=== PATIENT | female | born 1950 | race Caucasian/White ===

== ENCOUNTER → 2019-01-22 | Outpatient (CLI) | payer BC ==
--- NOTE | 2019-01-24 06:57 | PE ---
EXAMINATION TYPE: PET CT fusion skull to thigh DATE OF EXAM: 01/22/2019 COMPARISON: NONE HISTORY: Solitary pulmonary nodule left lung. TECHNIQUE: Following the intravenous administration of 15.613 mCi of F-18 FDG, whole body images are performed from the skull base to the midthigh. Images are reviewed on the computer in the coronal, axial, and sagittal planes. Reconstructed rotating images are created on independent workstation and reviewed on the computer. A noncontrast CT is performed in conjunction with the PET scan. SCAN: Initial Scan FINDINGS: SKULL BASE AND NECK: No suspicious hypermetabolic uptake. CHEST, MEDIASTINUM, AND HILAR REGION: Moderate to advanced emphysematous change most prominent in the upper lungs is present. There is spiculated 1.5 x 1.2 cm hypermetabolic left apical nodule, max SUV is 5.47 on axial image 34. No additional areas of suspicious hypermetabolic uptake or adenopathy are identified. ABDOMEN AND PELVIS: No suspicious hypermetabolic uptake is seen. OSSEOUS STRUCTURES: No suspicious hypermetabolic uptake. OTHER CT: Right globe prosthesis or surgery is suspected. There is moderate to severe calcified plaqu e bilateral carotid bulbs, right greater than left. There is cardiomegaly with moderate to severe biatrial dilatation. There is moderate to severe 3 vess el coronary artery calcification which is noted marked underlying coronary artery disease. Cholecystectomy clips are present. There is moderate to severe calcified plaque of the abdominal aort a extending into pelvic branch vessels. There is multilevel spurring in the thoracolumbar spine. There is exaggerated cervical kyphosis. IMPRESSION: There is suspicious hypermetabolic uptake in the 1.5 cm left apical nodule consistent wit h neoplasm. No suspicious adenopathy or metastatic disease is identified.
== END | disposition home or self-care (01) ==
LOC: RADPETMAIN 15:15
PROVIDERS: ATTEND Internal Medicine Critical Care Medicine
DX: R91.1 Solitary pulmonary nodule (principal)
CPT/HCPCS: 78815; A9552

== ENCOUNTER → 2019-05-18 | Day surgery (SDC) | payer BC ==
[2019-05-13 16:32] VITALS: BMI 23.1
[~2019-05-18] MED LIST: ALBUTEROL INHALER 60 PUFF/8 GM INHALER INHALATION SCH; ALBUTEROL NEBULIZED 2.5 MG/3 ML INHALATION STA; ALPRAZolam 0.25 MG TAB PO PRN; ASPIRIN 325 MG TAB PO ONE; ATORVASTATIN 20 MG TAB PO SCH; CITALOPRAM HYDROBROMIDE 20 MG TAB PO SCH; DIGOXIN 125 MCG TAB PO SCH; HEPARIN SODIUM 1,000 UN/ML (10ML VL) IV ONE; HEPARIN SODIUM 1,000 UN/ML (10ML VL) ONE; IOPAMIDOL-370 125ML BTL INJ ONE; ISOSORBIDE MONONITRATE ER 30 MG TAB.ER.24H PO SCH; LIDOCAINE 1% INJ 10MG/ML (20 ML MDV) ONE; LIDOCAINE 1% INJ 10MG/ML (20 ML MDV) SQ ONE; METOPROLOL SUCCINATE (ER) 100 MG TAB.ER.24H PO SCH; MIDAZOLAM (PF) 2 MG/2 ML VIAL IVP ONE; NON-FORMULARY DRUG (Ipratropium/Albuterol Sulfate [Combivent Respimat Inhaler] 1 PUFF) INHALATION SCH; RIVAROXABAN 20 MG TAB PO SCH; RX INFO: IV CONTRAST WAS GIVEN 1 EACH MISC MISCELLANE PRN; SODIUM CHLORIDE 0.9% 1,000 ML IV SCH; SODIUM CHLORIDE 0.9% 1,000 ML in EMPTY BAG 1 BAG IV ONE; SPIRONOLACTONE 25 MG TAB PO SCH; VERAPAMIL 2.5 MG/ML 2 ML AMP ONE; fentaNYL (PF) 50 MCG/ML 2 ML AMP IV ONE; fentaNYL (PF) 50 MCG/ML 2 ML AMP ONE
[2019-05-18 11:32] VITALS: TEMP 98
[2019-05-18 16:29] VITALS: RESP 22
[2019-05-18 17:10] VITALS: BP 135/60; PULSE 73
--- NOTE | 2019-05-18 20:08 | CC ---
CARDIAC CATHETERIZATION REPORT Mrs. Casey is a 68-year-old female with known history of hypertension who has been followed by Dr. Santacruz and has a history of chronic persistent atrial fibrillation as well history of COPD who has been complaining of progressive symptoms of chest discomfort and dyspnea on exertion. She was evaluated by Dr. Santacruz and recommendation was made regarding cardiac catheterization. The procedure as well as the risks and complication were discussed with the patient who is in full understanding and agreement. PROCEDURE DESCRIPTION: Patient was brought to laboratory aide in a fasting semi-sedated state after receiving fentanyl and Benadryl and achieving moderate conscious sedated state. Using Xylocaine anesthesia and Seldinger technique, a 6-[place] sheath was introduced in the right radial artery. Selective right and left coronary angiography was performed using 5- [place] 3 and half bend right and left Arnaldo catheter multiple views of the coronary artery including hemiaxial views obtained. Following that, 5-[place] tight pigtail catheter was introduced into the left ventricle and a 30 degree SU view of the left ventricle was obtained. Following that, catheter and sheath were removed. Hemostasis was obtained with deployment of a TR band. There was no immediate complication. Patient is returned to her room in stable condition. Of note, the patient received 3500 units of intravenous heparin as well as intra- arterial verapamil. FINDINGS: FLUOROSCOPY: There was calcification involving the coronary arteries. SELECTIVE CORONARY ANGIOGRAM: LEFT MAIN: This is a large-sized vessel bifurcating into left circumflex, left anterior descending artery, left main coronary artery has no evidence of high-grade stenosis. LEFT ANTERIOR DESCENDING ARTERY: This is a large-sized vessel reaching towards the apex, tapers down distal third, giving rise to a moderately sized diagonal branch in the mid segment. The left anterior descending artery in the mid segment has a 20% plaque. The rest of the vessel has no high-grade stenosis. LEFT CIRCUMFLEX: This is a nondominant vessel giving rise to a large obtuse marginal branch that has a mild plaque of about 10%. The rest of the vessel has no high-grade stenosis. RIGHT CORONARY ARTERY: This is a large dominant vessel bifurcating distally into PDA and posterolateral segment and branches, calcified. The right coronary artery in the proximal segment has a 20% to 30% plaque. The right PDA reaches toward the inferior apical wall. The rest of the vessel has no high-grade stenosis. LEFT VENTRICULOGRAM: Left ventriculogram was performed in 30 degree SU view and revealed normal left ventricular size and systolic function. Ejection fraction 60%. There was a 2+ mitral regurgitation but arrhythmia was noted. HEMODYNAMICS: There was no gradient across the aortic valve. The left ventricular end-diastolic pressure was 14-16 mmHg. CONCLUSION: 1. Calcified coronary arteries with mild triple-vessel coronary disease. 2. Normal left ventricular size and systolic function with 2+ mitral regurgitation with arrhythmia. RECOMMENDATIONS: In view of findings and anatomy, I have recommended continued medical therapy with aggressive coronary risk factor modifications that have been initiated. Those findings and recommendation were discussed with the patient and her family and they are in full understanding and agreement. Duration of procedure is 16 minutes. MMHERMINIOL / IJN: [id number] /
== END | disposition home or self-care (01) ==
LOC: CATHCVL 10:49
PROVIDERS: ATTEND Internal Medicine Interventional Cardiology
DX: I11.0 Hypertensive heart disease with heart failure (principal); I50.22 Chronic systolic (congestive) heart failure; I25.10 Atherosclerotic heart disease of native coronary artery without angina pectoris; I25.84 Coronary atherosclerosis due to calcified coronary lesion; I48.2 Chronic atrial fibrillation; I42.0 Dilated cardiomyopathy; J44.9 Chronic obstructive pulmonary disease, unspecified; I08.1 Rheumatic disorders of both mitral and tricuspid valves; I27.20 Pulmonary hypertension, unspecified; Z87.891 Personal history of nicotine dependence; Z82.49 Family history of ischemic heart disease and other diseases of the circulatory system; Z79.01 Long term (current) use of anticoagulants; Z79.82 Long term (current) use of aspirin; Z79.52 Long term (current) use of systemic steroids; Z79.899 Other long term (current) drug therapy
CPT/HCPCS: 94640; 93458; J2001; J3010; J1644; Q9967; J2250

== ENCOUNTER → 2020-12-03 | Outpatient (CLI) | payer MEDICARE ==
--- NOTE | 2020-12-03 10:29 | CT ---
EXAMINATION TYPE: CT chest wo con DATE OF EXAM: 12/03/2020 COMPARISON: Outside PET/CT 12/11/2019 HISTORY: 70-year-old female C3 4.12, lung cancer, Z92.3, Personal history of IRRAD TECHNIQUE: Contiguous axial scanning of the chest without IV contrast. Coronal and sagittal reconstru ctions performed. CT DLP: 259.70 mGycm Automated exposure control for dose reduction was used. FINDINGS: Heart normal size without pericardial effusion. LAD and RCA coronary artery calcifications are presen t. Moderate atherosclerotic arch calcifications. Variant direct takeoff of the left vertebral artery dir ectly from the aortic arch. Mildly enlarged 1.1 cm AP window lymph node remains unchanged. No thoracic lymphadenopathy by CT size criteria. 6 mm irregular nodule posterior right mid lung versus 1.2 cm on 12/11/2019. Focal irregular patchy density anterior right upper lobe extending to the subpleural region unchanged from 12/11/2019. Left greater than right biapical pleuroparenchymal scarring is unchanged. There is new patchy opacity in the posterior left lower lobe that could represent early developing pn eumonitis. No pleural effusion. COPD with moderate to advanced emphysema. Tiny hiatal hernia. Visualized upper abdomen otherwise shows cholecystectomy clips as well as a oment al fat-containing right paramedian epigastric ventral abdominal wall hernia measuring 3.4 cm wide ojse juan jonatan 2.6 cm on 12/11/2019. Moderate atherosclerotic calcifications continue into the upper abdominal aor ta. Bones: No osseous destructive process. IMPRESSION: 1. COPD WITH MODERATE TO ADVANCED EMPHYSEMA. THERE IS NEW PATCHY OPACITY IN THE POSTERIOR LEFT LOWER LOBE THAT COULD REPRESENT EARLY DEVELOPING PNEUMONIA. CORRELATE WITH PATIENT'S SYMPTOMS. 2. A 6 MM IRREGULAR NODULE POSTERIOR RIGHT MIDLUNG IS SMALLER FROM 12/11/2019 WHERE IT MEASURED 1.2 CM. 3. A PATCH OF IRREGULAR OPACITY IN THE ANTERIOR RIGHT UPPER LOBE IS UNCHANGED FROM 12/11/2019. 4. A 3.4 CM OMENTAL FAT-CONTAINING EPIGASTRIC VENTRAL ABDOMINAL WALL HERNIA SLIGHTLY LARGER FROM 2.6 CM, PREVIOUSLY.
== END | disposition home or self-care (01) ==
LOC: RADCTMAIN 08:56
PROVIDERS: ATTEND Radiology Radiation Oncology
DX: J43.9 Emphysema, unspecified (principal); R91.1 Solitary pulmonary nodule; R91.8 Other nonspecific abnormal finding of lung field; C34.12 Malignant neoplasm of upper lobe, left bronchus or lung; Z92.3 Personal history of irradiation; Z87.891 Personal history of nicotine dependence
CPT/HCPCS: 71250

== ENCOUNTER 2020-12-05 13:59 | Inpatient (IN) | payer MEDICARE ==
[2020-12-05] MEDS ORDERED: methylPREDNISolone SOD SUCCI 125 MG/2 ML VIAL IV STA (14:24)
[2020-12-05] MEDS ORDERED: IPRATROPIUM-ALBUTEROL 3 ML NEB INHALATION STA (14:24)
[2020-12-05 14:37] LABS: Basophils # (A) 0.1 k/uL (0-0.2); Basophils % (A) 0 %; Eosinophils # (A) 0.3 k/uL (0-0.7); Eosinophils % (A) 2 %; HGB 13.5 gm/dL (11.4-16.0); Lymphocytes # (A) 1.1 k/uL (1.0-4.8); Lymphocytes % (A) 8 %; MCH 33.4 pg (25.0-35.0); MCHC 33.8 g/dL (31.0-37.0); MCV 98.7 fL (80.0-100.0); Monocytes # (A) 0.7 k/uL (0-1.0); Monocytes % (A) 5 %; Neutrophils # (A) 12.3 k/uL (1.3-7.7); Neutrophils % (A) 85 %; Platelet Count 321 k/uL (150-450); RBC 4.05 m/uL (3.80-5.40); RDW 12.8 % (11.5-15.5); WBC 14.5 k/uL (3.8-10.6)
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
[2020-12-05 14:47] LABS: ALT 19 U/L (4-34); AST 29 U/L (14-36); African American GFR (CKD) >90 (>60 ml/min/1.73 sqM); Albumin 3.9 g/dL (3.5-5.0); Alkaline Phosphatase 103 U/L (38-126); Anion Gap 5 mmol/L; Blood Urea Nitrogen 15 mg/dL (7-17); Calcium 8.5 mg/dL (8.4-10.2); Carbon Dioxide 31 mmol/L (22-30); Chloride 98 mmol/L (98-107); Glucose 101 mg/dL (74-99); Magnesium 2.2 mg/dL (1.6-2.3); Non-African American GFR(CKD) >90 (>60 ml/min/1.73 sqM); Potassium 4.5 mmol/L (3.5-5.1); Sodium 134 mmol/L (137-145); Total Bilirubin 0.7 mg/dL (0.2-1.3)
[2020-12-05 14:48] LABS: INR 1.2 (<1.2); Partial Thromboplastin Time 23.2 sec (22.0-30.0); Prothrombin Time 12.4 sec (9.0-12.0)
--- NOTE | 2020-12-05 15:35 | XR ---
EXAMINATION TYPE: XR chest 2V DATE OF EXAM: 12/05/2020 COMPARISON: Chest x-ray 05/23/2020, chest CT 12/03/2020 HISTORY: Difficulty breathing TECHNIQUE: Frontal and lateral views of the chest are obtained. FINDINGS: There is no focal air space opacity, pleural effusion, or pneumothorax seen. The cardiac silhouette size is within normal limits. Interstitial changes are again noted within the lungs. The re are overlying leads. Aorta is dense. Surgical clips present in the upper abdomen. The osseous stru ctures are intact. IMPRESSION: No acute cardiopulmonary process. There is underlying emphysema, interstitial lung disea se.
[2020-12-05] MEDS ORDERED: AZITHROMYCIN 500 MG in SODIUM CHLORIDE 0.9% 250 ML IVPB STA (16:48)
[2020-12-05] MEDS ORDERED: IPRATROPIUM-ALBUTEROL 3 ML NEB INHALATION PRN ×2 (16:53→20:06)
[2020-12-05] MEDS ORDERED: IPRATROPIUM-ALBUTEROL 3 ML NEB INHALATION SCH (20:00)
[2020-12-05] MEDS ORDERED: ALBUTEROL HFA INHALER INHALATION PRN (20:06)
[2020-12-05] MEDS ORDERED: ACETAMINOPHEN TAB 325 MG TAB PO PRN (20:06)
[2020-12-05] MEDS ORDERED: ALBUTEROL NEBULIZED 2.5 MG/3 ML INHALATION PRN (20:06)
[2020-12-05] MEDS ORDERED: WARFARIN 5 MG TAB PO ONE (21:00)
[2020-12-05] MEDS: DOCUSATE 100 MG CAP PO SCH (21:30)
[2020-12-05] MEDS: METOPROLOL SUCCINATE (ER) 100 MG TAB.ER.24H PO SCH (21:30)
[2020-12-05] MEDS: PREGABALIN 50 MG CAP PO SCH (21:30)
[2020-12-05] MEDS: methylPREDNISolone SOD SUCCI 125 MG/2 ML VIAL IV SCH (21:30)
[2020-12-05] MEDS: ATORVASTATIN 40 MG TAB PO SCH (21:30)
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
[2020-12-06] MEDS: IPRATROPIUM-ALBUTEROL 3 ML NEB INHALATION SCH ×7 (00:01→20:12)
[2020-12-06] MEDS: FORMOTEROL FUMARATE 20 MCG/2 ML NEBU INHALATION SCH ×3 (00:01→20:12)
[2020-12-06] MEDS: methylPREDNISolone SOD SUCCI 125 MG/2 ML VIAL IV SCH ×4 (02:22→20:05)
[2020-12-06 07:02] LABS: Glucose,Whole Blood 153 mg/dL (75-99)
[2020-12-06] MEDS: BUDESONIDE 1 MG/2 ML NEBU INHALATION SCH ×3 (07:57→20:12)
[2020-12-06] MEDS: INSULIN ASPART (NovoLOG) 100 UNIT/ML VIAL SQ SCH ×4 (08:24→20:58)
[2020-12-06] MEDS: DOCUSATE 100 MG CAP PO SCH ×2 (08:24→20:05)
[2020-12-06] MEDS: METOPROLOL SUCCINATE (ER) 100 MG TAB.ER.24H PO SCH ×2 (08:24→20:05)
[2020-12-06] MEDS: DIGOXIN 125 MCG TAB PO SCH (08:24)
[2020-12-06] MEDS: amLODIPine 5 MG TAB PO SCH (08:24)
[2020-12-06] MEDS: CITALOPRAM HYDROBROMIDE 20 MG TAB PO SCH (08:24)
[2020-12-06] MEDS: ISOSORBIDE MONONITRATE ER 30 MG TAB.ER.24H PO SCH (08:24)
[2020-12-06] MEDS: PREGABALIN 50 MG CAP PO SCH ×3 (08:24→20:05)
[2020-12-06 09:21] LABS: INR 1.15 (0.90-1.11); Prothrombin Time 12.4 sec (9.9-11.9)
[2020-12-06 11:35] LABS: Glucose,Whole Blood 100 mg/dL (75-99)
[2020-12-06] MEDS: AMOXIC-POT CLAV 875-125MG 1 EACH TAB PO SCH ×2 (11:54→20:06)
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
[2020-12-06 16:51] LABS: Glucose,Whole Blood 102 mg/dL (75-99)
[2020-12-06] MEDS ORDERED: WARFARIN 5 MG TAB PO SCH (17:00)
[2020-12-06] MEDS ORDERED: WARFARIN 7.5 MG TAB PO ONE (18:00)
[2020-12-06] MEDS: FERROUS SULFATE 325 MG TAB PO SCH (18:26)
[2020-12-06] MEDS: ASPIRIN 81 MG PO SCH (18:26)
[2020-12-06] MEDS: MULTIVITAMINS, THERA 1 EACH TAB PO SCH (18:26)
--- NOTE | 2020-12-06 19:30 | P.PN ---
Progress Note - Text Progress Note Date: 12/06/20 Chief Complaint: Short of breath History of presenting complaint: This is a pleasant 70-year-old patient of Dr. García. Follows with sweep molder Dr. Murphy. Chronic stable medical conditions include atrial fibrillation, hyperlipidemia, hypertension, history of lung cancer treated with chemotherapy back in 2019. Patient at home is on 4 L of oxygen. Patient does get exacerbations of getting more short of breath.. Today she was visiting her border patrol agent when she became much worse short of breath. Patient's appetite has been down. Has a port accessed always. No fever no chills. No change in her bowel habits. Hospital course: Admitted with COPD exacerbation. Started on oxygen, DuoNeb, IV Solu-Medrol, inhaled steroids. Today-sitting up in bed. Tolerating a diet. Still short of breath and wheezing. Tired. On oxygen. Review of systems: Was done for constitutional, cardiovascular, GI, pulmonary. relevant finding as above Active Medications Acetaminophen (Acetaminophen Tab 325 Mg Tab) 650 mg PO Q4H PRN PRN Reason: Pain or Fever > 100.5 Last Admin: 12/06/20 12:00 Dose: 650 mg Documented by: Albuterol/Ipratropium (Ipratropium-Albuterol 3 Ml Neb) 3 ml INHALATION RT-Q2H PRN PRN Reason: Shortness Of Breath Or Wheezing Last Admin: 12/06/20 06:03 Dose: 3 ml Documented by: Albuterol/Ipratropium (Ipratropium-Albuterol 3 Ml Neb) 3 ml INHALATION RT-Q4H [facility] Last Admin: 12/06/20 16:02 Dose: 3 ml Documented by: Amlodipine Besylate (Amlodipine 5 Mg Tab) 5 mg PO DAILY [facility] Last Admin: 12/06/20 08:24 Dose: 5 mg Documented by: Amoxicillin/Clavulanate Potassium (Amoxic-Pot Clav 875-125mg 1 Each Tab) 1 each PO Q12HR [facility] Last Admin: 12/06/20 11:54 Dose: 1 each Documented by: Aspirin (Aspirin 81 Mg) 81 mg PO DAILY@1700 [facility] Last Admin: 12/06/20 18:26 Dose: 81 mg Documented by: Atorvastatin Calcium (Atorvastatin 40 Mg Tab) 40 mg PO HS [facility] Last Admin: 12/05/20 21:30 Dose: 40 mg Documented by: Budesonide (Budesonide 1 Mg/2 Ml Nebu) 1 mg INHALATION RT-BID [facility] Last Admin: 12/06/20 07:57 Dose: 1 mg Documented by: Citalopram Hydrobromide (Citalopram Hydrobromide 20 Mg Tab) 20 mg PO DAILY [facility] Last Admin: 12/06/20 08:24 Dose: 20 mg Documented by: Digoxin (Digoxin 125 Mcg Tab) 125 mcg PO DAILY [facility] Last Admin: 12/06/20 08:24 Dose: 125 mcg Documented by: Docusate Sodium (Docusate 100 Mg Cap) 100 mg PO BID [facility] Last Admin: 12/06/20 08:24 Dose: 100 mg Documented by: Ferrous Sulfate (Ferrous Sulfate 325 Mg Tab) 325 mg PO DAILY@1700 [facility] Last Admin: 12/06/20 18:26 Dose: 325 mg Documented by: Formoterol Fumarate (Formoterol Fumarate 20 Mcg/2 Ml Nebu) 20 mcg INHALATION RT-BID [facility] Last Admin: 12/06/20 07:57 Dose: 20 mcg Documented by: Guaifenesin (Guaifenesin Syrup 100mg/5ml 200 Mg/10 Ml Cup) 400 mg PO Q8H PRN PRN Reason: Congestion Insulin Aspart (Insulin Aspart (Novolog) 100 Unit/Ml Vial) 0 unit SQ [facility]; Protocol Last Admin: 12/06/20 18:26 Dose: Not Given Documented by: Isosorbide Mononitrate (Isosorbide Mononitrate Er 30 Mg Tab.Er.24h) 30 mg PO DAILY [facility] Last Admin: 12/06/20 08:24 Dose: 30 mg Documented by: Lorazepam (Lorazepam 0.5 Mg Tab) 0.5 mg PO BID PRN PRN Reason: Anxiety Methylprednisolone Sodium Succinate (Methylprednisolone Sod Succi 125 Mg/2 Ml Vial) 60 mg IV Q6H [facility] Last Admin: 12/06/20 15:16 Dose: 60 mg Documented by: Metoprolol Succinate (Metoprolol Succinate (Er) 100 Mg Tab.Er.24h) 100 mg PO BID [facility] Last Admin: 12/06/20 08:24 Dose: 100 mg Documented by: Miscellaneous Information (Warfarin Per Pharmacy) 0 each MISCELLANE DIRECTED PRN PRN Reason: ANTICOAG Multivitamins (Multivitamins, Thera 1 Each Tab) 1 each PO DAILY@1700 [facility] Last Admin: 12/06/20 18:26 Dose: 1 each Documented by: Pregabalin (Pregabalin 50 Mg Cap) 50 mg PO TID [facility] Last Admin: 12/06/20 15:17 Dose: 50 mg Documented by: Past medical history to include: Atrial fibrillation, lung cancer treated with chemotherapy 2019, COPD, hypertension, hyperlipidemia, home oxygen 4 L, anxiety depression Social history: Lives alone. Does have a walker. Smokes 2 packs a day from age of 10. In 2018. Drinks 7 beers weekly. Family history: Reviewed, noncontributory to presentation Physical examination: VITAL SIGNS: 97.9, 83, 20, 1 6581, 97% on 4 L GENERAL: Sitting up in bed, short of breath eating EYES: Pupils equal. Conjunctiva normal. HEENT: External appearance of nose and ears normal, oral cavity grossly normal. NECK: JVD not raised; masses not palpable. HEART: First and second heart sounds are normal; no edema. LUNGS: Respiratory rate increased, decreased breath sounds prolonged expiration and wheezing. ABDOMEN: Soft, nontender, liver spleen not palpable, no masses palpable. PSYCH: [Alert and oriented x3; mood and affect anxious. INVESTIGATIONS, reviewed in the clinical context: White count 14.5 hemoglobin 13.5 platelets 321 potassium 4.5 creatinine 0.61 ProBNP 1410 Coronavirus [PCR]-not detected EKG tracing personally reviewed by me-atrial fibrillation rate of 89 Chest x-ray film personally reviewed by me-hyperinflated some chronic interstitial changes Assessment and plan: -Acute severe COPD exacerbation, steroid dependent in an ex-smoker. Continue nebulized bronchodilators, IV and inhaled steroids, nebulized long-acting bronchodilator. Pulmonary on the case-slow to respond -Acute on chronic hypoxic respiratory failure from underlying COPD exacerbation, continue with oxygen supplementation-slow to respond -Persistent atrial fibrillation, continue with Coumadin, beta shai -Essential hypertension -continue with Norvasc -Hyperlipidemia continue with Lipitor -Anxiety depression not otherwise specified continue with Celexa -Chronic medical debility does use a walker -Coumadin monitoring per pharmacy Discussed with the patient. Continue current medications.
[2020-12-06 19:59] LABS: Glucose,Whole Blood 145 mg/dL (75-99)
[2020-12-06] MEDS: ATORVASTATIN 40 MG TAB PO SCH (20:05)
[2020-12-07] MEDS: IPRATROPIUM-ALBUTEROL 3 ML NEB INHALATION SCH ×6 (01:17→19:45)
[2020-12-07] MEDS: methylPREDNISolone SOD SUCCI 125 MG/2 ML VIAL IV SCH ×4 (02:58→20:25)
[2020-12-07] MEDS: FORMOTEROL FUMARATE 20 MCG/2 ML NEBU INHALATION SCH ×2 (07:33→19:45)
[2020-12-07] MEDS: BUDESONIDE 1 MG/2 ML NEBU INHALATION SCH ×2 (07:34→19:45)
[2020-12-07 07:45] LABS: Glucose,Whole Blood 134 mg/dL (75-99)
[2020-12-07] MEDS: INSULIN ASPART (NovoLOG) 100 UNIT/ML VIAL SQ SCH ×4 (07:56→21:07)
[2020-12-07] MEDS: DOCUSATE 100 MG CAP PO SCH ×2 (07:56→20:26)
[2020-12-07] MEDS: amLODIPine 5 MG TAB PO SCH (07:56)
[2020-12-07] MEDS: AMOXIC-POT CLAV 875-125MG 1 EACH TAB PO SCH ×2 (07:56→20:25)
[2020-12-07] MEDS: CITALOPRAM HYDROBROMIDE 20 MG TAB PO SCH (07:56)
[2020-12-07] MEDS: DIGOXIN 125 MCG TAB PO SCH (07:57)
[2020-12-07] MEDS: ISOSORBIDE MONONITRATE ER 30 MG TAB.ER.24H PO SCH (07:57)
[2020-12-07] MEDS: PREGABALIN 50 MG CAP PO SCH ×3 (07:57→20:25)
[2020-12-07] MEDS: METOPROLOL SUCCINATE (ER) 100 MG TAB.ER.24H PO SCH ×2 (07:57→20:25)
[2020-12-07 10:52] LABS: INR 1.53 (0.90-1.11); Prothrombin Time 16.2 sec (9.9-11.9)
[2020-12-07 11:47] LABS: Glucose,Whole Blood 107 mg/dL (75-99)
--- NOTE | 2020-12-07 11:47 | P.PN ---
Subjective This is a pleasant 70-year-old patient of Dr. García. Follows with oncologist Dr. Murphy. Chronic stable medical conditions include atrial fibrillation, hyperlipidemia, hypertension, history of lung cancer treated with chemotherapy back in 2019. Patient at home is on 4 L of oxygen. Patient does get exacerbations of getting more short of breath.. Today she was visiting her anesthesiologist assistant when she became much worse short of breath. Patient's appetite has been down. Has a port accessed always. No fever no chills. No change in her bowel habits. Hospital course: Admitted with COPD exacerbation. Started on oxygen, DuoNeb, IV Solu-Medrol, inhaled steroids. Today-sitting up in bed. Tolerating a diet. Still short of breath and whee zing. Tired. On oxygen. Subjective: 12/07/2020 This is a pleasant 70 years old female with past medical history of lung cancer status post chemotherapy, atrial fibrillation and coumadine and chronic hypoxic respiratory failure on 4 L oxygen if we are nasal cannula. Presents because of worsening dyspnea of 2 days' duration associated with cough and phlegm. This morning patient is still short of breath although she feels a little better, her dyspnea is more severe with exertion. While cough is a slightly better. She is saturation 98% on 4 L oxygen via nasal cannula. WBC count 14.5 K on admission, no repeat CBC. INR is slightly trending up at 1.5 today. And diverting exams are unremarkable on admission. At home she was on Coumadin 2.5 mg, she was adherent to therapy and compliant, recently her dose was increased by her doctor for subtherapeutic INR less than month ago. Despite her compliance , on admission is her INR is subtherapeutic at 1.2. INR today is 1.5. Blood pressure is 135/64, heart rate is 76. Patient is afebrile. She remains on Augmentin, normal saline at 75 blade per hour and salmeterol 60 mg as well as warfarin and aspirin 81 mg. Pulmonary team on the case Review of systems CONSTITUTIONAL: No fever, no malaise, no fatigue. HEENT: No recent visual problems or hearing problems. Denied any sore throat. CARDIOVASCULAR: No orthopnea, PND, no palpitations, no syncope. PULMONARY: No chest wall tenderness, no hemoptysis. GASTROINTESTINAL: No diarrhea, no nausea, no vomiting, no abdominal pain. Normoactive bowel sounds. NEUROLOGICAL: No headaches, no weakness, no numbness. HEMATOLOGICAL: Denies any bleeding or petechiae. Active Medications Generic Name Dose Route Start Last Admin Trade Name Freq PRN Reason Stop Dose Admin Acetaminophen 650 mg 12/05/20 20:06 12/06/20 12:00 Acetaminophen Tab 325 Mg Tab PO 650 mg Q4H PRN Administration Pain or Fever > 100.5 Albuterol/Ipratropium 3 ml 12/05/20 16:53 12/06/20 06:03 Ipratropium-Albuterol 3 Ml Neb INHALATION 3 ml RT-Q2H PRN Administration Shortness Of Breath Or Wheezing Albuterol/Ipratropium 3 ml 12/05/20 21:45 12/07/20 10:54 Ipratropium-Albuterol 3 Ml Neb INHALATION 3 ml RT-Q4H FLORINDA Administration Amlodipine Besylate 5 mg 12/06/20 09:00 12/07/20 07:56 Amlodipine 5 Mg Tab PO 5 mg DAILY FLORINDA Administration Amoxicillin/Clavulanate Potassium 1 each 12/06/20 11:00 12/07/20 07:56 Amoxic-Pot Clav 875-125mg 1 Each Tab PO 1 each Q12HR FLORINDA Administration Aspirin 81 mg 12/06/20 17:00 12/06/20 18:26 Aspirin 81 Mg PO 81 mg DAILY@1700 FLORINDA Administration Atorvastatin Calcium 40 mg 12/05/20 21:00 12/06/20 20:05 Atorvastatin 40 Mg Tab PO 40 mg HS FLORINDA Administration Budesonide 1 mg 12/05/20 21:44 12/07/20 07:34 Budesonide 1 Mg/2 Ml Nebu INHALATION 1 mg RT-BID FLORINDA Administration Citalopram Hydrobromide 20 mg 12/06/20 09:00 12/07/20 07:56 Citalopram Hydrobromide 20 Mg Tab PO 20 mg DAILY FLORIDNA Administration Digoxin 125 mcg 12/06/20 09:00 12/07/20 07:57 Digoxin 125 Mcg Tab PO 125 mcg DAILY FLORINDA Administration Docusate Sodium 100 mg 12/05/20 21:00 12/07/20 07:56 Docusate 100 Mg Cap PO 100 mg BID FLORINDA Administration Ferrous Sulfate 325 mg 12/06/20 17:00 12/06/20 18:26 Ferrous Sulfate 325 Mg Tab PO 325 mg DAILY@1700 FLORINDA Administration Formoterol Fumarate 20 mcg 12/05/20 21:44 12/07/20 07:33 Formoterol Fumarate 20 Mcg/2 Ml Nebu INHALATION 20 mcg RT-BID FLORINDA Administration Guaifenesin 400 mg 12/05/20 20:06 Guaifenesin Syrup 100mg/5ml 200 Mg/10 Ml Cup PO Q8H PRN Congestion Insulin Aspart 0 unit 12/06/20 07:30 12/07/20 07:56 Insulin Aspart (Novolog) 100 Unit/Ml Vial SQ 1 unit ACHS FLORINDA Administration Protocol Isosorbide Mononitrate 30 mg 12/06/20 09:00 12/07/20 07:57 Isosorbide Mononitrate Er 30 Mg Tab.Er.24h PO 30 mg DAILY FLORINDA Administration Lorazepam 0.5 mg 12/05/20 20:06 Lorazepam 0.5 Mg Tab PO BID PRN Anxiety Methylprednisolone Sodium Succinate 60 mg 12/05/20 21:00 12/07/20 07:56 Methylprednisolone Sod Succi 125 Mg/2 Ml Vial IV 60 mg Q6H FLORINDA Administration Metoprolol Succinate 100 mg 12/05/20 21:00 12/07/20 07:57 Metoprolol Succinate (Er) 100 Mg Tab.Er.24h PO 100 mg BID FLORINDA Administration Miscellaneous Information 0 each 12/05/20 20:20 Warfarin Per Pharmacy MISCELLANE DIRECTED PRN ANTICOAG Multivitamins 1 each 12/06/20 17:00 12/06/20 18:26 Multivitamins, Thera 1 Each Tab PO 1 each DAILY@1700 FLORINDA Administration Pregabalin 50 mg 12/05/20 22:00 12/07/20 07:57 Pregabalin 50 Mg Cap PO 50 mg TID FLORINDA Administration Objective - Vital Signs Vital signs: Vital Signs Temp 97.8 F 12/07/20 07:56 Pulse 82 12/07/20 11:05 Resp 21 12/07/20 07:56 BP 135/64 12/07/20 07:56 Pulse Ox 98 12/07/20 07:56 Intake & Output 12/06/20 12/07/20 12/07/20 18:59 06:59 18:59 Intake Total 200 Output Total 2400 Balance -2200 Intake: Oral 200 Output: Urine 2400 Other: Voiding Method Toilet Toilet # Voids 5 # Bowel Movements 2 1 - Exam GENERAL: The patient is alert and oriented x3, not in any acute distress. Well developed, well nourished. HEENT: Pupils are round and equally reacting to light. EOMI. No scleral icterus. No conjunctival pallor. Normocephalic, atraumatic. No pharyngeal erythema. No thyromegaly. CARDIOVASCULAR: S1 and S2 present. No murmurs, rubs, or gallops. -PULMONARY: Chest is clear to auscultation, bilateral scattered wheezing and decreased air entry in both sides ABDOMEN: Soft, nontender, nondistended, normoactive bowel sounds. No palpable organomegaly. MUSCULOSKELETAL: No joint swelling or deformity. EXTREMITIES: No cyanosis, clubbing, or pedal edema. NEUROLOGICAL: Gross neurological examination did not reveal any focal deficits. SKIN: No rashes. no petechiae. - Labs CBC & Chem 7: 12/05/20 14:11 12/05/20 14:11 Labs: Abnormal Lab Results - Last 24 Hours (Table) 12/06/20 12/06/20 12/07/20 Range/Units 16:49 19:58 05:40 PT 16.2 H (9.9-11.9) sec INR 1.53 H (0.90-1.11) POC Glucose (mg/dL) 102 H 145 H (75-99) mg/dL 12/07/20 Range/Units 07:33 PT (9.9-11.9) sec INR (0.90-1.11) POC Glucose (mg/dL) 134 H (75-99) mg/dL Microbiology - Last 24 Hours (Table) 12/05/20 17:15 Blood Culture - Preliminary Blood No Growth after 24 hours Assessment and Plan Assessment: -Acute severe COPD exacerbation, steroid dependent in an ex-smoker. Continue nebulized bronchodilators, IV and inhaled steroids, nebulized long-acting bronchodilator. Pulmonary on the case -Acute on chronic hypoxic respiratory failure from underlying COPD exacerbation, continue with oxygen supplementation -Persistent atrial fibrillation, continue with Coumadin, beta shai -Essential hypertension -continue with Norvasc -Hyperlipidemia continue with Lipitor -Anxiety depression not otherwise specified continue with Celexa, not an active issue -Chronic medical debility does use a walker -Coumadin monitoring per pharmacy
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
[2020-12-07] MEDS ORDERED: WARFARIN 5 MG TAB PO SCH (17:00)
[2020-12-07 17:05] LABS: Glucose,Whole Blood 122 mg/dL (75-99)
[2020-12-07] MEDS: ASPIRIN 81 MG PO SCH (17:26)
[2020-12-07] MEDS: MULTIVITAMINS, THERA 1 EACH TAB PO SCH (17:26)
[2020-12-07] MEDS: FERROUS SULFATE 325 MG TAB PO SCH (17:26)
[2020-12-07] MEDS ORDERED: WARFARIN 7.5 MG TAB PO ONE (18:00)
[2020-12-07] MEDS: ATORVASTATIN 40 MG TAB PO SCH (20:25)
[2020-12-07 21:07] LABS: Glucose,Whole Blood 138 mg/dL (75-99)
[2020-12-08] MEDS: IPRATROPIUM-ALBUTEROL 3 ML NEB INHALATION SCH ×6 (00:49→21:04)
[2020-12-08] MEDS: methylPREDNISolone SOD SUCCI 125 MG/2 ML VIAL IV SCH ×4 (03:15→20:43)
[2020-12-08 07:14] LABS: Glucose,Whole Blood 137 mg/dL (75-99)
[2020-12-08] MEDS: amLODIPine 5 MG TAB PO SCH (07:56)
[2020-12-08] MEDS: ISOSORBIDE MONONITRATE ER 30 MG TAB.ER.24H PO SCH (07:56)
[2020-12-08] MEDS: DOCUSATE 100 MG CAP PO SCH ×2 (07:56→20:42)
[2020-12-08] MEDS: INSULIN ASPART (NovoLOG) 100 UNIT/ML VIAL SQ SCH ×4 (07:56→20:43)
[2020-12-08] MEDS: CITALOPRAM HYDROBROMIDE 20 MG TAB PO SCH (07:57)
[2020-12-08] MEDS: PREGABALIN 50 MG CAP PO SCH ×3 (07:57→20:43)
[2020-12-08] MEDS: METOPROLOL SUCCINATE (ER) 100 MG TAB.ER.24H PO SCH ×2 (07:57→20:42)
[2020-12-08] MEDS: DIGOXIN 125 MCG TAB PO SCH (08:07)
[2020-12-08] MEDS: AMOXIC-POT CLAV 875-125MG 1 EACH TAB PO SCH ×2 (08:07→20:42)
[2020-12-08] MEDS: BUDESONIDE 1 MG/2 ML NEBU INHALATION SCH ×2 (08:18→21:04)
[2020-12-08] MEDS: FORMOTEROL FUMARATE 20 MCG/2 ML NEBU INHALATION SCH ×2 (08:18→21:04)
[2020-12-08 08:52] LABS: Basophils # (A) 0.02 X 10*3/uL (0.00-0.10); Basophils % (A) 0.1 %; Eosinophils # (A) 0 X 10*3/uL (0.04-0.35); Eosinophils % (A) 0 %; HCT 40.2 % (37.2-46.3); HGB 13.1 g/dL (12.0-15.0); Lymphocytes # (A) 0.57 X 10*3/uL (0.90-5.00); Lymphocytes % (A) 3.5 %; MCH 32.2 pg (27.0-32.0); MCHC 32.6 g/dL (32.0-37.0); MCV 98.8 fL (80.0-97.0); Mean Platelet Volume 9.8 fL (9.5-12.2); Monocytes # (A) 0.45 X 10*3/uL (0.20-1.00); Monocytes % (A) 2.8 %; Neutrophils # (A) 15.06 X 10*3/uL (1.80-7.70); Neutrophils % (A) 93.1 %; Platelet Count 336 X 10*3/uL (140-440); RBC 4.07 X 10*6/uL (4.10-5.20); RDW 12.6 % (11.5-14.5); WBC 16.18 X 10*3/uL (4.50-10.00)
[2020-12-08 09:16] LABS: African American GFR (CKD) 100.3 (60.0-200.0); Anion Gap 7.6 mmol/L (4.00-12.00); BUN/Creat Ratio 22.86 Ratio (12.00-20.00); Calcium 9.2 mg/dL (8.7-10.3); Carbon Dioxide 33.4 mmol/L (21.6-31.8); Non-African American GFR(CKD) 86.6 (60.0-200.0); Potassium 4.2 mmol/L (3.5-5.5)
[2020-12-08 10:16] LABS: INR 2.29 (0.90-1.11); Prothrombin Time 23.6 sec (9.9-11.9)
--- NOTE | 2020-12-08 11:25 | P.PN ---
Subjective This is a pleasant 70-year-old patient of Dr. García. Follows with director of supply chain Dr. Murphy. Chronic stable medical conditions include atrial fibrillation, hyperlipidemia, hypertension, history of lung cancer treated with chemotherapy back in 2019. Patient at home is on 4 L of oxygen. Patient does get exacerbations of getting more short of breath.. 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 Patient's appetite has been down. Has a port accessed always. No fever no chills. No change in her bowel habits. Hospital course: Admitted with COPD exacerbation. Started on oxygen, DuoNeb, IV Solu-Medrol, inhaled steroids. Today-sitting up in bed. Tolerating a diet. Still short of breath and whee zing. Tired. On oxygen. Subjective: 12/07/2020 This is a pleasant 70 years old female with past medical history of lung cancer status post chemotherapy, atrial fibrillation and coumadine and chronic hypoxic respiratory failure on 4 L oxygen if we are nasal cannula. Presents because of worsening dyspnea of 2 days' duration associated with cough and phlegm. This morning patient is still short of breath although she feels a little better, her dyspnea is more severe with exertion. While cough is a slightly better. She is saturation 98% on 4 L oxygen via nasal cannula. WBC count 14.5 K on admission, no repeat CBC. INR is slightly trending up at 1.5 today. And diverting exams are unremarkable on admission. At home she was on Coumadin 2.5 mg, she was adherent to therapy and compliant, recently her dose was increased by her doctor for subtherapeutic INR less than month ago. Despite her compliance , on admission is her INR is subtherapeutic at 1.2. INR today is 1.5. Blood pressure is 135/64, heart rate is 76. Patient is afebrile. She remains on Augmentin, normal saline at 75 blade per hour and salmeterol 60 mg as well as warfarin and aspirin 81 mg. Pulmonary team on the case 12/08/2020 Patient dyspnea is improved today, she feels better than yesterday, she still with exertional dyspnea, she has less coughing and phlegm. But she denies chest pain Today his oxygen saturation is 97% on 3 L oxygen via nasal cannula, she still tachycardic around 107. She has leukocytosis of 16 day. BMP is unremarkable. Cardiac index that is slightly up at 33.4. Glucose is controlled. INR today is 2.2 after she received Coumadin 7.5 mg yesterday. Dose is going to be 5 mg today. Follow up INR On exam she still has some basal crepitation and minimal leg edema but patient with no history of heart failure only history of A. fib and warfarin. No echocardiogram and system. History of lung cancer Patient still was on normal saline at 75 mL/h which is stopped. Currently she is on Augmentin and Solu-Medrol 60 mg Objective - Vital Signs Vital signs: Vital Signs Temp 98.2 F 12/08/20 07:56 Pulse 108 H 12/08/20 08:33 Resp 20 12/08/20 07:56 BP 125/86 12/08/20 07:56 Pulse Ox 97 12/08/20 07:56 Intake & Output 12/07/20 12/08/20 12/08/20 18:59 06:59 18:59 Intake Total 240 100 Balance 240 100 Intake: Oral 240 100 Other: Voiding Method Toilet Bedside Commode Bedside Commode # Voids 3 3 - Exam GENERAL: The patient is alert and oriented x3, not in any acute distress. Well developed, well nourished. HEENT: Pupils are round and equally reacting to light. EOMI. No scleral icterus. No conjunctival pallor. Normocephalic, atraumatic. No pharyngeal erythema. No thyromegaly. CARDIOVASCULAR: S1 and S2 present. No murmurs, rubs, or gallops. -PULMONARY: Chest is clear to auscultation, bilateral scattered wheezing and decreased air entry in both sides ABDOMEN: Soft, nontender, nondistended, normoactive bowel sounds. No palpable organomegaly. MUSCULOSKELETAL: No joint swelling or deformity. EXTREMITIES: No cyanosis, clubbing, or pedal edema. NEUROLOGICAL: Gross neurological examination did not reveal any focal deficits. SKIN: No rashes. no petechiae. - Labs CBC & Chem 7: 12/08/20 05:45 12/08/20 05:45 Labs: Abnormal Lab Results - Last 24 Hours (Table) 12/07/20 12/07/20 12/07/20 Range/Units 11:45 17:03 21:02 WBC (4.50-10.00) X 10*3/uL RBC (4.10-5.20) X 10*6/uL MCV (80.0-97.0) fL MCH (27.0-32.0) pg Immature Gran # (0.00-0.04) X 10*3/uL Neutrophils # (1.80-7.70) X 10*3/uL Lymphocytes # (0.90-5.00) X 10*3/uL Eosinophils # (0.04-0.35) X 10*3/uL PT (9.9-11.9) sec INR (0.90-1.11) Carbon Dioxide (21.6-31.8) mmol/L BUN/Creatinine Ratio (12.00-20.00) Ratio Glucose (70-110) mg/dL POC Glucose (mg/dL) 107 H 122 H 138 H (75-99) mg/dL 12/08/20 12/08/20 12/08/20 Range/Units 05:45 05:45 05:45 WBC 16.18 H (4.50-10.00) X 10*3/uL RBC 4.07 L (4.10-5.20) X 10*6/uL MCV 98.8 H (80.0-97.0) fL MCH 32.2 H (27.0-32.0) pg Immature Gran # 0.08 H (0.00-0.04) X 10*3/uL Neutrophils # 15.06 H (1.80-7.70) X 10*3/uL Lymphocytes # 0.57 L (0.90-5.00) X 10*3/uL Eosinophils # 0 L (0.04-0.35) X 10*3/uL PT 23.6 H (9.9-11.9) sec INR 2.29 H (0.90-1.11) Carbon Dioxide 33.4 H (21.6-31.8) mmol/L BUN/Creatinine Ratio 22.86 H (12.00-20.00) Ratio Glucose 125 H (70-110) mg/dL POC Glucose (mg/dL) (75-99) mg/dL 12/08/20 Range/Units 07:13 WBC (4.50-10.00) X 10*3/uL RBC (4.10-5.20) X 10*6/uL MCV (80.0-97.0) fL MCH (27.0-32.0) pg Immature Gran # (0.00-0.04) X 10*3/uL Neutrophils # (1.80-7.70) X 10*3/uL Lymphocytes # (0.90-5.00) X 10*3/uL Eosinophils # (0.04-0.35) X 10*3/uL PT (9.9-11.9) sec INR (0.90-1.11) Carbon Dioxide (21.6-31.8) mmol/L BUN/Creatinine Ratio (12.00-20.00) Ratio Glucose (70-110) mg/dL POC Glucose (mg/dL) 137 H (75-99) mg/dL Microbiology - Last 24 Hours (Table) 12/05/20 17:15 Blood Culture - Preliminary Blood No Growth after 48 hours Assessment and Plan Assessment: -Acute severe COPD exacerbation, steroid dependent in an ex-smoker. Continue nebulized bronchodilators, IV and inhaled steroids, nebulized long-acting bronchodilator. Pulmonary on the case -Acute on chronic hypoxic respiratory failure from underlying COPD exacerbation, continue with oxygen supplementation -Persistent atrial fibrillation, continue with Coumadin, beta shai -History of lung cancer, pulmonary recommendation regarding this. Follow-up as an outpatient -Essential hypertension -continue with Norvasc -Hyperlipidemia continue with Lipitor -Anxiety depression not otherwise specified continue with Celexa, not an active issue -Chronic medical debility does use a walker -Coumadin monitoring per pharmacy
[2020-12-08 11:37] LABS: Glucose,Whole Blood 164 mg/dL (75-99)
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
[2020-12-08 16:29] LABS: Glucose,Whole Blood 114 mg/dL (75-99)
[2020-12-08] MEDS: ASPIRIN 81 MG PO SCH (17:34)
[2020-12-08] MEDS: MULTIVITAMINS, THERA 1 EACH TAB PO SCH (17:34)
[2020-12-08] MEDS: FERROUS SULFATE 325 MG TAB PO SCH (17:35)
[2020-12-08] MEDS ORDERED: WARFARIN 5 MG TAB PO ONE (18:00)
[2020-12-08] MEDS: ATORVASTATIN 40 MG TAB PO SCH (20:42)
[2020-12-08 20:44] LABS: Glucose,Whole Blood 117 mg/dL (75-99)
[2020-12-08] MEDS: guaiFENesin SYRUP 100MG/5ML 200 MG/10 ML CUP PO PRN (20:44)
[2020-12-08] MEDS: LORazepam 0.5 MG TAB PO PRN (20:44)
[2020-12-09] MEDS: IPRATROPIUM-ALBUTEROL 3 ML NEB INHALATION SCH ×7 (00:26→23:20)
[2020-12-09] MEDS: methylPREDNISolone SOD SUCCI 125 MG/2 ML VIAL IV SCH ×4 (05:31→20:57)
[2020-12-09 07:01] LABS: Glucose,Whole Blood 125 mg/dL (75-99)
[2020-12-09] MEDS: BUDESONIDE 1 MG/2 ML NEBU INHALATION SCH ×2 (07:08→19:26)
[2020-12-09] MEDS: FORMOTEROL FUMARATE 20 MCG/2 ML NEBU INHALATION SCH ×2 (07:08→19:26)
--- NOTE | 2020-12-09 07:57 | XR ---
EXAMINATION TYPE: XR chest 2V DATE OF EXAM: 12/09/2020 COMPARISON: Chest x-ray December 05, 2020. CT chest 6 days ago. HISTORY: COPD. TECHNIQUE: Frontal and lateral views of the chest are obtained. FINDINGS: There is background chronic emphysematous and pulmonary fibrotic change without suspicious new focal air space opacity, pleural effusion, or pneumothorax seen. The cardiac silhouette size is stable and within normal limits without atherosclerotic change aortic knob. The osseous structures are demineralized. IMPRESSION: Chronic emphysematous and pulmonary fibrotic change without acute pulmonary process.
[2020-12-09] MEDS: INSULIN ASPART (NovoLOG) 100 UNIT/ML VIAL SQ SCH ×4 (08:04→20:57)
[2020-12-09] MEDS: DOCUSATE 100 MG CAP PO SCH ×2 (08:07→20:56)
[2020-12-09] MEDS: ISOSORBIDE MONONITRATE ER 30 MG TAB.ER.24H PO SCH (08:07)
[2020-12-09] MEDS: DIGOXIN 125 MCG TAB PO SCH (08:07)
[2020-12-09] MEDS: AMOXIC-POT CLAV 875-125MG 1 EACH TAB PO SCH ×2 (08:07→21:02)
[2020-12-09] MEDS: amLODIPine 5 MG TAB PO SCH (08:08)
[2020-12-09] MEDS: CITALOPRAM HYDROBROMIDE 20 MG TAB PO SCH (08:08)
[2020-12-09] MEDS: guaiFENesin SYRUP 100MG/5ML 200 MG/10 ML CUP PO PRN ×2 (08:08→20:57)
[2020-12-09] MEDS: METOPROLOL SUCCINATE (ER) 100 MG TAB.ER.24H PO SCH ×2 (08:22→20:56)
[2020-12-09] MEDS: PREGABALIN 50 MG CAP PO SCH ×3 (08:23→20:56)
--- NOTE | 2020-12-09 10:15 | P.PN ---
Subjective This is a pleasant 70-year-old patient of Dr. García. Follows with environmental field technician Dr. Murphy. Chronic stable medical conditions include atrial fibrillation, hyperlipidemia, hypertension, history of lung cancer treated with chemotherapy back in 2019. Patient at home is on 4 L of oxygen. Patient does get exacerbations of getting more short of breath.. Today she was visiting her pug machine operator when she became much worse short of breath. Patient's appetite has been down. Has a port accessed always. No fever no chills. No change in her bowel habits. Hospital course: Admitted with COPD exacerbation. Started on oxygen, DuoNeb, IV Solu-Medrol, inhaled steroids. Today-sitting up in bed. Tolerating a diet. Still short of breath and whee zing. Tired. On oxygen. Subjective: 12/07/2020 This is a pleasant 70 years old female with past medical history of lung cancer status post chemotherapy, atrial fibrillation and coumadine and chronic hypoxic respiratory failure on 4 L oxygen if we are nasal cannula. Presents because of worsening dyspnea of 2 days' duration associated with cough and phlegm. This morning patient is still short of breath although she feels a little better, her dyspnea is more severe with exertion. While cough is a slightly better. She is saturation 98% on 4 L oxygen via nasal cannula. WBC count 14.5 K on admission, no repeat CBC. INR is slightly trending up at 1.5 today. And diverting exams are unremarkable on admission. At home she was on Coumadin 2.5 mg, she was adherent to therapy and compliant, recently her dose was increased by her doctor for subtherapeutic INR less than month ago. Despite her compliance , on admission is her INR is subtherapeutic at 1.2. INR today is 1.5. Blood pressure is 135/64, heart rate is 76. Patient is afebrile. She remains on Augmentin, normal saline at 75 blade per hour and salmeterol 60 mg as well as warfarin and aspirin 81 mg. Pulmonary team on the case 12/08/2020 Patient dyspnea is improved today, she feels better than yesterday, she still with exertional dyspnea, she has less coughing and phlegm. But she denies chest pain Today his oxygen saturation is 97% on 3 L oxygen via nasal cannula, she still tachycardic around 107. She has leukocytosis of 16 day. BMP is unremarkable. Cardiac index that is slightly up at 33.4. Glucose is controlled. INR today is 2.2 after she received Coumadin 7.5 mg yesterday. Dose is going to be 5 mg today. Follow up INR On exam she still has some basal crepitation and minimal leg edema but patient with no history of heart failure only history of A. fib and warfarin. No echocardiogram and system. History of lung cancer Patient still was on normal saline at 75 mL/h which is stopped. Currently she is on Augmentin and Solu-Medrol 60 mg 12/09/2020 Patient dyspnea is improving gradually and significantly, however patient thinks she still needs one more day when I saw her this morning because she still have some dyspnea and rate and some exertional dyspnea although it looks better. Her coughing is less. She has some left lower chest pain from coughing. She still saturation 98% on 4 L oxygen via nasal cannula which is her baseline. Her INR yesterday was 2.2 therapeutic and she got 5 mg of Coumadin last night. Repeat INR today is pending Currently she is also on Medrol 60 mg and Augmentin, warfarin and aspirin. Objective - Vital Signs Vital signs: Vital Signs Temp 97.9 F 12/09/20 06:55 Pulse 104 H 12/09/20 07:32 Resp 18 12/09/20 07:32 BP 165/83 12/09/20 06:55 Pulse Ox 98 12/09/20 07:10 Intake & Output 12/08/20 12/09/20 12/09/20 18:59 06:59 18:59 Other: Voiding Method Bedside Commode Toilet Bedside Commode # Voids 3 1 - Exam GENERAL: The patient is alert and oriented x3, not in any acute distress. Well developed, well nourished. HEENT: Pupils are round and equally reacting to light. EOMI. No scleral icterus. No conjunctival pallor. Normocephalic, atraumatic. No pharyngeal erythema. No thyromegaly. CARDIOVASCULAR: S1 and S2 present. No murmurs, rubs, or gallops. -PULMONARY: Chest is clear to auscultation, bilateral scattered wheezing and decreased air entry in both sides ABDOMEN: Soft, nontender, nondistended, normoactive bowel sounds. No palpable organomegaly. MUSCULOSKELETAL: No joint swelling or deformity. EXTREMITIES: No cyanosis, clubbing, or pedal edema. NEUROLOGICAL: Gross neurological examination did not reveal any focal deficits. SKIN: No rashes. no petechiae. - Labs CBC & Chem 7: 12/08/20 05:45 12/08/20 05:45 Labs: Abnormal Lab Results - Last 24 Hours (Table) 12/08/20 12/08/20 12/08/20 Range/Units 05:45 11:35 16:28 PT 23.6 H (9.9-11.9) sec INR 2.29 H (0.90-1.11) POC Glucose (mg/dL) 164 H 114 H (75-99) mg/dL 12/08/20 12/09/20 Range/Units 20:42 06:59 PT (9.9-11.9) sec INR (0.90-1.11) POC Glucose (mg/dL) 117 H 125 H (75-99) mg/dL Microbiology - Last 24 Hours (Table) 12/05/20 17:15 Blood Culture - Preliminary Blood No Growth after 72 hours Assessment and Plan Assessment: -Acute severe COPD exacerbation, steroid dependent in an ex-smoker. Continue nebulized bronchodilators, IV and inhaled steroids, nebulized long-acting bronchodilator. Pulmonary on the case -Acute on chronic hypoxic respiratory failure from underlying COPD exacerbation, continue with oxygen supplementation -Persistent atrial fibrillation, continue with Coumadin, beta shai -History of lung cancer, pulmonary recommendation regarding this. Follow-up as an outpatient -Essential hypertension -continue with Norvasc -Hyperlipidemia continue with Lipitor -Anxiety depression not otherwise specified continue with Celexa, not an active issue -Chronic medical debility does use a walker -Coumadin monitoring per pharmacy
[2020-12-09 10:27] LABS: Basophils % (A) 0 %; Eosinophils # (A) 0.1 k/uL (0-0.7); Eosinophils % (A) 1 %; HCT 40.9 % (34.0-46.0); HGB 13.3 gm/dL (11.4-16.0); Lymphocytes # (A) 0.5 k/uL (1.0-4.8); Lymphocytes % (A) 4 %; MCH 32.1 pg (25.0-35.0); MCHC 32.5 g/dL (31.0-37.0); MCV 98.9 fL (80.0-100.0); Mean Platelet Volume 7.9; Monocytes # (A) 0.5 k/uL (0-1.0); Monocytes % (A) 3 %; Neutrophils # (A) 14.3 k/uL (1.3-7.7); Neutrophils % (A) 92 %; Platelet Count 332 k/uL (150-450); RBC 4.13 m/uL (3.80-5.40); RDW 13.1 % (11.5-15.5); WBC 15.5 k/uL (3.8-10.6)
[2020-12-09 10:37] LABS: ALT 27 U/L (4-34); AST 31 U/L (14-36); African American GFR (CKD) >90 (>60 ml/min/1.73 sqM); Albumin 3.3 g/dL (3.5-5.0); Albumin/Globulin Ratio 1.1; Alkaline Phosphatase 79 U/L (38-126); Anion Gap 4 mmol/L; Blood Urea Nitrogen 14 mg/dL (7-17); Calcium 8.7 mg/dL (8.4-10.2); Carbon Dioxide 36 mmol/L (22-30); Chloride 95 mmol/L (98-107); Globulin 2.9 g/dL; Glucose 130 mg/dL (74-99); Non-African American GFR(CKD) 90 (>60 ml/min/1.73 sqM); Potassium 4.9 mmol/L (3.5-5.1); Sodium 135 mmol/L (137-145); Total Bilirubin 0.5 mg/dL (0.2-1.3); Total Protein 6.2 g/dL (6.3-8.2)
[2020-12-09 11:17] LABS: INR 4.28 (0.90-1.11); Prothrombin Time 42.4 sec (9.9-11.9)
[2020-12-09 11:31] LABS: Glucose,Whole Blood 173 mg/dL (75-99)
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
[2020-12-09 16:31] LABS: Glucose,Whole Blood 102 mg/dL (75-99)
[2020-12-09] MEDS: ASPIRIN 81 MG PO SCH (17:26)
[2020-12-09] MEDS: FERROUS SULFATE 325 MG TAB PO SCH (17:26)
[2020-12-09] MEDS: MULTIVITAMINS, THERA 1 EACH TAB PO SCH (17:26)
[2020-12-09] MEDS ORDERED: WARFARIN 0.5 MG TAB PO ONE (18:00)
[2020-12-09 20:47] LABS: Glucose,Whole Blood 252 mg/dL (75-99)
[2020-12-09] MEDS: ATORVASTATIN 40 MG TAB PO SCH (20:56)
[2020-12-09] MEDS: LORazepam 0.5 MG TAB PO PRN (21:02)
[2020-12-10] MEDS: methylPREDNISolone SOD SUCCI 125 MG/2 ML VIAL IV SCH ×2 (03:00→08:12)
[2020-12-10] MEDS: IPRATROPIUM-ALBUTEROL 3 ML NEB INHALATION SCH ×4 (03:16→15:19)
[2020-12-10] MEDS: FORMOTEROL FUMARATE 20 MCG/2 ML NEBU INHALATION SCH (07:11)
[2020-12-10] MEDS: BUDESONIDE 1 MG/2 ML NEBU INHALATION SCH (07:11)
[2020-12-10 07:38] LABS: Glucose,Whole Blood 125 mg/dL (75-99)
[2020-12-10] MEDS: INSULIN ASPART (NovoLOG) 100 UNIT/ML VIAL SQ SCH ×2 (07:40→12:25)
[2020-12-10] MEDS: amLODIPine 5 MG TAB PO SCH (08:12)
[2020-12-10] MEDS: DOCUSATE 100 MG CAP PO SCH (08:12)
[2020-12-10] MEDS: AMOXIC-POT CLAV 875-125MG 1 EACH TAB PO SCH (08:12)
[2020-12-10] MEDS: METOPROLOL SUCCINATE (ER) 100 MG TAB.ER.24H PO SCH (08:12)
[2020-12-10] MEDS: PREGABALIN 50 MG CAP PO SCH ×2 (08:12→16:30)
[2020-12-10] MEDS: ISOSORBIDE MONONITRATE ER 30 MG TAB.ER.24H PO SCH (08:12)
[2020-12-10] MEDS: CITALOPRAM HYDROBROMIDE 20 MG TAB PO SCH (08:12)
[2020-12-10] MEDS: DIGOXIN 125 MCG TAB PO SCH (08:13)
[2020-12-10 09:12] LABS: Basophils # (A) 0.01 X 10*3/uL (0.00-0.10); Basophils % (A) 0.1 %; Eosinophils # (A) 0 X 10*3/uL (0.04-0.35); Eosinophils % (A) 0 %; Lymphocytes # (A) 0.47 X 10*3/uL (0.90-5.00); MCHC 32.5 g/dL (32.0-37.0); MCV 98.5 fL (80.0-97.0); Mean Platelet Volume 9.8 fL (9.5-12.2); Monocytes # (A) 0.38 X 10*3/uL (0.20-1.00); Monocytes % (A) 2.4 %; Neutrophils % (A) 93.7 %; Platelet Count 310 X 10*3/uL (140-440); RBC 4.06 X 10*6/uL (4.10-5.20); RDW 12.6 % (11.5-14.5); WBC 15.58 X 10*3/uL (4.50-10.00)
[2020-12-10 09:23] LABS: INR 3.84 (0.90-1.11); Prothrombin Time 38.3 sec (9.9-11.9)
[2020-12-10] MEDS ORDERED: hydrALAZINE HCL 25 MG TAB PO SCH (09:45)
[2020-12-10 11:33] LABS: Glucose,Whole Blood 163 mg/dL (75-99)
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
[2020-12-10 14:21] VITALS: BP 137/56; RESP 17; TEMP 98.6
[2020-12-10 15:23] VITALS: PULSE 92
[2020-12-10] MEDS ORDERED: WARFARIN 0.5 MG TAB PO ONE (18:00)
--- NOTE | 2020-12-11 00:38 | P.DS ---
Providers Date of admission: 12/05/20 17:52 Attending physician: Babak Rainey Consults: 12/05/20 16:53 Consult Physician Routine Consulting Provider: Lacey Murphy Consult Reason/Comments: COPD exacerbation, lung cancer, pneumonia Do you want consulting provider notified?: Yes Primary care physician: [facility] Course: Diagnoses: -Acute severe COPD exacerbation, -Acute on chronic hypoxic respiratory failure from underlying COPD exacerbation -Persistent atrial fibrillation, continue with Coumadin, beta shai -History of lung cancer, pulmonary recommendation regarding this. Follow-up as an outpatient -Essential hypertension -continue with Norvasc -Hyperlipidemia continue with Lipitor -Anxiety depression not otherwise specified continue with Celexa, not an active issue -Chronic medical debility does use a walker Hospital course: This is a pleasant 70 years old female with past medical history of lung cancer status post chemotherapy, atrial fibrillation and coumadine and chronic hypoxic respiratory failure on 4 L oxygen if we are nasal cannula.Presents because of worsening dyspnea of 2 days' duration associated with cough and phlegm. Patient was found to have acute COPD exacerbation with worsening respiratory failure. Patient has been followed by pulmonary service and she was treated with steroids Solu-Medrol 60 mg and Augmentin as well as bronchodilators and oxygen therapy. Patient showed gradual interval improvement and she is back to her baseline of breathing and baseline of oxygen requirement all 4 L/m similar to her home dose. Today patient feels her breathing is much improved and she can go home. She denies any other symptoms no chest pain or abdominal pain. No change in urine or bowel habits. No fever She had minimal left lower quadrant chest pain related to cough which is significantly improved prior to discharge and it was minimal. And is ambulating in the room with no difficulty and PT evaluation was obtained prior to discharge and she already has a walker at home On the day of discharge patient was cleared by pulmonary service to go home today. Also patient is a Coumadin for A. fib and her INR today is 3.8 which is supratherapeutic. I had an extensive discussion and explanation for the patient about the Coumadin therapy with her niece at bedside. I advised the patient holding Coumadin today and keep checking her INR starting tomorrow with her PCP office Dr. Carmona and to resume a coumadine when INR is below 3.0. Patient verbalized understanding and she said them back to me. Risk of bleeding including but not limited to the brain are explained to the patient and she agrees to continue with Coumadin for now. Patient states that he had a prescription at home and she will resume her home dose of 2.5 mg daily. Problems and management plan were discussed with the patient and her knees at bedside and they verbalized understanding and acceptance Patient was found stable and can be discharged home however he needs follow-up as an outpatient. Patient was instructed to follow up with PCP Dr. Parks within one week and patient agrees. And she was instructed to follow up with Dr. Murphy in 7-10 days and she agrees Physical exam Gen: patient is a AAOx3, no distress CVS: S1-S2, RRR, no murmur Lungs: B/L CTA, no wheezing Abdomen: soft, no distention, no tenderness, positive bowel sounds Extremity: no leg edema or induration Time spent more than 35 minutes This morning patient is still short of breath although she feels a little better, her dyspnea is more severe with exertion. While cough is a slightly better. She is saturation 98% on 4 L oxygen via nasal cannula. WBC count 14.5 K on admission, no repeat CBC. INR is slightly trending up at 1.5 today. And diverting exams are unremarkable on admission. At home she was on Coumadin 2.5 mg, she was adherent to therapy and compliant, recently her dose was increased by her doctor for subtherapeutic INR less than month ago. Despite her compliance , on admission is her INR is subtherapeutic at 1.2. INR today is 1.5. Blood pressure is 135/64, heart rate is 76. Patient is afebrile. She remains on Augmentin, normal saline at 75 blade per hour and salmeterol 60 mg as well as warfarin and aspirin 81 mg. Pulmonary team on the case 12/08/2020 Patient dyspnea is improved today, she feels better than yesterday, she still with exertional dyspnea, she has less coughing and phlegm. But she denies chest pain Today his oxygen saturation is 97% on 3 L oxygen via nasal cannula, she still tachycardic around 107. She has leukocytosis of 16 day. BMP is unremarkable. Cardiac index that is slightly up at 33.4. Glucose is controlled. INR today is 2.2 after she received Coumadin 7.5 mg yesterday. Dose is going to be 5 mg today. Follow up INR On exam she still has some basal crepitation and minimal leg edema but patient with no history of heart failure only history of A. fib and warfarin. No echocardiogram and system. History of lung cancer Patient still was on normal saline at 75 mL/h which is stopped. Currently she is on Augmentin and Solu-Medrol 60 mg 12/09/2020 Patient dyspnea is improving gradually and significantly, however patient thinks she still needs one more day when I saw her this morning because she still have some dyspnea and rate and some exertional dyspnea although it looks better. Her coughing is less. She has some left lower chest pain from coughing. She still saturation 98% on 4 L oxygen via nasal cannula which is her baseline. Her INR yesterday was 2.2 therapeutic and she got 5 mg of Coumadin last night. Repeat INR today is pending Currently she is also on Medrol 60 mg and Augmentin, warfarin and aspirin. Patient Condition at Discharge: Fair Plan - Discharge Summary Discharge Rx Participant: No New Discharge Prescriptions: New hydrALAZINE HCL [Apresoline] 25 mg PO BID 14 Days #14 tab Amoxic-Pot Clav 875-125Mg [Augmentin 875-125] 1 each PO Q12HR 7 Days #14 tab Ipratropium-Albuterol Nebulize [Duoneb 0.5 mg-3 mg/3 ml Soln] 3 ml INHALATION RT-Q2H PRN #100 ml PRN Reason: Shortness Of Breath Or Wheezing Formoterol Fumarate [Perforomist] 20 mcg INHALATION BID #1 nebu predniSONE 10 mg PO DIRECTED #40 tab Continue Digoxin [Digitek] 125 mcg PO DAILY Isosorbide Mononitrate [Isosorbide Mononitrate ER] 30 mg PO DAILY Metoprolol Succinate [Toprol Xl] 100 mg PO BID Citalopram Hydrobromide [Citalopram HBr] 20 mg PO DAILY Ipratropium-Albuterol Nebulize [Duoneb 0.5 mg-3 mg/3 ml Soln] 3 ml INHALATION RT-QID PRN PRN Reason: Shortness Of Breath Acetaminophen [Tylenol Arthritis] 650 mg PO Q4H PRN PRN Reason: Pain Or Fever > 100.5 Multivitamins, Thera [Multivitamin (formulary)] 1 tab PO DAILY@1700 Docusate [Colace] 100 mg PO BID Albuterol Inhaler [Ventolin Hfa Inhaler] 2 puff INHALATION RT-Q4H PRN PRN Reason: Shortness Of Breath Aspirin EC [Ecotrin Low Dose] 81 mg PO DAILY@1700 amLODIPine [Norvasc] 5 mg PO DAILY Atorvastatin Calcium [Lipitor] 40 mg PO HS LORazepam [Ativan] 0.5 mg PO BID PRN PRN Reason: Anxiety predniSONE 7.5 mg PO DAILY Pregabalin [Lyrica] 50 mg PO TID guaiFENesin 400 mg PO Q8H PRN PRN Reason: Congestion Albuterol Nebulized [Ventolin Nebulized] 2.5 mg INHALATION RT-QID PRN PRN Reason: Shortness Of Breath Discontinued Warfarin Sodium 2.5 mg PO WEFR@1700 Warfarin Sodium 5 mg PO SUMOTUTHSA@1700 Discharge Medication List Citalopram Hydrobromide [Citalopram HBr] 20 mg PO DAILY 05/13/19 [History] Digoxin [Digitek] 125 mcg PO DAILY 05/13/19 [History] Isosorbide Mononitrate [Isosorbide Mononitrate ER] 30 mg PO DAILY 05/13/19 [History] Metoprolol Succinate [Toprol Xl] 100 mg PO BID 05/13/19 [History] Acetaminophen [Tylenol Arthritis] 650 mg PO Q4H PRN 12/05/20 [History] Albuterol Inhaler [Ventolin Hfa Inhaler] 2 puff INHALATION RT-Q4H PRN 12/05/20 [History] Albuterol Nebulized [Ventolin Nebulized] 2.5 mg INHALATION RT-QID PRN 12/05/20 [History] Aspirin EC [Ecotrin Low Dose] 81 mg PO DAILY@1700 12/05/20 [History] Atorvastatin Calcium [Lipitor] 40 mg PO HS 12/05/20 [History] Docusate [Colace] 100 mg PO BID 12/05/20 [History] Ipratropium-Albuterol Nebulize [Duoneb 0.5 mg-3 mg/3 ml Soln] 3 ml INHALATION RT-QID PRN 12/05/20 [History] LORazepam [Ativan] 0.5 mg PO BID PRN 12/05/20 [History] Multivitamins, Thera [Multivitamin (formulary)] 1 tab PO DAILY@1700 12/05/20 [History] Pregabalin [Lyrica] 50 mg PO TID 12/05/20 [History] amLODIPine [Norvasc] 5 mg PO DAILY 12/05/20 [History] guaiFENesin 400 mg PO Q8H PRN 12/05/20 [History] predniSONE 7.5 mg PO DAILY 12/05/20 [History] Amoxic-Pot Clav 875-125Mg [Augmentin 875-125] 1 each PO Q12HR 7 Days #14 tab 12/10/20 [Rx] Formoterol Fumarate [Perforomist] 20 mcg INHALATION BID #1 nebu 12/10/20 [Rx] Ipratropium-Albuterol Nebulize [Duoneb 0.5 mg-3 mg/3 ml Soln] 3 ml INHALATION RT-Q2H PRN #100 ml 12/10/20 [Rx] hydrALAZINE HCL [Apresoline] 25 mg PO BID 14 Days #14 tab 12/10/20 [Rx] predniSONE 10 mg PO DIRECTED #40 tab 12/10/20 [Rx] Follow up Appointment(s)/Referral(s): Altaf García MD [Primary Care Provider] - 1-2 days Lacey Murphy MD [STAFF PHYSICIAN] - 10 Days Patient Instructions/Handouts: COPD (Chronic Obstructive Pulmonary Disease) (DC) Activity/Diet/Wound Care/Special Instructions: Low carbohydrate 1600 kcal per day Activity is restricted till you see your doctor Please check your INR daily starting tomorrow 12/29/[address] Fine, no goal INR is 2-3. Resume your Coumadin at home dose of 2.5 mg daily once her INR is below 3. Follow-up with your PCP Dr. Fine for continuous monitoring INR and adjust her Coumadin accordingly Discharge Disposition: HOME WITH HOME HEALTH SERVICES
[2020-12-11] MEDS ORDERED: predniSONE 20 MG TAB PO SCH (09:00)
== END 2020-12-10 16:33 | disposition home or self-care (01) | DRG 190 ==
LOC: EC 13:59 → 4SSUR 17:52
PROVIDERS: ADMIT Hospitalist; ATTEND Hospitalist
DX: J43.9 Emphysema, unspecified (principal); J96.21 Acute and chronic respiratory failure with hypoxia; I48.19 Other persistent atrial fibrillation; J84.10 Pulmonary fibrosis, unspecified; Z20.822 Contact with and (suspected) exposure to COVID-19; R91.1 Solitary pulmonary nodule; E78.5 Hyperlipidemia, unspecified; I10 Essential (primary) hypertension; I25.10 Atherosclerotic heart disease of native coronary artery without angina pectoris; F41.8 Other specified anxiety disorders; H91.90 Unspecified hearing loss, unspecified ear; Z99.81 Dependence on supplemental oxygen; Z79.82 Long term (current) use of aspirin; Z79.01 Long term (current) use of anticoagulants; Z79.52 Long term (current) use of systemic steroids; Z79.899 Other long term (current) drug therapy; Z90.49 Acquired absence of other specified parts of digestive tract; Z87.891 Personal history of nicotine dependence; Z87.19 Personal history of other diseases of the digestive system; Z85.118 Personal history of other malignant neoplasm of bronchus and lung; Z92.3 Personal history of irradiation; Z92.21 Personal history of antineoplastic chemotherapy
CPT/HCPCS: 36415; 71046; 71250; 80048; 80053; 83605; 83735; 83880; 84484; 85025; 85610; 85730; 87040; 87635; 93005; 94640; 94760; 96365; 96375; 99214; 99285

== ENCOUNTER 2021-05-23 12:23 | Inpatient (IN) | payer MEDICARE ==
[2021-05-23] MEDS ORDERED: SODIUM CHLORIDE 0.9% 1,000 ML IV STA (12:29)
[2021-05-23] MEDS ORDERED: IPRATROPIUM-ALBUTEROL 3 ML NEB INHALATION STA (12:32)
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
--- NOTE | 2021-05-23 13:04 | XR ---
EXAMINATION TYPE: XR chest 2V DATE OF EXAM: 05/23/2021 COMPARISON: 12/09/2020 TECHNIQUE: PA and lateral views submitted. HISTORY: Weakness FINDINGS: Initial changes likely on the basis of chronic pulmonary fibrosis with left basilar infiltrate. No pl eural effusion or pneumothorax. Biapical pleural thickening asymmetrically thickened on the left and somewhat nodular. Atherosclerotic change aorta. Diffuse osteopenia. Degenerative change of the spine. IMPRESSION: 1. Pulmonary fibrosis. Left lower lobe superimposed infiltrate with possible interstitial pneumonitis correlate clinically. 2. Asymmetric nodular apical thickening of the left upper lobe similar to the prior chest x-ray datin g back to 05/23/2020 and therefore likely benign.
[2021-05-23 13:16] LABS: ALT 78 U/L (4-34); African American GFR (CKD) >90 (>60 ml/min/1.73 sqM); Albumin 3.1 g/dL (3.5-5.0); Anion Gap 4 mmol/L; Blood Urea Nitrogen 23 mg/dL (7-17); Calcium 8.1 mg/dL (8.4-10.2); Carbon Dioxide 33 mmol/L (22-30); Chloride 94 mmol/L (98-107); Glucose 85 mg/dL (74-99); INR 2.5 (<1.2); Non-African American GFR(CKD) >90 (>60 ml/min/1.73 sqM); Partial Thromboplastin Time 23.1 sec (22.0-30.0); Prothrombin Time 24.1 sec (9.0-12.0); Sodium 131 mmol/L (137-145); Total Bilirubin 0.6 mg/dL (0.2-1.3); Total Protein 5.6 g/dL (6.3-8.2)
[2021-05-23 13:18] LABS: Hypochromasia Moderate; MCH 29.6 pg (25.0-35.0); MCHC 32.4 g/dL (31.0-37.0); MCV 91.6 fL (80.0-100.0); Mean Platelet Volume 7.1; Platelet Count 533 k/uL (150-450); Poikilocytosis Slight; RBC 3.39 m/uL (3.80-5.40); RDW 15.2 % (11.5-15.5); WBC 34.1 k/uL (3.8-10.6)
--- NOTE | 2021-05-23 13:28 | CT ---
EXAMINATION TYPE: CT brain wo con DATE OF EXAM: 05/23/2021 COMPARISON: None HISTORY: 70-year-old female confusion, altered mental status TECHNIQUE: Examination was done in axial plane without intravenous contrast. Coronal and sagittal r econstructions performed. CT DLP: 1099.4 mGycm Automated exposure control for dose reduction was used. FINDINGS: There is no evidence of acute intracranial hemorrhage, acute ischemic changes, mass, mass-effect, or extra-axial fluid collection. There is no effacement of cerebral sulci or basal subarachnoid cister ns. There is no hydrocephalus. There is no midline shift. Horne-white matter distinction is preserv ed. Moderate cortical atrophy along the bilateral convexities. Moderate patchy white matter hypodensities in both cerebral hemispheres. Old basal ganglionic lacunar infarct on the left. Prostatic calcificat ions in the carotid siphons. Mild mucosal thickening left ethmoid air cells. Mastoid air cells are pneumatized. Orbits and globes are intact. Right-sided scleral buckling. IMPRESSION: Moderate generalized cerebral atrophy and moderate burden of chronic small vessel ischemic disease. N o acute intracranial abnormality seen. Mild chronic ethmoid sinus disease on the left.
[2021-05-23 13:48] LABS: AST 58 U/L (14-36); Alkaline Phosphatase 74 U/L (38-126); Magnesium 2.1 mg/dL (1.6-2.3); Phosphorus 4.3 mg/dL (2.5-4.5); Potassium 4.2 mmol/L (3.5-5.1)
[2021-05-23 13:57] LABS: Band Neutrophils % 6 %; Lymphocytes # (M) 1.02 k/uL (1.0-4.8); Monocytes # (M) 1.36 k/uL (0-1.0); Neutrophils % (M) 87 %; Nucleated Red Blood Cells 0 /100 WBC (0-0); Total Cells Counted 100
[2021-05-23] MEDS ORDERED: PNEUMONIA PROTOCOL UTILIZED 1 EACH MISC PO PRN (14:17)
[2021-05-23] MEDS ORDERED: bisacodyL 10 MG SUPP RECTAL PRN (14:21)
[2021-05-23] MEDS ORDERED: MAGNESIUM HYDROXIDE 2,400 MG/10 ML CUP PO PRN (14:21)
[2021-05-23] MEDS ORDERED: NA PHOS,M-B/NA PHOS,DI-BA 133 ML ENEMA RECTAL PRN (14:21)
[2021-05-23 14:35] LABS: Appearance,Urine Clear (Clear); Bilirubin,Urine Negative (Negative); Blood,Urine Negative (Negative); Color,Urine Yellow; Glucose,Urine (UA) Negative (Negative); Ketones,Urine Negative (Negative); Leukocyte Esterase,Urine Trace (Negative); Mucus,Urine Many /hpf; Nitrite,Urine Negative (Negative); Protein,Urine Trace (Negative); RBC,Urine 1 /hpf (0-5); Specific Gravity,Urine 1.023 (1.001-1.035); WBC,Urine 2 /hpf (0-5)
[2021-05-23] MEDS: HYDROcodone/APAP 5-325MG 1 EACH TAB PO PRN (14:39)
--- NOTE | 2021-05-23 16:02 | CT ---
EXAMINATION TYPE: CT angio head neck DATE OF EXAM: 05/23/2021 COMPARISON: Correlation radiographs 05/23/2021 HISTORY: 70-year-old female, acute neurologic deficit, stroke suspected, confusion, Mental status trell nges. TECHNIQUE: Contiguous axial scanning of the head and neck performed with IV Contrast, patient injecte d with 65 mL of Isovue 370. Coronal and sagittal MIP reconstructions performed. 3-D reconstructions g enerated on a dedicated independent workstation. CT DLP: 462.5 mGycm Automated exposure control for dose reduction was used. FINDINGS: NECK: Partially visualized airspace disease posterior left midlung. Enlarged left hilar lymph node measuring 1.6 cm, probably reactive. Mildly enlarged AP window lymph node at 1.2 cm. Large caliber to the right and left main pulmonary arteries and 2.6 and 2.9 cm, respectively, suggest ing underlying pulmonary artery hypertension. Small left pleural effusion. Moderate to advanced centrilobular edema. Biapical pleural-parenchymal s carring. Mild to moderate atherosclerotic arch calcifications. Variant direct takeoff of the left vertebral artery directly from the aortic arch. Vertebral arteries are patent throughout the course. Scattered mild atherosclerotic calcifications throughout the bilateral common carotid arteries. Moderate atherosclerotic calcifications right greater than left carotid bifurcations. On the right, changes result in mild, just under 50% proximal ICA stenosis. On the left, there is occlusion at the level of the carotid bulb. HEAD: The vertebral and basilar arteries are patent. Small left-sided posterior communicating artery seen. Remainder of posterior circulation is patent. Mild atherosclerotic calcifications throughout the right carotid siphon There is reconstitution of the supraclinoid left ICA. Slightly hypoplastic A1 segment left anterior c erebral artery. Otherwise, the anterior circulation is patent. No aneurysmal change is seen. IMPRESSION: NECK: 1. COPD WITH PULMONARY ARTERIAL HYPERTENSION, SMALL LEFT PLEURAL EFFUSION, AND LEFT LOWER LOBE PNEUMO MIMI PARTIALLY VISUALIZED. 1.6 CM LEFT HILAR LYMPH NODE PROBABLY REACTIVE. THREE-MONTH FOLLOW-UP CT TO ENSURE STABILITY/RESOLUTION. THE MILDLY ENLARGED AP WINDOW LYMPH NODE IS UNCHANGED FROM 12/03/2020. 2. PROXIMAL LEFT ICA OCCLUSION. 3. MILD, JUST UNDER 50% PROXIMAL RIGHT ICA STENOSIS. 4. VARIANT DIRECT TAKEOFF OF THE LEFT VERTEBRAL ARTERY DIRECTLY FROM THE AORTIC ARCH. HEAD: 5. AGAIN, OCCLUSION OF THE LEFT ICA. THERE IS RECONSTITUTION ALONG THE SUPRACLINOID PORTION TO FEED T HE ANTERIOR CIRCULATION. 6. OTHERWISE, NO INTRACRANIAL ARTERIAL OCCLUSION, SIGNIFICANT STENOSIS, OR ANEURYSMAL CHANGE IS SEEN.
[2021-05-23] MEDS: IPRATROPIUM-ALBUTEROL 3 ML NEB INHALATION PRN ×2 (16:05→19:58)
[2021-05-23] MEDS ORDERED: ASPIRIN 81 MG PO STA (16:21)
[2021-05-23] MEDS: METOPROLOL SUCCINATE (ER) 100 MG TAB.ER.24H PO SCH (16:59)
[2021-05-23] MEDS: FUROSEMIDE 20 MG TAB PO SCH (16:59)
[2021-05-23] MEDS: PREGABALIN 50 MG CAP PO SCH (16:59)
[2021-05-23] MEDS: MULTIVITAMINS, THERA 1 EACH TAB PO SCH (16:59)
[2021-05-23] MEDS: DOCUSATE 100 MG CAP PO SCH (16:59)
[2021-05-23] MEDS: methylPREDNISolone SOD SUCCI 125 MG/2 ML VIAL IV SCH ×2 (16:59→21:20)
[2021-05-23] MEDS: PIPERACILLIN-TAZOBACTAM 3.375 GM in SODIUM CHLORIDE 0.9% 100 ML IVPB SCH ×2 (17:00→23:00)
[2021-05-23] MEDS: WARFARIN 5 MG TAB PO SCH (17:42)
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
[2021-05-23 20:24] LABS: Glucose,Whole Blood 332 mg/dL (75-99)
[2021-05-23] MEDS: ATORVASTATIN 40 MG TAB PO SCH (21:18)
[2021-05-23] MEDS: MONTELUKAST 10 MG TAB PO SCH (21:18)
[2021-05-23] MEDS: CITALOPRAM HYDROBROMIDE 20 MG TAB PO SCH (21:18)
[2021-05-23] MEDS: INSULIN ASPART (NovoLOG) 100 UNIT/ML VIAL SQ SCH (21:19)
[2021-05-23] MEDS: guaiFENesin SYRUP 100MG/5ML 200 MG/10 ML CUP PO SCH (21:19)
[2021-05-24 06:08] LABS: Glucose,Whole Blood 113 mg/dL (75-99)
[2021-05-24] MEDS: guaiFENesin SYRUP 100MG/5ML 200 MG/10 ML CUP PO SCH ×3 (06:09→20:16)
[2021-05-24] MEDS: PANTOPRAZOLE 40 MG TABLET PO SCH (06:09)
[2021-05-24] MEDS: INSULIN ASPART (NovoLOG) 100 UNIT/ML VIAL SQ SCH ×4 (06:09→20:16)
[2021-05-24] MEDS: methylPREDNISolone SOD SUCCI 125 MG/2 ML VIAL IV SCH (08:11)
[2021-05-24] MEDS: PREGABALIN 50 MG CAP PO SCH ×3 (08:12→16:13)
[2021-05-24] MEDS: DOCUSATE 100 MG CAP PO SCH ×2 (08:12→16:14)
[2021-05-24] MEDS: FUROSEMIDE 20 MG TAB PO SCH ×2 (08:12→16:13)
[2021-05-24] MEDS: PIPERACILLIN-TAZOBACTAM 3.375 GM in SODIUM CHLORIDE 0.9% 100 ML IVPB SCH ×3 (08:12→23:39)
[2021-05-24] MEDS: METOPROLOL SUCCINATE (ER) 100 MG TAB.ER.24H PO SCH ×2 (08:12→16:13)
[2021-05-24] MEDS: ASPIRIN 81 MG PO SCH (08:12)
[2021-05-24] MEDS: amLODIPine 5 MG TAB PO SCH (08:12)
[2021-05-24] MEDS: ISOSORBIDE MONONITRATE ER 30 MG TAB.ER.24H PO SCH (08:12)
[2021-05-24] MEDS: DIGOXIN 125 MCG TAB PO SCH (08:12)
[2021-05-24 08:21] LABS: INR 2.7 (<1.2); Prothrombin Time 26.2 sec (9.0-12.0)
[2021-05-24 08:51] LABS: ALT 67 U/L (4-34); AST 45 U/L (14-36); African American GFR (CKD) >90 (>60 ml/min/1.73 sqM); Albumin 3.1 g/dL (3.5-5.0); Alkaline Phosphatase 84 U/L (38-126); Anion Gap 6 mmol/L; Blood Urea Nitrogen 21 mg/dL (7-17); Calcium 8.3 mg/dL (8.4-10.2); Carbon Dioxide 32 mmol/L (22-30); Chloride 94 mmol/L (98-107); Glucose 105 mg/dL (74-99); Non-African American GFR(CKD) >90 (>60 ml/min/1.73 sqM); Potassium 3.5 mmol/L (3.5-5.1); Sodium 132 mmol/L (137-145); Total Bilirubin 0.7 mg/dL (0.2-1.3); Total Protein 5.6 g/dL (6.3-8.2)
[2021-05-24 08:56] LABS: HCT 30.2 % (34.0-46.0); HGB 9.6 gm/dL (11.4-16.0); Hypochromasia Marked; MCH 29.7 pg (25.0-35.0); MCHC 31.7 g/dL (31.0-37.0); MCV 93.6 fL (80.0-100.0); Mean Platelet Volume 7.8; Platelet Count 436 k/uL (150-450); Poikilocytosis Slight; RBC 3.23 m/uL (3.80-5.40); RDW 14.7 % (11.5-15.5); WBC 28.4 k/uL (3.8-10.6)
[2021-05-24] MEDS: BUDESONIDE 1 MG/2 ML NEBU INHALATION SCH (09:02)
[2021-05-24] MEDS: IPRATROPIUM-ALBUTEROL 3 ML NEB INHALATION PRN ×4 (09:02→19:49)
--- NOTE | 2021-05-24 09:52 | US ---
EXAMINATION TYPE: US carotid duplex BILAT DATE OF EXAM: 05/24/2021 COMPARISON: NONE CLINICAL HISTORY: unresponsive episode. stenosis f/u to CTA EXAM MEASUREMENTS: RIGHT: Peak Systolic Velocity (PSV) cm/sec ----- Right CCA: 76.9 ----- Right ICA: 111.3 ----- Right ECA: 153.0 ICA/CCA ratio: 1.4 RIGHT: End Diastole cm/sec ----- Right CCA: 17.3 ----- Right ICA: 25.7 ----- Right ECA: 0 LEFT: Peak Systolic Velocity (PSV) cm/sec ----- Left CCA: 37.0 ----- Left ICA: Occluded ----- Left ECA: 93.5 ICA/CCA ratio: n/a LEFT: End Diastole cm/sec ----- Left CCA: 11.1 ----- Left ICA: Occluded ----- Left ECA: 0 VERTEBRALS (direction of flow): Right Vertebral: Antegrade Left Vertebral: Antegrade Rhythm: Normal Left ICA Occluded. IMPRESSION: 1. Occluded left ICA. 2. No significant hemodynamic stenosis involving the right internal carotid artery. Atherosclerotic c hanges are noted. NASCET criteria was used in interpretation of this exam? Criteria for Assigning % of Stenosis / Diameter reduction (Estimation based on the indirect measurements of the internal carotid artery velocities (ICA PSV). 1. Normal (no stenosis)=ICA PSV < 125 cm/s: ratio < 2.0: ICA EDV<40 cm/s. 2. Less than 50% stenosis=ICA PSV < 125 cm/s: ratio < 2.0: ICA EDV<40 cm/s. 3. 50 to 69% stenosis=ICA PSV of 125 to 230 cm/s: ration 2.0 ? 4.0: ICA EDV 40-100 cm/s. 4. Greater than 70% stenosis to near occlusion= ICA PSV > 230 cm/s: ratio > 4.0: ICA EDV > 100 cm/s. 5. Near occlusion= ICA PSV velocities may be low or undetectable: variable ratio and ICA EDV. 6. Total occlusion=unable to detect flow.
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
[2021-05-24 11:46] LABS: Glucose,Whole Blood 136 mg/dL (75-99)
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
--- NOTE | 2021-05-24 15:35 | P.PN ---
Subjective Progress Note Date: 05/24/21 HISTORY OF PRESENT ILLNESS 70-year-old female who was transferred from [facility] to [facility] on the for debility post hospitalization for COPD exacerbation and pneumonitis with respiratory failure. Patient was seen Dr. Murphy and her primary care physician in [facility]. Patient also was treated for congestive heart failure. She is known to have history of lung cancer who had post stereotactic body radiotherapy with Dr. Alexanedr this last year successfully and has done well with it. Patient apparently was doing well in the morning her nurse found her unresponsive at the time and found to have slurred speech with altered mental status with slight weakness in the left side compared to her normal status. Patient was hypoxic was having more pulmonary congestion. Ended up coming to demurs department at [facility] where was seen and evaluated her chest x-ray showed pulmonary fibrosis with left lower lobe infiltrate also had symmetric nodular apical thickening of the left upper lobe similar to her previous one from May last year. CT of the brain showed moderate generalized cerebral atrophy with moderate burden of chronic small vessel ischemic disease with no acute intracranial abnormality was seen. CT angiography shows a proximal left internal carotid artery occlusion with mild 50 percentile occlusion of the right side, also finding with COPD with pulmonary artery hypertension small left pleural effusion and left lower lobe ammonia partially visualized with 1.6 cm left hilar lymph node probably reactive. Lab values showed white blood cell of 34,000 with hemoglobin slightly bit down to 10.0, she is on warfarin for A. fib with RVR with her INR was 2.5 for the time. Kidney function with GFR above 90 blood sugar was at 85. Mildly elevated liver function tests with ALT and AST 58 and 78, BNP was 1000 troponin was normal UA showed no major abnormality. Patient will be hospitalized for TIA/CVA, COPD exacerbation, left-sided pneumonia with failure to outpatient treatment. Still finding of lung cancer wi thout any metastasis at this point. 05/24: Patient has been seen by pulmonary medicine for COPD not in exacerbation no need for steroids the patient started on Perforomist twice daily. 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 Plan is for monitoring and follow-up with Dr. Vega. Patient has been afebrile, heart rate 86, blood pressure 143/61, pulse ox 95% on 2 L nasal cannula. WBC 28.4, hemoglobin 9.6, platelet count 436. INR 2.7. Sodium 132, potassium 3.5, chloride 94, CO2 32, BUN 21 creatinine 0.49. Blood Glucose Running Anywhere between 105 and 332. Calcium 8.3, AST 45, ALT 87, Alkaline Phosphatase 84. Consult in place for neurology as well. EEG has been done and report is pending. Patient is followed by PT and OT with discharge plan to [facility] as return. REVIEW OF SYSTEMS Constitutional: No fever, no chills, no night sweats. No weight change. No weakness, fatigue or lethargy. No daytime sleepiness. Mild overweight in mild respiratory distress. EENT: No headache. No blurred vision or double vision, no loss of vision. No loss of Hearing, no ringing in the ears, no dizziness. No nasal drainage or congestion. No epistaxis. No sore throat. Lungs: Slight shortness of breath cough wheezes with sputum production. Cardiovascular: mild dyspnea and shortness of breath no lower extremity edema positive palpitation or chest pain slight PND and orthopnea.. Abdominal: No abdominal pain. No nausea, vomiting. No diarrhea. No constipation. No bloody or tarry stools.. No loss of appetite. Genitourinary: No dysuria, increased frequency, urgency. No urinary retention. Musculoskeletal: No myalgias. No muscle weakness, no gait dysfunction, no frequent falls. No back pain. No neck pain. Generalized muscle pain. Integumentary: No wounds, no lesions. No rash or pruritus. No unusual bruising. No change in hair or nails. Neurologic: No aphasia, slight change mental status, slight weakness left side compared to the right side. Psychiatric: No depression. No anxiety. No mood swings. Endocrine: No abnormal blood sugars. No weight change. No excessive sweating or thirst. No cold intolerance. PHYSICAL EXAMINATION Gen: This is mildly overweight mild respiratory distress. HEENT: Head is atraumatic, normocephalic. Pupils equal, round. Sclerae is anicteric. NECK: Supple. No JVD. No lymphadenopathy. No thyromegaly. LUNGS: Decreased breath some bilaterally with fine rhonchi positive crackles in the left base positive mild inspiratory expiratory wheezes. HEART: Irregular rhythm and rate distress to positive S3 positive PVCs a 5 cm JVD. ABDOMEN: Soft. Bowel sounds are present. No masses. No tenderness. EXTREMITIES: Trace edema decreased pulses dorsalis pedis bilaterally with slight discoloration from the knee down. NEUROLOGICAL: Patient is awake, alert and oriented x3. Cranial nerves 2 through 12 are grossly intact. Positive slight weakness in the left side compared to the right side not been able to do gait exam. ASSESSMENT AND PLAN 1. TIA/CVA: With multiple risk factor, left-sided subtotal occlusion of the left internal carotid artery, patient will be seen neurology, continue neuro exam every 2 hours for the next 12 hours. Start PTOT continue to watch patient cardiovascular monitor she has A. fib but INR has been therapeutic. 2 acute on chronic respiratory failure: With chronic COPD with recent treatment for COPD exacerbation continue medication continue patient on albuterol/ipratropium, continue guaifenesin as I'm and Pulmicort at this point patient was recently on prednisone was started on smaller dose of Solu-Medrol. 3 left lower side pneumonitis has been ruled out by pulmonary medicine. Chronic COPD. Perforomist started. No need for steroids. Pulmonary medicine consult appreciated. 4 A. fib with RVR, chronic atrial fibrillation: Pulse rates under control currently patient has been on digoxin along with metoprolol XL 100 mg twice a day still on warfarin with INR has been therapeutic. 5 history of lung cancer: Post radiation therapy has been seen pulmonary. 6 hyperlipidemia: Continue Lipitor at 40 mg daily. 7 congestive heart failure: Mostly diastolic has been on digoxin along with fur osemide and metoprolol. 8 hyperglycemia/borderline diabetes: Continue patient on Accu-Chek with sliding scales coverage. 9 chronic pain syndrome: Continue hydrocodone along with Lyrica. 10 chronic depression: Has been on Celexa 20 mg a day. 11 debility: Worsening symptoms lately since her hospitalization will start PTOT advance patient will be going back to [facility] after clear medically. 12 GI prophylaxis: Patient will be on pantoprazole 40 mg daily. 13 DVT prophylaxis: Patient remain on warfarin. CODE STATUS: Full code. Discharge plan [facility] return Impression and plan of care have been directed as dictated by the signing physician. Jesenia Mina nurse practitioner acting as scribe for signing physician. Objective - Vital Signs Vital signs: Vital Signs Temp 98 F 05/24/21 08:00 Pulse 76 08/13/21 09:28 Resp 18 05/24/21 08:00 BP 130/66 05/24/21 08:00 Pulse Ox 96 05/24/21 08:00 Intake & Output 05/23/21 05/24/21 05/24/21 18:59 06:59 18:59 Intake Total 100 240 Output Total 1550 Balance -1450 240 Weight 77.564 kg 68.5 kg Intake: Intake, IV Titration 100 Amount Piperacillin-Tazobactam 3 100 .375 gm In Sodium Chloride 0.9% 100 ml @ 25 mls/hr IVPB Q8HR [facility] Rx# :[id number] Oral 240 Output: Urine 1550 Other: Voiding Method Bedside Commode # Voids 1 - Labs CBC & Chem 7: 05/24/21 07:40 05/24/21 07:40 Labs: Abnormal Lab Results - Last 24 Hours (Table) 05/23/21 05/23/21 05/23/21 Range/Units 12:45 12:45 12:45 WBC 34.1 H (3.8-10.6) k/uL RBC 3.39 L (3.80-5.40) m/uL Hgb 10.0 L (11.4-16.0) gm/dL Hct 31.0 L (34.0-46.0) % Plt Count 533 H (150-450) k/uL Neutrophils # (Manual) 31.70 H (1.3-7.7) k/uL Monocytes # (Manual) 1.36 H (0-1.0) k/uL PT 24.1 H (9.0-12.0) sec INR 2.5 H (<1.2) Sodium (137-145) mmol/L Chloride (98-107) mmol/L Carbon Dioxide (22-30) mmol/L BUN (7-17) mg/dL Creatinine (0.52-1.04) mg/dL Glucose (74-99) mg/dL POC Glucose (mg/dL) (75-99) mg/dL Calcium (8.4-10.2) mg/dL AST (14-36) U/L ALT (4-34) U/L Total Protein (6.3-8.2) g/dL Albumin (3.5-5.0) g/dL Urine Protein Trace H (Negative) Ur Leukocyte Esterase Trace H (Negative) Urine Mucus Many H (None) /hpf 05/23/21 05/23/21 05/24/21 Range/Units 12:45 20:23 06:07 WBC (3.8-10.6) k/uL RBC (3.80-5.40) m/uL Hgb (11.4-16.0) gm/dL Hct (34.0-46.0) % Plt Count (150-450) k/uL Neutrophils # (Manual) (1.3-7.7) k/uL Monocytes # (Manual) (0-1.0) k/uL PT (9.0-12.0) sec INR (<1.2) Sodium 131 L (137-145) mmol/L Chloride 94 L (98-107) mmol/L Carbon Dioxide 33 H (22-30) mmol/L BUN 23 H (7-17) mg/dL Creatinine (0.52-1.04) mg/dL Glucose (74-99) mg/dL POC Glucose (mg/dL) 332 H 113 H (75-99) mg/dL Calcium 8.1 L (8.4-10.2) mg/dL AST 58 H (14-36) U/L ALT 78 H (4-34) U/L Total Protein 5.6 L (6.3-8.2) g/dL Albumin 3.1 L (3.5-5.0) g/dL Urine Protein (Negative) Ur Leukocyte Esterase (Negative) Urine Mucus (None) /hpf 05/24/21 05/24/21 05/24/21 Range/Units 07:40 07:40 07:40 WBC 28.4 H (3.8-10.6) k/uL RBC 3.23 L (3.80-5.40) m/uL Hgb 9.6 L (11.4-16.0) gm/dL Hct 30.2 L (34.0-46.0) % Plt Count (150-450) k/uL Neutrophils # (Manual) (1.3-7.7) k/uL Monocytes # (Manual) (0-1.0) k/uL PT 26.2 H (9.0-12.0) sec INR 2.7 H (<1.2) Sodium 132 L (137-145) mmol/L Chloride 94 L (98-107) mmol/L Carbon Dioxide 32 H (22-30) mmol/L BUN 21 H (7-17) mg/dL Creatinine 0.49 L (0.52-1.04) mg/dL Glucose 105 H (74-99) mg/dL POC Glucose (mg/dL) (75-99) mg/dL Calcium 8.3 L (8.4-10.2) mg/dL AST 45 H (14-36) U/L ALT 67 H (4-34) U/L Total Protein 5.6 L (6.3-8.2) g/dL Albumin 3.1 L (3.5-5.0) g/dL Urine Protein (Negative) Ur Leukocyte Esterase (Negative) Urine Mucus (None) /hpf
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
[2021-05-24] MEDS: WARFARIN 5 MG TAB PO SCH (16:13)
[2021-05-24] MEDS: MULTIVITAMINS, THERA 1 EACH TAB PO SCH (16:13)
--- NOTE | 2021-05-24 16:16 | EEG ---
ELECTROENCEPHALOGRAM REPORT DATE OF SERVICE: 05/24/2021. PREAMBLE: This is a 70-year-old female with episode of unresponsiveness. This study is performed to evaluate for any epileptiform activity. EEG FINDINGS: This is a 21 channel routine EEG recording patient utilizing 10/20 international system with referential and bipolar montages. The background consists of moderately well regulated mixed frequencies of low-voltage , some alpha and beta activity, intermixed with 6 hertz moderate amplitude theta activity seen in posterior head region. Background seems to be reactive to eye opening and closing. Photic driving response was not clearly seen. Different stages of sleep were not seen. No focal or generalized epileptiform activity was seen. IMPRESSION: This is an abnormal EEG due to mild background slowing (intermittent), generalized. This is suggestive of mild generalized cerebral dysfunction as can be seen with encephalopathy of toxic, metabolic, vascular, degenerative or medication effect. No epileptiform activity was seen. MMODL / IJN: [id number] / MTDD
[2021-05-24 16:44] LABS: Glucose,Whole Blood 229 mg/dL (75-99)
[2021-05-24] MEDS: FORMOTEROL FUMARATE 20 MCG/2 ML NEBU INHALATION SCH (19:49)
[2021-05-24 20:07] LABS: Glucose,Whole Blood 212 mg/dL (75-99)
[2021-05-24] MEDS: MONTELUKAST 10 MG TAB PO SCH (20:16)
[2021-05-24] MEDS: ATORVASTATIN 40 MG TAB PO SCH (20:16)
[2021-05-24] MEDS: CITALOPRAM HYDROBROMIDE 20 MG TAB PO SCH (20:16)
[2021-05-25 05:51] LABS: Glucose,Whole Blood 135 mg/dL (75-99)
[2021-05-25] MEDS: INSULIN ASPART (NovoLOG) 100 UNIT/ML VIAL SQ SCH ×4 (06:39→20:45)
[2021-05-25] MEDS: guaiFENesin SYRUP 100MG/5ML 200 MG/10 ML CUP PO SCH ×3 (06:39→20:43)
[2021-05-25] MEDS: PANTOPRAZOLE 40 MG TABLET PO SCH (06:39)
[2021-05-25] MEDS: HYDROcodone/APAP 5-325MG 1 EACH TAB PO PRN (06:43)
[2021-05-25 07:49] LABS: HCT 30.1 % (34.0-46.0); HGB 9.5 gm/dL (11.4-16.0); Hypochromasia Marked; MCH 29.7 pg (25.0-35.0); MCHC 31.6 g/dL (31.0-37.0); MCV 94.2 fL (80.0-100.0); Mean Platelet Volume 7.5; Platelet Count 457 k/uL (150-450); Poikilocytosis Slight; RDW 14.6 % (11.5-15.5)
[2021-05-25 07:58] LABS: INR 3.7 (<1.2); Prothrombin Time 35.3 sec (9.0-12.0)
[2021-05-25] MEDS: FORMOTEROL FUMARATE 20 MCG/2 ML NEBU INHALATION SCH ×2 (08:00→20:31)
[2021-05-25] MEDS: BUDESONIDE 1 MG/2 ML NEBU INHALATION SCH (08:00)
[2021-05-25] MEDS: IPRATROPIUM-ALBUTEROL 3 ML NEB INHALATION PRN ×3 (08:00→15:14)
[2021-05-25] MEDS: ISOSORBIDE MONONITRATE ER 30 MG TAB.ER.24H PO SCH (08:18)
[2021-05-25] MEDS: predniSONE 20 MG TAB PO SCH (08:18)
[2021-05-25] MEDS: METOPROLOL SUCCINATE (ER) 100 MG TAB.ER.24H PO SCH ×2 (08:18→17:34)
[2021-05-25] MEDS: DIGOXIN 125 MCG TAB PO SCH (08:18)
[2021-05-25] MEDS: PREGABALIN 50 MG CAP PO SCH ×3 (08:18→17:34)
[2021-05-25] MEDS: ASPIRIN 81 MG PO SCH (08:18)
[2021-05-25] MEDS: amLODIPine 5 MG TAB PO SCH (08:18)
[2021-05-25] MEDS: DOCUSATE 100 MG CAP PO SCH ×2 (08:18→17:33)
[2021-05-25] MEDS: PIPERACILLIN-TAZOBACTAM 3.375 GM in SODIUM CHLORIDE 0.9% 100 ML IVPB SCH (08:19)
[2021-05-25] MEDS: FUROSEMIDE 20 MG TAB PO SCH ×2 (08:19→17:34)
[2021-05-25 08:21] LABS: ALT 58 U/L (4-34); AST 42 U/L (14-36); African American GFR (CKD) >90 (>60 ml/min/1.73 sqM); Albumin 3.2 g/dL (3.5-5.0); Alkaline Phosphatase 78 U/L (38-126); Anion Gap 7 mmol/L; Blood Urea Nitrogen 17 mg/dL (7-17); Calcium 8.1 mg/dL (8.4-10.2); Carbon Dioxide 32 mmol/L (22-30); Chloride 94 mmol/L (98-107); Glucose 81 mg/dL (74-99); Non-African American GFR(CKD) >90 (>60 ml/min/1.73 sqM); Potassium 3.3 mmol/L (3.5-5.1); Sodium 133 mmol/L (137-145); Total Bilirubin 0.8 mg/dL (0.2-1.3); Total Protein 5.7 g/dL (6.3-8.2)
[2021-05-25] MEDS ORDERED: RX INFO: IV CONTRAST WAS GIVEN 1 EACH MISC MISCELLANE PRN (09:58)
--- NOTE | 2021-05-25 11:05 | P.PN ---
Subjective Progress Note Date: 05/25/21 HISTORY OF PRESENT ILLNESS 70-year-old female who was transferred from [facility] to [facility] on the for debility post hospitalization for COPD exacerbation and pneumonitis with respiratory failure. Patient was seen Dr. Murphy and her primary care physician in [facility]. Patient also was treated for congestive heart failure. She is known to have history of lung cancer who had post stereotactic body radiotherapy with Dr. Alexander this last year successfully and has done well with it. Patient apparently was doing well in the morning her nurse found her unresponsive at the time and found to have slurred speech with altered mental status with slight weakness in the left side compared to her normal status. Patient was hypoxic was having more pulmonary congestion. Ended up coming to demurs department at [facility] where was seen and evaluated her chest x-ray showed pulmonary fibrosis with left lower lobe infiltrate also had symmetric nodular apical thickening of the left upper lobe similar to her previous one from May last year. CT of the brain showed moderate generalized cerebral atrophy with moderate burden of chronic small vessel ischemic disease with no acute intracranial abnormality was seen. CT angiography shows a proximal left internal carotid artery occlusion with mild 50 percentile occlusion of the right side, also finding with COPD with pulmonary artery hypertension small left pleural effusion and left lower lobe ammonia partially visualized with 1.6 cm left hilar lymph node probably reactive. Lab values showed white blood cell of 34,000 with hemoglobin slightly bit down to 10.0, she is on warfarin for A. fib with RVR with her INR was 2.5 for the time. Kidney function with GFR above 90 blood sugar was at 85. Mildly elevated liver function tests with ALT and AST 58 and 78, BNP was 1000 troponin was normal UA showed no major abnormality. Patient will be hospitalized for TIA/CVA, COPD exacerbation, left-sided pneumonia with failure to outpatient treatment. Still finding of lung cancer wi thout any metastasis at this point. 05/24: Patient has been seen by pulmonary medicine for COPD not in exacerbation no need for steroids the patient started on Perforomist twice daily. 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 Plan is for monitoring and follow-up with Dr. Vega. Patient has been afebrile, heart rate 86, blood pressure 143/61, pulse ox 95% on 2 L nasal cannula. WBC 28.4, hemoglobin 9.6, platelet count 436. INR 2.7. Sodium 132, potassium 3.5, chloride 94, CO2 32, BUN 21 creatinine 0.49. Blood Glucose Running Anywhere between 105 and 332. Calcium 8.3, AST 45, ALT 87, Alkaline Phosphatase 84. Consult in place for neurology as well. EEG has been done and report is pending. Patient is followed by PT and OT with discharge plan to [facility] as return. 05/25: Patient complains of feeling tired. She complains of cough and her lower ribs are hurting which she thinks is related to coughing. She states she has a continued to go in her throat but can't bring up any phlegm. She states she has spit up some blood which she did this morning. Due to her history of lung cancer, CT of the chest has been ordered. Patient's oncologist was Dr. Alexander. She states her leasing associate is Dr. Santacruz. Patient is afebrile, heart rate in the 80s, blood pressure 166/76, pulse ox 98% on 3 L nasal cannula. Patient has been seen by neurology. EEG showed mild intermittent generalized slowing, suggestive of encephalopathy. No epileptiform activity was seen. No indication for antiepileptic medication. Patient has been cleared by neurology for discharge in a signed off. REVIEW OF SYSTEMS Constitutional: No fever, no chills, no night sweats. No weight change. No weakness, fatigue or lethargy. No daytime sleepiness. Mild overweight in mild respiratory distress. EENT: No headache. No blurred vision or double vision, no loss of vision. No loss of Hearing, no ringing in the ears, no dizziness. No nasal drainage or congestion. No epistaxis. No sore throat. Lungs: Slight shortness of breath cough wheezes with sputum production. Cardiovascular: mild dyspnea and shortness of breath no lower extremity edema positive palpitation or chest pain slight PND and orthopnea.. Abdominal: No abdominal pain. No nausea, vomiting. No diarrhea. No constipation. No bloody or tarry stools.. No loss of appetite. Genitourinary: No dysuria, increased frequency, urgency. No urinary retention. Musculoskeletal: No myalgias. No muscle weakness, no gait dysfunction, no frequent falls. No back pain. No neck pain. Generalized muscle pain. Integumentary: No wounds, no lesions. No rash or pruritus. No unusual b ruising. No change in hair or nails. Neurologic: No aphasia, slight change mental status, slight weakness left side compared to the right side. Psychiatric: No depression. No anxiety. No mood swings. Endocrine: No abnormal blood sugars. No weight change. No excessive sweating or thirst. No cold intolerance. PHYSICAL EXAMINATION Gen: This is mildly overweight mild respiratory distress. HEENT: Head is atraumatic, normocephalic. Pupils equal, round. Sclerae is ani cteric. NECK: Supple. No JVD. No lymphadenopathy. No thyromegaly. LUNGS: Decreased breath some bilaterally with fine rhonchi positive crackles in the left base positive mild inspiratory expiratory wheezes. HEART: Irregular rhythm and rate distress to positive S3 positive PVCs a 5 cm JVD. ABDOMEN: Soft. Bowel sounds are present. No masses. No tenderness. EXTREMITIES: Trace edema decreased pulses dorsalis pedis bilaterally with slight discoloration from the knee down. NEUROLOGICAL: Patient is awake, alert and oriented x3. Cranial nerves 2 through 12 are grossly intact. Positive slight weakness in the left side compared to the right side not been able to do gait exam. ASSESSMENT AND PLAN 1. Difficulty waking from sleep, CVA ruled out. Patient does have a left internal carotid artery occlusion and 50% on the right internal carotid and seen by vascular surgery 2 acute on chronic hypoxic respiratory failure: With chronic COPD with recent treatment for COPD exacerbation continue medication continue patient on albuterol/ipratropium, continue guaifenesin and Pulmicort, oral prednisone 3 left lower side pneumonitis has been ruled out by pulmonary medicine. Chronic COPD. Perforomist started. No need for steroids. Pulmonary medicine consult appreciated. 4 A. fib with RVR, chronic atrial fibrillation: Pulse rates under control currently patient has been on digoxin along with metoprolol XL 100 mg twice a day still on warfarin with INR has been therapeutic. 5 history of lung cancer: Post radiation therapy has been seen pulmonary. 6 hyperlipidemia: Continue Lipitor at 40 mg daily. 7 chronic diastolic heart failure. has been on digoxin along with furosemide and metoprolol. 8 hyperglycemia/borderline diabetes: Continue patient on Accu-Chek with sliding scales coverage. 9 chronic pain syndrome: Continue hydrocodone along with Lyrica. 10 . Recurrent depression: Has been on Celexa 20 mg a day. 11 debility: Worsening symptoms lately since her hospitalization will start PTOT advance patient will be going back to [facility] after clear medically. 12 GI prophylaxis: Patient will be on pantoprazole 40 mg daily. 13 DVT prophylaxis: Patient remain on warfarin. 14. Hemoptysis. CAT scan of the chest without contrast ordered. CODE STATUS: Full code. Discharge plan [place] return on Thursday Impression and plan of care have been directed as dictated by the signing physician. Jesenia Mina nurse practitioner acting as scribe for signing physician. Objective - Vital Signs Vital signs: Vital Signs Temp 97.8 F 05/25/21 08:00 Pulse 80 05/25/21 08:24 Resp 18 05/25/21 08:00 BP 166/76 05/25/21 08:00 Pulse Ox 98 05/25/21 08:00 Intake & Output 05/24/21 05/25/21 05/25/21 18:59 06:59 18:59 Intake Total 480 118 Output Total 2350 300 Balance 480 -2350 -182 Weight 77.2 kg Intake: Oral 480 118 Output: Urine 2350 300 Other: Voiding Method Bedside Commode Bedside Commode # Voids 1 1 - Labs CBC & Chem 7: 05/25/21 07:26 05/25/21 07:26 Labs: Abnormal Lab Results - Last 24 Hours (Table) 05/24/21 05/24/21 05/24/21 Range/Units 11:44 16:42 20:05 WBC (3.8-10.6) k/uL RBC (3.80-5.40) m/uL Hgb (11.4-16.0) gm/dL Hct (34.0-46.0) % Plt Count (150-450) k/uL PT (9.0-12.0) sec INR (<1.2) Sodium (137-145) mmol/L Potassium (3.5-5.1) mmol/L Chloride (98-107) mmol/L Carbon Dioxide (22-30) mmol/L POC Glucose (mg/dL) 136 H 229 H 212 H (75-99) mg/dL Calcium (8.4-10.2) mg/dL AST (14-36) U/L ALT (4-34) U/L Total Protein (6.3-8.2) g/dL Albumin (3.5-5.0) g/dL 05/25/21 05/25/21 05/25/21 Range/Units 05:49 07:26 07:26 WBC (3.8-10.6) k/uL RBC (3.80-5.40) m/uL Hgb (11.4-16.0) gm/dL Hct (34.0-46.0) % Plt Count (150-450) k/uL PT 35.3 H (9.0-12.0) sec INR 3.7 H (<1.2) Sodium 133 L (137-145) mmol/L Potassium 3.3 L (3.5-5.1) mmol/L Chloride 94 L (98-107) mmol/L Carbon Dioxide 32 H (22-30) mmol/L POC Glucose (mg/dL) 135 H (75-99) mg/dL Calcium 8.1 L (8.4-10.2) mg/dL AST 42 H (14-36) U/L ALT 58 H (4-34) U/L Total Protein 5.7 L (6.3-8.2) g/dL Albumin 3.2 L (3.5-5.0) g/dL 05/25/21 Range/Units 07:26 WBC 28.0 H (3.8-10.6) k/uL RBC 3.20 L (3.80-5.40) m/uL Hgb 9.5 L (11.4-16.0) gm/dL Hct 30.1 L (34.0-46.0) % Plt Count 457 H (150-450) k/uL PT (9.0-12.0) sec INR (<1.2) Sodium (137-145) mmol/L Potassium (3.5-5.1) mmol/L Chloride (98-107) mmol/L Carbon Dioxide (22-30) mmol/L POC Glucose (mg/dL) (75-99) mg/dL Calcium (8.4-10.2) mg/dL AST (14-36) U/L ALT (4-34) U/L Total Protein (6.3-8.2) g/dL Albumin (3.5-5.0) g/dL Microbiology - Last 24 Hours (Table) 05/24/21 09:07 Gram Stain - Preliminary Sputum Sputum Culture - Preliminary 05/23/21 14:35 Blood Culture - Preliminary Blood No Growth after 24 hours 05/23/21 14:17 Blood Culture - Preliminary Blood No Growth after 24 hours
--- NOTE | 2021-05-25 11:42 | CT ---
EXAMINATION TYPE: CT chest w con DATE OF EXAM: 05/25/2021 COMPARISON: 12/03/2020 HISTORY: 70-year-old female Hemoptysis, follow up CT Scan TECHNIQUE: Contiguous axial scanning of the chest after the administration of 100 ml mL of Isovue 300 . Coronal/sagittal reconstructions performed. CT DLP: 350.6mGycm. Automatic exposure control utilized for a dose reduction. FINDINGS: Heart normal size without pericardial effusion. LAD and RCA coronary calcifications are present. Aorta normal caliber with mild to moderate atherosclerotic arch calcifications and variant direct dada eoff of the left vertebral artery directly from the aortic arch. Mildly enlarged caliber to the main right and left pulmonary arteries measuring up to 2.6 cm. 1.1 cm left hilar lymph node probably reactive. Otherwise, no thoracic lymphadenopathy by CT size cri teria. Moderate to advanced centrilobular emphysema. Biapical pleural parenchymal scarring. Groundglass focu s anterior right upper lobe is unchanged suggesting some scarring. 4 mm nodule periphery of the right upper lobe, axial image 22 not clearly seen previously. 4 mm posterior right lower lobe pulmonary nodule, axial image 33 not clearly seen previously. Dependent consolidation posterior left base has progressed. There is trace left pleural effusion. Mild circumferential wall thickening distal esophagus. Otherwise, visualized upper abdomen shows no g ross adenopathy. Bones: No osseous destructive process. IMPRESSION: 1. COPD with moderate to advanced emphysema and pulmonary arterial hypertension. CAD with LAD and RCA coronary artery calcifications. 2. Posterior left lower lobe consolidation with a trace effusion. Correlate for pneumonia with parapn eumonic effusion. 3. A couple 4 mm pulmonary nodules on the right not clearly seen previously. Three-month follow-up CT to reassess these findings. 4. Mild circumferential wall thickening distal esophagus may represent esophagitis. Correlate with pa beau's symptoms.
[2021-05-25 11:49] LABS: Glucose,Whole Blood 88 mg/dL (75-99)
[2021-05-25 12:19] LABS: Chol/HDL Ratio 2.31; Cholesterol 155 mg/dL (0-200)
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
[2021-05-25 15:28] LABS: Hemoglobin A1C 5.9 % (4.0-6.0)
[2021-05-25 16:37] LABS: Glucose,Whole Blood 160 mg/dL (75-99)
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
[2021-05-25] MEDS: MULTIVITAMINS, THERA 1 EACH TAB PO SCH (17:33)
[2021-05-25] MEDS ORDERED: WARFARIN 0.5 MG TAB PO ONE (18:00)
[2021-05-25 20:16] LABS: Glucose,Whole Blood 136 mg/dL (75-99)
[2021-05-25] MEDS: CITALOPRAM HYDROBROMIDE 20 MG TAB PO SCH (20:44)
[2021-05-25] MEDS: ATORVASTATIN 40 MG TAB PO SCH (20:44)
[2021-05-25] MEDS: MONTELUKAST 10 MG TAB PO SCH (20:44)
[2021-05-25] MEDS: AMOXIC-POT CLAV 875-125MG 1 EACH TAB PO SCH (20:46)
[2021-05-26] MEDS: IPRATROPIUM-ALBUTEROL 3 ML NEB INHALATION PRN ×4 (04:31→15:27)
[2021-05-26 06:06] LABS: Glucose,Whole Blood 87 mg/dL (75-99)
[2021-05-26] MEDS: INSULIN ASPART (NovoLOG) 100 UNIT/ML VIAL SQ SCH ×4 (06:08→20:43)
[2021-05-26] MEDS: guaiFENesin SYRUP 100MG/5ML 200 MG/10 ML CUP PO SCH ×3 (06:53→20:43)
[2021-05-26] MEDS: PANTOPRAZOLE 40 MG TABLET PO SCH (06:53)
[2021-05-26 07:17] LABS: HCT 29.4 % (34.0-46.0); HGB 9.2 gm/dL (11.4-16.0); Hypochromasia Marked; MCH 29.1 pg (25.0-35.0); MCHC 31.3 g/dL (31.0-37.0); MCV 92.9 fL (80.0-100.0); Mean Platelet Volume 6.7; Platelet Count 452 k/uL (150-450); Poikilocytosis Slight; RBC 3.16 m/uL (3.80-5.40); RDW 15.1 % (11.5-15.5)
[2021-05-26] MEDS: BUDESONIDE 1 MG/2 ML NEBU INHALATION SCH ×2 (07:19→21:41)
[2021-05-26] MEDS: FORMOTEROL FUMARATE 20 MCG/2 ML NEBU INHALATION SCH ×2 (07:19→21:41)
[2021-05-26 07:21] LABS: INR 3.1 (<1.2); Prothrombin Time 29.7 sec (9.0-12.0)
[2021-05-26 07:43] LABS: ALT 68 U/L (4-34); AST 45 U/L (14-36); African American GFR (CKD) >90 (>60 ml/min/1.73 sqM); Albumin 3.1 g/dL (3.5-5.0); Alkaline Phosphatase 77 U/L (38-126); Anion Gap 4 mmol/L; Blood Urea Nitrogen 22 mg/dL (7-17); Calcium 8.4 mg/dL (8.4-10.2); Carbon Dioxide 35 mmol/L (22-30); Chloride 96 mmol/L (98-107); Glucose 74 mg/dL (74-99); Non-African American GFR(CKD) >90 (>60 ml/min/1.73 sqM); Potassium 3.7 mmol/L (3.5-5.1); Sodium 135 mmol/L (137-145); Total Bilirubin 0.5 mg/dL (0.2-1.3); Total Protein 5.4 g/dL (6.3-8.2)
[2021-05-26] MEDS: PREGABALIN 50 MG CAP PO SCH ×3 (07:55→17:18)
[2021-05-26] MEDS: METOPROLOL SUCCINATE (ER) 100 MG TAB.ER.24H PO SCH ×2 (07:55→17:18)
[2021-05-26] MEDS: predniSONE 20 MG TAB PO SCH (07:55)
[2021-05-26] MEDS: amLODIPine 5 MG TAB PO SCH (07:55)
[2021-05-26] MEDS: DIGOXIN 125 MCG TAB PO SCH (07:55)
[2021-05-26] MEDS: FUROSEMIDE 20 MG TAB PO SCH ×2 (07:55→17:18)
[2021-05-26] MEDS: ASPIRIN 81 MG PO SCH (07:55)
[2021-05-26] MEDS: ISOSORBIDE MONONITRATE ER 30 MG TAB.ER.24H PO SCH (07:55)
[2021-05-26] MEDS: DOCUSATE 100 MG CAP PO SCH ×2 (07:55→17:18)
[2021-05-26] MEDS: AMOXIC-POT CLAV 875-125MG 1 EACH TAB PO SCH ×2 (07:55→20:43)
[2021-05-26] MEDS ORDERED: guaiFENesin-Coden 100-10MG/5ML 10 ML CUP PO PRN (09:46)
[2021-05-26] MEDS: OXYMETAZOLINE 0.05% NASL SPRAY 1 SPRAY BOTTLE NASAL SCH ×3 (10:51→20:44)
--- NOTE | 2021-05-26 11:37 | P.PN ---
Subjective Progress Note Date: 05/26/21 HISTORY OF PRESENT ILLNESS 70-year-old female who was transferred from [facility] to [facility] on the for debility post hospitalization for COPD exacerbation and pneumonitis with respiratory failure. Patient was seen Dr. Murphy and her primary care physician in [facility]. Patient also was treated for congestive heart failure. She is known to have history of lung cancer who had post stereotactic body radiotherapy with Dr. Alexander this last year successfully and has done well with it. Patient apparently was doing well in the morning her nurse found her unresponsive at the time and found to have slurred speech with altered mental status with slight weakness in the left side compared to her normal status. Patient was hypoxic was having more pulmonary congestion. Ended up coming to demurs department at [facility] where was seen and evaluated her chest x-ray showed pulmonary fibrosis with left lower lobe infiltrate also had symmetric nodular apical thickening of the left upper lobe similar to her previous one from May last year. CT of the brain showed moderate generalized cerebral atrophy with moderate burden of chronic small vessel ischemic disease with no acute intracranial abnormality was seen. CT angiography shows a proximal left internal carotid artery occlusion with mild 50 percentile occlusion of the right side, also finding with COPD with pulmonary artery hypertension small left pleural effusion and left lower lobe ammonia partially visualized with 1.6 cm left hilar lymph node probably reactive. Lab values showed white blood cell of 34,000 with hemoglobin slightly bit down to 10.0, she is on warfarin for A. fib with RVR with her INR was 2.5 for the time. Kidney function with GFR above 90 blood sugar was at 85. Mildly elevated liver function tests with ALT and AST 58 and 78, BNP was 1000 troponin was normal UA showed no major abnormality. Patient will be hospitalized for TIA/CVA, COPD exacerbation, left-sided pneumonia with failure to outpatient treatment. Still finding of lung cancer wi thout any metastasis at this point. 05/24: Patient has been seen by pulmonary medicine for COPD not in exacerbation no need for steroids the patient started on Perforomist twice daily. 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 Plan is for monitoring and follow-up with Dr. Vega. Patient has been afebrile, heart rate 86, blood pressure 143/61, pulse ox 95% on 2 L nasal cannula. WBC 28.4, hemoglobin 9.6, platelet count 436. INR 2.7. Sodium 132, potassium 3.5, chloride 94, CO2 32, BUN 21 creatinine 0.49. Blood Glucose Running Anywhere between 105 and 332. Calcium 8.3, AST 45, ALT 87, Alkaline Phosphatase 84. Consult in place for neurology as well. EEG has been done and report is pending. Patient is followed by PT and OT with discharge plan to [facility] as return. 05/25: Patient complains of feeling tired. She complains of cough and her lower ribs are hurting which she thinks is related to coughing. She states she has a continued to go in her throat but can't bring up any phlegm. She states she has spit up some blood which she did this morning. Due to her history of lung cancer, CT of the chest has been ordered. Patient's oncologist was Dr. Alexander. She states her mother superior is Dr. Santacruz. Patient is afebrile, heart rate in the 80s, blood pressure 166/76, pulse ox 98% on 3 L nasal cannula. Patient has been seen by neurology. EEG showed mild intermittent generalized slowing, suggestive of encephalopathy. No epileptiform activity was seen. No indication for antiepileptic medication. Patient has been cleared by neurology for discharge in a signed off. 05/26: CT of the chest revealed COPD with moderately advanced emphysema and pulmonary artery hypertension. CAD with LAD and RCA coronary artery calcifications. Posterior left lower lobe consolidation with trace effusion. Correlate for pneumonia with parapneumonic effusion. Couple 4 mm pulmonary nodules in the right, recommended follow-up in 3 months. Mild circumferential wall thickening of the distal esophagus may represent esophagitis. Patient has a right-sided nosebleed started this morning, pressure, has been placed, Afrin will be added and Coumadin placed on hold for 5 days. Patient continues to complain of cough for which Robitussin with codeine added. monitor worker is atrial fibrillation with controlled rate. Cardiology is planning for 30 day ev ent monitor. Pulmonary medicine is change Zosyn to oral Augmentin and is stable from pulmonary standpoint. Sputum cultures in progress. Blood culture no growth in 48 hours 2. Discharge plan remains [facility] on Thursday. REVIEW OF SYSTEMS Constitutional: No fever, no chills, no night sweats. No weight change. No weakness, fatigue or lethargy. No daytime sleepiness. Mild overweight in mild respiratory distress. EENT: No headache. No blurred vision or double vision, no loss of vision. No loss of Hearing, no ringing in the ears, no dizziness. No nasal drainage or congestion. Noted epistaxis. No sore throat. Lungs: Slight shortness of breath cough wheezes with sputum production. Cardiovascular: mild dyspnea and shortness of breath no lower extremity edema p ositive palpitation or chest pain slight PND and orthopnea.. Abdominal: No abdominal pain. No nausea, vomiting. No diarrhea. No constipation. No bloody or tarry stools.. No loss of appetite. Genitourinary: No dysuria, increased frequency, urgency. No urinary retention. Musculoskeletal: No myalgias. No muscle weakness, no gait dysfunction, no frequent falls. No back pain. No neck pain. Generalized muscle pain. Integumentary: No wounds, no lesions. No rash or pruritus. No unusual bruis ing. No change in hair or nails. Neurologic: No aphasia, slight change mental status, slight weakness left side compared to the right side. Psychiatric: No depression. No anxiety. No mood swings. Endocrine: No abnormal blood sugars. No weight change. No excessive sweating or thirst. No cold intolerance. PHYSICAL EXAMINATION Gen: This is mildly overweight mild respiratory distress. HEENT: Head is atraumatic, normocephalic. Pupils equal, round. Sclerae is anicteric. Epistaxis right nares. NECK: Supple. No JVD. No lymphadenopathy. No thyromegaly. LUNGS: Decreased breath some bilaterally with fine rhonchi positive crackles in the left base positive mild inspiratory expiratory wheezes. HEART: Irregular rhythm and rate distress to positive S3 positive PVCs a 5 cm JVD. ABDOMEN: Soft. Bowel sounds are present. No masses. No tenderness. EXTREMITIES: Trace edema decreased pulses dorsalis pedis bilaterally with slight discoloration from the knee down. NEUROLOGICAL: Patient is awake, alert and oriented x3. Cranial nerves 2 through 12 are grossly intact. ASSESSMENT AND PLAN 1. Difficulty waking from sleep, CVA ruled out. Patient does have a left internal carotid artery occlusion and 50% on the right internal carotid and seen by vascular surgery 2 acute on chronic hypoxic respiratory failure: With chronic COPD with recent treatment for COPD exacerbation continue medication continue patient on albuterol/ipratropium, continue guaifenesin and Pulmicort, oral prednisone 3 left lower side pneumonitis has been ruled out by pulmonary medicine. Chronic COPD. Perforomist started. No need for steroids. Pulmonary medicine consult appreciated. Zosyn transitioned to Augmentin. 4 A. fib with RVR, chronic atrial fibrillation: Pulse rates under control currently patient has been on digoxin along with metoprolol XL 100 mg twice a day still on warfarin with INR has been therapeutic. Coumadin placed on hold. 5 history of lung cancer: Post radiation therapy has been seen pulmonary. 6 hyperlipidemia: Continue Lipitor at 40 mg daily. 7 chronic diastolic heart failure. has been on digoxin along with furosemide and metoprolol. 8 hyperglycemia/borderline diabetes: Continue patient on Accu-Chek with sliding scales coverage. 9 chronic pain syndrome: Continue hydrocodone along with Lyrica. 10 . Recurrent depression: Has been on Celexa 20 mg a day. 11 debility: Worsening symptoms lately since her hospitalization will start PTOT advance patient will be going back to [facility] after clear medically. 12 GI prophylaxis: Patient will be on pantoprazole 40 mg daily. 13 DVT prophylaxis: Hold Coumadin 14. Hemoptysis. CAT scan of the chest negative for malignancy. 15. Epistaxis. Continue pressure, Afrin spray, hold Coumadin. CODE STATUS: Full code. Discharge plan [facility] return on Thursday Impression and plan of care have been directed as dictated by the signing physician. Jesenia Mina nurse practitioner acting as scribe for signing physician. Objective - Vital Signs Vital signs: Vital Signs Temp 97.6 F 05/26/21 07:50 Pulse 85 05/26/21 07:50 Resp 18 05/26/21 08:00 BP 118/76 05/26/21 07:50 Pulse Ox 95 05/26/21 07:50 Intake & Output 05/25/21 05/26/21 05/26/21 18:59 06:59 18:59 Intake Total 358 0 Output Total 1400 1000 600 Balance -1042 -1000 -600 Weight 77.1 kg Intake: Oral 358 0 Output: Urine 1400 1000 600 Other: Voiding Method Bedside Commode Bedside Commode Bedside Commode # Voids 2 # Bowel Movements 1 1 - Labs CBC & Chem 7: 05/26/21 06:46 05/26/21 06:46 Labs: Abnormal Lab Results - Last 24 Hours (Table) 05/25/21 05/25/21 05/25/21 Range/Units 07:26 16:31 20:14 WBC (3.8-10.6) k/uL RBC (3.80-5.40) m/uL Hgb (11.4-16.0) gm/dL Hct (34.0-46.0) % Plt Count (150-450) k/uL PT (9.0-12.0) sec INR (<1.2) Sodium (137-145) mmol/L Chloride (98-107) mmol/L Carbon Dioxide (22-30) mmol/L BUN (7-17) mg/dL POC Glucose (mg/dL) 160 H 136 H (75-99) mg/dL AST (14-36) U/L ALT (4-34) U/L Total Protein (6.3-8.2) g/dL Albumin (3.5-5.0) g/dL HDL Cholesterol 67.0 H (40.0-60.0) mg/dL 05/26/21 05/26/21 05/26/21 Range/Units 06:46 06:46 06:46 WBC 28.0 H (3.8-10.6) k/uL RBC 3.16 L (3.80-5.40) m/uL Hgb 9.2 L (11.4-16.0) gm/dL Hct 29.4 L (34.0-46.0) % Plt Count 452 H (150-450) k/uL PT 29.7 H (9.0-12.0) sec INR 3.1 H (<1.2) Sodium 135 L (137-145) mmol/L Chloride 96 L (98-107) mmol/L Carbon Dioxide 35 H (22-30) mmol/L BUN 22 H (7-17) mg/dL POC Glucose (mg/dL) (75-99) mg/dL AST 45 H (14-36) U/L ALT 68 H (4-34) U/L Total Protein 5.4 L (6.3-8.2) g/dL Albumin 3.1 L (3.5-5.0) g/dL HDL Cholesterol (40.0-60.0) mg/dL Microbiology - Last 24 Hours (Table) 05/23/21 14:35 Blood Culture - Preliminary Blood No Growth after 48 hours 05/23/21 14:17 Blood Culture - Preliminary Blood No Growth after 48 hours
--- NOTE | 2021-05-26 11:48 | P.DS ---
Providers Date of admission: 05/23/21 14:17 Expected date of discharge: 05/26/21 Attending physician: Isaak Zavala Consults: 05/23/21 14:17 Consult Physician Routine Consulting Provider: Riki Pena Consult Reason/Comments: unresponsive episode Do you want consulting provider notified?: Yes 05/23/21 14:19 Consult Physician Routine Consulting Provider: Lacey Murphy Consult Reason/Comments: copd, resp failure, pneumonia Do you want consulting provider notified?: Yes 05/25/21 09:53 Consult Physician Routine Consulting Provider: Charla Crane Consult Reason/Comments: syncope, afib Do you want consulting provider notified?: Yes Primary care physician: [facility] Course: HISTORY OF PRESENT ILLNESS 70-year-old female who was transferred [facility] to [facility] on the for debility post hospitalization for COPD exacerbation and pneumonitis with respiratory failure. Patient was seen Dr. Murphy and her primary care physician in [facility]. Patient also was treated for congestive heart failure. She is known to have history of lung cancer who had post stereotactic body radiotherapy with Dr. Alexander this last year successfully and has done well with it. Patient apparently was doing well in the morning her nurse found her unresponsive at the time and found to have slurred speech with altered mental status with slight weakness in the left side compared to her normal status. Patient was hypoxic was having more pulmonary congestion. Ended up coming to demurs department at [facility] where was seen and evaluated her chest x-ray showed pulmonary fibrosis with left lower lobe infiltrate also had symmetric nodular apical thickening of the left upper lobe similar to her previous one from May last year. CT of the brain showed moderate generalized cerebral atrophy with moderate burden of chronic small vessel ischemic disease with no acute intracranial abnormality was seen. CT angiography shows a proximal left internal carotid artery occlusion with mild 50 percentile occlusion of the right side, also finding with COPD with pulmonary artery hypertension small left pleural effusion and left lower lobe ammonia partially visualized with 1.6 cm left hilar lymph node probably reactive. Lab values showed white blood cell of 34,000 with hemoglobin slightly bit down t o 10.0, she is on warfarin for A. fib with RVR with her INR was 2.5 for the time. Kidney function with GFR above 90 blood sugar was at 85. Mildly elevated liver function tests with ALT and AST 58 and 78, BNP was 1000 troponin was normal UA showed no major abnormality. Patient will be hospitalized for TIA/CVA, COPD exacerbation, left-sided pneumonia with failure to outpatient treatment. Still finding of lung cancer without any metastasis at this point. 05/24: Patient has been seen by pulmonary medicine for COPD not in exacerbation no need for steroids the patient started on Perforomist twice daily. Patient has also been seen by vascular surgery for left internal carotid artery occlusion complete and less than 50% on the right internal carotid. Plan is for monitoring and follow-up with Dr. Vega. Patient has been afebrile, heart rate 86, blood pressure 143/61, pulse ox 95% on 2 L nasal cannula. WBC 28.4, hemoglobin 9.6, platelet count 436. INR 2.7. Sodium 132, potassium 3.5, chloride 94, CO2 32, BUN 21 creatinine 0.49. Blood Glucose Running Anywhere between 105 and 332. Calcium 8.3, AST 45, ALT 87, Alkaline Phosphatase 84. Consult in place for neurology as well. EEG has been done and report is pending. Patient is followed by PT and OT with discharge plan to [facility] as return. 05/25: Patient complains of feeling tired. She complains of cough and her lower ribs are hurting which she thinks is related to coughing. She states she has a continued to go in her throat but can't bring up any phlegm. She states she has spit up some blood which she did this morning. Due to her history of lung cancer, CT of the chest has been ordered. Patient's oncologist was Dr. Alexander. She states her line tester is Dr. Santacruz. Patient is afebrile, heart rate in the 80s, blood pressure 166/76, pulse ox 98% on 3 L nasal cannula. Patient has been seen by neurology. EEG showed mild intermittent generalized slowing, suggestive of encephalopathy. No epileptiform activity was seen. No indication for antiepileptic medication. Patient has been cleared by neurology for discharge in a signed off. 05/26: CT of the chest revealed COPD with moderately advanced emphysema and pulmonary artery hypertension. CAD with LAD and RCA coronary artery calcifications. Posterior left lower lobe consolidation with trace effusion. Correlate for pneumonia with parapneumonic effusion. Couple 4 mm pulmonary nodules in the right, recommended follow-up in 3 months. Mild circumferential wall thickening of the distal esophagus may represent esophagitis. Patient has a right-sided nosebleed started this morning, pressure, has been placed, Afrin will be added and Coumadin placed on hold for 5 days. Patient continues to complain of cough for which Robitussin with codeine added. leasing professional is atrial fibrillation with controlled rate. Cardiology is planning for 30 day event monitor. Pulmonary medicine is change Zosyn to oral Augmentin and is st able from pulmonary standpoint. Sputum cultures in progress. Blood culture no growth in 48 hours 2. Discharge plan remains [place] on Thursday. ASSESSMENT AND PLAN 1. Difficulty waking from sleep, CVA ruled out. 2 acute on chronic hypoxic respiratory failure With chronic COPD with recent treatment for COPD exacerbation. 3 left lower side pneumonitis has been ruled out by pulmonary medicine. Chronic COPD. 4 A. fib with RVR, chronic atrial fibrillation 5 history of lung cancer: Post radiation therapy 6 hyperlipidemia: 7 chronic diastolic heart failure 8 hyperglycemia/borderline diabetes, A1c 5.9 9 chronic pain syndrome 10 . Recurrent depression 11 debility: Worsening symptoms lately since her hospitalization 12 Hemoptysis. CAT scan of the chest negative for malignancy. 13. Epistaxis. Discharge plan [place] return on Thursday Impression and plan of care have been directed as dictated by the signing physician. Jesenia Mina nurse practitioner acting as scribe for signing physician. Patient Condition at Discharge: Fair Plan - Discharge Summary Discharge Rx Participant: No New Discharge Prescriptions: New Amoxic-Pot Clav 875-125Mg [Augmentin 875-125] 1 each PO Q12HR #6 tab Formoterol Fumarate [Perforomist] 20 mcg INHALATION RT-BID nebu Oxymetazoline 0.05% Nasl [place] [Afrin 0.05% Nasal [place]] 3 spray NASAL TID 5 Days bottle predniSONE [Deltasone] 20 mg PO DAILY #5 tab Pantoprazole [Protonix] 40 mg PO AC-BRKFST tablet. Continue Digoxin [Digitek] 125 mcg PO DAILY@0800 Isosorbide Mononitrate [Isosorbide Mononitrate ER] 30 mg PO DAILY@0800 Metoprolol Succinate [Toprol Xl] 100 mg PO BID@0800,1700 Citalopram Hydrobromide [Citalopram HBr] 20 mg PO HS Ipratropium-Albuterol Nebulize [Duoneb 0.5 mg-3 mg/3 ml Soln] 3 ml INHALATION RT-QID Multivitamins, Thera [Multivitamin (formulary)] 1 tab PO DAILY@1700 Docusate [Colace] 100 mg PO BID@0800,1700 Aspirin EC [Ecotrin Low Dose] 81 mg PO DAILY@0800 Atorvastatin Calcium [Lipitor] 40 mg PO HS guaiFENesin 400 mg PO TID@0600,1400,2200 bisacodyL [Dulcolax] 10 mg RECTAL DAILY PRN PRN Reason: Constipation Furosemide [Lasix] 20 mg PO BID@0800,1700 Magnesium Hydroxide [Milk of Magnesia Concentrate] 7,200 mg PO DAILY PRN PRN Reason: Constipation Montelukast Sodium [Singulair] 10 mg PO HS Warfarin [Coumadin] 5 mg PO DAILY@1700 Pregabalin [Lyrica] 50 mg PO TID@0800,1200,1700 #9 cap amLODIPine [Norvasc] 5 mg PO DAILY@0800 #0 Na Phos,M-B/Na Phos,Di-Ba [Fleet Adult] 133 ml RECTAL DAILY PRN PRN Reason: Constipation HYDROcodone/APAP 5-325MG [[place] 5-325] 2 tab PO Q6HR PRN #12 tab PRN Reason: Pain Changed Budesonide [Pulmicort] 1 mg INHALATION RT-BID #0 Discontinued predniSONE [Deltasone] See Taper PO DAILY Cefuroxime [Ceftin] 500 mg PO BID@0800,2100 Discharge Medication List Citalopram Hydrobromide [Citalopram HBr] 20 mg PO HS 05/13/19 [History] Digoxin [Digitek] 125 mcg PO DAILY@0800 05/13/19 [History] Isosorbide Mononitrate [Isosorbide Mononitrate ER] 30 mg PO DAILY@0800 05/13/19 [History] Metoprolol Succinate [Toprol Xl] 100 mg PO BID@0800,1700 05/13/19 [History] Aspirin EC [Ecotrin Low Dose] 81 mg PO DAILY@0800 12/05/20 [History] Atorvastatin Calcium [Lipitor] 40 mg PO HS 12/05/20 [History] Docusate [Colace] 100 mg PO BID@0800,1700 12/05/20 [History] Ipratropium-Albuterol Nebulize [Duoneb 0.5 mg-3 mg/3 ml Soln] 3 ml INHALATION RT-QID 12/05/20 [History] Multivitamins, Thera [Multivitamin (formulary)] 1 tab PO DAILY@1700 12/05/20 [History] guaiFENesin 400 mg PO TID@0600,1400,2200 12/05/20 [History] Furosemide [Lasix] 20 mg PO BID@0800,1700 05/23/21 [History] Magnesium Hydroxide [Milk of Magnesia Concentrate] 7,200 mg PO DAILY PRN 05/23/21 [History] Montelukast Sodium [Singulair] 10 mg PO HS 05/23/21 [History] Na Phos,M-B/Na Phos,Di-Ba [Fleet Adult] 133 ml RECTAL DAILY PRN 05/23/21 [History] Warfarin [Coumadin] 5 mg PO DAILY@1700 05/23/21 [History] bisacodyL [Dulcolax] 10 mg RECTAL DAILY PRN 05/23/21 [History] Amoxic-Pot Clav 875-125Mg [Augmentin 875-125] 1 each PO Q12HR #6 tab 05/26/21 [Rx] Budesonide [Pulmicort] 1 mg INHALATION RT-BID #0 05/26/21 [Rx] Formoterol Fumarate [Perforomist] 20 mcg INHALATION RT-BID nebu 05/26/21 [Rx] HYDROcodone/APAP 5-325MG [[place] 5-325] 2 tab PO Q6HR PRN #12 tab 05/26/21 [Rx] Oxymetazoline 0.05% Nasl [place] [Afrin 0.05% Nasal [place]] 3 spray NASAL TID 5 Days bottle 05/26/21 [Rx] Pantoprazole [Protonix] 40 mg PO AC-BRKFST tablet. 05/26/21 [Rx] Pregabalin [Lyrica] 50 mg PO TID@0800,1200,1700 #9 cap 05/26/21 [Rx] amLODIPine [Norvasc] 5 mg PO DAILY@0800 #0 05/26/21 [Rx] predniSONE [Deltasone] 20 mg PO DAILY #5 tab 05/26/21 [Rx] Follow up Appointment(s)/Referral(s): Solomon Vega DO [STAFF PHYSICIAN] - 6 Weeks (establish for carotid US surveillance of right ICA) Altaf García MD [Primary Care Provider] - 1 Week (after discharge from [facility]) [facility] [Provider Group] - 2 Weeks Ruddy Chandra DO [Doctor of Osteopathic Medicine] - 2 Weeks Activity/Diet/Wound Care/Special Instructions: 30-day Event Monitor per Cardiology Discharge Disposition: TRANSFER TO SNF/ECF
[2021-05-26 12:13] LABS: Glucose,Whole Blood 113 mg/dL (75-99)
--- NOTE | 2021-05-26 12:16 | P.PN ---
Subjective HISTORY OF PRESENTING ILLNESS Patient is a pleasant 70-year-old female with history of COPD, bilateral carotid artery stenosis, hypertension, hyperlipidemia, atrial fibrillation, lung cancer status post chemotherapy, calcified coronary artery disease by prior heart catheterization 2018, previous tobacco abuse. Patient had recently been at [facility] for respiratory failure and COPD exacerbation. Patient was then discharged to [facility] for subacute rehab and had been feeling okay and was getting some physical therapy performed on her neck. She apparently had been sitting in the chair and then had an episode of being unresponsive and slow to wake. This apparently lasted for a few minutes. She normally follows in the office with Dr. Santacruz although it has been approximately 6 months. Patient believes they performed an echocardiogram at [facility] however is unsure. She has been in the hospital for 2 days now and states she is feeling somewhat better, no further episodes of altered mental status or unresponsiveness. She denies any chest pain, pressure, fevers, chills. She feels her breathing is at baseline. She has had some mild epistaxis from her nares. EKG shows atrial fibrillation with controlled ventricular rates, normal axis, mild diffuse ST depressions in the inferior and lateral leads which are concave, and can be seen with digoxin. Blood work showed white blood cell count 34.1, hemoglobin 10.0, platelets 533, INR 2.5, sodium 131, BUN 23, creatinine 0.6, AST 58, ALP 78, troponin less than 0.012, proBNP 1000, albumin 3.1, cruz virus negative. CT head and neck showed COPD with pulmonary she will hypertension, proximal left internal carotid artery occlusion, less than 50% right internal carotid artery stenosis. CT chest showed COPD with emphysema and pulmonary arterial hypertension, c oronary artery calcifications, posterior left lobe consolidation correlate for pneumonia. 05/26/2021 Patient seen and examined. Patient states that she has not experienced any lightheadedness, dizziness or loss of consciousness however has been feeling somewhat weak and tired since last night. No specific chest pain or shortness breath. She is still having some epistaxis from her nasal cannula. The pressures in the 110s the 130s. White blood cell count elevated at 28, hemoglobin 9.2, AST 45, ALP 68. REVIEW OF SYSTEMS At the time of my exam: CONSTITUTIONAL: Denies fever or chills. CARDIOVASCULAR: Denies chest pain, shortness of breath, orthopnea, PND or palpitations. RESPIRATORY: Denies cough. GASTROINTESTINAL: Denies abdominal pain, diarrhea, constipation, nausea or vomiting. MUSCULOSKELETAL: Denies myalgias. NEUROLOGIC: Denies numbness, tingling or weakness. ENDOCRINE: Denies fatigue, weight change, polydipsia or polyurina. GENITOURINARY: Denies burning, hematuria or urgency with micturation. HEMATOLOGIC: Denies history of anemia or bleeding. PHYSICAL EXAMINATION Vital signs reviewed. CONSTITUTIONAL: No apparent distress. HEENT: Head is normocephalic. Pupils are equal, round. Sclerae anicteric. Mucous membranes of the mouth are moist. No JVD. No carotid bruit. CHEST EXAMINATION: Lungs are clear to auscultation. No chest wall tenderness is noted on palpation or with deep breathing. HEART EXAMINATION: Irregular rate and rhythm. S1, S2 heard. No murmurs, gallops or rub. ABDOMEN: Soft, nontender. Positive bowel sounds. EXTREMITIES: 2+ peripheral pulses, no lower extremity edema and no calf tenderness. NEUROLOGIC EXAMINATION: Patient is awake, alert and oriented x3. ASSESSMENT 1. Transient loss of consciousness. Rule out seizure versus syncope. 2. COPD with recent admission at [facility] for COPD exacerbation 3. Lung cancer status post chemo 4. Chronic atrial fibrillation, controlled ventricular rates 5. Hypertension 6. Hyperlipidemia 7. Status post pneumothorax in the past requiring chest tube placement 8. Mild calcified coronary artery disease by prior heart catheterization 2018 9. Carotid artery stenosis, 100% on the left, less than 50% on the right 10. Left consolidation correlate for pneumonia versus other 11. Leukocytosis PLAN Patient with loss of consciousness for unclear etiology. Rule out cardiogenic versus seizure versus hypoperfusional. This was while she was seated. Rule out infectious etiology causing exacerbation of her symptoms with leukocytosis. Await 2-D echo. Does not appear acute coronary syndrome as etiology and rule out arrhythmia. Recommend 30 day event monitor on discharge. Continue supportive care Objective - Vital Signs Vital signs: Vital Signs Temp 97.6 F 05/26/21 07:50 Pulse 78 05/26/21 10:53 Resp 18 05/26/21 08:00 BP 118/76 05/26/21 07:50 Pulse Ox 95 05/26/21 07:50 Intake & Output 05/25/21 05/26/21 05/26/21 18:59 06:59 18:59 Intake Total 358 0 Output Total 1400 1000 600 Balance -1042 -1000 -600 Weight 77.1 kg Intake: Oral 358 0 Output: Urine 1400 1000 600 Other: Voiding Method Bedside Commode Bedside Commode Bedside Commode # Voids 2 # Bowel Movements 1 1 - Labs CBC & Chem 7: 05/26/21 06:46 05/26/21 06:46 Labs: Abnormal Lab Results - Last 24 Hours (Table) 05/25/21 05/25/21 05/25/21 Range/Units 07:26 16:31 20:14 WBC (3.8-10.6) k/uL RBC (3.80-5.40) m/uL Hgb (11.4-16.0) gm/dL Hct (34.0-46.0) % Plt Count (150-450) k/uL PT (9.0-12.0) sec INR (<1.2) Sodium (137-145) mmol/L Chloride (98-107) mmol/L Carbon Dioxide (22-30) mmol/L BUN (7-17) mg/dL POC Glucose (mg/dL) 160 H 136 H (75-99) mg/dL AST (14-36) U/L ALT (4-34) U/L Total Protein (6.3-8.2) g/dL Albumin (3.5-5.0) g/dL HDL Cholesterol 67.0 H (40.0-60.0) mg/dL 05/26/21 05/26/21 05/26/21 Range/Units 06:46 06:46 06:46 WBC 28.0 H (3.8-10.6) k/uL RBC 3.16 L (3.80-5.40) m/uL Hgb 9.2 L (11.4-16.0) gm/dL Hct 29.4 L (34.0-46.0) % Plt Count 452 H (150-450) k/uL PT 29.7 H (9.0-12.0) sec INR 3.1 H (<1.2) Sodium 135 L (137-145) mmol/L Chloride 96 L (98-107) mmol/L Carbon Dioxide 35 H (22-30) mmol/L BUN 22 H (7-17) mg/dL POC Glucose (mg/dL) (75-99) mg/dL AST 45 H (14-36) U/L ALT 68 H (4-34) U/L Total Protein 5.4 L (6.3-8.2) g/dL Albumin 3.1 L (3.5-5.0) g/dL HDL Cholesterol (40.0-60.0) mg/dL Microbiology - Last 24 Hours (Table) 05/23/21 14:35 Blood Culture - Preliminary Blood No Growth after 48 hours 05/23/21 14:17 Blood Culture - Preliminary Blood No Growth after 48 hours
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
[2021-05-26 17:05] LABS: Glucose,Whole Blood 144 mg/dL (75-99)
[2021-05-26] MEDS: MULTIVITAMINS, THERA 1 EACH TAB PO SCH (17:18)
[2021-05-26] MEDS ORDERED: WARFARIN 2.5 MG TAB PO ONE (18:00)
[2021-05-26 20:31] LABS: Glucose,Whole Blood 208 mg/dL (75-99)
[2021-05-26] MEDS: MONTELUKAST 10 MG TAB PO SCH (20:42)
[2021-05-26] MEDS: ATORVASTATIN 40 MG TAB PO SCH (20:43)
[2021-05-26] MEDS: CITALOPRAM HYDROBROMIDE 20 MG TAB PO SCH (20:43)
[2021-05-27 06:27] LABS: Glucose,Whole Blood 79 mg/dL (75-99)
[2021-05-27] MEDS: INSULIN ASPART (NovoLOG) 100 UNIT/ML VIAL SQ SCH ×4 (06:56→22:37)
[2021-05-27] MEDS: PANTOPRAZOLE 40 MG TABLET PO SCH (06:57)
[2021-05-27] MEDS: guaiFENesin SYRUP 100MG/5ML 200 MG/10 ML CUP PO SCH ×3 (06:57→20:53)
[2021-05-27 07:19] LABS: Basophils % (A) 0 %; Eosinophils # (A) 0.1 k/uL (0-0.7); Eosinophils % (A) 0 %; HCT 29.4 % (34.0-46.0); HGB 9.1 gm/dL (11.4-16.0); Hypochromasia Marked; Lymphocytes # (A) 1.3 k/uL (1.0-4.8); Lymphocytes % (A) 6 %; MCH 29.3 pg (25.0-35.0); MCV 94.3 fL (80.0-100.0); Mean Platelet Volume 7.2; Monocytes % (A) 4 %; Neutrophils # (A) 19.9 k/uL (1.3-7.7); Neutrophils % (A) 88 %; Platelet Count 423 k/uL (150-450); Poikilocytosis Slight; RBC 3.12 m/uL (3.80-5.40); RDW 15.1 % (11.5-15.5); WBC 22.5 k/uL (3.8-10.6)
--- NOTE | 2021-05-27 07:21 | XR ---
EXAMINATION TYPE: XR chest 2V DATE OF EXAM: 05/27/2021 COMPARISON: 05/23/2021 HISTORY: 70-year-old female for left lower lobe pneumonia TECHNIQUE: AP and lateral views FINDINGS: Heart normal size. Atherosclerotic arch calcifications. Hyperinflation with interstitial prominence. Slight increasing posterior left lower lobe consolidation. No significant pleural effusion. IMPRESSION: COPD with slight interval worsening in posterior left lower lobe pneumonia as compared to 05/23/2021.
[2021-05-27 07:25] LABS: INR 1.5 (<1.2)
[2021-05-27 07:31] LABS: African American GFR (CKD) >90 (>60 ml/min/1.73 sqM); Anion Gap 2 mmol/L; Blood Urea Nitrogen 18 mg/dL (7-17); Calcium 8.3 mg/dL (8.4-10.2); Carbon Dioxide 37 mmol/L (22-30); Chloride 94 mmol/L (98-107); Glucose 82 mg/dL (74-99); Non-African American GFR(CKD) >90 (>60 ml/min/1.73 sqM); Potassium 3.7 mmol/L (3.5-5.1); Sodium 133 mmol/L (137-145)
[2021-05-27] MEDS: DOCUSATE 100 MG CAP PO SCH ×2 (08:00→17:00)
[2021-05-27] MEDS: amLODIPine 5 MG TAB PO SCH (08:00)
[2021-05-27] MEDS: METOPROLOL SUCCINATE (ER) 100 MG TAB.ER.24H PO SCH ×2 (08:00→17:00)
[2021-05-27] MEDS: FUROSEMIDE 20 MG TAB PO SCH ×2 (08:00→17:00)
[2021-05-27] MEDS: PREGABALIN 50 MG CAP PO SCH ×3 (08:00→18:58)
[2021-05-27] MEDS: ISOSORBIDE MONONITRATE ER 30 MG TAB.ER.24H PO SCH (08:00)
[2021-05-27] MEDS: DIGOXIN 125 MCG TAB PO SCH (08:00)
[2021-05-27] MEDS: ASPIRIN 81 MG PO SCH (08:00)
[2021-05-27] MEDS: IPRATROPIUM-ALBUTEROL 3 ML NEB INHALATION PRN (08:42)
[2021-05-27] MEDS: BUDESONIDE 1 MG/2 ML NEBU INHALATION SCH ×2 (08:42→19:45)
[2021-05-27] MEDS: FORMOTEROL FUMARATE 20 MCG/2 ML NEBU INHALATION SCH ×2 (08:42→19:46)
[2021-05-27] MEDS: predniSONE 20 MG TAB PO SCH (09:00)
[2021-05-27] MEDS: OXYMETAZOLINE 0.05% NASL SPRAY 1 SPRAY BOTTLE NASAL SCH ×3 (09:00→20:53)
[2021-05-27] MEDS ORDERED: VANCOMYCIN IV PER PHARMACY 1 EACH MISC MISCELLANE PRN (09:16)
[2021-05-27] MEDS: VANCOMYCIN 1,500 MG in SODIUM CHLORIDE 0.9% 250 ML IVPB SCH ×2 (09:30→20:53)
[2021-05-27] MEDS ORDERED: CEFEPIME 2 GM in SODIUM CHLORIDE 0.9% 100 ML IVPB ONE (09:30)
[2021-05-27] MEDS ORDERED: CEFEPIME 1 GM in SODIUM CHLORIDE 0.9% 50 ML IVPB SCH (09:30)
--- NOTE | 2021-05-27 11:19 | ECHOF ---
Referral Reason:re: LV function MEASUREMENTS -------- HEIGHT: 167.6 cm WEIGHT: 76.7 kg BP: 110/64 RVIDd: 3.3 cm (< 3.3) IVSd: 1.3 cm (0.6 - 1.1) LVIDd: 3.9 cm (3.9 - 5.3) LVPWd: 1.4 cm (0.6 - 1.1) IVSs: 1.6 cm LVIDs: 2.7 cm LVPWs: 1.7 cm LA Diam: 3.6 cm (2.7 - 3.8) LAESV Index (A-L): 27.19 ml/m Ao Diam: 3.3 cm (2.0 - 3.7) AV Cusp: 2.0 cm (1.5 - 2.6) MV EXCURSION: 14.317 mm (> 18.000) MV EF SLOPE: 88 mm/s (70 - 150) EPSS: 0.8 cm AR PHT: 727 ms RAP: 5.00 mmHg RVSP: 35.15 mmHg FINDINGS -------- Atrial fibrillation. This was a technically adequate study. The left ventricular size is normal. There is moderate concentric left ventricular hypertrophy. O verall left ventricular systolic function is normal with, an EF between 60 - 65 %. The right ventricle is mildly enlarged. Normal LA size by volume 22+/-6 ml/m2. The right atrium is normal in size. Interatrial and interventricular septum intact. There is mild aortic valve sclerosis. Trace to mild aortic regurgitation. The mitral valve leaflets are mildly thickened. Mild mitral annular calcification present. There is trace to mild mitral regurgitation. Mild tricuspid regurgitation present. There is mild pulmonary hypertension. The right ventricular systolic pressure, as measured by Doppler, is 35.15mmHg. The pulmonic valve was not well visualized. The aortic root size is normal. Normal inferior vena cava with normal inspiratory collapse consistent with estimated right atrial pre ssure of 5 mmHg. There is no pericardial effusion. CONCLUSIONS -------- 1. The left ventricular size is normal. 2. There is moderate concentric left ventricular hypertrophy. 3. Overall left ventricular systolic function is normal with, an EF between 60 - 65 %. 4. The right ventricle is mildly enlarged. 5. Normal LA size by volume 22+/-6 ml/m2. 6. There is mild aortic valve sclerosis. 7. Trace to mild aortic regurgitation. 8. The mitral valve leaflets are mildly thickened. 9. Mild mitral annular calcification present. 10. There is trace to mild mitral regurgitation. 11. Mild tricuspid regurgitation present. 12. There is mild pulmonary hypertension. 13. The right ventricular systolic pressure, as measured by Doppler, is 35.15mmHg. 14. There is no pericardial effusion. MASH TUB COOKER: Lynne Angulo RDCS
[2021-05-27] MEDS: ACETAMINOPHEN TAB 325 MG TAB PO PRN (11:21)
--- NOTE | 2021-05-27 11:32 | P.PN ---
Subjective HISTORY OF PRESENTING ILLNESS Patient is a pleasant 70-year-old female with history of COPD, bilateral carotid artery stenosis, hypertension, hyperlipidemia, atrial fibrillation, lung cancer status post chemotherapy, calcified coronary artery disease by prior heart catheterization 2018, previous tobacco abuse. Patient had recently been at [facility] for respiratory failure and COPD exacerbation. Patient was then discharged to [facility] for subacute rehab and had been feeling okay and was getting some physical therapy performed on her neck. She apparently had been sitting in the chair and then had an episode of being unresponsive and slow to wake. This apparently lasted for a few minutes. She normally follows in the office with Dr. Santacruz although it has been approximately 6 months. Patient believes they performed an echocardiogram at [facility] however is unsure. She has been in the hospital for 2 days now and states she is feeling somewhat better, no further episodes of altered mental status or unresponsiveness. She denies any chest pain, pressure, fevers, chills. She feels her breathing is at baseline. She has had some mild epistaxis from her nares. EKG shows atrial fibrillation with controlled ventricular rates, normal axis, mild diffuse ST depressions in the inferior and lateral leads which are concave, and can be seen with digoxin. Blood work showed white blood cell count 34.1, hemoglobin 10.0, platelets 533, INR 2.5, sodium 131, BUN 23, creatinine 0.6, AST 58, ALP 78, troponin less than 0.012, proBNP 1000, albumin 3.1, cruz virus negative. CT head and neck showed COPD with pulmonary she will hypertension, proximal left internal carotid artery occlusion, less than 50% right internal carotid artery stenosis. CT chest showed COPD with emphysema and pulmonary arterial hypertension, coronary artery calcifications, posterior left lobe consolidation correlate for pneumonia. 05/27/2021 Pt seen and examined resting comfortably in bed in no acute distress. She denies worsening shortness of breath. She has had no further episodes of near syncope. She denies chest pain, dizziness or palpitations. Blood pressure 115/57 heart rate 88 afebrile maintaining oxygen saturation on nasal cannula. Laboratory data reviewed, WBC 22, hemoglobin 9.1, platelets 423, INR 1.5, sodium 133, potassium 3.7 and creatinine 0.61. Echocardiogram obtained reveals preserved LV systolic function with ejection fraction 60-65%. Repeat chest x- ray this morning reveals COPD with slight worsening in the posterior left lower lobe pneumonia compared to previous study. PHYSICAL EXAMINATION CONSTITUTIONAL: No apparent distress. HEENT: Head is normocephalic. Pupils are equal, round. Sclerae anicteric. Mucous membranes of the mouth are moist. No JVD. No carotid bruit. CHEST EXAMINATION: Lungs are clear to auscultation. No chest wall tenderness is noted on palpation or with deep breathing. HEART EXAMINATION: Irregular rate and rhythm. S1, S2 heard. No murmurs, gallops or rub. EXTREMITIES: 2+ peripheral pulses, no lower extremity edema and no calf tenderness. ASSESSMENT Transient loss of consciousness. Rule out seizure versus syncope. Pneumonia COPD with recent admission at [facility] for COPD exacerbation Lung cancer status post chemo Chronic atrial fibrillation, controlled ventricular rates Hypertension Hyperlipidemia Status post pneumothorax in the past requiring chest tube placement Mild calcified coronary artery disease by prior heart catheterization 2019 Carotid artery stenosis, 100% on the left, less than 50% on the right Leukocytosis Subtherapeutic INR PLAN Pulmonary care team is adjusting her antibiotics for pneumonia. Does not appear acute coronary syndrome as etiology. There is no significant pauses or bradycardia noted on telemetry tracings. Ongoing medical management per primary care team. We will follow along as needed, please call with further questions or concerns. Follow up with Dr. Santacruz upon discharge. Nurse Practitioner note has been reviewed, I agree with a documented findings and plan of care. Patient was seen and examined. Objective - Vital Signs Vital signs: Vital Signs Temp 97.5 F L 05/27/21 08:00 Pulse 85 05/27/21 09:04 Resp 18 05/27/21 08:00 BP 109/55 05/27/21 08:00 Pulse Ox 93 L 05/27/21 08:00 Intake & Output 05/26/21 05/27/21 05/27/21 18:59 06:59 18:59 Intake Total 360 Output Total 1800 600 Balance -1440 -600 Intake: Oral 360 Output: Urine 1800 600 Other: Voiding Method Bedside Commode Bedside Commode Bedside Commode # Voids 1 # Bowel Movements 1 1 - Labs CBC & Chem 7: 05/27/21 06:52 05/27/21 06:52 Labs: Abnormal Lab Results - Last 24 Hours (Table) 05/26/21 05/26/21 05/26/21 Range/Units 12:05 16:53 20:29 WBC (3.8-10.6) k/uL RBC (3.80-5.40) m/uL Hgb (11.4-16.0) gm/dL Hct (34.0-46.0) % Neutrophils # (1.3-7.7) k/uL PT (9.0-12.0) sec INR (<1.2) Sodium (137-145) mmol/L Chloride (98-107) mmol/L Carbon Dioxide (22-30) mmol/L BUN (7-17) mg/dL POC Glucose (mg/dL) 113 H 144 H 208 H (75-99) mg/dL Calcium (8.4-10.2) mg/dL 05/27/21 05/27/21 05/27/21 Range/Units 06:52 06:52 06:52 WBC 22.5 H (3.8-10.6) k/uL RBC 3.12 L (3.80-5.40) m/uL Hgb 9.1 L (11.4-16.0) gm/dL Hct 29.4 L (34.0-46.0) % Neutrophils # 19.9 H (1.3-7.7) k/uL PT 15.0 H (9.0-12.0) sec INR 1.5 H (<1.2) Sodium 133 L (137-145) mmol/L Chloride 94 L (98-107) mmol/L Carbon Dioxide 37 H (22-30) mmol/L BUN 18 H (7-17) mg/dL POC Glucose (mg/dL) (75-99) mg/dL Calcium 8.3 L (8.4-10.2) mg/dL Microbiology - Last 24 Hours (Table) 05/23/21 14:35 Blood Culture - Preliminary Blood No Growth after 72 hours 05/23/21 14:17 Blood Culture - Preliminary Blood No Growth after 72 hours 05/24/21 09:07 Gram Stain - Final Sputum Sputum Culture - Final
[2021-05-27 11:52] LABS: Glucose,Whole Blood 113 mg/dL (75-99)
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
--- NOTE | 2021-05-27 13:27 | P.PN ---
Subjective Progress Note Date: 05/27/21 Patient was seen for a follow-up. Patient states that she is having difficulty with breathing, feels exhausted. It's hard to breathe. Patient denies any confusion, or any stroke symptoms. States her ribs hurt. Objective - Vital Signs Vital signs: Vital Signs Temp 98 F 05/27/21 12:00 Pulse 81 05/27/21 12:00 Resp 18 05/27/21 12:00 BP 104/64 05/27/21 12:00 Pulse Ox 93 L 05/27/21 12:00 Intake & Output 05/26/21 05/27/21 05/27/21 18:59 06:59 18:59 Intake Total 360 760 Output Total 1800 600 Balance -1440 -600 760 Intake: Oral 360 760 Output: Urine 1800 600 Other: Voiding Method Bedside Commode Bedside Commode Bedside Commode # Voids 1 1 # Bowel Movements 1 1 - Exam Patient's mental status, speech and leg which functions are normal. Pupils are round and reacting, visual soria are full, extraocular muscles are intact, face is symmetric and tongue protrudes to the midline. Muscle strength is no drift and the strength is normal in arms and legs reflexes are symmetric and plantars downgoing. No ataxia. Sensations are equal. - Labs CBC & Chem 7: 05/27/21 06:52 05/27/21 06:52 Labs: Abnormal Lab Results - Last 24 Hours (Table) 05/26/21 05/26/21 05/27/21 Range/Units 16:53 20:29 06:52 WBC (3.8-10.6) k/uL RBC (3.80-5.40) m/uL Hgb (11.4-16.0) gm/dL Hct (34.0-46.0) % Neutrophils # (1.3-7.7) k/uL PT 15.0 H (9.0-12.0) sec INR 1.5 H (<1.2) Sodium (137-145) mmol/L Chloride (98-107) mmol/L Carbon Dioxide (22-30) mmol/L BUN (7-17) mg/dL POC Glucose (mg/dL) 144 H 208 H (75-99) mg/dL Calcium (8.4-10.2) mg/dL 05/27/21 05/27/2121 Range/Units 06:52 06:52 11:50 WBC 22.5 H (3.8-10.6) k/uL RBC 3.12 L (3.80-5.40) m/uL Hgb 9.1 L (11.4-16.0) gm/dL Hct 29.4 L (34.0-46.0) % Neutrophils # 19.9 H (1.3-7.7) k/uL PT (9.0-12.0) sec INR (<1.2) Sodium 133 L (137-145) mmol/L Chloride 94 L (98-107) mmol/L Carbon Dioxide 37 H (22-30) mmol/L BUN 18 H (7-17) mg/dL POC Glucose (mg/dL) 113 H (75-99) mg/dL Calcium 8.3 L (8.4-10.2) mg/dL Microbiology - Last 24 Hours (Table) 05/23/21 14:35 Blood Culture - Preliminary Blood No Growth after 72 hours 05/23/21 14:17 Blood Culture - Preliminary Blood No Growth after 72 hours 05/24/21 09:07 Gram Stain - Final Sputum Sputum Culture - Final Assessment and Plan Assessment: * Difficulty waking up from sleep, unclear etiology. Patient's examination is nonfocal. Seizure in the differential, but EEG showed no epileptiform activity. Arrhythmia also in differential. * Chronic left ICA occlusion. * Chronic atrial fibrillation, on anticoagulation with warfarin. * Hypertension * X tobacco use * History of lung cancer. * COPD * Leukocytosis, possible from infection versus steroid use. Pulmonary on board. Plan: * CTA of head showed occlusion of the left ICA. There is reconstitution along the supraclinoid portion to feed the anterior circulation. Otherwise no intracranial arterial occlusion, significant stenosis or aneurysm. * CTA of the neck showed pulmonary arterial hypertension, small left pleural effusion, left lower lobe pneumonia partially visualized. 1.6 cm left hilar lymph node, which I would defer to IM. Proximal left ICA occlusion. Mild, just under 50% proximal right ICA stenosis. * Patient states that she is aware of left ICA occlusion for a long time, not a new finding. * EEG was performed, which showed mild intermittent generalized slowing, suggestive of encephalopathy. No epileptiform activity was seen. No indication for antiepileptic medication. * Continue warfarin, INR is 1.7. Target INR 2-3. May consider bridging with Lovenox. * Continue aspirin 81 mg daily. * Hmoglobin A1c 5.9 and lipid panel with cholesterol 155, LDL 74, HDL 67 and triglycerides 70. Continue Lipitor 40 mg. * Patient has been stable neurologically. Patient has only respiratory issues. * Neurologically clear. We will sign off. Please reconsult if any questions.
[2021-05-27] MEDS: CEFEPIME 2 GM in SODIUM CHLORIDE 0.9% 100 ML IVPB SCH ×2 (15:41→23:57)
[2021-05-27] MEDS: MULTIVITAMINS, THERA 1 EACH TAB PO SCH (17:00)
--- NOTE | 2021-05-27 17:05 | P.PN ---
Subjective Progress Note Date: 05/27/21 HISTORY OF PRESENT ILLNESS 70-year-old female who was transferred from [facility] to [facility] on the for debility post hospitalization for COPD exacerbation and pneumonitis with respiratory failure. Patient was seen Dr. Murphy and her primary care physician in [facility]. Patient also was treated for congestive heart failure. She is known to have history of lung cancer who had post stereotactic body radiotherapy with Dr. Alexander this last year successfully and has done well with it. Patient apparently was doing well in the morning her nurse found her unresponsive at the time and found to have slurred speech with altered mental status with slight weakness in the left side compared to her normal status. Patient was hypoxic was having more pulmonary congestion. Ended up coming to demurs department at [facility] where was seen and evaluated her chest x-ray showed pulmonary fibrosis with left lower lobe infiltrate also had symmetric nodular apical thickening of the left upper lobe similar to her previous one from May last year. CT of the brain showed moderate generalized cerebral atrophy with moderate burden of chronic small vessel ischemic disease with no acute intracranial abnormality was seen. CT angiography shows a proximal left internal carotid artery occlusion with mild 50 percentile occlusion of the right side, also finding with COPD with pulmonary artery hypertension small left pleural effusion and left lower lobe ammonia partially visualized with 1.6 cm left hilar lymph node probably reactive. Lab values showed white blood cell of 34,000 with hemoglobin slightly bit down to 10.0, she is on warfarin for A. fib with RVR with her INR was 2.5 for the time. Kidney function with GFR above 90 blood sugar was at 85. Mildly elevated liver function tests with ALT and AST 58 and 78, BNP was 1000 troponin was normal UA showed no major abnormality. Patient will be hospitalized for TIA/CVA, COPD exacerbation, left-sided pneumonia with failure to outpatient treatment. Still finding of lung cancer wi thout any metastasis at this point. 05/24: Patient has been seen by pulmonary medicine for COPD not in exacerbation no need for steroids the patient started on Perforomist twice daily. 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 Plan is for monitoring and follow-up with Dr. Vega. Patient has been afebrile, heart rate 86, blood pressure 143/61, pulse ox 95% on 2 L nasal cannula. WBC 28.4, hemoglobin 9.6, platelet count 436. INR 2.7. Sodium 132, potassium 3.5, chloride 94, CO2 32, BUN 21 creatinine 0.49. Blood Glucose Running Anywhere between 105 and 332. Calcium 8.3, AST 45, ALT 87, Alkaline Phosphatase 84. Consult in place for neurology as well. EEG has been done and report is pending. Patient is followed by PT and OT with discharge plan to [facility] as return. 05/25: Patient complains of feeling tired. She complains of cough and her lower ribs are hurting which she thinks is related to coughing. She states she has a continued to go in her throat but can't bring up any phlegm. She states she has spit up some blood which she did this morning. Due to her history of lung cancer, CT of the chest has been ordered. Patient's oncologist was Dr. Alexander. She states her human resources generalist is Dr. Santacruz. Patient is afebrile, heart rate in the 80s, blood pressure 166/76, pulse ox 98% on 3 L nasal cannula. Patient has been seen by neurology. EEG showed mild intermittent generalized slowing, suggestive of encephalopathy. No epileptiform activity was seen. No indication for antiepileptic medication. Patient has been cleared by neurology for discharge in a signed off. 05/26: CT of the chest revealed COPD with moderately advanced emphysema and pulmonary artery hypertension. CAD with LAD and RCA coronary artery calcifications. Posterior left lower lobe consolidation with trace effusion. Correlate for pneumonia with parapneumonic effusion. Couple 4 mm pulmonary nodules in the right, recommended follow-up in 3 months. Mild circumferential wall thickening of the distal esophagus may represent esophagitis. Patient has a right-sided nosebleed started this morning, pressure, has been placed, Afrin will be added and Coumadin placed on hold for 5 days. Patient continues to complain of cough for which Robitussin with codeine added. business services officer is atrial fibrillation with controlled rate. Cardiology is planning for 30 day ev ent monitor. Pulmonary medicine is change Zosyn to oral Augmentin and is stable from pulmonary standpoint. Sputum cultures in progress. Blood culture no growth in 48 hours 2. Discharge plan remains [facility] on Thursday. 05/27, patient is in for follow-up today, and epistaxis has improved, shortness of breath has improved, still with cough, not worse, however chest x-ray shows slight interval worsening of posterior left lower lobe pneumonia, as compared to a 12, and no significant effusion, patient doesn't have any fever no chills, pulmonary is following with going to keep her one more day, to maximize her current regimen, echocardiogram is also reviewed EF 60-65%, with moderate concentric LVH, RVSP of 35, mild AR, mild MR, mild TR, mild pulmonary hypertension no pericardial effusion Coumadin is on hold secondary to epistaxis, we will start bridging with Lovenox at this time, secondary to grade chronic anticoagulation for atrial fibrillation, not this is his currently resolved.. Anti-back switched to cefepime Vanco, sputum cultures final on 81, negative for pathogens we'll request another sputum and culture sensitivity hold discharge at this time to [facility] REVIEW OF SYSTEMS Constitutional: No fever, no chills, no night sweats. No weight change. No weakness, fatigue or lethargy. No daytime sleepiness. Mild overweight in mild respiratory distress. EENT: No headache. No blurred vision or double vision, no loss of vision. No loss of Hearing, no ringing in the ears, no dizziness. No nasal drainage or congestion. Noted epistaxis. No sore throat. Lungs: Slight shortness of breath cough wheezes with sputum production. Cardiovascular: mild dyspnea and shortness of breath no lower extremity edema positive palpitation or chest pain slight PND and orthopnea.. Abdominal: No abdominal pain. No nausea, vomiting. No diarrhea. No constipation. No bloody or tarry stools.. No loss of appetite. Genitourinary: No dysuria, increased frequency, urgency. No urinary retention. Musculoskeletal: No myalgias. No muscle weakness, no gait dysfunction, no frequent falls. No back pain. No neck pain. Generalized muscle pain. Integumentary: No wounds, no lesions. No rash or pruritus. No unusual bruising. No change in hair or nails. Neurologic: No aphasia, slight change mental status, slight weakness left side compared to the right side. Psychiatric: No depression. No anxiety. No mood swings. Endocrine: No abnormal blood sugars. No weight change. No excessive sweating or thirst. No cold intolerance. Objective - Vital Signs Vital signs: Vital Signs Temp 98 F 05/27/21 12:00 Pulse 81 05/27/21 14:00 Resp 18 05/27/21 14:00 BP 104/64 05/27/21 12:00 Pulse Ox 93 L 05/27/21 12:00 Intake & Output 05/26/21 05/27/21 05/27/21 18:59 06:59 18:59 Intake Total 360 997 Output Total 1800 600 Balance -1440 -600 997 Intake: Oral 360 997 Output: Urine 1800 600 Other: Voiding Method Bedside Commode Bedside Commode Bedside Commode # Voids 1 1 # Bowel Movements 1 1 - Constitutional General appearance: Present: cooperative, no acute distress - EENT Eyes: Present: anicteric sclerae, EOMI, PERRLA, dentition normal, normal appearance ENT: Present: NA/AT, normal oropharynx - Neck Neck: Present: normal ROM - Respiratory Respiratory: bilateral: CTA, negative: diminished, dullness, rales, rhonchi - Cardiovascular Rhythm: regular Heart sounds: normal: S1, S2 Abnormal Heart Sounds: Absent: systolic murmur, diastolic murmur, rub, S3 Gallop, S4 Gallop, click, other - Integumentary Integumentary: Present: decreased turgor, normal - Neurologic Neurologic: Present: CNII-XII intact - Musculoskeletal Musculoskeletal: Present: generalized weakness, strength equal bilaterally - Psychiatric Psychiatric: Present: A&O x's 3, appropriate affect - Labs CBC & Chem 7: 05/27/21 06:52 05/27/21 06:52 Labs: Abnormal Lab Results - Last 24 Hours (Table) 05/26/21 05/26/21 05/27/21 Range/Units 16:53 20:29 06:52 WBC (3.8-10.6) k/uL RBC (3.80-5.40) m/uL Hgb (11.4-16.0) gm/dL Hct (34.0-46.0) % Neutrophils # (1.3-7.7) k/uL PT 15.0 H (9.0-12.0) sec INR 1.5 H (<1.2) Sodium (137-145) mmol/L Chloride (98-107) mmol/L Carbon Dioxide (22-30) mmol/L BUN (7-17) mg/dL POC Glucose (mg/dL) 144 H 208 H (75-99) mg/dL Calcium (8.4-10.2) mg/dL 05/27/21 05/27/21 05/27/21 Range/Units 06:52 06:52 11:50 WBC 22.5 H (3.8-10.6) k/uL RBC 3.12 L (3.80-5.40) m/uL Hgb 9.1 L (11.4-16.0) gm/dL Hct 29.4 L (34.0-46.0) % Neutrophils # 19.9 H (1.3-7.7) k/uL PT (9.0-12.0) sec INR (<1.2) Sodium 133 L (137-145) mmol/L Chloride 94 L (98-107) mmol/L Carbon Dioxide 37 H (22-30) mmol/L BUN 18 H (7-17) mg/dL POC Glucose (mg/dL) 113 H (75-99) mg/dL Calcium 8.3 L (8.4-10.2) mg/dL Microbiology - Last 24 Hours (Table) 05/23/21 14:35 Blood Culture - Preliminary Blood No Growth after 96 hours 05/23/21 14:17 Blood Culture - Preliminary Blood No Growth after 96 hours Assessment and Plan Plan: ASSESSMENT AND PLAN 1. Difficulty waking from sleep, CVA ruled out. Patient does have a left internal carotid artery occlusion and 50% on the right internal carotid and seen by vascular surgery 2 acute on chronic hypoxic respiratory failure: With chronic COPD with recent treatment for COPD exacerbation continue medication continue patient on albuterol/ipratropium, continue guaifenesin and Pulmicort, oral prednisone 3 left lower side pneumonitis has been ruled out by pulmonary medicine. Chronic COPD. Perforomist started. No need for steroids. Pulmonary medicine consult appreciated. Zosyn transitioned to Augmentin, discontinued secondary to worsening x-rays, cefepime, and Vanco, repeat cultures pulmonary following. 4 A. fib with RVR, chronic atrial fibrillation: Pulse rates under control currently patient has been on digoxin along with metoprolol XL 100 mg twice a day still on warfarin with INR has been therapeutic. Coumadin placed on hold. 5 history of lung cancer: Post radiation therapy has been seen pulmonary. 6 hyperlipidemia: Continue Lipitor at 40 mg daily. 7 chronic diastolic heart failure. has been on digoxin along with furosemide and metoprolol. 8 hyperglycemia/borderline diabetes: Continue patient on Accu-Chek with sliding scales coverage. 9 chronic pain syndrome: Continue hydrocodone along with Lyrica. 10 . Recurrent depression: Has been on Celexa 20 mg a day. 11 debility: Worsening symptoms lately since her hospitalization will start PTOT advance patient will be going back to [facility] after clear medically. 12 GI prophylaxis: Patient will be on pantoprazole 40 mg daily. 13 DVT prophylaxis: Hold Coumadin 14. Hemoptysis. CAT scan of the chest negative for malignancy. 15. Epistaxis. Continue pressure, Afrin spray, hold Coumadin. Bridged with Lovenox 40 twice a day subcu CODE STATUS: Full code. Discharge plan [facility] return on Thursday
[2021-05-27 17:22] LABS: Glucose,Whole Blood 232 mg/dL (75-99)
[2021-05-27 20:11] LABS: Glucose,Whole Blood 203 mg/dL (75-99)
[2021-05-27] MEDS: AMOXIC-POT CLAV 875-125MG 1 EACH TAB PO SCH (20:26)
[2021-05-27] MEDS: MONTELUKAST 10 MG TAB PO SCH (20:52)
[2021-05-27] MEDS: ATORVASTATIN 40 MG TAB PO SCH (20:53)
[2021-05-27] MEDS: CITALOPRAM HYDROBROMIDE 20 MG TAB PO SCH (20:53)
[2021-05-27] MEDS: ENOXAPARIN 60 MG/0.6 ML SYRINGE SQ SCH (20:55)
[2021-05-27 22:04] LABS: Glucose,Whole Blood 125 mg/dL (75-99)
[2021-05-28] MEDS: IPRATROPIUM-ALBUTEROL 3 ML NEB INHALATION PRN ×4 (05:41→23:16)
[2021-05-28 06:11] LABS: Glucose,Whole Blood 89 mg/dL (75-99)
[2021-05-28] MEDS: guaiFENesin SYRUP 100MG/5ML 200 MG/10 ML CUP PO SCH ×3 (06:22→20:12)
[2021-05-28] MEDS: INSULIN ASPART (NovoLOG) 100 UNIT/ML VIAL SQ SCH ×4 (06:23→21:50)
[2021-05-28] MEDS: PANTOPRAZOLE 40 MG TABLET PO SCH (06:23)
[2021-05-28] MEDS: ENOXAPARIN 60 MG/0.6 ML SYRINGE SQ SCH (08:33)
[2021-05-28] MEDS: DOCUSATE 100 MG CAP PO SCH ×2 (08:34→16:09)
[2021-05-28] MEDS: predniSONE 20 MG TAB PO SCH (08:34)
[2021-05-28] MEDS: FUROSEMIDE 20 MG TAB PO SCH ×2 (08:34→16:09)
[2021-05-28] MEDS: ASPIRIN 81 MG PO SCH (08:34)
[2021-05-28] MEDS: CEFEPIME 2 GM in SODIUM CHLORIDE 0.9% 100 ML IVPB SCH ×3 (08:34→23:16)
[2021-05-28] MEDS: amLODIPine 5 MG TAB PO SCH (08:34)
[2021-05-28] MEDS: ISOSORBIDE MONONITRATE ER 30 MG TAB.ER.24H PO SCH (08:34)
[2021-05-28] MEDS: METOPROLOL SUCCINATE (ER) 100 MG TAB.ER.24H PO SCH ×2 (08:34→16:09)
[2021-05-28] MEDS: DIGOXIN 125 MCG TAB PO SCH (08:34)
[2021-05-28] MEDS: PREGABALIN 50 MG CAP PO SCH ×3 (08:34→16:09)
[2021-05-28] MEDS: OXYMETAZOLINE 0.05% NASL SPRAY 1 SPRAY BOTTLE NASAL SCH ×3 (08:35→20:20)
[2021-05-28] MEDS: FORMOTEROL FUMARATE 20 MCG/2 ML NEBU INHALATION SCH ×2 (08:51→19:26)
[2021-05-28] MEDS: BUDESONIDE 1 MG/2 ML NEBU INHALATION SCH ×2 (08:51→19:26)
[2021-05-28] MEDS: VANCOMYCIN 1,500 MG in SODIUM CHLORIDE 0.9% 250 ML IVPB SCH ×2 (09:27→20:11)
[2021-05-28 09:29] LABS: African American GFR (CKD) >90 (>60 ml/min/1.73 sqM); Non-African American GFR(CKD) >90 (>60 ml/min/1.73 sqM)
[2021-05-28 11:47] LABS: Glucose,Whole Blood 178 mg/dL (75-99)
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
--- NOTE | 2021-05-28 14:51 | P.PN ---
Subjective Progress Note Date: 05/28/21 HISTORY OF PRESENT ILLNESS 70-year-old female who was transferred from [facility] to [facility] on the for debility post hospitalization for COPD exacerbation and pneumonitis with respiratory failure. Patient was seen Dr. Murphy and her primary care physician in [facility]. Patient also was treated for congestive heart failure. She is known to have history of lung cancer who had post stereotactic body radiotherapy with Dr. Alexander this last year successfully and has done well with it. Patient apparently was doing well in the morning her nurse found her unresponsive at the time and found to have slurred speech with altered mental status with slight weakness in the left side compared to her normal status. Patient was hypoxic was having more pulmonary congestion. Ended up coming to demurs department at [facility] where was seen and evaluated her chest x-ray showed pulmonary fibrosis with left lower lobe infiltrate also had symmetric nodular apical thickening of the left upper lobe similar to her previous one from May last year. CT of the brain showed moderate generalized cerebral atrophy with moderate burden of chronic small vessel ischemic disease with no acute intracranial abnormality was seen. CT angiography shows a proximal left internal carotid artery occlusion with mild 50 percentile occlusion of the right side, also finding with COPD with pulmonary artery hypertension small left pleural effusion and left lower lobe ammonia partially visualized with 1.6 cm left hilar lymph node probably reactive. Lab values showed white blood cell of 34,000 with hemoglobin slightly bit down to 10.0, she is on warfarin for A. fib with RVR with her INR was 2.5 for the time. Kidney function with GFR above 90 blood sugar was at 85. Mildly elevated liver function tests with ALT and AST 58 and 78, BNP was 1000 troponin was normal UA showed no major abnormality. Patient will be hospitalized for TIA/CVA, COPD exacerbation, left-sided pneumonia with failure to outpatient treatment. Still finding of lung cancer wi thout any metastasis at this point. 05/24: Patient has been seen by pulmonary medicine for COPD not in exacerbation no need for steroids the patient started on Perforomist twice daily. 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 Plan is for monitoring and follow-up with Dr. Vega. Patient has been afebrile, heart rate 86, blood pressure 143/61, pulse ox 95% on 2 L nasal cannula. WBC 28.4, hemoglobin 9.6, platelet count 436. INR 2.7. Sodium 132, potassium 3.5, chloride 94, CO2 32, BUN 21 creatinine 0.49. Blood Glucose Running Anywhere between 105 and 332. Calcium 8.3, AST 45, ALT 87, Alkaline Phosphatase 84. Consult in place for neurology as well. EEG has been done and report is pending. Patient is followed by PT and OT with discharge plan to [facility] as return. 05/25: Patient complains of feeling tired. She complains of cough and her lower ribs are hurting which she thinks is related to coughing. She states she has a continued to go in her throat but can't bring up any phlegm. She states she has spit up some blood which she did this morning. Due to her history of lung cancer, CT of the chest has been ordered. Patient's oncologist was Dr. Alexander. She states her traffic control technician is Dr. Santacruz. Patient is afebrile, heart rate in the 80s, blood pressure 166/76, pulse ox 98% on 3 L nasal cannula. Patient has been seen by neurology. EEG showed mild intermittent generalized slowing, suggestive of encephalopathy. No epileptiform activity was seen. No indication for antiepileptic medication. Patient has been cleared by neurology for discharge in a signed off. 05/26: CT of the chest revealed COPD with moderately advanced emphysema and pulmonary artery hypertension. CAD with LAD and RCA coronary artery calcifications. Posterior left lower lobe consolidation with trace effusion. Correlate for pneumonia with parapneumonic effusion. Couple 4 mm pulmonary nodules in the right, recommended follow-up in 3 months. Mild circumferential wall thickening of the distal esophagus may represent esophagitis. Patient has a right-sided nosebleed started this morning, pressure, has been placed, Afrin will be added and Coumadin placed on hold for 5 days. Patient continues to complain of cough for which Robitussin with codeine added. driller portable is atrial fibrillation with controlled rate. Cardiology is planning for 30 day ev ent monitor. Pulmonary medicine is change Zosyn to oral Augmentin and is stable from pulmonary standpoint. Sputum cultures in progress. Blood culture no growth in 48 hours 2. Discharge plan remains [facility] on Thursday. 05/27, patient is in for follow-up today, and epistaxis has improved, shortness of breath has improved, still with cough, not worse, however chest x-ray shows slight interval worsening of posterior left lower lobe pneumonia, as compared to a 12, and no significant effusion, patient doesn't have any fever no chills, pulmonary is following with going to keep her one more day, to maximize her current regimen, echocardiogram is also reviewed EF 60-65%, with moderate concentric LVH, RVSP of 35, mild AR, mild MR, mild TR, mild pulmonary hypertension no pericardial effusion Coumadin is on hold secondary to epistaxis, we will start bridging with Lovenox at this time, secondary to grade chronic anticoagulation for atrial fibrillation, not this is his currently resolved.. Anti-back switched to cefepime Vanco, sputum cultures final on 813, negative for pathogens we'll request another sputum and culture sensitivity hold discharge at this time to [facility] 05/28, the patient's feeling much better, less shortness of breath less cough, breathing better, she is on IV cefepime and vancomycin, sputum cultures were sent today, as the hemoptysis and epistaxis has stopped, we are going to continue on Lovenox to bridge with Coumadin, he would restart Coumadin today. Discontinue Lovenox once INR is at 2.0, for atrial fibrillation. Suspect gram- negative pneumonia, however drug resistance including MRSA cannot be eliminated. As she did not get better with Augmentin, pro-calcitonin was okay at 0.06, was at 5 mg warfarin prior to admission. 5 mg Coumadin tonight and decreased Lovenox at 30 mg daily REVIEW OF SYSTEMS Constitutional: No fever, no chills, no night sweats. No weight change. No weakness, fatigue or lethargy. No daytime sleepiness. Mild overweight in mild respiratory distress. EENT: No headache. No blurred vision or double vision, no loss of vision. No loss of Hearing, no ringing in the ears, no dizziness. No nasal drainage or congestion. Noted epistaxis. No sore throat. Lungs: Slight shortness of breath cough wheezes with sputum production. Cardiovascular: mild dyspnea and shortness of breath no lower extremity edema positive palpitation or chest pain slight PND and orthopnea.. Abdominal: No abdominal pain. No nausea, vomiting. No diarrhea. No constipation. No bloody or tarry stools.. No loss of appetite. Genitourinary: No dysuria, increased frequency, urgency. No urinary retention. Musculoskeletal: No myalgias. No muscle weakness, no gait dysfunction, no frequent falls. No back pain. No neck pain. Generalized muscle pain. Integumentary: No wounds, no lesions. No rash or pruritus. No unusual bru ising. No change in hair or nails. Neurologic: No aphasia, slight change mental status, slight weakness left side compared to the right side. Psychiatric: No depression. No anxiety. No mood swings. Endocrine: No abnormal blood sugars. No weight change. No excessive sweating or thirst. No cold intolerance. Objective - Vital Signs Vital signs: Vital Signs Temp 97.8 F 05/28/21 11:04 Pulse 87 05/28/21 11:04 Resp 16 05/28/21 12:09 BP 119/77 05/28/21 11:04 Pulse Ox 98 05/28/21 11:04 Intake & Output 05/27/21 05/28/21 05/28/21 18:59 06:59 18:59 Intake Total 1237 Output Total 450 2875 Balance 787 -2875 Weight 72 kg Intake: Oral 1237 Output: Urine 450 2875 Other: Voiding Method Bedside Commode Bedside Commode Bedside Commode # Voids 1 1 # Bowel Movements 1 - Constitutional General appearance: Present: cooperative, no acute distress - EENT Eyes: Present: PERRLA, dentition normal ENT: Present: NA/AT, normal oropharynx - Neck Neck: Present: normal ROM - Respiratory Respiratory: bilateral: CTA, negative: diminished, dullness - Cardiovascular Rhythm: regular Heart sounds: normal: S1, S2 Abnormal Heart Sounds: Absent: systolic murmur, diastolic murmur, rub, S3 Gallop, S4 Gallop, click, other - Gastrointestinal General gastrointestinal: Present: normal bowel sounds, soft - Integumentary Integumentary: Present: decreased turgor, normal - Neurologic Neurologic: Present: CNII-XII intact - Musculoskeletal Musculoskeletal: Present: generalized weakness, strength equal bilaterally - Psychiatric Psychiatric: Present: A&O x's 3 - Labs CBC & Chem 7: 05/27/21 06:52 05/28/21 08:30 Labs: Abnormal Lab Results - Last 24 Hours (Table) 05/27/21 05/27/21 05/27/21 Range/Units 17:21 20:09 22:01 POC Glucose (mg/dL) 232 H 203 H 125 H (75-99) mg/dL 05/28/21 Range/Units 11:45 POC Glucose (mg/dL) 178 H (75-99) mg/dL Microbiology - Last 24 Hours (Table) 05/23/21 14:35 Blood Culture - Preliminary Blood No Growth after 96 hours 05/23/21 14:17 Blood Culture - Preliminary Blood No Growth after 96 hours Assessment and Plan Plan: ASSESSMENT AND PLAN 1. Difficulty waking from sleep, CVA ruled out. Patient does have a left internal carotid artery occlusion and 50% on the right internal carotid and seen by vascular surgery 2 acute on chronic hypoxic respiratory failure: With chronic COPD with recent treatment for COPD exacerbation continue medication continue patient on albuterol/ipratropium, continue guaifenesin and Pulmicort, oral prednisone 3 left lower side pneumonitis gram-negative suspected has been ruled out by pulmonary medicine. Chronic COPD. Perforomist started. No need for steroids. Pulmonary medicine consult appreciated. Zosyn transitioned to Augmentin but discontinued secondary to worsening x-rays, cefepime, and Vanco, repeat cultures pulmonary following for abx. 4 A. fib with RVR, chronic atrial fibrillation: Pulse rates under control currently patient has been on digoxin along with metoprolol XL 100 mg twice a day still on warfarin with INR has been therapeutic. Coumadin placed on hold secondary to epistaxis and hemoptysis restart 05/28, 5 mg daily, Lovenox to bridge, the INR is at 2, patient preferred to select secondary to expense compared to factor X a inhibition 5 history of lung cancer: Post radiation therapy has been seen pulmonary. 6 hyperlipidemia: Continue Lipitor at 40 mg daily. 7 chronic diastolic heart failure. has been on digoxin along with furosemide and metoprolol. 8 hyperglycemia/borderline diabetes: Continue patient on Accu-Chek with sliding scales coverage. 9 chronic pain syndrome: Continue hydrocodone along with Lyrica. 10 . Recurrent depression: Has been on Celexa 20 mg a day. 11 debility: Worsening symptoms lately since her hospitalization will start PTOT advance patient will be going back to [facility] after clear medically. 12 GI prophylaxis: Patient will be on pantoprazole 40 mg daily. 13 DVT prophylaxis: Hold Coumadin 14. Hemoptysis. CAT scan of the chest negative for malignancy. 15. Epistaxis. Continue pressure, Afrin spray, hold Coumadin. Bridged with Lovenox 40 twice a day subcu CODE STATUS: Full code. Discharge plan [facility] return on Thursday
[2021-05-28] MEDS: MULTIVITAMINS, THERA 1 EACH TAB PO SCH (16:09)
[2021-05-28 16:48] LABS: Glucose,Whole Blood 142 mg/dL (75-99)
[2021-05-28 17:10] LABS: INR 1.1 (<1.2); Prothrombin Time 11.8 sec (9.0-12.0)
[2021-05-28] MEDS ORDERED: WARFARIN 5 MG TAB PO ONE (18:00)
[2021-05-28 20:10] LABS: Glucose,Whole Blood 153 mg/dL (75-99)
[2021-05-28] MEDS: CITALOPRAM HYDROBROMIDE 20 MG TAB PO SCH (20:12)
[2021-05-28] MEDS: ATORVASTATIN 40 MG TAB PO SCH (20:12)
[2021-05-28] MEDS: MONTELUKAST 10 MG TAB PO SCH (20:12)
[2021-05-29] MEDS: IPRATROPIUM-ALBUTEROL 3 ML NEB INHALATION PRN ×3 (03:06→19:28)
[2021-05-29] MEDS: guaiFENesin SYRUP 100MG/5ML 200 MG/10 ML CUP PO SCH ×4 (04:43→20:17)
[2021-05-29] MEDS: PANTOPRAZOLE 40 MG TABLET PO SCH (05:23)
[2021-05-29 06:02] LABS: Glucose,Whole Blood 132 mg/dL (75-99)
[2021-05-29] MEDS: INSULIN ASPART (NovoLOG) 100 UNIT/ML VIAL SQ SCH ×4 (06:21→20:24)
[2021-05-29] MEDS: FORMOTEROL FUMARATE 20 MCG/2 ML NEBU INHALATION SCH ×2 (07:32→19:28)
[2021-05-29] MEDS: BUDESONIDE 1 MG/2 ML NEBU INHALATION SCH ×2 (07:32→19:28)
--- NOTE | 2021-05-29 08:26 | XR ---
EXAMINATION TYPE: XR chest 1V portable DATE OF EXAM: 05/29/2021 COMPARISON: 05/27/2021 HISTORY: Shortness of breath TECHNIQUE: Single frontal view of the chest is obtained. FINDINGS: Persistent interstitial prominence involving the lung suggestive of chronic interstitial l isaac disease with left lower lobe infiltrate and tiny effusion. Linear density in the right lung apex is stable suggestive scarring with biapical pleural thickening which is somewhat nodular on the left but stable. Heart size stable. Atherosclerotic change aorta. IMPRESSION: 1. COPD with findings suggestive of pulmonary fibrosis. Left lower lobe infiltrate stable.
[2021-05-29] MEDS ORDERED: ENOXAPARIN 30 MG/0.3 ML SYRINGE SQ SCH (09:00)
[2021-05-29 09:12] LABS: Anisocytosis Slight; Basophils # (A) 0.1 k/uL (0-0.2); Basophils % (A) 1 %; Eosinophils # (A) 0.2 k/uL (0-0.7); Eosinophils % (A) 1 %; HCT 26.9 % (34.0-46.0); HGB 8.7 gm/dL (11.4-16.0); Hypochromasia Marked; Lymphocytes # (A) 1.2 k/uL (1.0-4.8); Lymphocytes % (A) 7 %; MCH 30.4 pg (25.0-35.0); MCHC 32.2 g/dL (31.0-37.0); MCV 94.3 fL (80.0-100.0); Mean Platelet Volume 7.6; Monocytes # (A) 0.6 k/uL (0-1.0); Monocytes % (A) 3 %; Neutrophils # (A) 15.2 k/uL (1.3-7.7); Neutrophils % (A) 87 %; Platelet Count 340 k/uL (150-450); RBC 2.85 m/uL (3.80-5.40); RDW 16.1 % (11.5-15.5); WBC 17.4 k/uL (3.8-10.6)
[2021-05-29 09:34] LABS: Prothrombin Time 10.7 sec (9.0-12.0)
[2021-05-29 09:43] LABS: ALT 43 U/L (4-34); AST 30 U/L (14-36); African American GFR (CKD) >90 (>60 ml/min/1.73 sqM); Alkaline Phosphatase 75 U/L (38-126); Anion Gap 6 mmol/L; Blood Urea Nitrogen 18 mg/dL (7-17); Calcium 8.5 mg/dL (8.4-10.2); Carbon Dioxide 29 mmol/L (22-30); Chloride 96 mmol/L (98-107); Glucose 150 mg/dL (74-99); Non-African American GFR(CKD) >90 (>60 ml/min/1.73 sqM); Potassium 3.3 mmol/L (3.5-5.1); Sodium 131 mmol/L (137-145); Total Bilirubin 0.5 mg/dL (0.2-1.3); Total Protein 5.5 g/dL (6.3-8.2)
[2021-05-29] MEDS: DIGOXIN 125 MCG TAB PO SCH (09:44)
[2021-05-29] MEDS: MULTIVITAMINS, THERA 1 EACH TAB PO SCH (09:44)
[2021-05-29] MEDS: CEFEPIME 2 GM in SODIUM CHLORIDE 0.9% 100 ML IVPB SCH ×2 (09:44→16:55)
[2021-05-29] MEDS: predniSONE 20 MG TAB PO SCH (09:44)
[2021-05-29] MEDS: FUROSEMIDE 20 MG TAB PO SCH ×2 (09:44→16:53)
[2021-05-29] MEDS: METOPROLOL SUCCINATE (ER) 100 MG TAB.ER.24H PO SCH ×2 (09:45→16:53)
[2021-05-29] MEDS: PREGABALIN 50 MG CAP PO SCH ×3 (09:45→16:53)
[2021-05-29] MEDS: ASPIRIN 81 MG PO SCH (09:45)
[2021-05-29] MEDS: OXYMETAZOLINE 0.05% NASL SPRAY 1 SPRAY BOTTLE NASAL SCH ×3 (09:45→20:27)
[2021-05-29] MEDS: DOCUSATE 100 MG CAP PO SCH ×2 (09:45→16:50)
[2021-05-29] MEDS: ISOSORBIDE MONONITRATE ER 30 MG TAB.ER.24H PO SCH (09:45)
[2021-05-29] MEDS: VANCOMYCIN 1,500 MG in SODIUM CHLORIDE 0.9% 250 ML IVPB SCH (09:51)
[2021-05-29 11:52] LABS: Glucose,Whole Blood 104 mg/dL (75-99)
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
--- NOTE | 2021-05-29 14:18 | P.PN ---
Subjective Progress Note Date: 05/29/21 HISTORY OF PRESENT ILLNESS 70-year-old female who was transferred from [facility] to [facility] on the for debility post hospitalization for COPD exacerbation and pneumonitis with respiratory failure. Patient was seen Dr. Murphy and her primary care physician in [facility]. Patient also was treated for congestive heart failure. She is known to have history of lung cancer who had post stereotactic body radiotherapy with Dr. Alexander this last year successfully and has done well with it. Patient apparently was doing well in the morning her nurse found her unresponsive at the time and found to have slurred speech with altered mental status with slight weakness in the left side compared to her normal status. Patient was hypoxic was having more pulmonary congestion. Ended up coming to demurs department at [facility] where was seen and evaluated her chest x-ray showed pulmonary fibrosis with left lower lobe infiltrate also had symmetric nodular apical thickening of the left upper lobe similar to her previous one from May last year. CT of the brain showed moderate generalized cerebral atrophy with moderate burden of chronic small vessel ischemic disease with no acute intracranial abnormality was seen. CT angiography shows a proximal left internal carotid artery occlusion with mild 50 percentile occlusion of the right side, also finding with COPD with pulmonary artery hypertension small left pleural effusion and left lower lobe ammonia partially visualized with 1.6 cm left hilar lymph node probably reactive. Lab values showed white blood cell of 34,000 with hemoglobin slightly bit down to 10.0, she is on warfarin for A. fib with RVR with her INR was 2.5 for the time. Kidney function with GFR above 90 blood sugar was at 85. Mildly elevated liver function tests with ALT and AST 58 and 78, BNP was 1000 troponin was normal UA showed no major abnormality. Patient will be hospitalized for TIA/CVA, COPD exacerbation, left-sided pneumonia with failure to outpatient treatment. Still finding of lung cancer wi thout any metastasis at this point. 05/24: Patient has been seen by pulmonary medicine for COPD not in exacerbation no need for steroids the patient started on Perforomist twice daily. 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 Plan is for monitoring and follow-up with Dr. Vega. Patient has been afebrile, heart rate 86, blood pressure 143/61, pulse ox 95% on 2 L nasal cannula. WBC 28.4, hemoglobin 9.6, platelet count 436. INR 2.7. Sodium 132, potassium 3.5, chloride 94, CO2 32, BUN 21 creatinine 0.49. Blood Glucose Running Anywhere between 105 and 332. Calcium 8.3, AST 45, ALT 87, Alkaline Phosphatase 84. Consult in place for neurology as well. EEG has been done and report is pending. Patient is followed by PT and OT with discharge plan to [facility] as return. 05/25: Patient complains of feeling tired. She complains of cough and her lower ribs are hurting which she thinks is related to coughing. She states she has a continued to go in her throat but can't bring up any phlegm. She states she has spit up some blood which she did this morning. Due to her history of lung cancer, CT of the chest has been ordered. Patient's oncologist was Dr. Alexander. She states her shower room attendant is Dr. Santacruz. Patient is afebrile, heart rate in the 80s, blood pressure 166/76, pulse ox 98% on 3 L nasal cannula. Patient has been seen by neurology. EEG showed mild intermittent generalized slowing, suggestive of encephalopathy. No epileptiform activity was seen. No indication for antiepileptic medication. Patient has been cleared by neurology for discharge in a signed off. 05/26: CT of the chest revealed COPD with moderately advanced emphysema and pulmonary artery hypertension. CAD with LAD and RCA coronary artery calcifications. Posterior left lower lobe consolidation with trace effusion. Correlate for pneumonia with parapneumonic effusion. Couple 4 mm pulmonary nodules in the right, recommended follow-up in 3 months. Mild circumferential wall thickening of the distal esophagus may represent esophagitis. Patient has a right-sided nosebleed started this morning, pressure, has been placed, Afrin will be added and Coumadin placed on hold for 5 days. Patient continues to complain of cough for which Robitussin with codeine added. hall monitor is atrial fibrillation with controlled rate. Cardiology is planning for 30 day ev ent monitor. Pulmonary medicine is change Zosyn to oral Augmentin and is stable from pulmonary standpoint. Sputum cultures in progress. Blood culture no growth in 48 hours 2. Discharge plan remains [facility] on Thursday. 05/27, patient is in for follow-up today, and epistaxis has improved, shortness of breath has improved, still with cough, not worse, however chest x-ray shows slight interval worsening of posterior left lower lobe pneumonia, as compared to a 12, and no significant effusion, patient doesn't have any fever no chills, pulmonary is following with going to keep her one more day, to maximize her current regimen, echocardiogram is also reviewed EF 60-65%, with moderate concentric LVH, RVSP of 35, mild AR, mild MR, mild TR, mild pulmonary hypertension no pericardial effusion Coumadin is on hold secondary to epistaxis, we will start bridging with Lovenox at this time, secondary to grade chronic anticoagulation for atrial fibrillation, not this is his currently resolved.. Anti-back switched to cefepime Vanco, sputum cultures final on 81, negative for pathogens we'll request another sputum and culture sensitivity hold discharge at this time to [facility] 05/28, the patient's feeling much better, less shortness of breath less cough, breathing better, she is on IV cefepime and vancomycin, sputum cultures were sent today, as the hemoptysis and epistaxis has stopped, we are going to continue on Lovenox to bridge with Coumadin, he would restart Coumadin today. Discontinue Lovenox once INR is at 2.0, for atrial fibrillation. Suspect gram- negative pneumonia, however drug resistance including MRSA cannot be eliminated. As she did not get better with Augmentin, pro-calcitonin was okay at 0.06, was at 5 mg warfarin prior to admission. 5 mg Coumadin tonight and decreased Lovenox at 30 mg daily 05/29: Patient's doing much better, still with cough, no hemoptysis, pulmonary seen her, recommended 1 more day of IV antibiotics, Coumadin 5 mg tonight, INR 1.0, sputum culture is currently pending, no fever no chills no diarrhea. Labs reviewed, leukocytosis improving, wbc count 17,000 abating [facility] REVIEW OF SYSTEMS Constitutional: No fever, no chills, no night sweats. No weight change. No weakness, fatigue or lethargy. No daytime sleepiness. Mild overweight in mild respiratory distress. EENT: No headache. No blurred vision or double vision, no loss of vision. No loss of Hearing, no ringing in the ears, no dizziness. No nasal drainage or congestion. Noted epistaxis. No sore throat. Lungs: Slight shortness of breath cough wheezes with sputum production. Cardiovascular: mild dyspnea and shortness of breath no lower extremity edema positive palpitation or chest pain slight PND and orthopnea.. Abdominal: No abdominal pain. No nausea, vomiting. No diarrhea. No constipation. No bloody or tarry stools.. No loss of appetite. Genitourinary: No dysuria, increased frequency, urgency. No urinary retention. Musculoskeletal: No myalgias. No muscle weakness, no gait dysfunction, no frequent falls. No back pain. No neck pain. Generalized muscle pain. Integumentary: No wounds, no lesions. No rash or pruritus. No unusual bruising. No change in hair or nails. Neurologic: No aphasia, slight change mental status, slight weakness left side compared to the right side. Psychiatric: No depression. No anxiety. No mood swings. Endocrine: No abnormal blood sugars. No weight change. No excessive sweating or thirst. No cold intolerance. Objective - Vital Signs Vital signs: Vital Signs Temp 97.9 F 05/29/21 03:44 Pulse 80 05/29/21 11:02 Resp 18 05/29/21 03:44 BP 110/58 05/29/21 03:44 Pulse Ox 94 L 05/29/21 03:44 Intake & Output 05/28/21 05/29/21 05/29/21 18:59 06:59 18:59 Intake Total 120 480 Output Total 450 Balance 120 -450 480 Weight 75.2 kg Intake: Oral 120 480 Output: Urine 450 Other: Voiding Method Bedside Commode Toilet Bedside Commode # Voids 1 1 # Bowel Movements 1 1 - Constitutional General appearance: Present: cooperative - EENT Eyes: Present: EOMI, PERRLA, dentition normal - Neck Neck: Present: normal ROM - Respiratory Respiratory: bilateral: CTA, negative: diminished, dullness, rales, rhonchi - Cardiovascular Rhythm: regular Heart sounds: normal: S1, S2 - Gastrointestinal General gastrointestinal: Present: normal bowel sounds - Integumentary Integumentary: Present: decreased turgor, normal - Neurologic Neurologic: Present: CNII-XII intact - Musculoskeletal Musculoskeletal: Present: generalized weakness, strength equal bilaterally - Psychiatric Psychiatric: Present: A&O x's 3, appropriate affect - Labs CBC & Chem 7: 05/29/21 08:47 05/29/21 08:47 Labs: Abnormal Lab Results - Last 24 Hours (Table) 05/28/21 05/28/21 05/29/21 Range/Units 16:47 20:08 06:00 WBC (3.8-10.6) k/uL RBC (3.80-5.40) m/uL Hgb (11.4-16.0) gm/dL Hct (34.0-46.0) % RDW (11.5-15.5) % Neutrophils # (1.3-7.7) k/uL Sodium (137-145) mmol/L Potassium (3.5-5.1) mmol/L Chloride (98-107) mmol/L BUN (7-17) mg/dL Glucose (74-99) mg/dL POC Glucose (mg/dL) 142 H 153 H 132 H (75-99) mg/dL ALT (4-34) U/L Total Protein (6.3-8.2) g/dL Albumin (3.5-5.0) g/dL 05/29/21 05/29/21 05/29/21 Range/Units 08:47 08:47 11:50 WBC 17.4 H (3.8-10.6) k/uL RBC 2.85 L (3.80-5.40) m/uL Hgb 8.7 L (11.4-16.0) gm/dL Hct 26.9 L (34.0-46.0) % RDW 16.1 H (11.5-15.5) % Neutrophils # 15.2 H (1.3-7.7) k/uL Sodium 131 L (137-145) mmol/L Potassium 3.3 L (3.5-5.1) mmol/L Chloride 96 L (98-107) mmol/L BUN 18 H (7-17) mg/dL Glucose 150 H (74-99) mg/dL POC Glucose (mg/dL) 104 H (75-99) mg/dL ALT 43 H (4-34) U/L Total Protein 5.5 L (6.3-8.2) g/dL Albumin 3.0 L (3.5-5.0) g/dL Microbiology - Last 24 Hours (Table) 05/28/21 09:10 Gram Stain - Preliminary Sputum Sputum Culture - Preliminary 05/23/21 14:17 Blood Culture - Preliminary Blood No Growth after 120 hours 05/23/21 14:35 Blood Culture - Preliminary Blood No Growth after 120 hours Assessment and Plan Plan: ASSESSMENT AND PLAN 1. Difficulty waking from sleep, CVA ruled out. Patient does have a left internal carotid artery occlusion and 50% on the right internal carotid and seen by vascular surgery 2 acute on chronic hypoxic respiratory failure: With chronic COPD with recent treatment for COPD exacerbation continue medication continue patient on albuterol/ipratropium, continue guaifenesin and Pulmicort, oral prednisone 3 left lower side pneumonitis gram-negative suspected has been ruled out by pulmonary medicine. Chronic COPD. Perforomist started. No need for steroids. Pulmonary medicine consult appreciated. Zosyn transitioned to Augmentin but discontinued secondary to worsening x-rays, cefepime, and Vanco, repeat cultures pulmonary following for abx. 4 A. fib with RVR, chronic atrial fibrillation: Pulse rates under control currently patient has been on digoxin along with metoprolol XL 100 mg twice a day still on warfarin with INR has been therapeutic. Coumadin placed on hold secondary to epistaxis and hemoptysis restart 05/28, 5 mg daily, Lovenox to bridge, the INR is at 2, patient preferred to select secondary to expense compared to factor X a inhibition 5 history of lung cancer: Post radiation therapy has been seen pulmonary. 6 hyperlipidemia: Continue Lipitor at 40 mg daily. 7 chronic diastolic heart failure. has been on digoxin along with furosemide a nd metoprolol. 8 hyperglycemia/borderline diabetes: Continue patient on Accu-Chek with sliding scales coverage. 9 chronic pain syndrome: Continue hydrocodone along with Lyrica. 10 . Recurrent depression: Has been on Celexa 20 mg a day. 11 debility: Worsening symptoms lately since her hospitalization will start PTOT advance patient will be going back to [facility] after clear medically. 12 GI prophylaxis: Patient will be on pantoprazole 40 mg daily. 13 DVT prophylaxis: Hold Coumadin 14. Hemoptysis. CAT scan of the chest negative for malignancy. 15. Epistaxis. Continue pressure, Afrin spray, hold Coumadin. Bridged with Lovenox 40 twice a day subcu CODE STATUS: Full code. Discharge plan [facility] return on Thursday
[2021-05-29 16:46] LABS: Glucose,Whole Blood 154 mg/dL (75-99)
[2021-05-29] MEDS ORDERED: WARFARIN 7.5 MG TAB PO ONE (18:00)
[2021-05-29] MEDS ORDERED: WARFARIN 5 MG TAB PO SCH (18:00)
[2021-05-29 20:02] LABS: Glucose,Whole Blood 169 mg/dL (75-99)
[2021-05-29] MEDS: VANCOMYCIN 1,750 MG in SODIUM CHLORIDE 0.9% 500 ML 500 ML IVPB SCH (20:16)
[2021-05-29] MEDS: CITALOPRAM HYDROBROMIDE 20 MG TAB PO SCH (20:17)
[2021-05-29] MEDS: MONTELUKAST 10 MG TAB PO SCH (20:17)
[2021-05-29] MEDS: ATORVASTATIN 40 MG TAB PO SCH (20:17)
[2021-05-30] MEDS: CEFEPIME 2 GM in SODIUM CHLORIDE 0.9% 100 ML IVPB SCH ×3 (00:58→16:13)
[2021-05-30] MEDS: PANTOPRAZOLE 40 MG TABLET PO SCH (05:49)
[2021-05-30 06:16] LABS: Glucose,Whole Blood 79 mg/dL (75-99)
[2021-05-30] MEDS: INSULIN ASPART (NovoLOG) 100 UNIT/ML VIAL SQ SCH ×4 (06:25→20:22)
[2021-05-30] MEDS: FORMOTEROL FUMARATE 20 MCG/2 ML NEBU INHALATION SCH ×2 (07:17→20:05)
[2021-05-30] MEDS: BUDESONIDE 1 MG/2 ML NEBU INHALATION SCH ×2 (07:17→20:05)
[2021-05-30] MEDS: IPRATROPIUM-ALBUTEROL 3 ML NEB INHALATION PRN ×4 (07:17→20:04)
[2021-05-30] MEDS: DIGOXIN 125 MCG TAB PO SCH (08:06)
[2021-05-30] MEDS: predniSONE 20 MG TAB PO SCH (08:06)
[2021-05-30] MEDS: ISOSORBIDE MONONITRATE ER 30 MG TAB.ER.24H PO SCH (08:06)
[2021-05-30] MEDS: ASPIRIN 81 MG PO SCH (08:06)
[2021-05-30] MEDS: METOPROLOL SUCCINATE (ER) 100 MG TAB.ER.24H PO SCH ×2 (08:06→16:13)
[2021-05-30] MEDS: FUROSEMIDE 20 MG TAB PO SCH ×2 (08:06→16:13)
[2021-05-30] MEDS: VANCOMYCIN 1,750 MG in SODIUM CHLORIDE 0.9% 500 ML 500 ML IVPB SCH ×2 (08:07→20:03)
[2021-05-30] MEDS: DOCUSATE 100 MG CAP PO SCH ×2 (08:07→16:13)
[2021-05-30] MEDS: PREGABALIN 50 MG CAP PO SCH ×3 (08:07→16:13)
[2021-05-30] MEDS: ENOXAPARIN 40 MG/0.4 ML SYRINGE SQ SCH ×2 (08:10→08:17)
[2021-05-30] MEDS: OXYMETAZOLINE 0.05% NASL SPRAY 1 SPRAY BOTTLE NASAL SCH ×3 (08:17→20:04)
[2021-05-30 09:39] LABS: Anisocytosis Slight; Basophils % (A) 0 %; Eosinophils # (A) 0.1 k/uL (0-0.7); Eosinophils % (A) 1 %; HCT 27.6 % (34.0-46.0); HGB 8.5 gm/dL (11.4-16.0); Hypochromasia Marked; Lymphocytes # (A) 1.3 k/uL (1.0-4.8); Lymphocytes % (A) 8 %; MCH 29.3 pg (25.0-35.0); MCHC 30.8 g/dL (31.0-37.0); Monocytes # (A) 0.8 k/uL (0-1.0); Monocytes % (A) 5 %; Neutrophils # (A) 15.1 k/uL (1.3-7.7); Neutrophils % (A) 86 %; Platelet Count 339 k/uL (150-450); Poikilocytosis Slight; RBC 2.91 m/uL (3.80-5.40); RDW 16.8 % (11.5-15.5); WBC 17.6 k/uL (3.8-10.6)
[2021-05-30 09:51] LABS: INR 1.3 (<1.2); Prothrombin Time 13.1 sec (9.0-12.0)
[2021-05-30 09:58] LABS: ALT 44 U/L (4-34); AST 30 U/L (14-36); African American GFR (CKD) >90 (>60 ml/min/1.73 sqM); Albumin 3.3 g/dL (3.5-5.0); Alkaline Phosphatase 88 U/L (38-126); Anion Gap 3 mmol/L; Blood Urea Nitrogen 15 mg/dL (7-17); Carbon Dioxide 34 mmol/L (22-30); Chloride 95 mmol/L (98-107); Glucose 85 mg/dL (74-99); Non-African American GFR(CKD) >90 (>60 ml/min/1.73 sqM); Potassium 3.5 mmol/L (3.5-5.1); Sodium 132 mmol/L (137-145); Total Bilirubin 0.5 mg/dL (0.2-1.3); Total Protein 5.7 g/dL (6.3-8.2)
[2021-05-30 11:32] LABS: Glucose,Whole Blood 172 mg/dL (75-99)
[2021-05-30 14:06] VITALS: BMI 26.7
--- NOTE | 2021-05-30 14:07 | P.PN ---
Subjective Progress Note Date: 05/30/21 HISTORY OF PRESENT ILLNESS 70-year-old female who was transferred from [facility] to [facility] on the for debility post hospitalization for COPD exacerbation and pneumonitis with respiratory failure. Patient was seen Dr. Murphy and her primary care physician in [facility]. Patient also was treated for congestive heart failure. She is known to have history of lung cancer who had post stereotactic body radiotherapy with Dr. Alexander this last year successfully and has done well with it. Patient apparently was doing well in the morning her nurse found her unresponsive at the time and found to have slurred speech with altered mental status with slight weakness in the left side compared to her normal status. Patient was hypoxic was having more pulmonary congestion. Ended up coming to demurs department at [facility] where was seen and evaluated her chest x-ray showed pulmonary fibrosis with left lower lobe infiltrate also had symmetric nodular apical thickening of the left upper lobe similar to her previous one from May last year. CT of the brain showed moderate generalized cerebral atrophy with moderate burden of chronic small vessel ischemic disease with no acute intracranial abnormality was seen. CT angiography shows a proximal left internal carotid artery occlusion with mild 50 percentile occlusion of the right side, also finding with COPD with pulmonary artery hypertension small left pleural effusion and left lower lobe ammonia partially visualized with 1.6 cm left hilar lymph node probably reactive. Lab values showed white blood cell of 34,000 with hemoglobin slightly bit down to 10.0, she is on warfarin for A. fib with RVR with her INR was 2.5 for the time. Kidney function with GFR above 90 blood sugar was at 85. Mildly elevated liver function tests with ALT and AST 58 and 78, BNP was 1000 troponin was normal UA showed no major abnormality. Patient will be hospitalized for TIA/CVA, COPD exacerbation, left-sided pneumonia with failure to outpatient treatment. Still finding of lung cancer wi thout any metastasis at this point. 05/24: Patient has been seen by pulmonary medicine for COPD not in exacerbation no need for steroids the patient started on Perforomist twice daily. 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 Plan is for monitoring and follow-up with Dr. Vega. Patient has been afebrile, heart rate 86, blood pressure 143/61, pulse ox 95% on 2 L nasal cannula. WBC 28.4, hemoglobin 9.6, platelet count 436. INR 2.7. Sodium 132, potassium 3.5, chloride 94, CO2 32, BUN 21 creatinine 0.49. Blood Glucose Running Anywhere between 105 and 332. Calcium 8.3, AST 45, ALT 87, Alkaline Phosphatase 84. Consult in place for neurology as well. EEG has been done and report is pending. Patient is followed by PT and OT with discharge plan to [facility] as return. 05/25: Patient complains of feeling tired. She complains of cough and her lower ribs are hurting which she thinks is related to coughing. She states she has a continued to go in her throat but can't bring up any phlegm. She states she has spit up some blood which she did this morning. Due to her history of lung cancer, CT of the chest has been ordered. Patient's oncologist was Dr. Alexander. She states her overnight caregiver is Dr. Santacruz. Patient is afebrile, heart rate in the 80s, blood pressure 166/76, pulse ox 98% on 3 L nasal cannula. Patient has been seen by neurology. EEG showed mild intermittent generalized slowing, suggestive of encephalopathy. No epileptiform activity was seen. No indication for antiepileptic medication. Patient has been cleared by neurology for discharge in a signed off. 05/26: CT of the chest revealed COPD with moderately advanced emphysema and pulmonary artery hypertension. CAD with LAD and RCA coronary artery calcifications. Posterior left lower lobe consolidation with trace effusion. Correlate for pneumonia with parapneumonic effusion. Couple 4 mm pulmonary nodules in the right, recommended follow-up in 3 months. Mild circumferential wall thickening of the distal esophagus may represent esophagitis. Patient has a right-sided nosebleed started this morning, pressure, has been placed, Afrin will be added and Coumadin placed on hold for 5 days. Patient continues to complain of cough for which Robitussin with codeine added. associate medical director is atrial fibrillation with controlled rate. Cardiology is planning for 30 day ev ent monitor. Pulmonary medicine is change Zosyn to oral Augmentin and is stable from pulmonary standpoint. Sputum cultures in progress. Blood culture no growth in 48 hours 2. Discharge plan remains [facility] on Thursday. 05/27, patient is in for follow-up today, and epistaxis has improved, shortness of breath has improved, still with cough, not worse, however chest x-ray shows slight interval worsening of posterior left lower lobe pneumonia, as compared to a 12, and no significant effusion, patient doesn't have any fever no chills, pulmonary is following with going to keep her one more day, to maximize her current regimen, echocardiogram is also reviewed EF 60-65%, with moderate concentric LVH, RVSP of 35, mild AR, mild MR, mild TR, mild pulmonary hypertension no pericardial effusion Coumadin is on hold secondary to epistaxis, we will start bridging with Lovenox at this time, secondary to grade chronic anticoagulation for atrial fibrillation, not this is his currently resolved.. Anti-back switched to cefepime Vanco, sputum cultures final on , negative for pathogens we'll request another sputum and culture sensitivity hold discharge at this time to [facility] 05/28, the patient's feeling much better, less shortness of breath less cough, breathing better, she is on IV cefepime and vancomycin, sputum cultures were sent today, as the hemoptysis and epistaxis has stopped, we are going to continue on Lovenox to bridge with Coumadin, he would restart Coumadin today. Discontinue Lovenox once INR is at 2.0, for atrial fibrillation. Suspect gram- negative pneumonia, however drug resistance including MRSA cannot be eliminated. As she did not get better with Augmentin, pro-calcitonin was okay at 0.06, was at 5 mg warfarin prior to admission. 5 mg Coumadin tonight and decreased Lovenox at 30 mg daily 05/29: Patient's doing much better, still with cough, no hemoptysis, pulmonary seen her, recommended 1 more day of IV antibiotics, Coumadin 5 mg tonight, INR 1.0, sputum culture is currently pending, no fever no chills no diarrhea. Labs reviewed, leukocytosis improving, wbc count 17,000 awaiting [facility] 05/30: Patient is coughing, no hemoptysis, states that she is better. INR 1.3 Coumadin 5 mg tonight No lightheadedness no chest pain, tolerating PT OT, has no syncope no aspiration, patient has no fever no chills, sputum cultures growing Bhavana species, oral fluconazole 100 mg started, followed by pulmonary, still on IV cefepime, and back Comycin, awaiting final antibiotic choice from a medicine anticipate transfer to [facility] in the morning REVIEW OF SYSTEMS Constitutional: No fever, no chills, no night sweats. No weight change. No w eakness, fatigue or lethargy. No daytime sleepiness. Mild overweight in mild respiratory distress. EENT: No headache. No blurred vision or double vision, no loss of vision. No loss of Hearing, no ringing in the ears, no dizziness. No nasal drainage or congestion. Noted epistaxis. No sore throat. Lungs: Slight shortness of breath cough wheezes with sputum production. Cardiovascular: mild dyspnea and shortness of breath no lower extremity edema positive palpitation or chest pain slight PND and orthopnea.. Abdominal: No abdominal pain. No nausea, vomiting. No diarrhea. No constipation. No bloody or tarry stools.. No loss of appetite. Genitourinary: No dysuria, increased frequency, urgency. No urinary retention. Musculoskeletal: No myalgias. No muscle weakness, no gait dysfunction, no frequent falls. No back pain. No neck pain. Generalized muscle pain. Integumentary: No wounds, no lesions. No rash or pruritus. No unusual bruising. No change in hair or nails. Neurologic: No aphasia, slight change mental status, slight weakness left side compared to the right side. Psychiatric: No depression. No anxiety. No mood swings. Endocrine: No abnormal blood sugars. No weight change. No excessive sweating or thirst. No cold intolerance. Objective - Vital Signs Vital signs: Vital Signs Temp 97.8 F 05/30/21 11:46 Pulse 82 05/30/21 13:49 Resp 16 05/30/21 13:49 BP 99/55 05/30/21 11:46 Pulse Ox 97 05/30/21 11:46 Intake & Output 05/29/21 05/30/21 05/30/21 18:59 06:59 18:59 Intake Total 720 233 240 Balance 720 233 240 Intake: Oral 720 233 240 Other: Voiding Method Toilet Toilet Diaper Diaper # Voids 1 1 2 # Bowel Movements 1 - Constitutional General appearance: Present: cooperative, no acute distress - EENT Eyes: Present: EOMI, PERRLA, dentition normal, normal appearance ENT: Present: NA/AT, normal oropharynx - Neck Neck: Present: normal ROM - Respiratory Respiratory: bilateral: CTA, negative: diminished - Cardiovascular Rhythm: regular Heart sounds: normal: S1, S2 - Gastrointestinal General gastrointestinal: Present: normal bowel sounds - Integumentary Integumentary: Present: decreased turgor, normal - Neurologic Neurologic: Present: CNII-XII intact - Musculoskeletal Musculoskeletal: Present: strength equal bilaterally - Labs CBC & Chem 7: 05/31/21 08:13 05/31/21 08:13 Labs: Abnormal Lab Results - Last 24 Hours (Table) 05/29/21 05/29/21 05/30/21 Range/Units 16:44 20:01 09:18 WBC (3.8-10.6) k/uL RBC (3.80-5.40) m/uL Hgb (11.4-16.0) gm/dL Hct (34.0-46.0) % MCHC (31.0-37.0) g/dL RDW (11.5-15.5) % Neutrophils # (1.3-7.7) k/uL PT 13.1 H (9.0-12.0) sec INR 1.3 H (<1.2) Sodium (137-145) mmol/L Chloride (98-107) mmol/L Carbon Dioxide (22-30) mmol/L POC Glucose (mg/dL) 154 H 169 H (75-99) mg/dL Calcium (8.4-10.2) mg/dL ALT (4-34) U/L Total Protein (6.3-8.2) g/dL Albumin (3.5-5.0) g/dL 05/30/21 05/30/21 05/30/21 Range/Units 09:18 09:18 11:31 WBC 17.6 H (3.8-10.6) k/uL RBC 2.91 L (3.80-5.40) m/uL Hgb 8.5 L (11.4-16.0) gm/dL Hct 27.6 L (34.0-46.0) % MCHC 30.8 L (31.0-37.0) g/dL RDW 16.8 H (11.5-15.5) % Neutrophils # 15.1 H (1.3-7.7) k/uL PT (9.0-12.0) sec INR (<1.2) Sodium 132 L (137-145) mmol/L Chloride 95 L (98-107) mmol/L Carbon Dioxide 34 H (22-30) mmol/L POC Glucose (mg/dL) 172 H (75-99) mg/dL Calcium 8.0 L (8.4-10.2) mg/dL ALT 44 H (4-34) U/L Total Protein 5.7 L (6.3-8.2) g/dL Albumin 3.3 L (3.5-5.0) g/dL Microbiology - Last 24 Hours (Table) 05/28/21 09:10 Gram Stain - Final Sputum Sputum Culture - Final Bhavana albicans 05/23/21 14:17 Blood Culture - Final Blood No Growth after 144 hours 05/23/21 14:35 Blood Culture - Final Blood No Growth after 144 hours Assessment and Plan Plan: ASSESSMENT AND PLAN 1. Difficulty waking from sleep, CVA ruled out. Patient does have a left internal carotid artery occlusion and 50% on the right internal carotid and seen by vascular surgery 2 acute on chronic hypoxic respiratory failure: With chronic COPD with recent treatment for COPD exacerbation continue medication continue patient on albut rosibel/ipratropium, continue guaifenesin and Pulmicort, oral prednisone 3 left lower side pneumonitis gram-negative suspected has been ruled out by pulmonary medicine. Chronic COPD. Perforomist started. No need for steroids. Pulmonary medicine consult appreciated. Zosyn transitioned to Augmentin but discontinued secondary to worsening x-rays, cefepime, and Vanco, repeat cultures pulmonary following for abx. 4 A. fib with RVR, chronic atrial fibrillation: Pulse rates under control currently patient has been on digoxin along with metoprolol XL 100 mg twice a day still on warfarin with INR has been therapeutic. Coumadin placed on hold secondary to epistaxis and hemoptysis restart 05/28, 5 mg daily, Lovenox to bridge, the INR is at 2, patient preferred to select secondary to expense adriana red to factor X a inhibition 5 history of lung cancer: Post radiation therapy has been seen pulmonary. 6 hyperlipidemia: Continue Lipitor at 40 mg daily. 7 chronic diastolic heart failure. has been on digoxin along with furosemide and metoprolol. 8 hyperglycemia/borderline diabetes: Continue patient on Accu-Chek with sliding scales coverage. 9 chronic pain syndrome: Continue hydrocodone along with Lyrica. 10 . Recurrent depression: Has been on Celexa 20 mg a day. 11 debility: Worsening symptoms lately since her hospitalization will start PTOT advance patient will be going back to [facility] after clear medically. 12 GI prophylaxis: Patient will be on pantoprazole 40 mg daily. 13 DVT prophylaxis: Hold Coumadin 14. Hemoptysis. CAT scan of the chest negative for malignancy. 15. Epistaxis. Continue pressure, Afrin spray, hold Coumadin. Bridged with Lovenox 40 twice a day subcu CODE STATUS: Full code. Discharge plan [facility] return on Thursday
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
[2021-05-30] MEDS: guaiFENesin SYRUP 100MG/5ML 200 MG/10 ML CUP PO SCH ×2 (16:13→20:04)
[2021-05-30] MEDS: MULTIVITAMINS, THERA 1 EACH TAB PO SCH (16:13)
[2021-05-30 17:01] LABS: Glucose,Whole Blood 153 mg/dL (75-99)
[2021-05-30] MEDS ORDERED: WARFARIN 3 MG TAB PO ONE (18:00)
[2021-05-30 20:02] LABS: Glucose,Whole Blood 123 mg/dL (75-99)
[2021-05-30] MEDS: CITALOPRAM HYDROBROMIDE 20 MG TAB PO SCH (20:04)
[2021-05-30] MEDS: MONTELUKAST 10 MG TAB PO SCH (20:04)
[2021-05-30] MEDS: ATORVASTATIN 40 MG TAB PO SCH (20:04)
[2021-05-31] MEDS: CEFEPIME 2 GM in SODIUM CHLORIDE 0.9% 100 ML IVPB SCH ×3 (00:05→17:15)
[2021-05-31] MEDS: guaiFENesin SYRUP 100MG/5ML 200 MG/10 ML CUP PO SCH ×3 (05:34→20:51)
[2021-05-31] MEDS: PANTOPRAZOLE 40 MG TABLET PO SCH (05:34)
[2021-05-31 06:19] LABS: Glucose,Whole Blood 85 mg/dL (75-99)
[2021-05-31] MEDS: INSULIN ASPART (NovoLOG) 100 UNIT/ML VIAL SQ SCH ×4 (07:51→20:51)
[2021-05-31] MEDS ORDERED: VANCOMYCIN TROUGH DUE 1 EACH MISC MISCELLANE ONE (08:00)
[2021-05-31] MEDS: IPRATROPIUM-ALBUTEROL 3 ML NEB INHALATION PRN ×4 (08:14→19:26)
[2021-05-31] MEDS: BUDESONIDE 1 MG/2 ML NEBU INHALATION SCH ×2 (08:14→19:26)
[2021-05-31] MEDS: FORMOTEROL FUMARATE 20 MCG/2 ML NEBU INHALATION SCH ×2 (08:14→19:26)
[2021-05-31 08:33] LABS: Anisocytosis Slight; Basophils % (A) 0 %; Eosinophils # (A) 0.1 k/uL (0-0.7); Eosinophils % (A) 1 %; HCT 30.1 % (34.0-46.0); HGB 9.3 gm/dL (11.4-16.0); Hypochromasia Marked; Lymphocytes # (A) 1.6 k/uL (1.0-4.8); Lymphocytes % (A) 8 %; MCH 29.4 pg (25.0-35.0); MCV 95.1 fL (80.0-100.0); Mean Platelet Volume 7.1; Monocytes # (A) 0.8 k/uL (0-1.0); Monocytes % (A) 4 %; Neutrophils # (A) 16.8 k/uL (1.3-7.7); Neutrophils % (A) 86 %; Platelet Count 343 k/uL (150-450); Poikilocytosis Slight; RBC 3.17 m/uL (3.80-5.40); RDW 16.3 % (11.5-15.5); WBC 19.7 k/uL (3.8-10.6)
[2021-05-31] MEDS: ISOSORBIDE MONONITRATE ER 30 MG TAB.ER.24H PO SCH (08:48)
[2021-05-31] MEDS: predniSONE 20 MG TAB PO SCH (08:48)
[2021-05-31] MEDS: METOPROLOL SUCCINATE (ER) 100 MG TAB.ER.24H PO SCH ×2 (08:48→17:15)
[2021-05-31] MEDS: FUROSEMIDE 20 MG TAB PO SCH ×2 (08:48→17:15)
[2021-05-31] MEDS: ASPIRIN 81 MG PO SCH (08:48)
[2021-05-31] MEDS: PREGABALIN 50 MG CAP PO SCH ×3 (08:48→17:15)
[2021-05-31] MEDS: DIGOXIN 125 MCG TAB PO SCH (08:48)
[2021-05-31] MEDS: DOCUSATE 100 MG CAP PO SCH ×2 (08:48→16:14)
[2021-05-31] MEDS: VANCOMYCIN 1,750 MG in SODIUM CHLORIDE 0.9% 500 ML 500 ML IVPB SCH (08:49)
[2021-05-31] MEDS: OXYMETAZOLINE 0.05% NASL SPRAY 1 SPRAY BOTTLE NASAL SCH ×2 (08:49→17:15)
[2021-05-31] MEDS: ENOXAPARIN 40 MG/0.4 ML SYRINGE SQ SCH (08:49)
--- NOTE | 2021-05-31 08:53 | XR ---
EXAMINATION TYPE: XR chest 1V portable DATE OF EXAM: 05/31/2021 COMPARISON: 05/29/2021 HISTORY: Cough TECHNIQUE: Single frontal view of the chest is obtained. FINDINGS: Hyperinflation suggests COPD. Diffuse osteopenia and arthropathy of the shoulders. Atheros clerotic change aorta. Biapical pleural thickening with nodular change involving the left lung. Coars ened interstitium seen correlate for pulmonary fibrosis. Left lower lobe atelectasis versus infiltrat e stable IMPRESSION: 1. COPD with suspected basilar pulmonary fibrosis and left lower lobe atelectasis or infiltrate sligh tly improved from prior exam.
[2021-05-31 08:54] LABS: African American GFR (CKD) >90 (>60 ml/min/1.73 sqM); Anion Gap 7 mmol/L; Blood Urea Nitrogen 21 mg/dL (7-17); Calcium 8.7 mg/dL (8.4-10.2); Carbon Dioxide 31 mmol/L (22-30); Chloride 96 mmol/L (98-107); Glucose 71 mg/dL (74-99); Non-African American GFR(CKD) 85 (>60 ml/min/1.73 sqM); Potassium 3.8 mmol/L (3.5-5.1); Sodium 134 mmol/L (137-145)
[2021-05-31 09:00] LABS: INR 1.6 (<1.2); Prothrombin Time 15.9 sec (9.0-12.0)
[2021-05-31 12:16] LABS: Glucose,Whole Blood 180 mg/dL (75-99)
--- NOTE | 2021-05-31 14:31 | P.PN ---
Subjective Progress Note Date: 05/31/21 HISTORY OF PRESENT ILLNESS 70-year-old female who was transferred from [facility] to [facility] on the for debility post hospitalization for COPD exacerbation and pneumonitis with respiratory failure. Patient was seen Dr. Murphy and her primary care physician in [facility]. Patient also was treated for congestive heart failure. She is known to have history of lung cancer who had post stereotactic body radiotherapy with Dr. Alexander this last year successfully and has done well with it. Patient apparently was doing well in the morning her nurse found her unresponsive at the time and found to have slurred speech with altered mental status with slight weakness in the left side compared to her normal status. Patient was hypoxic was having more pulmonary congestion. Ended up coming to demurs department at [facility] where was seen and evaluated her chest x-ray showed pulmonary fibrosis with left lower lobe infiltrate also had symmetric nodular apical thickening of the left upper lobe similar to her previous one from May last year. CT of the brain showed moderate generalized cerebral atrophy with moderate burden of chronic small vessel ischemic disease with no acute intracranial abnormality was seen. CT angiography shows a proximal left internal carotid artery occlusion with mild 50 percentile occlusion of the right side, also finding with COPD with pulmonary artery hypertension small left pleural effusion and left lower lobe ammonia partially visualized with 1.6 cm left hilar lymph node probably reactive. Lab values showed white blood cell of 34,000 with hemoglobin slightly bit down to 10.0, she is on warfarin for A. fib with RVR with her INR was 2.5 for the time. Kidney function with GFR above 90 blood sugar was at 85. Mildly elevated liver function tests with ALT and AST 58 and 78, BNP was 1000 troponin was normal UA showed no major abnormality. Patient will be hospitalized for TIA/CVA, COPD exacerbation, left-sided pneumonia with failure to outpatient treatment. Still finding of lung cancer wi thout any metastasis at this point. 05/24: Patient has been seen by pulmonary medicine for COPD not in exacerbation no need for steroids the patient started on Perforomist twice daily. 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 Plan is for monitoring and follow-up with Dr. Vega. Patient has been afebrile, heart rate 86, blood pressure 143/61, pulse ox 95% on 2 L nasal cannula. WBC 28.4, hemoglobin 9.6, platelet count 436. INR 2.7. Sodium 132, potassium 3.5, chloride 94, CO2 32, BUN 21 creatinine 0.49. Blood Glucose Running Anywhere between 105 and 332. Calcium 8.3, AST 45, ALT 87, Alkaline Phosphatase 84. Consult in place for neurology as well. EEG has been done and report is pending. Patient is followed by PT and OT with discharge plan to [facility] as return. 05/25: Patient complains of feeling tired. She complains of cough and her lower ribs are hurting which she thinks is related to coughing. She states she has a continued to go in her throat but can't bring up any phlegm. She states she has spit up some blood which she did this morning. Due to her history of lung cancer, CT of the chest has been ordered. Patient's oncologist was Dr. Alexander. She states her residential specialist is Dr. Santacruz. Patient is afebrile, heart rate in the 80s, blood pressure 166/76, pulse ox 98% on 3 L nasal cannula. Patient has been seen by neurology. EEG showed mild intermittent generalized slowing, suggestive of encephalopathy. No epileptiform activity was seen. No indication for antiepileptic medication. Patient has been cleared by neurology for discharge in a signed off. 05/26: CT of the chest revealed COPD with moderately advanced emphysema and pulmonary artery hypertension. CAD with LAD and RCA coronary artery calcifications. Posterior left lower lobe consolidation with trace effusion. Correlate for pneumonia with parapneumonic effusion. Couple 4 mm pulmonary nodules in the right, recommended follow-up in 3 months. Mild circumferential wall thickening of the distal esophagus may represent esophagitis. Patient has a right-sided nosebleed started this morning, pressure, has been placed, Afrin will be added and Coumadin placed on hold for 5 days. Patient continues to complain of cough for which Robitussin with codeine added. library monitor is atrial fibrillation with controlled rate. Cardiology is planning for 30 day ev ent monitor. Pulmonary medicine is change Zosyn to oral Augmentin and is stable from pulmonary standpoint. Sputum cultures in progress. Blood culture no growth in 48 hours 2. Discharge plan remains [facility] on Thursday. 05/27, patient is in for follow-up today, and epistaxis has improved, shortness of breath has improved, still with cough, not worse, however chest x-ray shows slight interval worsening of posterior left lower lobe pneumonia, as compared to a 12, and no significant effusion, patient doesn't have any fever no chills, pulmonary is following with going to keep her one more day, to maximize her current regimen, echocardiogram is also reviewed EF 60-65%, with moderate concentric LVH, RVSP of 35, mild AR, mild MR, mild TR, mild pulmonary hypertension no pericardial effusion Coumadin is on hold secondary to epistaxis, we will start bridging with Lovenox at this time, secondary to grade chronic anticoagulation for atrial fibrillation, not this is his currently resolved.. Anti-back switched to cefepime Vanco, sputum cultures final on , negative for pathogens we'll request another sputum and culture sensitivity hold discharge at this time to [facility] 05/28, the patient's feeling much better, less shortness of breath less cough, breathing better, she is on IV cefepime and vancomycin, sputum cultures were sent today, as the hemoptysis and epistaxis has stopped, we are going to continue on Lovenox to bridge with Coumadin, he would restart Coumadin today. Discontinue Lovenox once INR is at 2.0, for atrial fibrillation. Suspect gram- negative pneumonia, however drug resistance including MRSA cannot be eliminated. As she did not get better with Augmentin, pro-calcitonin was okay at 0.06, was at 5 mg warfarin prior to admission. 5 mg Coumadin tonight and decreased Lovenox at 30 mg daily 05/29: Patient's doing much better, still with cough, no hemoptysis, pulmonary seen her, recommended 1 more day of IV antibiotics, Coumadin 5 mg tonight, INR 1.0, sputum culture is currently pending, no fever no chills no diarrhea. Labs reviewed, leukocytosis improving, wbc count 17,000 awaiting [facility] 05/30: Patient is coughing, no hemoptysis, states that she is better. INR 1.3 Coumadin 5 mg tonight No lightheadedness no chest pain, tolerating PT OT, has no syncope no aspiration, patient has no fever no chills, sputum cultures growing Bhavana species, oral fluconazole 100 mg started, followed by pulmonary, still on IV cefepime, and back Comycin, awaiting final antibiotic choice from a medicine anticipate transfer to [facility] in the morning 05/31, patient's better, however get couldn't hours in bed hours, not sleeping well at night. We have looked into the antibiotic for discharge, however with lack of sensitivities and isolated bacteria related to the sputum culture, we have decided to keep her on IV Vanco and IV cefemime doubles it count is 19,000 today, patient does state this weekend, and expect [facility] on Thursday, she would have completed the empiric antibiotic for at least 8 days by then. Start melatonin, 6 mg at bedtime continue PT OT while here REVIEW OF SYSTEMS Constitutional: No fever, no chills, no night sweats. No weight change. No weakness, fatigue or lethargy. No daytime sleepiness. Mild overweight in mild respiratory distress. EENT: No headache. No blurred vision or double vision, no loss of vision. No loss of Hearing, no ringing in the ears, no dizziness. No nasal drainage or congestion. Noted epistaxis. No sore throat. Lungs: Slight shortness of breath cough wheezes with sputum production. Cardiovascular: mild dyspnea and shortness of breath no lower extremity edema positive palpitation or chest pain slight PND and orthopnea.. Abdominal: No abdominal pain. No nausea, vomiting. No diarrhea. No constipation. No bloody or tarry stools.. No loss of appetite. Genitourinary: No dysuria, increased frequency, urgency. No urinary retention. Musculoskeletal: No myalgias. No muscle weakness, no gait dysfunction, no frequent falls. No back pain. No neck pain. Generalized muscle pain. Integumentary: No wounds, no lesions. No rash or pruritus. No unusual bruising. No change in hair or nails. Neurologic: No aphasia, slight change mental status, slight weakness left side compared to the right side. Psychiatric: No depression. No anxiety. No mood swings. Endocrine: No abnormal blood sugars. No weight change. No excessive sweating or thirst. No cold intolerance. Objective - Vital Signs Vital signs: Vital Signs Temp 98.0 F 05/31/21 12:02 Pulse 66 05/31/21 14:00 Resp 18 05/31/21 14:00 BP 107/61 05/31/21 12:02 Pulse Ox 98 05/31/21 12:02 Intake & Output 05/30/21 05/31/21 05/31/21 18:59 06:59 18:59 Intake Total 1280 240 Balance 1280 240 Weight 75.2 kg 48.5 kg Intake: Oral 1280 240 Other: Voiding Method Toilet Toilet Toilet Diaper Diaper Diaper # Voids 3 1 1 # Bowel Movements 1 - Constitutional General appearance: Present: cooperative, no acute distress - EENT Eyes: Present: EOMI, PERRLA, normal appearance - Neck Neck: Present: normal ROM - Respiratory Respiratory: bilateral: CTA, negative: diminished, dullness, rales, wheezing - Cardiovascular Rhythm: regular Heart sounds: normal: S1, S2 Abnormal Heart Sounds: Absent: systolic murmur, diastolic murmur, rub, S3 Gallop , S4 Gallop, click, other - Gastrointestinal General gastrointestinal: Present: normal bowel sounds, soft - Integumentary Integumentary: Present: decreased turgor, normal - Neurologic Neurologic: Present: CNII-XII intact - Musculoskeletal Musculoskeletal: Present: generalized weakness, strength equal bilaterally - Psychiatric Psychiatric: Present: A&O x's 3, appropriate affect, intact judgment & insight - Labs CBC & Chem 7: 05/31/21 08:13 05/31/21 08:13 Labs: Abnormal Lab Results - Last 24 Hours (Table) 05/30/21 05/30/21 05/31/21 Range/Units 17:00 20:01 08:13 WBC (3.8-10.6) k/uL RBC (3.80-5.40) m/uL Hgb (11.4-16.0) gm/dL Hct (34.0-46.0) % RDW (11.5-15.5) % Neutrophils # (1.3-7.7) k/uL PT 15.9 H (9.0-12.0) sec INR 1.6 H (<1.2) Sodium (137-145) mmol/L Chloride (98-107) mmol/L Carbon Dioxide (22-30) mmol/L BUN (7-17) mg/dL Glucose (74-99) mg/dL POC Glucose (mg/dL) 153 H 123 H (75-99) mg/dL 05/31/21 05/31/21 05/31/21 Range/Units 08:13 08:13 12:15 WBC 19.7 H (3.8-10.6) k/uL RBC 3.17 L (3.80-5.40) m/uL Hgb 9.3 L (11.4-16.0) gm/dL Hct 30.1 L (34.0-46.0) % RDW 16.3 H (11.5-15.5) % Neutrophils # 16.8 H (1.3-7.7) k/uL PT (9.0-12.0) sec INR (<1.2) Sodium 134 L (137-145) mmol/L Chloride 96 L (98-107) mmol/L Carbon Dioxide 31 H (22-30) mmol/L BUN 21 H (7-17) mg/dL Glucose 71 L (74-99) mg/dL POC Glucose (mg/dL) 180 H (75-99) mg/dL Assessment and Plan Plan: ASSESSMENT AND PLAN 1. Difficulty waking from sleep, CVA ruled out. Patient does have a left internal carotid artery occlusion and 50% on the right internal carotid and seen by vascular surgery 2 acute on chronic hypoxic respiratory failure: With chronic COPD with recent treatment for COPD exacerbation continue medication continue patient on albuterol/ipratropium, continue guaifenesin and Pulmicort, oral prednisone 3 left lower side pneumonitis gram-negative suspected has been ruled out by pulmonary medicine. Chronic COPD. Perforomist started. No need for steroids. Pulmonary medicine consult appreciated. Zosyn transitioned to Augmentin but discontinued secondary to worsening x-rays, cefepime, and Vanco, repeat cultures pulmonary following for abx. 4 A. fib with RVR, chronic atrial fibrillation: Pulse rates under control currently patient has been on digoxin along with metoprolol XL 100 mg twice a day still on warfarin with INR has been therapeutic. Coumadin placed on hold secondary to epistaxis and hemoptysis restart 05/28, 5 mg daily, Lovenox to bridge, the INR is at 2, patient preferred to select secondary to expense compared to factor X a inhibition 5 history of lung cancer: Post radiation therapy has been seen pulmonary. 6 hyperlipidemia: Continue Lipitor at 40 mg daily. 7 chronic diastolic heart failure. has been on digoxin along with furosemide and metoprolol. 8 hyperglycemia/borderline diabetes: Continue patient on Accu-Chek with sliding scales coverage. 9 chronic pain syndrome: Continue hydrocodone along with Lyrica. 10 . Recurrent depression: Has been on Celexa 20 mg a day. 11 debility: Worsening symptoms lately since her hospitalization will start PTOT advance patient will be going back to [facility] after clear medically. 12 GI prophylaxis: Patient will be on pantoprazole 40 mg daily. 13 DVT prophylaxis: Hold Coumadin 14. Hemoptysis. CAT scan of the chest negative for malignancy. 15. Epistaxis. Continue pressure, Afrin spray, hold Coumadin. Bridged with Lovenox 40 twice a day subcu CODE STATUS: Full code. Discharge plan [facility] return on Thursday
[2021-05-31] MEDS: MULTIVITAMINS, THERA 1 EACH TAB PO SCH (17:15)
[2021-05-31 17:17] LABS: Glucose,Whole Blood 143 mg/dL (75-99)
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
[2021-05-31] MEDS ORDERED: WARFARIN 3 MG TAB PO ONE (18:00)
[2021-05-31 20:02] LABS: Glucose,Whole Blood 145 mg/dL (75-99)
[2021-05-31] MEDS: CITALOPRAM HYDROBROMIDE 20 MG TAB PO SCH (20:51)
[2021-05-31] MEDS: MONTELUKAST 10 MG TAB PO SCH (20:51)
[2021-05-31] MEDS: ATORVASTATIN 40 MG TAB PO SCH (20:51)
[2021-05-31] MEDS: MELATONIN 3 MG TABLET PO SCH (20:51)
[2021-06-01] MEDS: VANCOMYCIN 1,500 MG in SODIUM CHLORIDE 0.9% 250 ML IVPB SCH ×3 (00:10→22:20)
[2021-06-01] MEDS: CEFEPIME 2 GM in SODIUM CHLORIDE 0.9% 100 ML IVPB SCH ×3 (03:14→16:10)
[2021-06-01] MEDS: OXYMETAZOLINE 0.05% NASL SPRAY 1 SPRAY BOTTLE NASAL SCH ×4 (03:14→21:25)
[2021-06-01 06:11] LABS: Glucose,Whole Blood 87 mg/dL (75-99)
[2021-06-01] MEDS: guaiFENesin SYRUP 100MG/5ML 200 MG/10 ML CUP PO SCH ×3 (06:55→21:01)
[2021-06-01] MEDS: PANTOPRAZOLE 40 MG TABLET PO SCH (06:55)
[2021-06-01] MEDS: INSULIN ASPART (NovoLOG) 100 UNIT/ML VIAL SQ SCH ×4 (07:08→21:16)
[2021-06-01] MEDS: BUDESONIDE 1 MG/2 ML NEBU INHALATION SCH ×2 (07:34→18:53)
[2021-06-01] MEDS: FORMOTEROL FUMARATE 20 MCG/2 ML NEBU INHALATION SCH ×2 (07:34→18:53)
[2021-06-01] MEDS: ENOXAPARIN 40 MG/0.4 ML SYRINGE SQ SCH (08:34)
[2021-06-01] MEDS: DIGOXIN 125 MCG TAB PO SCH (08:34)
[2021-06-01] MEDS: ASPIRIN 81 MG PO SCH (08:35)
[2021-06-01] MEDS: METOPROLOL SUCCINATE (ER) 100 MG TAB.ER.24H PO SCH ×2 (08:35→16:11)
[2021-06-01] MEDS: ISOSORBIDE MONONITRATE ER 30 MG TAB.ER.24H PO SCH (08:35)
[2021-06-01] MEDS: predniSONE 20 MG TAB PO SCH (08:35)
[2021-06-01] MEDS: DOCUSATE 100 MG CAP PO SCH ×2 (08:35→16:11)
[2021-06-01] MEDS: FUROSEMIDE 20 MG TAB PO SCH ×2 (08:35→16:11)
[2021-06-01] MEDS: PREGABALIN 50 MG CAP PO SCH ×3 (08:35→16:10)
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
[2021-06-01 10:52] LABS: Anisocytosis Slight; Basophils % (A) 0 %; Eosinophils # (A) 0.1 k/uL (0-0.7); Eosinophils % (A) 0 %; HCT 26.1 % (34.0-46.0); HGB 8.2 gm/dL (11.4-16.0); Hypochromasia Marked; Lymphocytes # (A) 1.1 k/uL (1.0-4.8); Lymphocytes % (A) 8 %; MCH 29.6 pg (25.0-35.0); MCHC 31.3 g/dL (31.0-37.0); MCV 94.4 fL (80.0-100.0); Mean Platelet Volume 7.8; Monocytes # (A) 0.6 k/uL (0-1.0); Monocytes % (A) 4 %; Neutrophils # (A) 12.8 k/uL (1.3-7.7); Neutrophils % (A) 86 %; Platelet Count 263 k/uL (150-450); Poikilocytosis Slight; RBC 2.76 m/uL (3.80-5.40); RDW 16.2 % (11.5-15.5); WBC 14.9 k/uL (3.8-10.6)
[2021-06-01 11:14] LABS: African American GFR (CKD) >90 (>60 ml/min/1.73 sqM); Anion Gap 5 mmol/L; Blood Urea Nitrogen 14 mg/dL (7-17); Calcium 8.2 mg/dL (8.4-10.2); Carbon Dioxide 32 mmol/L (22-30); Chloride 96 mmol/L (98-107); Glucose 86 mg/dL (74-99); INR 2.1 (<1.2); Non-African American GFR(CKD) >90 (>60 ml/min/1.73 sqM); Potassium 3.8 mmol/L (3.5-5.1); Prothrombin Time 20.7 sec (9.0-12.0); Sodium 133 mmol/L (137-145)
[2021-06-01 11:56] LABS: Glucose,Whole Blood 131 mg/dL (75-99)
[2021-06-01] MEDS: MULTIVITAMINS, THERA 1 EACH TAB PO SCH (16:11)
[2021-06-01 16:15] LABS: Glucose,Whole Blood 152 mg/dL (75-99)
--- NOTE | 2021-06-01 16:43 | P.PN ---
Subjective Progress Note Date: 06/01/21 70-year-old female who was transferred from [facility] to [facility] on the for debility post hospitalization for COPD exacerbation and pneumonitis with respiratory failure. Patient was seen Dr. Murphy and her primary care physician in [facility]. Patient also was treated for congestive heart failure. She is known to have history of lung cancer who had post stereotactic body radiotherapy with Dr. Alexander this last year successfully and has done well with it. Patient apparently was doing well in the morning her nurse found her unresponsive at the time and found to have slurred speech with altered mental status with slight weakness in the left side compared to her normal status. Patient was hypoxic was having more pulmonary congestion. Ended up coming to demurs department at [facility] where was seen and evaluated her chest x-ray showed pulmonary fibrosis with left lower lobe infiltrate also had symmetric nodular apical thickening of the left upper lobe similar to her previous one from May last year. CT of the brain showed moderate generalized cerebral atrophy with moderate burden of chronic small vessel ischemic disease with no acute intracranial abnormality was seen. CT angiography shows a proximal left internal carotid artery occlusion with mild 50 percentile occlusion of the right side, also finding with COPD with pulmonary artery hypertension small left pleural effusion and left lower lobe ammonia partially visualized with 1.6 cm left hilar lymph node probably reactive. Lab values showed white blood cell of 34,000 with hemoglobin slightly bit down to 10.0, she is on warfarin for A. fib with RVR with her INR was 2.5 for the t eitan. Kidney function with GFR above 90 blood sugar was at 85. Mildly elevated liver function tests with ALT and AST 58 and 78, BNP was 1000 troponin was normal UA showed no major abnormality. Patient will be hospitalized for TIA/CVA, COPD exacerbation, left-sided pneumonia with failure to outpatient treatment. Still finding of lung cancer without any metastasis at this point. 05/24: Patient has been seen by pulmonary medicine for COPD not in exacerbation no need for steroids the patient started on Perforomist twice daily. Patient has also been seen by vascular surgery for left internal carotid artery occlusion complete and less than 50% on the right internal carotid. Plan is for monitoring and follow-up with Dr. Vega. Patient has been afebrile, heart rat e 86, blood pressure 143/61, pulse ox 95% on 2 L nasal cannula. WBC 28.4, hemoglobin 9.6, platelet count 436. INR 2.7. Sodium 132, potassium 3.5, chloride 94, CO2 32, BUN 21 creatinine 0.49. Blood Glucose Running Anywhere between 105 and 332. Calcium 8.3, AST 45, ALT 87, Alkaline Phosphatase 84. Consult in place for neurology as well. EEG has been done and report is pending. Patient is followed by PT and OT with discharge plan to [facility] as return. 05/25: Patient complains of feeling tired. She complains of cough and her lower ribs are hurting which she thinks is related to coughing. She states she has a continued to go in her throat but can't bring up any phlegm. She states she has spit up some blood which she did this morning. Due to her history of lung cancer, CT of the chest has been ordered. Patient's oncologist was Dr. Alexander. 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 Santacruz. Patient is afebrile, heart rate in the 80s, blood pressure 166/76, pulse ox 98% on 3 L nasal cannula. Patient has been seen by neurology. EEG showed mild intermittent generalized slowing, suggestive of encephalopathy. No epileptiform activity was seen. No indication for antiepileptic medication. Patient has been cleared by neurology for discharge in a signed off. 05/26: CT of the chest revealed COPD with moderately advanced emphysema and pulmonary artery hypertension. CAD with LAD and RCA coronary artery calcifications. Posterior left lower lobe consolidation with trace effusion. C orrelate for pneumonia with parapneumonic effusion. Couple 4 mm pulmonary nodules in the right, recommended follow-up in 3 months. Mild circumferential wall thickening of the distal esophagus may represent esophagitis. Patient has a right-sided nosebleed started this morning, pressure, has been placed, Afrin will be added and Coumadin placed on hold for 5 days. Patient continues to complain of cough for which Robitussin with codeine added. 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 Cardiology is planning for 30 day event monitor. Pulmonary medicine is change Zosyn to oral Augmentin and is stable from pulmonary standpoint. Sputum cultures in progress. Blood culture no growth in 48 hours 2. Discharge plan remains [facility] on Thursday. 05/27, patient is in for follow-up today, and epistaxis has improved, shortness of breath has improved, still with cough, not worse, however chest x-ray shows slight interval worsening of posterior left lower lobe pneumonia, as compared to a 12, and no significant effusion, patient doesn't have any fever no chills, pulmonary is following with going to keep her one more day, to maximize her current regimen, echocardiogram is also reviewed EF 60-65%, with moderate concentric LVH, RVSP of 35, mild AR, mild MR, mild TR, mild pulmonary hypertension no pericardial effusion Coumadin is on hold secondary to epistaxis, we will start bridging with Lovenox at this time, secondary to grade chronic anticoagulation for atrial fibrillation, not this is his currently resolved.. Anti-back switched to cefepime Vanco, sputum cultures final on , negative for pathogens we'll request another sputum and culture sensitivity hold discharge at this time to [facility] 05/28, the patient's feeling much better, less shortness of breath less cough, breathing better, she is on IV cefepime and vancomycin, sputum cultures were sent today, as the hemoptysis and epistaxis has stopped, we are going to continue on Lovenox to bridge with Coumadin, he would restart Coumadin today. Discontinue Lovenox once INR is at 2.0, for atrial fibrillation. Suspect gram- negative pneumonia, however drug resistance including MRSA cannot be eliminated. As she did not get better with Augmentin, pro-calcitonin was okay at 0.06, was at 5 mg warfarin prior to admission. 5 mg Coumadin tonight and decreased Lovenox at 30 mg daily 05/29: Patient's doing much better, still with cough, no hemoptysis, pulmonary seen her, recommended 1 more day of IV antibiotics, Coumadin 5 mg tonight, INR 1.0, sputum culture is currently pending, no fever no chills no diarrhea. Labs reviewed, leukocytosis improving, wbc count 17,000 awaiting [facility] 05/30: Patient is coughing, no hemoptysis, states that she is better. INR 1.3 Coumadin 5 mg tonight No lightheadedness no chest pain, tolerating PT OT, has no syncope no aspiration, patient has no fever no chills, sputum cultures growing Bhavana species, oral fluconazole 100 mg started, followed by pulmonary, still on IV cefepime, and back Comycin, awaiting final antibiotic choice from a medicine anticipate transfer to [facility] in the morning 05/31, patient's better, however get couldn't hours in bed hours, not sleeping well at night. We have looked into the antibiotic for discharge, however with lack of sensitivities and isolated bacteria related to the sputum culture, we have decided to keep her on IV Vanco and IV cefemime doubles it count is 19,000 today, patient does state this weekend, and expect [facility] on Thursday, she would have completed the empiric antibiotic for at least 8 days by then. Start kobi onin, 6 mg at bedtime continue PT OT while here 06/01 patient examined bedside. She denies any shortness of breath or chest pain or insomnia. Patient slept well after initiation of melatonin. Vitals are reviewed patient is afebrile pulse 78 and respiratory rate 22 blood pressure 107/51 oxygen saturation 92% on 4 L of oxygen. Labs suggestive of improvement in leukocytosis of 14.9 hemoglobin 8.2 INR 2.1 sodium 133 chloride 96 bicarb 32 BUN and 14 creatinine 0.57 glucose ranging from 87-150. Blood blood culture negative for any gross sputum culture shows Bhavana. Patient to continue antib iotics Vanco and cefepime until Thursday. REVIEW OF SYSTEMS Constitutional: No fever, no chills, no night sweats. No weight change. No weakness, fatigue or lethargy. No daytime sleepiness. Mild overweight in mild respiratory distress. EENT: No headache. No blurred vision or double vision, no loss of vision. No loss of Hearing, no ringing in the ears, no dizziness. No nasal drainage or congestion. Noted epistaxis. No sore throat. Lungs: Slight shortness of breath cough wheezes with sputum production. Cardiovascular: mild dyspnea and shortness of breath no lower extremity edema positive palpitation or chest pain slight PND and orthopnea.. Abdominal: No abdominal pain. No nausea, vomiting. No diarrhea. No constipation. No bloody or tarry stools.. No loss of appetite. Genitourinary: No dysuria, increased frequency, urgency. No urinary retention. Musculoskeletal: No myalgias. No muscle weakness, no gait dysfunction, no frequent falls. No back pain. No neck pain. Generalized muscle pain. Integumentary: No wounds, no lesions. No rash or pruritus. No unusual bruising. No change in hair or nails. Neurologic: No aphasia, slight change mental status, slight weakness left side compared to the right side. Psychiatric: No depression. No anxiety. No mood swings. Endocrine: No abnormal blood sugars. No weight change. No excessive sweating or thirst. No cold intolerance. Physical exam - Constitutional General appearance: cooperative, no acute distress, obese - EENT Eyes: anicteric sclerae, PERRLA, normal appearance ENT: hearing grossly normal - Neck Neck: no lymphadenopathy, normal ROM, no other, no rigidity, no stridor, no thyromegaly - Respiratory Respiratory: bilateral: CTA, mild wheezing posterior lung no rhonchi or rales - Cardiovascular Rhythm: regular Heart sounds: normal: S1, S2 Abnormal Heart Sounds: no systolic murmur, no diastolic murmur, no rub, no S3 Gallop, no S4 Gallop, no click, no other - Gastrointestinal General gastrointestinal: normal bowel sounds, soft nontender - Integumentary Integumentary: no rash - Neurologic Neurologic: No motor or sensory deficit - Musculoskeletal Musculoskeletal: gait normal, strength equal bilaterally - Psychiatric Psychiatric: A&O x's 3, appropriate affect Assessment and plan 1. Metabolic encephalopathy with Difficulty waking from sleep, CVA ruled out. Patient does have a left internal carotid artery occlusion and 50% on the right internal carotid and seen by vascular surgery 2 acute on chronic hypoxic respiratory failure: With chronic COPD with recent treatment for COPD exacerbation continue medication continue patient on albuterol/ipratropium, continue guaifenesin and Pulmicort, oral prednisone 3 left lower side pneumonitis gram-negative suspected has been ruled out by pulmonary medicine. Chronic COPD. Perforomist on 20 mg of prednisone Pulmonary medicine consult appreciated. Zosyn transitioned to Augmentin but discontinued secondary to worsening x-rays, cefepime, and Vanco until Thursday, repeat cultures pulmonary following for abx. 4 A. fib with RVR, chronic atrial fibrillation: Pulse rates under control currently patient has been on digoxin along with metoprolol XL 100 mg twice a day still on warfarin with INR has been therapeutic. Coumadin placed on hold secondary to epistaxis and hemoptysis restart 05/28, 5 mg daily, Lovenox to bridge, the INR is at 2, patient preferred to select secondary to expense compared to factor X a inhibition 5 history of lung cancer: Post radiation therapy has been seen pulmonary. 6 hyperlipidemia: Continue Lipitor at 40 mg daily. 7 chronic diastolic heart failure. has been on digoxin along with furosemide and metoprolol. 8 hyperglycemia/borderline diabetes: Continue patient on Accu-Chek with sliding scales coverage. 9 chronic pain syndrome: Continue hydrocodone along with Lyrica. 10 . Recurrent depression: Has been on Celexa 20 mg a day. 11 debility: Worsening symptoms lately since her hospitalization will start PTOT advance patient will be going back to [facility] after clear medically. 12 GI prophylaxis: Patient will be on pantoprazole 40 mg daily. 13 DVT prophylaxis: On Coumadin 14. Hemoptysis. CAT scan of the chest negative for malignancy. 15. Epistaxis. Continue pressure, Afrin spray, hold Coumadin. Bridged with Lovenox 40 twice a day subcu CODE STATUS: Full code. Discharge plan [facility] return on Thursday Objective - Vital Signs Vital signs: Vital Signs Temp 97.8 F 06/01/21 16:00 Pulse 79 06/01/21 16:00 Resp 22 06/01/21 16:00 BP 107/51 06/01/21 16:00 Pulse Ox 92 L 06/01/21 16:00 Intake & Output 05/31/21 06/01/21 06/01/21 18:59 06:59 18:59 Intake Total 480 480 Output Total 550 Balance 480 -550 480 Weight 76.9 kg Intake: Oral 480 480 Output: Urine 550 Other: Voiding Method Toilet Toilet Diaper Diaper # Voids 2 2 # Bowel Movements 1 - Labs CBC & Chem 7: 06/01/21 10:29 06/01/21 10:29 Labs: Abnormal Lab Results - Last 24 Hours (Table) 05/31/21 05/31/21 06/01/21 Range/Units 17:16 20:01 10:29 WBC (3.8-10.6) k/uL RBC (3.80-5.40) m/uL Hgb (11.4-16.0) gm/dL Hct (34.0-46.0) % RDW (11.5-15.5) % Neutrophils # (1.3-7.7) k/uL PT 20.7 H (9.0-12.0) sec INR 2.1 H (<1.2) Sodium (137-145) mmol/L Chloride (98-107) mmol/L Carbon Dioxide (22-30) mmol/L POC Glucose (mg/dL) 143 H 145 H (75-99) mg/dL Calcium (8.4-10.2) mg/dL 06/01/21 06/01/21 06/01/21 Range/Units 10:29 10:29 11:54 WBC 14.9 H (3.8-10.6) k/uL RBC 2.76 L (3.80-5.40) m/uL Hgb 8.2 L (11.4-16.0) gm/dL Hct 26.1 L (34.0-46.0) % RDW 16.2 H (11.5-15.5) % Neutrophils # 12.8 H (1.3-7.7) k/uL PT (9.0-12.0) sec INR (<1.2) Sodium 133 L (137-145) mmol/L Chloride 96 L (98-107) mmol/L Carbon Dioxide 32 H (22-30) mmol/L POC Glucose (mg/dL) 131 H (75-99) mg/dL Calcium 8.2 L (8.4-10.2) mg/dL 06/01/21 Range/Units 16:14 WBC (3.8-10.6) k/uL RBC (3.80-5.40) m/uL Hgb (11.4-16.0) gm/dL Hct (34.0-46.0) % RDW (11.5-15.5) % Neutrophils # (1.3-7.7) k/uL PT (9.0-12.0) sec INR (<1.2) Sodium (137-145) mmol/L Chloride (98-107) mmol/L Carbon Dioxide (22-30) mmol/L POC Glucose (mg/dL) 152 H (75-99) mg/dL Calcium (8.4-10.2) mg/dL
[2021-06-01] MEDS ORDERED: WARFARIN 5 MG TAB PO ONE (18:00)
[2021-06-01 20:15] LABS: Glucose,Whole Blood 138 mg/dL (75-99)
[2021-06-01] MEDS: ATORVASTATIN 40 MG TAB PO SCH (21:01)
[2021-06-01] MEDS: MONTELUKAST 10 MG TAB PO SCH (21:01)
[2021-06-01] MEDS: MELATONIN 3 MG TABLET PO SCH (21:01)
[2021-06-01] MEDS: CITALOPRAM HYDROBROMIDE 20 MG TAB PO SCH (21:01)
[2021-06-02] MEDS: CEFEPIME 2 GM in SODIUM CHLORIDE 0.9% 100 ML IVPB SCH ×4 (01:37→23:21)
[2021-06-02 06:35] LABS: Glucose,Whole Blood 88 mg/dL (75-99)
--- NOTE | 2021-06-02 06:40 | XR ---
EXAMINATION TYPE: XR chest 2V DATE OF EXAM: 06/02/2021 COMPARISON: 05/31/2021 HISTORY: Pneumonia TECHNIQUE: Frontal and lateral views of the chest are obtained. FINDINGS: Left lower lobe partially consolidative opacity improved compared to the prior study but p ersists. Hyperinflation lungs and prominence of the interstitium particularly in the lower lobes likely reflec ting mild chronic interstitial fibrosis. No large pleural effusion and no pneumothorax. Heart size is normal. The osseous structures are intac t. IMPRESSION: Changes consistent with COPD and left lower lobe infiltrate slightly improved compared t o the prior study. Short-term follow-up to resolution is recommended.
[2021-06-02] MEDS: guaiFENesin SYRUP 100MG/5ML 200 MG/10 ML CUP PO SCH ×3 (06:45→20:22)
[2021-06-02] MEDS: PANTOPRAZOLE 40 MG TABLET PO SCH (06:45)
[2021-06-02] MEDS: INSULIN ASPART (NovoLOG) 100 UNIT/ML VIAL SQ SCH ×4 (06:46→20:30)
[2021-06-02] MEDS ORDERED: HYDROcodone/APAP 5-325MG 1 EACH TAB PO PRN (08:29)
[2021-06-02] MEDS: DIGOXIN 125 MCG TAB PO SCH (08:37)
[2021-06-02] MEDS: predniSONE 20 MG TAB PO SCH (08:37)
[2021-06-02] MEDS: ASPIRIN 81 MG PO SCH (08:37)
[2021-06-02] MEDS: ISOSORBIDE MONONITRATE ER 30 MG TAB.ER.24H PO SCH (08:37)
[2021-06-02] MEDS: ENOXAPARIN 40 MG/0.4 ML SYRINGE SQ SCH (08:37)
[2021-06-02] MEDS: METOPROLOL SUCCINATE (ER) 100 MG TAB.ER.24H PO SCH ×2 (08:37→15:51)
[2021-06-02] MEDS: FUROSEMIDE 20 MG TAB PO SCH ×2 (08:37→15:50)
[2021-06-02] MEDS: PREGABALIN 50 MG CAP PO SCH ×4 (08:37→16:08)
[2021-06-02] MEDS: DOCUSATE 100 MG CAP PO SCH ×2 (08:38→15:51)
[2021-06-02] MEDS: OXYMETAZOLINE 0.05% NASL SPRAY 1 SPRAY BOTTLE NASAL SCH ×3 (08:39→20:30)
[2021-06-02] MEDS: BUDESONIDE 1 MG/2 ML NEBU INHALATION SCH ×3 (09:06→19:14)
[2021-06-02] MEDS: FORMOTEROL FUMARATE 20 MCG/2 ML NEBU INHALATION SCH ×2 (09:06→19:15)
[2021-06-02] MEDS ORDERED: VANCOMYCIN TROUGH DUE 1 EACH MISC MISCELLANE ONE (10:00)
[2021-06-02 10:17] LABS: Anisocytosis Slight; Basophils % (A) 0 %; Eosinophils # (A) 0.1 k/uL (0-0.7); Eosinophils % (A) 1 %; HCT 24.8 % (34.0-46.0); HGB 7.7 gm/dL (11.4-16.0); Hypochromasia Marked; Lymphocytes # (A) 1.3 k/uL (1.0-4.8); Lymphocytes % (A) 11 %; MCH 29.5 pg (25.0-35.0); Mean Platelet Volume 7.9; Monocytes # (A) 0.5 k/uL (0-1.0); Monocytes % (A) 4 %; Neutrophils # (A) 10.4 k/uL (1.3-7.7); Neutrophils % (A) 83 %; Platelet Count 235 k/uL (150-450); Poikilocytosis Slight; RBC 2.61 m/uL (3.80-5.40); WBC 12.6 k/uL (3.8-10.6)
[2021-06-02 10:30] LABS: African American GFR (CKD) >90 (>60 ml/min/1.73 sqM); Anion Gap 3 mmol/L; Blood Urea Nitrogen 16 mg/dL (7-17); Calcium 8.2 mg/dL (8.4-10.2); Carbon Dioxide 33 mmol/L (22-30); Chloride 99 mmol/L (98-107); Glucose 87 mg/dL (74-99); Non-African American GFR(CKD) >90 (>60 ml/min/1.73 sqM); Potassium 3.9 mmol/L (3.5-5.1); Sodium 135 mmol/L (137-145)
[2021-06-02 10:33] LABS: INR 2.6 (<1.2); Prothrombin Time 25.6 sec (9.0-12.0)
[2021-06-02] MEDS: VANCOMYCIN 1,500 MG in SODIUM CHLORIDE 0.9% 250 ML IVPB SCH (11:06)
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
[2021-06-02 11:40] LABS: Glucose,Whole Blood 95 mg/dL (75-99)
--- NOTE | 2021-06-02 12:11 | P.PN ---
Subjective Progress Note Date: 06/02/21 70-year-old female who was transferred from [facility] to [facility] on the for debility post hospitalization for COPD exacerbation and pneumonitis with respiratory failure. Patient was seen Dr. Murphy and her primary care physician in [facility]. Patient also was treated for congestive heart failure. She is known to have history of lung cancer who had post stereotactic body radiotherapy with Dr. Alexander this last year successfully and has done well with it. Patient apparently was doing well in the morning her nurse found her unresponsive at the time and found to have slurred speech with altered mental status with slight weakness in the left side compared to her normal status. Patient was hypoxic was having more pulmonary congestion. Ended up coming to demurs department at [facility] where was seen and evaluated her chest x-ray showed pulmonary fibrosis with left lower lobe infiltrate also had symmetric nodular apical thickening of the left upper lobe similar to her previous one from May last year. CT of the brain showed moderate generalized cerebral atrophy with moderate burden of chronic small vessel ischemic disease with no acute intracranial abnormality was seen. CT angiography shows a proximal left internal carotid artery occlusion with mild 50 percentile occlusion of the right side, also finding with COPD with pulmonary artery hypertension small left pleural effusion and left lower lobe ammonia partially visualized with 1.6 cm left hilar lymph node probably reactive. Lab values showed white blood cell of 34,000 with hemoglobin slightly bit down to 10.0, she is on warfarin for A. fib with RVR with her INR was 2.5 for the t eitan. Kidney function with GFR above 90 blood sugar was at 85. Mildly elevated liver function tests with ALT and AST 58 and 78, BNP was 1000 troponin was normal UA showed no major abnormality. Patient will be hospitalized for TIA/CVA, COPD exacerbation, left-sided pneumonia with failure to outpatient treatment. Still finding of lung cancer without any metastasis at this point. 05/24: Patient has been seen by pulmonary medicine for COPD not in exacerbation no need for steroids the patient started on Perforomist twice daily. Patient has also been seen by vascular surgery for left internal carotid artery occlusion complete and less than 50% on the right internal carotid. Plan is for monitoring and follow-up with Dr. Vega. Patient has been afebrile, heart rat e 86, blood pressure 143/61, pulse ox 95% on 2 L nasal cannula. WBC 28.4, hemoglobin 9.6, platelet count 436. INR 2.7. Sodium 132, potassium 3.5, chloride 94, CO2 32, BUN 21 creatinine 0.49. Blood Glucose Running Anywhere between 105 and 332. Calcium 8.3, AST 45, ALT 87, Alkaline Phosphatase 84. Consult in place for neurology as well. EEG has been done and report is pending. Patient is followed by PT and OT with discharge plan to [facility] as return. 05/25: Patient complains of feeling tired. She complains of cough and her lower ribs are hurting which she thinks is related to coughing. She states she has a continued to go in her throat but can't bring up any phlegm. She states she has spit up some blood which she did this morning. Due to her history of lung cancer, CT of the chest has been ordered. Patient's oncologist was Dr. Alexander. She states her motor analyst is Dr. Santacruz. Patient is afebrile, heart rate in the 80s, blood pressure 166/76, pulse ox 98% on 3 L nasal cannula. Patient has been seen by neurology. EEG showed mild intermittent generalized slowing, suggestive of encephalopathy. No epileptiform activity was seen. No indication for antiepileptic medication. Patient has been cleared by neurology for discharge in a signed off. 05/26: CT of the chest revealed COPD with moderately advanced emphysema and pulmonary artery hypertension. CAD with LAD and RCA coronary artery calcifications. Posterior left lower lobe consolidation with trace effusion. C orrelate for pneumonia with parapneumonic effusion. Couple 4 mm pulmonary nodules in the right, recommended follow-up in 3 months. Mild circumferential wall thickening of the distal esophagus may represent esophagitis. Patient has a right-sided nosebleed started this morning, pressure, has been placed, Afrin will be added and Coumadin placed on hold for 5 days. Patient continues to complain of cough for which Robitussin with codeine added. monitor and storage bin tender is atrial fibrillation with controlled rate. Cardiology is planning for 30 day event monitor. Pulmonary medicine is change Zosyn to oral Augmentin and is stable from pulmonary standpoint. Sputum cultures in progress. Blood culture no growth in 48 hours 2. Discharge plan remains [facility] on Thursday. 05/27, patient is in for follow-up today, and epistaxis has improved, shortness of breath has improved, still with cough, not worse, however chest x-ray shows slight interval worsening of posterior left lower lobe pneumonia, as compared to a 12, and no significant effusion, patient doesn't have any fever no chills, pulmonary is following with going to keep her one more day, to maximize her current regimen, echocardiogram is also reviewed EF 60-65%, with moderate concentric LVH, RVSP of 35, mild AR, mild MR, mild TR, mild pulmonary hypertension no pericardial effusion Coumadin is on hold secondary to epistaxis, we will start bridging with Lovenox at this time, secondary to grade chronic anticoagulation for atrial fibrillation, not this is his currently resolved.. Anti-back switched to cefepime Vanco, sputum cultures final on , negative for pathogens we'll request another sputum and culture sensitivity hold discharge at this time to [facility] 05/28, the patient's feeling much better, less shortness of breath less cough, breathing better, she is on IV cefepime and vancomycin, sputum cultures were sent today, as the hemoptysis and epistaxis has stopped, we are going to continue on Lovenox to bridge with Coumadin, he would restart Coumadin today. Discontinue Lovenox once INR is at 2.0, for atrial fibrillation. Suspect gram- negative pneumonia, however drug resistance including MRSA cannot be eliminated. As she did not get better with Augmentin, pro-calcitonin was okay at 0.06, was at 5 mg warfarin prior to admission. 5 mg Coumadin tonight and decreased Lovenox at 30 mg daily 05/29: Patient's doing much better, still with cough, no hemoptysis, pulmonary seen her, recommended 1 more day of IV antibiotics, Coumadin 5 mg tonight, INR 1.0, sputum culture is currently pending, no fever no chills no diarrhea. Labs reviewed, leukocytosis improving, wbc count 17,000 awaiting [facility] 05/30: Patient is coughing, no hemoptysis, states that she is better. INR 1.3 Coumadin 5 mg tonight No lightheadedness no chest pain, tolerating PT OT, has no syncope no aspiration, patient has no fever no chills, sputum cultures growing Bhavana species, oral fluconazole 100 mg started, followed by pulmonary, still on IV cefepime, and back Comycin, awaiting final antibiotic choice from a medicine anticipate transfer to [facility] in the morning 05/31, patient's better, however get couldn't hours in bed hours, not sleeping well at night. We have looked into the antibiotic for discharge, however with lack of sensitivities and isolated bacteria related to the sputum culture, we have decided to keep her on IV Vanco and IV cefemime doubles it count is 19,000 today, patient does state this weekend, and [facility], she would have completed the empiric antibiotic for at least 8 days by then. Start kobi onin, 6 mg at bedtime continue PT OT while here 06/01 patient examined bedside. She denies any shortness of breath or chest pain or insomnia. Patient slept well after initiation of melatonin. Vitals are reviewed patient is afebrile pulse 78 and respiratory rate 22 blood pressure 107/51 oxygen saturation 92% on 4 L of oxygen. Labs suggestive of improvement in leukocytosis of 14.9 hemoglobin 8.2 INR 2.1 sodium 133 chloride 96 bicarb 32 BUN and 14 creatinine 0.57 glucose ranging from 87-150. Blood blood culture negative for any gross sputum culture shows Bhavana. Patient to continue antib iotics Vanco and cefepime until Thursday. 06/02 patient examined at bedside. Patient appears to complain of weakness and body aches involving neck and back and lower extremity. She did went to use the restroom and found her needs to buckle down when she is standing. Patient also complains of shortness of breath on exertion. She denies any chest pain, excessive sweating, abdominal pain nausea or vomiting. Vitals suggested temp 98.1 pulse 88 respiratory rate 20 blood pressure 118/50 currently 96 was on 3 L. Patient nurse to try to titrate down the oxygen a drop of oxygen to 83%. Pain is controlled on Tylenol and Wells. Arterial blood gas to be obtained to rule out CO2 retention. Labs are reviewed patient's WBC is improved to 12.6 hemoglobin dropped down to 7.7 INR therapeutic at 2.6 on Coumadin sodium 135 bicarb 33 BUN 16 creatinine 0.58 calcium 8.2. Will obtain iron studies and co ntinue antibiotics coverage with vancomycin and cefepime. COVID PCR ordered with plan to discharge to [facility] tomorrow REVIEW OF SYSTEMS Constitutional: No fever, no chills, no night sweats. No weight change. Positive for lethargy No daytime sleepiness. Mild overweight in mild respiratory distress. EENT: No headache. No blurred vision or double vision, no loss of vision. No loss of Hearing, no ringing in the ears, no dizziness. No nasal drainage or congestion. Noted epistaxis. No sore throat. Lungs: Slight shortness of breath cough wheezes with sputum production slightly improved than yesterday. Cardiovascular: mild dyspnea and shortness of breath no lower extremity edema positive palpitation or chest pain slight PND and orthopnea.. Abdominal: No abdominal pain. No nausea, vomiting. No diarrhea. No constipation. No bloody or tarry stools.. No loss of appetite. Genitourinary: No dysuria, increased frequency, urgency. No urinary retention. Musculoskeletal: No myalgias. No muscle weakness, no gait dysfunction, no frequent falls. No back pain. No neck pain. Generalized muscle pain. Integumentary: No wounds, no lesions. No rash or pruritus. No unusual bruising. No change in hair or nails. Neurologic: No aphasia, slight change mental status, slight weakness left side compared to the right side. Psychiatric: No depression. No anxiety. No mood swings. Endocrine: No abnormal blood sugars. No weight change. No excessive sweating or thirst. No cold intolerance. Physical exam - Constitutional General appearance: cooperative, no acute distress, obese - EENT Eyes: anicteric sclerae, PERRLA, normal appearance ENT: hearing grossly normal - Neck Neck: no lymphadenopathy, normal ROM, no other, no rigidity, no stridor, no thyromegaly, tender in the neck and back and lower extremities - Respiratory Respiratory: bilateral: CTA, mild wheezing posterior lung no rhonchi or rales - Cardiovascular Rhythm: regular Heart sounds: normal: S1, S2 Abnormal Heart Sounds: no systolic murmur, no diastolic murmur, no rub, no S3 Gallop, no S4 Gallop, no click, no other - Gastrointestinal General gastrointestinal: normal bowel sounds, soft nontender - Integumentary Integumentary: no rash - Neurologic Neurologic: No motor or sensory deficit - Musculoskeletal Musculoskeletal: gait normal, strength equal bilaterally - Psychiatric Psychiatric: A&O x's 3, appropriate affect Assessment and plan 1. Metabolic encephalopathy with Difficulty waking from sleep, CVA ruled out. Patient is alert answer questions appropriately Patient does have a left internal carotid artery occlusion and 50% on the right internal carotid and seen by vascular surgery 2 acute on chronic hypoxic respiratory failure: With chronic COPD with recent treatment for COPD exacerbation continue medication continue patient on albuterol/ipratropium, continue guaifenesin and Pulmicort, oral prednisone. ABG ordered to rule out CO2 retention 3 left lower side pneumonitis gram-negative suspected has been ruled out by pulmonary medicine. Chronic COPD. Perforomist on 20 mg of prednisone Pulmonary medicine consult appreciated. Zosyn transitioned to Augmentin but discontinued secondary to worsening x-rays, cefepime, and Vanco until Thursday, repeat cultures pulmonary following for abx. 4 A. fib with RVR, chronic atrial fibrillation: Pulse rates under control currently patient has been on digoxin along with metoprolol XL 100 mg twice a day still on warfarin with INR has been therapeutic. Coumadin placed on hold secondary to epistaxis and hemoptysis restart 05/28, 5 mg daily, Lovenox to bridge, the INR is at 2, patient preferred to select secondary to expense compared to factor X a inhibition 5 history of lung cancer: Post radiation therapy has been seen pulmonary. 6 hyperlipidemia: Continue Lipitor at 40 mg daily. 7 chronic diastolic heart failure. has been on digoxin along with furosemide and metoprolol. 8 hyperglycemia/borderline diabetes: Continue patient on Accu-Chek with sliding scales coverage. 9 chronic pain syndrome: Continue hydrocodone along with Lyrica. 10 . Recurrent depression: Has been on Celexa 20 mg a day. 11 debility: Worsening symptoms lately since her hospitalization will start PTOT advance patient will be going back to [facility] after clear medically. 12 GI prophylaxis: Patient will be on pantoprazole 40 mg daily. 13 DVT prophylaxis: On Coumadin 14. Hemoptysis. CAT scan of the chest negative for malignancy. 15. Epistaxis. Continue pressure, Afrin spray, resolved CODE STATUS: Full code. Discharge plan [place] return on Thursday Objective - Vital Signs Vital signs: Vital Signs Temp 97.9 F 06/02/21 11:04 Pulse 71 06/02/21 11:04 Resp 18 06/02/21 11:04 BP 112/53 06/02/21 11:04 Pulse Ox 94 L 06/02/21 11:04 Intake & Output 06/01/21 06/02/21 06/02/21 18:59 06:59 18:59 Intake Total 480 240 Output Total 770 Balance 480 -770 240 Weight 77 kg Intake: Oral 480 240 Output: Urine 770 Other: Voiding Method Toilet Diaper - Labs CBC & Chem 7: 06/02/21 09:40 06/02/21 09:40 Labs: Abnormal Lab Results - Last 24 Hours (Table) 06/01/21 06/01/21 06/02/21 Range/Units 16:14 20:13 09:40 WBC (3.8-10.6) k/uL RBC (3.80-5.40) m/uL Hgb (11.4-16.0) gm/dL Hct (34.0-46.0) % RDW (11.5-15.5) % Neutrophils # (1.3-7.7) k/uL PT 25.6 H (9.0-12.0) sec INR 2.6 H (<1.2) Sodium (137-145) mmol/L Carbon Dioxide (22-30) mmol/L POC Glucose (mg/dL) 152 H 138 H (75-99) mg/dL Calcium (8.4-10.2) mg/dL 06/02/21 06/02/21 Range/Units 09:40 09:40 WBC 12.6 H (3.8-10.6) k/uL RBC 2.61 L (3.80-5.40) m/uL Hgb 7.7 L (11.4-16.0) gm/dL Hct 24.8 L (34.0-46.0) % RDW 16.0 H (11.5-15.5) % Neutrophils # 10.4 H (1.3-7.7) k/uL PT (9.0-12.0) sec INR (<1.2) Sodium 135 L (137-145) mmol/L Carbon Dioxide 33 H (22-30) mmol/L POC Glucose (mg/dL) (75-99) mg/dL Calcium 8.2 L (8.4-10.2) mg/dL
[2021-06-02] MEDS: IPRATROPIUM-ALBUTEROL 3 ML NEB INHALATION SCH ×2 (12:36→18:58)
[2021-06-02 13:27] LABS: ABG Base Excess 5.4 mmol/L; ABG HCO3 30 mmol/L (21-25); ABG Oxygen Saturation 96.2 % (94-97); ABG PCO2 45 mmHg (35-45); ABG PH 7.43 (7.35-7.45); ABG PO2 80 mmHg (83-108); ABG TCO2 31 mmol/L (19-24); Allen Test Performed? Yes
[2021-06-02] MEDS: MULTIVITAMINS, THERA 1 EACH TAB PO SCH (15:50)
[2021-06-02 16:16] LABS: Glucose,Whole Blood 133 mg/dL (75-99)
[2021-06-02 16:30] LABS: Ferritin 106.8 ng/mL (10.0-291.0)
[2021-06-02 16:47] LABS: % Iron Saturation 5.09 (12.00-45.00)
[2021-06-02] MEDS ORDERED: WARFARIN 5 MG TAB PO ONE (18:00)
[2021-06-02 20:03] LABS: Glucose,Whole Blood 151 mg/dL (75-99)
[2021-06-02] MEDS: CITALOPRAM HYDROBROMIDE 20 MG TAB PO SCH (20:21)
[2021-06-02] MEDS: MELATONIN 3 MG TABLET PO SCH (20:21)
[2021-06-02] MEDS: MONTELUKAST 10 MG TAB PO SCH (20:22)
[2021-06-02] MEDS: ATORVASTATIN 40 MG TAB PO SCH (20:22)
[2021-06-03] MEDS ORDERED: VANCOMYCIN 1,500 MG in SODIUM CHLORIDE 0.9% 250 ML IVPB SCH (05:00)
[2021-06-03 06:04] LABS: Glucose,Whole Blood 93 mg/dL (75-99)
[2021-06-03] MEDS: PANTOPRAZOLE 40 MG TABLET PO SCH (06:27)
[2021-06-03] MEDS: guaiFENesin SYRUP 100MG/5ML 200 MG/10 ML CUP PO SCH ×3 (06:28→12:13)
[2021-06-03] MEDS: ACETAMINOPHEN TAB 325 MG TAB PO PRN (06:30)
[2021-06-03] MEDS: INSULIN ASPART (NovoLOG) 100 UNIT/ML VIAL SQ SCH ×2 (06:33→11:38)
[2021-06-03 07:41] VITALS: BP 118/81; RESP 18; TEMP 97.9
[2021-06-03 07:47] LABS: INR 2.6 (<1.2); Prothrombin Time 25.6 sec (9.0-12.0)
[2021-06-03] MEDS: DIGOXIN 125 MCG TAB PO SCH (07:47)
[2021-06-03] MEDS: predniSONE 20 MG TAB PO SCH (07:47)
[2021-06-03] MEDS: ISOSORBIDE MONONITRATE ER 30 MG TAB.ER.24H PO SCH (07:47)
[2021-06-03] MEDS: DOCUSATE 100 MG CAP PO SCH (07:47)
[2021-06-03] MEDS: ASPIRIN 81 MG PO SCH (07:47)
[2021-06-03] MEDS: METOPROLOL SUCCINATE (ER) 100 MG TAB.ER.24H PO SCH (07:47)
[2021-06-03] MEDS: CEFEPIME 2 GM in SODIUM CHLORIDE 0.9% 100 ML IVPB SCH (07:47)
[2021-06-03] MEDS: PREGABALIN 50 MG CAP PO SCH ×2 (07:47→12:10)
[2021-06-03] MEDS: FUROSEMIDE 20 MG TAB PO SCH (07:48)
[2021-06-03] MEDS: FORMOTEROL FUMARATE 20 MCG/2 ML NEBU INHALATION SCH (08:06)
[2021-06-03] MEDS: IPRATROPIUM-ALBUTEROL 3 ML NEB INHALATION SCH ×2 (08:06→11:05)
[2021-06-03] MEDS: BUDESONIDE 1 MG/2 ML NEBU INHALATION SCH (08:06)
[2021-06-03 08:25] VITALS: PULSE 73
[2021-06-03] MEDS: OXYMETAZOLINE 0.05% NASL SPRAY 1 SPRAY BOTTLE NASAL SCH (08:53)
[2021-06-03 11:37] LABS: Glucose,Whole Blood 124 mg/dL (75-99)
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
--- NOTE | 2021-06-03 14:42 | P.DS ---
Providers Date of admission: 05/23/21 14:17 Attending physician: Isaak Zavala Consults: 05/23/21 14:17 Consult Physician Routine Consulting Provider: Riki Pena Consult Reason/Comments: unresponsive episode Do you want consulting provider notified?: Yes 05/23/21 14:19 Consult Physician Routine Consulting Provider: Lacey Murphy Consult Reason/Comments: copd, resp failure, pneumonia Do you want consulting provider notified?: Yes 05/25/21 09:53 Consult Physician Routine Consulting Provider: Charla Crane Consult Reason/Comments: syncope, afib Do you want consulting provider notified?: Yes Primary care physician: [facility] Course: 70-year-old female who was transferred from [facility] to [facility] on the for debility post hospitalization for COPD exacerbation and pneumonitis with respiratory failure. Patient was seen Dr. Murphy and her primary care physician in [facility]. Patient also was treated for congestive heart failure. She is known to have history of lung cancer who had post stereotactic body radiotherapy with Dr. Alexander this last year successfully and has done well with it. Patient apparently was doing well in the morning her nurse found her unresponsive at the time and found to have slurred speech with altered mental status with slight weakness in the left side compared to her normal status. Patient was hypoxic was having more pulmonary congestion. Ended up coming to demurs department at [facility] where was seen and evaluated her chest x-ray showed pulmonary fibrosis with left lower lobe infiltrate also had symmetric nodular apical thickening of the left upper lobe similar to her previous one from May last year. CT of the brain showed moderate generalized cerebral atrophy with moderate burden of chronic small vessel ischemic disease with no acute intracranial abnormality was seen. CT angiography shows a proximal left internal carotid artery occlusion with mild 50 percentile occlusion of the right side, also finding with COPD with pulmonary artery hypertension small left pleural effusion and left lower lobe ammonia partially visualized with 1.6 cm left hilar lymph node probably reactive. Lab values showed white blood cell of 34,000 with hemoglobin slightly bit down to 10.0, she is on warfarin for A. fib with RVR with her INR was 2.5 for the time. Kidney function with GFR above 90 blood sugar was at 85. Mildly elevated liver function tests with ALT and AST 58 and 78, BNP was 1000 troponin was normal UA showed no major abnormality. Patient will be hospitalized for TIA/CVA, COPD exacerbation, left-sided pneumonia with failure to outpatient treatment. Still finding of lung cancer without any metastasis at this point. 05/24: Patient has been seen by pulmonary medicine for COPD not in exacerbation no need for steroids the patient started on Perforomist twice daily. Patient has also been seen by vascular surgery for left internal carotid artery occlusion complete and less than 50% on the right internal carotid. Plan is for monitoring and follow-up with Dr. Vega. Patient has been afebrile, heart rate 86, blood pressure 143/61, pulse ox 95% on 2 L nasal cannula. WBC 28.4, hemoglobin 9.6, platelet count 436. INR 2.7. Sodium 132, potassium 3.5, chloride 94, CO2 32, BUN 21 creatinine 0.49. Blood Glucose Running Anywhere between 105 and 332. Calcium 8.3, AST 45, ALT 87, Alkaline Phosphatase 84. Consult in place for neurology as well. EEG has been done and report is pending. Patient is followed by PT and OT with discharge plan to [facility] as return. 05/25: Patient complains of feeling tired. She complains of cough and her lower ribs are hurting which she thinks is related to coughing. She states she has a continued to go in her throat but can't bring up any phlegm. She states she has spit up some blood which she did this morning. Due to her history of lung cancer, CT of the chest has been ordered. Patient's oncologist was Dr. Alexander. She states her registered nurse ambulatory is Dr. Santacruz. Patient is afebrile, heart rate in the 80s, blood pressure 166/76, pulse ox 98% on 3 L nasal cannula. Patient has been seen by neurology. EEG showed mild intermittent generalized slowing, suggestive of encephalopathy. No epileptiform activity was seen. No indication for antiepileptic medication. Patient has been cleared by neurology for discharge in a signed off. 05/26: CT of the chest revealed COPD with moderately advanced emphysema and pulmonary artery hypertension. CAD with LAD and RCA coronary artery calcifications. Posterior left lower lobe consolidation with trace effusion. Correlate for pneumonia with parapneumonic effusion. Couple 4 mm pulmonary nodules in the right, recommended follow-up in 3 months. Mild circumferential wall thickening of the distal esophagus may represent esophagitis. Patient has a right-sided nosebleed started this morning, pressure, has been placed, Afrin will be added and Coumadin placed on hold for 5 days. Patient continues to complain of cough for which Robitussin with codeine added. residential monitor is atrial fibrillation with controlled rate. Cardiology is planning for 30 day event monitor. Pulmonary medicine is change Zosyn to oral Augmentin and is stable from pulmonary standpoint. Sputum cultures in progress. Blood culture no growth in 48 hours 2. Discharge plan remains [facility] on Thursday. 05/27, patient is in for follow-up today, and epistaxis has improved, shortness of breath has improved, still with cough, not worse, however chest x-ray shows slight interval worsening of posterior left lower lobe pneumonia, as compared to a 12, and no significant effusion, patient doesn't have any fever no chills, pulmonary is following with going to keep her one more day, to maximize her current regimen, echocardiogram is also reviewed EF 60-65%, with moderate concentric LVH, RVSP of 35, mild AR, mild MR, mild TR, mild pulmonary hypertension no pericardial effusion Coumadin is on hold secondary to epistaxis, we will start bridging with Lovenox at this time, secondary to grade chronic anticoagulation for atrial fibrillation, not this is his currently resolved.. Anti-back switched to cefepime Vanco, sputum cultures final on , negative for pathogens we'll request another sputum and culture sensitivity hold discharge at this time to [facility] 05/28, the patient's feeling much better, less shortness of breath less cough, breathing better, she is on IV cefepime and vancomycin, sputum cultures were sent today, as the hemoptysis and epistaxis has stopped, we are going to continue on Lovenox to bridge with Coumadin, he would restart Coumadin today. Discontinue Lovenox once INR is at 2.0, for atrial fibrillation. Suspect gram- negative pneumonia, however drug resistance including MRSA cannot be eliminated. As she did not get better with Augmentin, pro-calcitonin was okay at 0.06, was at 5 mg warfarin prior to admission. 5 mg Coumadin tonight and decreased Lovenox at 30 mg daily 05/29: Patient's doing much better, still with cough, no hemoptysis, pulmonary seen her, recommended 1 more day of IV antibiotics, Coumadin 5 mg tonight, INR 1.0, sputum culture is currently pending, no fever no chills no diarrhea. Labs reviewed, leukocytosis improving, wbc count 17,000 awaiting [facility] 05/30: Patient is coughing, no hemoptysis, states that she is better. INR 1.3 Coumadin 5 mg tonight No lightheadedness no chest pain, tolerating PT OT, has no syncope no aspiration, patient has no fever no chills, sputum cultures growing Bhavana species, oral fluconazole 100 mg started, followed by pulmonary, still on IV cefepime, and back Comycin, awaiting final antibiotic choice from a medicine anticipate transfer to [facility] in the morning 05/31, patient's better, however get couldn't hours in bed hours, not sleeping well at night. We have looked into the antibiotic for discharge, however with lack of sensitivities and isolated bacteria related to the sputum culture, we have decided to keep her on IV Vanco and IV cefemime doubles it count is 19,000 today, patient does state this weekend, and expect [facility] on Thursday, she would have completed the empiric antibiotic for at least 8 days by then. Start melatonin, 6 mg at bedtime continue PT OT while here 06/01 patient examined bedside. She denies any shortness of breath or chest pain or insomnia. Patient slept well after initiation of melatonin. Vitals are reviewed patient is afebrile pulse 78 and respiratory rate 22 blood pressure 107/51 oxygen saturation 92% on 4 L of oxygen. Labs suggestive of improvement in leukocytosis of 14.9 hemoglobin 8.2 INR 2.1 sodium 133 chloride 96 bicarb 32 BUN and 14 creatinine 0.57 glucose ranging from 87-150. Blood blood culture negative for any gross sputum culture shows Bhavana. Patient to continue antibiotics Vanco and cefepime until Thursday. 06/02 patient examined at bedside. Patient appears to complain of weakness and body aches involving neck and back and lower extremity. She did went to use the restroom and found her needs to buckle down when she is standing. Patient also complains of shortness of breath on exertion. She denies any chest pain, excessive sweating, abdominal pain nausea or vomiting. Vitals suggested temp 98.1 pulse 88 respiratory rate 20 blood pressure 118/50 currently 96 was on 3 L. Patient nurse to try to titrate down the oxygen a drop of oxygen to 83%. Pain is controlled on Tylenol and [place]. Arterial blood gas to be obtained to rule out CO2 retention. Labs are reviewed patient's WBC is improved to 12.6 hemoglobin dropped down to 7.7 INR therapeutic at 2.6 on Coumadin sodium 135 bicarb 33 BUN 16 creatinine 0.58 calcium 8.2. Will obtain iron studies and continue antibiotics coverage with vancomycin and cefepime. COVID PCR ordered with plan to discharge to [facility] tomorrow 06/03 patient examined bedside. Patient is continuing to require 4 L of oxygen and has completed IV antibiotics for 7 days. Continues to remain weak and had difficulty coming out of bed wouldn't benefit from subacute rehab labs reviewed patient improvement in leukocytosis to 12.6, INRs. Remains therapeutic at 2.6. COVID PCR negative. Patient denies any pain, abdominal pain nausea or vomiting. She is medically stable to be discharged to retirement today. The patient did complain of dependent for 3 more days while at retirement REVIEW OF SYSTEMS Constitutional: No fever, no chills, no night sweats. No weight change. Positive for lethargy No daytime sleepiness. Mild overweight in mild respiratory distress. EENT: No headache. No blurred vision or double vision, no loss of vision. No loss of Hearing, no ringing in the ears, no dizziness. No nasal drainage or congestion. Noted epistaxis. No sore throat. Lungs: Slight shortness of breath cough wheezes with sputum production slightly improved than yesterday. Cardiovascular: mild dyspnea and shortness of breath no lower extremity edema positive palpitation or chest pain slight PND and orthopnea.. Abdominal: No abdominal pain. No nausea, vomiting. No diarrhea. No constipation. No bloody or tarry stools.. No loss of appetite. Genitourinary: No dysuria, increased frequency, urgency. No urinary retention. Musculoskeletal: No myalgias. No muscle weakness, no gait dysfunction, no frequent falls. No back pain. No neck pain. Generalized muscle pain. Integumentary: No wounds, no lesions. No rash or pruritus. No unusual bruising. No change in hair or nails. Neurologic: No aphasia, slight change mental status, slight weakness left side compared to the right side. Psychiatric: No depression. No anxiety. No mood swings. Endocrine: No abnormal blood sugars. No weight change. No excessive sweating or thirst. No cold intolerance. Physical exam - Constitutional General appearance: cooperative, no acute distress, obese - EENT Eyes: anicteric sclerae, PERRLA, normal appearance ENT: hearing grossly normal - Neck Neck: no lymphadenopathy, normal ROM, no other, no rigidity, no stridor, no thyromegaly, tender in the neck and back and lower extremities - Respiratory Respiratory: bilateral: CTA, mild wheezing posterior lung no rhonchi or rales - Cardiovascular Rhythm: regular Heart sounds: normal: S1, S2 Abnormal Heart Sounds: no systolic murmur, no diastolic murmur, no rub, no S3 Gallop, no S4 Gallop, no click, no other - Gastrointestinal General gastrointestinal: normal bowel sounds, soft nontender - Integumentary Integumentary: no rash - Neurologic Neurologic: No motor or sensory deficit - Musculoskeletal Musculoskeletal: gait normal, strength equal bilaterally - Psychiatric Psychiatric: A&O x's 3, appropriate affect Assessment and plan 1. Metabolic encephalopathy improved 2 acute on chronic hypoxic respiratory failure: With chronic COPD with recent treatment for COPD exacerbation 3 left lower side pneumonia gram-negative s 4 A. fib with RVR, chronic atrial fibrillation 5 history of lung cancer: Post radiation therapy 6 hyperlipidemia: 7 chronic diastolic heart failure. 8 hyperglycemia/borderline diabetes 9 chronic pain syndrome 10 . Recurrent depression 11 debility 12. Hemoptysis likely secondary to pneumonia. 13. Epistaxis Discharge plan [facility] Patient Condition at Discharge: Fair Plan - Discharge Summary Discharge Rx Participant: No New Discharge Prescriptions: New Amoxic-Pot Clav 875-125Mg [Augmentin 875-125] 1 each PO Q12HR #6 tab Oxymetazoline 0.05% Nasl [place] [Afrin 0.05% Nasal [place]] 3 spray NASAL TID 5 Days bottle predniSONE [Deltasone] 20 mg PO DAILY #5 tab Melatonin 6 mg PO HS tablet Pantoprazole [Protonix] 40 mg PO AC-BRKFST tablet. Budesonide-Formot 160-4.5 Mcg [Symbicort 160-4.5 Mcg Inhaler] 2 puff INHALATION BID #10.2 gm Continue Digoxin [Digitek] 125 mcg PO DAILY@0800 Isosorbide Mononitrate [Isosorbide Mononitrate ER] 30 mg PO DAILY@0800 Metoprolol Succinate [Toprol Xl] 100 mg PO BID@0800,1700 Citalopram Hydrobromide [Citalopram HBr] 20 mg PO HS Ipratropium-Albuterol Nebulize [Duoneb 0.5 mg-3 mg/3 ml Soln] 3 ml INHALATION RT-QID Multivitamins, Thera [Multivitamin (formulary)] 1 tab PO DAILY@1700 Docusate [Colace] 100 mg PO BID@0800,1700 Aspirin EC [Ecotrin Low Dose] 81 mg PO DAILY@0800 Atorvastatin Calcium [Lipitor] 40 mg PO HS guaiFENesin 400 mg PO TID@0600,1400,2200 bisacodyL [Dulcolax] 10 mg RECTAL DAILY PRN PRN Reason: Constipation Furosemide [Lasix] 20 mg PO BID@0800,1700 Magnesium Hydroxide [Milk of Magnesia Concentrate] 7,200 mg PO DAILY PRN PRN Reason: Constipation Montelukast Sodium [Singulair] 10 mg PO HS Warfarin [Coumadin] 5 mg PO DAILY@1700 Pregabalin [Lyrica] 50 mg PO TID@0800,1200,1700 #9 cap amLODIPine [Norvasc] 5 mg PO DAILY@0800 #0 Na Phos,M-B/Na Phos,Di-Ba [Fleet Adult] 133 ml RECTAL DAILY PRN PRN Reason: Constipation HYDROcodone/APAP 5-325MG [[place] 5-325] 2 tab PO Q6HR PRN #12 tab PRN Reason: Pain Changed Budesonide [Pulmicort] 1 mg INHALATION RT-BID #0 Discontinued predniSONE [Deltasone] See Taper PO DAILY Cefuroxime [Ceftin] 500 mg PO BID@0800,2100 Discharge Medication List Citalopram Hydrobromide [Citalopram HBr] 20 mg PO HS 05/13/19 [History] Digoxin [Digitek] 125 mcg PO DAILY@0800 05/13/19 [History] Isosorbide Mononitrate [Isosorbide Mononitrate ER] 30 mg PO DAILY@0800 05/13/19 [History] Metoprolol Succinate [Toprol Xl] 100 mg PO BID@0800,1700 05/13/19 [History] Aspirin EC [Ecotrin Low Dose] 81 mg PO DAILY@0800 12/05/20 [History] Atorvastatin Calcium [Lipitor] 40 mg PO HS 12/05/20 [History] Docusate [Colace] 100 mg PO BID@0800,1700 12/05/20 [History] Ipratropium-Albuterol Nebulize [Duoneb 0.5 mg-3 mg/3 ml Soln] 3 ml INHALATION RT-QID 12/05/20 [History] Multivitamins, Thera [Multivitamin (formulary)] 1 tab PO DAILY@1700 12/05/20 [History] guaiFENesin 400 mg PO TID@0600,1400,2200 12/05/20 [History] Furosemide [Lasix] 20 mg PO BID@0800,1700 05/23/21 [History] Magnesium Hydroxide [Milk of Magnesia Concentrate] 7,200 mg PO DAILY PRN 05/23 [History] Montelukast Sodium [Singulair] 10 mg PO HS 05/23/21 [History] Na Phos,M-B/Na Phos,Di-Ba [Fleet Adult] 133 ml RECTAL DAILY PRN 05/23/21 [History] Warfarin [Coumadin] 5 mg PO DAILY@1700 05/23/21 [History] bisacodyL [Dulcolax] 10 mg RECTAL DAILY PRN 05/23/21 [History] Amoxic-Pot Clav 875-125Mg [Augmentin 875-125] 1 each PO Q12HR #6 tab 05/26/21 [Rx] Budesonide [Pulmicort] 1 mg INHALATION RT-BID #0 05/26/21 [Rx] HYDROcodone/APAP 5-325MG [[place] 5-325] 2 tab PO Q6HR PRN #12 tab 05/26/21 [Rx] Oxymetazoline 0.05% Nasl [place] [Afrin 0.05% Nasal [place]] 3 spray NASAL TID 5 Days bottle 05/26/21 [Rx] Pantoprazole [Protonix] 40 mg PO AC-BRKFST tablet. 05/26/21 [Rx] Pregabalin [Lyrica] 50 mg PO TID@0800,1200,1700 #9 cap 05/26/21 [Rx] amLODIPine [Norvasc] 5 mg PO DAILY@0800 #0 08/15/21 [Rx] predniSONE [Deltasone] 20 mg PO DAILY #5 tab 05/26/21 [Rx] Budesonide-Formot 160-4.5 Mcg [Symbicort 160-4.5 Mcg Inhaler] 2 puff INHALATION BID #10.2 gm 06/03/21 [Rx] Melatonin 6 mg PO HS tablet 06/03/21 [Rx] Follow up Appointment(s)/Referral(s): Zachary Santacruz MD [STAFF PHYSICIAN] - 4 Weeks Altaf García MD [Primary Care Provider] - 1 Week (after discharge from [facility]) Solomon Vega DO [STAFF PHYSICIAN] - 6 Weeks (establish for carotid US surveillance of right ICA) Ruddy Chandra DO [Doctor of Osteopathic Medicine] - 2 Weeks Activity/Diet/Wound Care/Special Instructions: 30-day Event Monitor per Cardiology Discharge Disposition: TRANSFER TO SNF/ECF
[2021-06-03] MEDS ORDERED: WARFARIN 5 MG TAB PO SCH (18:00)
== END 2021-06-03 13:20 | DRG 177 ==
LOC: EC 12:23 → 4SSUR 14:17 → 3SCARD 14:17 → UNDOADMIN 14:17 → 4SSUR 17:01
PROVIDERS: ADMIT Internal Medicine Geriatric Medicine; ATTEND Internal Medicine Geriatric Medicine
DX: J15.6 Pneumonia due to other Gram-negative bacteria (principal); J96.21 Acute and chronic respiratory failure with hypoxia; G93.41 Metabolic encephalopathy; C34.90 Malignant neoplasm of unspecified part of unspecified bronchus or lung; F33.9 Major depressive disorder, recurrent, unspecified; I69.354 Hemiplegia and hemiparesis following cerebral infarction affecting left non-dominant side; I48.20 Chronic atrial fibrillation, unspecified; I50.32 Chronic diastolic (congestive) heart failure; R04.2 Hemoptysis; Z99.81 Dependence on supplemental oxygen; Z87.891 Personal history of nicotine dependence; J84.10 Pulmonary fibrosis, unspecified; I11.0 Hypertensive heart disease with heart failure; I25.10 Atherosclerotic heart disease of native coronary artery without angina pectoris; I27.21 Secondary pulmonary arterial hypertension; I65.23 Occlusion and stenosis of bilateral carotid arteries; J32.2 Chronic ethmoidal sinusitis; I08.3 Combined rheumatic disorders of mitral, aortic and tricuspid valves; J43.9 Emphysema, unspecified; I73.9 Peripheral vascular disease, unspecified; Z66 Do not resuscitate; Z20.822 Contact with and (suspected) exposure to COVID-19; R04.0 Epistaxis; R51.9 Headache, unspecified; E78.5 Hyperlipidemia, unspecified; F41.9 Anxiety disorder, unspecified; G89.4 Chronic pain syndrome; R73.03 Prediabetes; T38.0X5A Adverse effect of glucocorticoids and synthetic analogues, initial encounter; R73.9 Hyperglycemia, unspecified; I49.3 Ventricular premature depolarization; Z79.01 Long term (current) use of anticoagulants; Z79.51 Long term (current) use of inhaled steroids; Z79.52 Long term (current) use of systemic steroids; Z79.82 Long term (current) use of aspirin; Z79.899 Other long term (current) drug therapy; Z92.21 Personal history of antineoplastic chemotherapy; Z92.3 Personal history of irradiation; Z98.890 Other specified postprocedural states; Z82.5 Family history of asthma and other chronic lower respiratory diseases; Z80.1 Family history of malignant neoplasm of trachea, bronchus and lung; Z82.49 Family history of ischemic heart disease and other diseases of the circulatory system
CPT/HCPCS: 36415; 36600; 70450; 70496; 70498; 71045; 71046; 71260; 80048; 80053; 80061; 80202; 81001; 82565; 82728; 82805; 83036; 83540; 83550; 83605; 83735; 83880; 84100; 84145; 84484; 85025; 85027; 85610; 85730; 87040; 87070; 87205; 87635; 93005; 93306; 93880; 94640; 94760; 95816; 96361; 96374; 99285

== ENCOUNTER 2021-08-05 12:27 | Inpatient (IN) | payer MEDICARE ==
[2021-08-05] MEDS ORDERED: ASPIRIN 81 MG PO STA (12:58)
[2021-08-05] MEDS ORDERED: KETOROLAC 15 MG/ML 1 ML VIAL IVP STA (13:01)
[2021-08-05 13:34] LABS: Anisocytosis Slight; Basophils # (A) 0.1 k/uL (0-0.2); Basophils % (A) 1 %; Eosinophils # (A) 0.2 k/uL (0-0.7); Eosinophils % (A) 1 %; HCT 32.6 % (34.0-46.0); HGB 10.5 gm/dL (11.4-16.0); Hypochromasia Slight; Lymphocytes # (A) 1.8 k/uL (1.0-4.8); Lymphocytes % (A) 14 %; MCH 27.9 pg (25.0-35.0); MCHC 32.3 g/dL (31.0-37.0); MCV 86.4 fL (80.0-100.0); Mean Platelet Volume 7.2; Monocytes # (A) 0.6 k/uL (0-1.0); Monocytes % (A) 4 %; Neutrophils # (A) 10.1 k/uL (1.3-7.7); Neutrophils % (A) 78 %; Platelet Count 393 k/uL (150-450); Poikilocytosis Slight; RBC 3.78 m/uL (3.80-5.40); RDW 17.7 % (11.5-15.5)
[2021-08-05 13:44] LABS: INR 2.4 (<1.2); Partial Thromboplastin Time 29.7 sec (22.0-30.0)
[2021-08-05 13:48] LABS: ALT 19 U/L (4-34); AST 29 U/L (14-36); African American GFR (CKD) >90 (>60 ml/min/1.73 sqM); Albumin 2.8 g/dL (3.5-5.0); Alkaline Phosphatase 151 U/L (38-126); Amylase 73 U/L (30-110); Anion Gap 8 mmol/L; Blood Urea Nitrogen 10 mg/dL (7-17); Calcium 7.8 mg/dL (8.4-10.2); Carbon Dioxide 34 mmol/L (22-30); Chloride 87 mmol/L (98-107); Glucose 109 mg/dL (74-99); Lipase 216 U/L (23-300); Magnesium 1.7 mg/dL (1.6-2.3); Non-African American GFR(CKD) >90 (>60 ml/min/1.73 sqM); Sodium 129 mmol/L (137-145); Total Bilirubin 1.2 mg/dL (0.2-1.3); Total Protein 5.6 g/dL (6.3-8.2)
[2021-08-05 14:08] LABS: Potassium 2.6 mmol/L (3.5-5.1)
--- NOTE | 2021-08-05 14:11 | XR ---
EXAMINATION TYPE: XR chest 2V DATE OF EXAM: 08/05/2021 COMPARISON: Chest x-ray 06/02/2021 HISTORY: Chest pain, shortness of breath TECHNIQUE: Frontal and lateral views of the chest are obtained. FINDINGS: There are overlying leads. The cardiac silhouette size is stable. Prominent lung volumes are consistent with underlying COPD. There is persistent blunting of the posterior costophrenic angle , abnormal density at the left lung base. Biapical pleural thickening left greater than right is note d. Interstitium is increased. Aorta is dense. The osseous structures are intact. IMPRESSION: Findings are similar to prior exam. Correlate for left lower lobe atelectasis versus pne umonia and associated effusion, additional follow-up suggested
[2021-08-05] MEDS ORDERED: SODIUM CHLORIDE 0.9% 1,000 ML IV STA (14:27)
[2021-08-05] MEDS ORDERED: POTASSIUM CHLORIDE ER 20 MEQ TAB.ER PO STA ×2 (14:27→16:33)
[2021-08-05] MEDS ORDERED: AZITHROMYCIN 500 MG in SODIUM CHLORIDE 0.9% 250 ML IVPB STA (15:06)
[2021-08-05] MEDS ORDERED: WARFARIN 5 MG TAB PO ONE (16:00)
[2021-08-05] MEDS ORDERED: NALOXONE 0.4 MG/ML 1 ML VIAL IV PRN (16:30)
[2021-08-05] MEDS ORDERED: bisacodyL 10 MG SUPP RECTAL PRN (16:33)
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
[2021-08-05] MEDS: METOPROLOL SUCCINATE (ER) 100 MG TAB.ER.24H PO SCH (17:55)
[2021-08-05] MEDS: FUROSEMIDE 20 MG TAB PO SCH (17:56)
[2021-08-05] MEDS: PREGABALIN 50 MG CAP PO SCH (18:00)
[2021-08-05 19:21] LABS: Appearance,Urine Cloudy (Clear); Bacteria,Urine Few /hpf; Bilirubin,Urine Negative (Negative); Blood,Urine Small (Negative); Color,Urine Yellow; Glucose,Urine (UA) Negative (Negative); Ketones,Urine 1+ (Negative); Leukocyte Esterase,Urine Large (Negative); Nitrite,Urine Negative (Negative); Protein,Urine Trace (Negative); RBC,Urine 7 /hpf (0-5); Specific Gravity,Urine 1.012 (1.001-1.035); Squamous Epithelial Cell,Urine 1 /hpf (0-4); Urobilinogen,Urine <2.0 mg/dL (<2.0); WBC,Urine >182 /hpf (0-5)
[2021-08-05] MEDS: guaiFENesin 600 MG TABLET.ER PO SCH (20:39)
[2021-08-05] MEDS: MELATONIN 3 MG TABLET PO SCH (20:39)
[2021-08-05] MEDS: MONTELUKAST 10 MG TAB PO SCH (20:39)
[2021-08-05] MEDS: ATORVASTATIN 40 MG TAB PO SCH (20:39)
[2021-08-05] MEDS: CITALOPRAM HYDROBROMIDE 20 MG TAB PO SCH (20:39)
[2021-08-05] MEDS ORDERED: SYMBICORT 160-4.5 MCG INHALER INHALATION SCH (21:00)
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
[2021-08-05] MEDS: BUDESONIDE 1 MG/2 ML NEBU INHALATION SCH (22:39)
[2021-08-05] MEDS: IPRATROPIUM-ALBUTEROL 3 ML NEB INHALATION SCH ×3 (22:39→23:56)
[2021-08-05] MEDS: FORMOTEROL FUMARATE 20 MCG/2 ML NEBU INHALATION SCH (22:44)
[2021-08-06] MEDS: ACETAMINOPHEN TAB 325 MG TAB PO PRN ×2 (00:45→19:54)
[2021-08-06] MEDS: methylPREDNISolone SOD SUCCI 40 MG/ML 1 ML VIAL IV SCH ×4 (00:45→23:51)
[2021-08-06] MEDS: IPRATROPIUM-ALBUTEROL 3 ML NEB INHALATION SCH ×9 (03:57→21:17)
[2021-08-06] MEDS: FORMOTEROL FUMARATE 20 MCG/2 ML NEBU INHALATION SCH ×2 (08:02→20:29)
[2021-08-06] MEDS: BUDESONIDE 1 MG/2 ML NEBU INHALATION SCH ×2 (08:02→20:29)
[2021-08-06] MEDS: AZITHROMYCIN 500 MG in SODIUM CHLORIDE 0.9% 250 ML IVPB SCH (08:30)
[2021-08-06] MEDS ORDERED: predniSONE 20 MG TAB PO SCH (09:00)
[2021-08-06] MEDS: ASPIRIN 81 MG PO SCH (09:36)
[2021-08-06] MEDS: PREGABALIN 50 MG CAP PO SCH ×3 (09:36→17:13)
[2021-08-06] MEDS: PANTOPRAZOLE 40 MG TABLET PO SCH (09:36)
[2021-08-06] MEDS: DIGOXIN 125 MCG TAB PO SCH (09:36)
[2021-08-06] MEDS: guaiFENesin 600 MG TABLET.ER PO SCH ×2 (09:37→20:00)
[2021-08-06] MEDS: ISOSORBIDE MONONITRATE ER 30 MG TAB.ER.24H PO SCH (09:37)
[2021-08-06] MEDS: amLODIPine 5 MG TAB PO SCH (09:37)
[2021-08-06] MEDS ORDERED: ONDANSETRON 4 MG/2 ML VIAL IVP PRN (09:51)
[2021-08-06] MEDS: FUROSEMIDE 20 MG TAB PO SCH ×2 (09:53→17:13)
--- NOTE | 2021-08-06 09:55 | XR ---
EXAMINATION TYPE: XR chest 1V DATE OF EXAM: 08/06/2021 COMPARISON: Chest x-ray 08/05/2021 HISTORY: Dyspnea TECHNIQUE: Single frontal view of the chest is obtained. FINDINGS: There is prominence of interstitium, basilar airspace disease similar to prior exam. No ev ident pneumothorax. There is obscured left hemidiaphragm. Cardiac mediastinal silhouette shows a priyank lar appearance. Aorta is dense.. Follow-up recommended. Apical density persists on the left. IMPRESSION: Correlate for pneumonia, interstitial edema with pleural effusion
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
--- NOTE | 2021-08-06 11:04 | ECHOF ---
Referral Reason:evaluate for chf MEASUREMENTS -------- HEIGHT: 167.6 cm WEIGHT: 74.4 kg BP: RVIDd: 3.0 cm (< 3.3) IVSd: 0.9 cm (0.6 - 1.1) LVIDd: 4.4 cm (3.9 - 5.3) LVPWd: 1.2 cm (0.6 - 1.1) IVSs: 1.5 cm LVIDs: 2.2 cm LVPWs: 1.8 cm RAP: 5.00 mmHg RVSP: 17.70 mmHg FINDINGS -------- Limited Study The left ventricular size is normal. There is borderline concentric left ventricular hypertrophy. Overall left ventricular systolic function is normal with, an EF between 55 - 60 %. There is no pericardial effusion. CONCLUSIONS -------- 1. The left ventricular size is normal. 2. There is borderline concentric left ventricular hypertrophy. 3. Overall left ventricular systolic function is normal with, an EF between 55 - 60 %. 4. There is no pericardial effusion. LEATHER COLORER: Tiffanie Crouch RDCS
[2021-08-06 11:36] LABS: Basophils # (A) 0.01 X 10*3/uL (0.00-0.10); Basophils % (A) 0.1 %; Eosinophils # (A) 0 X 10*3/uL (0.04-0.35); Eosinophils % (A) 0 %; HCT 29.8 % (37.2-46.3); HGB 9.1 g/dL (12.0-15.0); Lymphocytes # (A) 0.82 X 10*3/uL (0.90-5.00); Lymphocytes % (A) 10.8 %; MCH 26.7 pg (27.0-32.0); MCHC 30.5 g/dL (32.0-37.0); MCV 87.4 fL (80.0-97.0); Mean Platelet Volume 10.2 fL (9.5-12.2); Monocytes # (A) 0.28 X 10*3/uL (0.20-1.00); Monocytes % (A) 3.7 %; Neutrophils # (A) 6.46 X 10*3/uL (1.80-7.70); Neutrophils % (A) 84.9 %; Platelet Count 348 X 10*3/uL (140-440); RBC 3.41 X 10*6/uL (4.10-5.20); RDW 18.7 % (11.5-14.5); WBC 7.61 X 10*3/uL (4.50-10.00)
[2021-08-06 11:53] LABS: INR 3.35 (0.90-1.11); Prothrombin Time 33.7 sec (9.9-11.9)
[2021-08-06] MEDS: METOPROLOL SUCCINATE (ER) 100 MG TAB.ER.24H PO SCH ×2 (12:06→18:12)
[2021-08-06] MEDS: SCOPOLAMINE 1.5MG/72HR PATCH TRANSDERM SCH (12:07)
[2021-08-06 12:54] LABS: African American GFR (CKD) 112.1 (60.0-200.0); Anion Gap 17.4 mmol/L (4.00-12.00); BUN/Creat Ratio 16.08 Ratio (12.00-20.00); Calcium 7.7 mg/dL (8.7-10.3); Carbon Dioxide 24.2 mmol/L (21.6-31.8); Non-African American GFR(CKD) 96.7 (60.0-200.0); Potassium 3.2 mmol/L (3.5-5.5)
--- NOTE | 2021-08-06 13:21 | CT ---
EXAMINATION TYPE: High-resolution CT chest DATE OF EXAM: 08/06/2021 COMPARISON: 05/25/2021 HISTORY: 70-year-old female shortness of breath TECHNIQUE: High-resolution scanning of the chest utilizing 1 mm slice thickness and 1 mm gap per HRCT protocol. IV contrast was not administered. Prone imaging was not performed as the patient could not tolerate this position. CT DLP: 415.1 mGycm Automated exposure control for dose reduction was used. FINDINGS: The heart is normal size without pericardial effusion. Extensive three-vessel coronary artery calcifi cations are present and are remarkable for coronary artery disease. Ascending aorta measures 3.3 cm. Moderate atherosclerotic calcifications throughout. There is variant direct takeoff of the left vertebral artery directly from the aortic arch. Borderline to mildly enlarged caliber to the main right and left pulmonary arteries at 2.5 and 2.7 cm , respectively, suggesting underlying pulmonary hypertension. No evident thoracic lymphadenopathy ali gned for limitations of HRCT technique. There is advanced centrilobular emphysema. Biapical pleural parenchymal scarring with some more focal irregular opacities, for example, left apex measuring 9 mm and periphery of the right upper lobe shantell suring 1.2 cm. These probably represent areas of pleural parenchymal scarring. However, there are increasing patchy and interstitial opacities with septal lines especially along th e dependent portion of the bilateral lungs. There is gross worsening dependent left lower lobe consolidation and trace bilateral pleural effusion s now present. No citlalli honeycombing or bronchiectasis is seen. Tiny hiatal hernia. Visualized upper abdomen shows no gross abnormality. Bones: No osseous destructive process. IMPRESSION: 1. COPD WITH ADVANCED EMPHYSEMA. PULMONARY ARTERY HYPERTENSION AND CAD. 2. WORSENING DEPENDENT LEFT LOWER LOBE CONSOLIDATION. FIRSTLY, CORRELATE TO EXCLUDE RECURRENT OR PERS ISTENT AND WORSENING INFECTIOUS OR ASPIRATION PNEUMONITIS. FOLLOW-UP CT IS RECOMMENDED TO ENSURE CHRISTOPHER [place]. IF THE FINDING PERSISTS, CAUSES OF CHRONIC AIRSPACE DISEASE INCLUDING LOW-GRADE ADENOCARCINOMA AND LYMPHOMA SHOULD BE EXCLUDED. 3. INCREASING SEPTAL LINES, INTERSTITIAL CHANGES, AND SOME GROUNDGLASS DENSITIES. GIVEN THE TRACE MARI[place] ATERAL PLEURAL EFFUSIONS, CORRELATE FOR MILD PULMONARY EDEMA VERSUS ATYPICAL PNEUMONIAS. PULMONARY ME DICINE REFERRAL IF NOT ALREADY PERFORMED.
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
[2021-08-06] MEDS: LORazepam 0.5 MG TAB PO PRN (15:21)
[2021-08-06] MEDS ORDERED: WARFARIN 5 MG TAB PO SCH (16:00)
[2021-08-06] MEDS ORDERED: POTASSIUM CHLORIDE ER 20 MEQ TAB.ER PO STA (16:51)
[2021-08-06] MEDS: MULTIVITAMINS, THERA 1 EACH TAB PO SCH (17:13)
--- NOTE | 2021-08-06 17:58 | P.PN ---
Progress Note - Text Progress Note Date: 08/06/21 Chief Complaint: Short of breath This is a pleasant 70-year-old patient of Dr. García. 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 Chronic stable medical conditions include atrial fibrillation, hyperlipidemia, hypertension, history of lung cancer treated with chemotherapy back in 2019.at home is on 4 L of oxygen. Patient for quite a few days as a feeling weak. Cough. Short of breath. Wheezing. Also bringing sometimes some blood-tinged sputum. He is getting chills. Decreased appetite. Tired rundown. Presents to the ER. Admitted with COPD exacerbation, pneumonia, UTI, acute hypoxic respiratory failure. Started IV ceftriaxone, Zithromax, IV fluids oxygen. 08/06/2021: Laying in bed. Tired. Shortness of breath. Some cough. Appetite better. About 75% intake. Review of systems: Was done for constitutional, cardiovascular, GI, pulmonary. relevant finding as above Active Medications Acetaminophen (Acetaminophen Tab 325 Mg Tab) 650 mg PO Q6HR PRN PRN Reason: Mild Pain or Fever > 100.5 Last Admin: 08/06/21 00:45 Dose: 650 mg Documented by: Albuterol/Ipratropium (Ipratropium-Albuterol 3 Ml Neb) 3 ml INHALATION RT-QID [facility] Last Admin: 08/06/21 16:19 Dose: 3 ml Documented by: Albuterol/Ipratropium (Ipratropium-Albuterol 3 Ml Neb) 3 ml INHALATION RT-Q4H [facility] Last Admin: 08/06/21 16:20 Dose: Not Given Documented by: Amlodipine Besylate (Amlodipine 5 Mg Tab) 5 mg PO DAILY@0800 [facility] Last Admin: 08/06/21 09:37 Dose: 5 mg Documented by: Aspirin (Aspirin 81 Mg) 81 mg PO DAILY@0800 [facility] Last Admin: 08/06/21 09:36 Dose: 81 mg Documented by: Atorvastatin Calcium (Atorvastatin 40 Mg Tab) 40 mg PO HS [facility] Last Admin: 08/05/21 20:39 Dose: 40 mg Documented by: Bisacodyl (Bisacodyl 10 Mg Supp) 10 mg RECTAL DAILY PRN PRN Reason: Constipation Budesonide (Budesonide 1 Mg/2 Ml Nebu) 1 mg INHALATION RT-BID [facility] Last Admin: 08/06/21 08:02 Dose: 1 mg Documented by: Citalopram Hydrobromide (Citalopram Hydrobromide 20 Mg Tab) 20 mg PO [facility] Last Admin: 08/05/21 20:39 Dose: 20 mg Documented by: Digoxin (Digoxin 125 Mcg Tab) 125 mcg PO DAILY@0800 [facility] Last Admin: 08/06/21 09:36 Dose: 125 mcg Documented by: Formoterol Fumarate (Formoterol Fumarate 20 Mcg/2 Ml Nebu) 20 mcg INHALATION RT-BID [facility] Last Admin: 08/06/21 08:02 Dose: 20 mcg Documented by: Furosemide (Furosemide 20 Mg Tab) 20 mg PO BID@0800,1700 [facility] Last Admin: 08/06/21 17:13 Dose: 20 mg Documented by: Guaifenesin (Guaifenesin 600 Mg Tablet.Er) 400 mg PO BID [facility] Last Admin: 08/06/21 09:37 Dose: 400 mg Documented by: Ceftriaxone Sodium 1 gm/ (Sodium Chloride) 50 mls @ 100 mls/hr IVPB Q24HR [facility] Last Admin: 08/06/21 09:35 Dose: 100 mls/hr Documented by: Azithromycin 500 mg/ Sodium (Chloride) 250 mls @ 250 mls/hr IVPB DAILY [facility] Last Admin: 08/06/21 08:30 Dose: 250 mls/hr Documented by: Ibuprofen (Ibuprofen 400 Mg Tab) 400 mg PO Q6HR PRN PRN Reason: Mild Pain or Fever > 100.5 Isosorbide Mononitrate (Isosorbide Mononitrate Er 30 Mg Tab.Er.24h) 30 mg PO DAILY@0800 [facility] Last Admin: 08/06/21 09:37 Dose: 30 mg Documented by: Lorazepam (Lorazepam 0.5 Mg Tab) 0.5 mg PO Q8HR PRN PRN Reason: Anxiety Last Admin: 08/06/21 15:21 Dose: 0.5 mg Documented by: Melatonin (Melatonin 3 Mg Tablet) 6 mg PO [facility] Last Admin: 08/05/21 20:39 Dose: 6 mg Documented by: Methylprednisolone Sodium Succinate (Methylprednisolone Sod Succi 40 Mg/Ml 1 Ml Vial) 40 mg IV Q8HR [facility] Last Admin: 08/06/21 17:13 Dose: 40 mg Documented by: Metoprolol Succinate (Metoprolol Succinate (Er) 100 Mg Tab.Er.24h) 100 mg PO BID@0800,1700 [facility] Last Admin: 08/06/21 12:06 Dose: Not Given Documented by: Miscellaneous Information (Warfarin Per Pharmacy) 1 each MISCELLANE DIRECTED PRN; Protocol PRN Reason: Per Protocol Montelukast Sodium (Montelukast 10 Mg Tab) 10 mg PO HS [facility] Last Admin: 08/05/21 20:39 Dose: 10 mg Documented by: Multivitamins (Multivitamins, Thera 1 Each Tab) 1 each PO DAILY@1700 [facility] Last Admin: 08/06/21 17:13 Dose: 1 each Documented by: Naloxone HCl (Naloxone 0.4 Mg/Ml 1 Ml Vial) 0.2 mg IV Q2M PRN PRN Reason: Opioid Reversal Ondansetron HCl (Ondansetron 4 Mg/2 Ml Vial) 4 mg IVP Q6HR PRN PRN Reason: Nausea And Vomiting Last Admin: 08/06/21 10:00 Dose: 4 mg Documented by: Pantoprazole Sodium (Pantoprazole 40 Mg Tablet) 40 mg PO AC-BRKFST [facility] Last Admin: 08/06/21 09:36 Dose: 40 mg Documented by: Pregabalin (Pregabalin 50 Mg Cap) 50 mg PO TID@0800,1200,1700 [facility] Last Admin: 08/06/21 17:13 Dose: 50 mg Documented by: Scopolamine (Scopolamine 1.5mg/72hr Patch) 1 patch TRANSDERM Q72H [facility] Last Admin: 08/06/21 12:07 Dose: 1 patch Documented by: Warfarin Sodium (Warfarin 0.5 Mg Tab) 0 mg PO ONCE@1800 ONE Stop: 08/06/21 18:01 Last Admin: 08/06/21 16:43 Dose: Not Given Documented by: Past medical history to include: Atrial fibrillation, lung cancer treated with chemotherapy 2019, COPD, hypertension, hyperlipidemia, home oxygen 4 L, anxiety depression Social history: Lives alone. Does have a walker. Smokes 2 packs a day from age of 10. Stopped in 2018. Drinks one or 2 beers a weak Family history: Reviewed, noncontributory to presentation Physical examination: VITAL SIGNS: 97.6, 71, 16, 117/71, 94% on 5 L GENERAL: Laying in bed, tired, short of breath EYES: Pupils equal. Conjunctiva normal. HEENT: External appearance of nose and ears normal, oral cavity grossly normal. NECK: JVD not raised; masses not palpable. HEART: First and second heart sounds are normal; no edema. LUNGS: Respiratory rate increased, decreased breath sounds ABDOMEN: Soft, nontender, liver spleen not palpable, no masses palpable. PSYCH: Alert and oriented x3; mood and affect anxious. INVESTIGATIONS, reviewed in the clinical context: 08/06/2021: White count 7.6 hemoglobin 9.1 platelets 348 INR 3.3 potassium 3.2 creatinine 0.5 White count 13 hemoglobin 10.5 platelets 393 sodium 129 potassium 2.6 creatinine 0.55 Troponin I 0.031, 0.021 Albumin 2.8 UA positive for leukoesterase, WBC Influenza type A, type B, RSV, COVID-19 [PCR]: Not detected EKG tracing personally reviewed by me-atrial fibrillation, nonspecific ST segment changes Chest x-ray film personally reviewed by me-blunting of the angles. Left-sided effusion versus atelectasis Assessment and plan: - left-sided pneumonia. Suspect gram-negative organism IV ceftriaxone, Zithromax. Consult pulmonary -Acute severe COPD exacerbation, steroid dependent in an ex-smoker. : Slow to respond nebulized bronchodilators, IV and inhaled steroids, nebulized long-acting bronchodilator. -Acute on chronic hypoxic respiratory failure from underlying COPD exacerbation, On 5 L of nasal cannula -Persistent atrial fibrillation, rate controlled continue with Coumadin, Toprol-XL 150 mg a day and 100 mg at night digoxin 125 g daily -Essential hypertension Toprol-XL 150 mg the morning, 100 mg at night, amlodipine 2.5 mg daily -Anxiety depression not otherwise specified continue with Celexa 20 mg daily at bedtime -Chronic medical debility does use a walker Fall precautions -Coumadin monitoring By pharmacy IV ceftriaxone, Zithromax. Inhaled and IV steroids. 5 L nasal cannula. Coumadin monitoring. Discussed with pulmonary. Computed tomography scan chest ordered to rule out any other pathology.
[2021-08-06] MEDS ORDERED: WARFARIN 0.5 MG TAB PO ONE (18:00)
[2021-08-06] MEDS: ATORVASTATIN 40 MG TAB PO SCH (20:01)
[2021-08-06] MEDS: MONTELUKAST 10 MG TAB PO SCH (20:01)
[2021-08-06] MEDS: MELATONIN 3 MG TABLET PO SCH (20:01)
[2021-08-06] MEDS: CITALOPRAM HYDROBROMIDE 20 MG TAB PO SCH (20:01)
[2021-08-06] MEDS ORDERED: LACTULOSE 20 GM/30 ML CUP PO ONE (20:34)
[2021-08-06] MEDS: CYCLOBENZAPRINE 5 MG TAB PO SCH (22:42)
[2021-08-07] MEDS: IPRATROPIUM-ALBUTEROL 3 ML NEB INHALATION SCH ×6 (00:13→21:12)
[2021-08-07 07:33] LABS: Prothrombin Time 54.6 sec (9.0-12.0)
[2021-08-07 07:53] LABS: INR 5.6 (<1.2)
[2021-08-07] MEDS: FUROSEMIDE 20 MG TAB PO SCH ×2 (08:25→18:05)
[2021-08-07] MEDS: DIGOXIN 125 MCG TAB PO SCH (08:25)
[2021-08-07] MEDS: PANTOPRAZOLE 40 MG TABLET PO SCH (08:25)
[2021-08-07] MEDS: ISOSORBIDE MONONITRATE ER 30 MG TAB.ER.24H PO SCH (08:25)
[2021-08-07] MEDS: PREGABALIN 50 MG CAP PO SCH ×3 (08:25→18:05)
[2021-08-07] MEDS: METOPROLOL SUCCINATE (ER) 100 MG TAB.ER.24H PO SCH ×2 (08:25→18:05)
[2021-08-07] MEDS: guaiFENesin 600 MG TABLET.ER PO SCH ×2 (08:25→20:10)
[2021-08-07] MEDS: methylPREDNISolone SOD SUCCI 40 MG/ML 1 ML VIAL IV SCH ×3 (08:25→23:59)
[2021-08-07] MEDS: amLODIPine 5 MG TAB PO SCH (08:25)
[2021-08-07] MEDS: ASPIRIN 81 MG PO SCH ×2 (08:26→08:27)
[2021-08-07] MEDS: BUDESONIDE 1 MG/2 ML NEBU INHALATION SCH ×2 (09:03→21:12)
[2021-08-07] MEDS: FORMOTEROL FUMARATE 20 MCG/2 ML NEBU INHALATION SCH ×2 (09:03→21:12)
[2021-08-07] MEDS: AZITHROMYCIN 500 MG in SODIUM CHLORIDE 0.9% 250 ML IVPB SCH (09:55)
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
[2021-08-07] MEDS: ACETAMINOPHEN TAB 325 MG TAB PO PRN (13:59)
--- NOTE | 2021-08-07 17:52 | P.PN ---
Progress Note - Text Progress Note Date: 08/07/21 Chief Complaint: Short of breath This is a pleasant 70-year-old patient of Dr. García. Follows with receiving room clerk Dr. Murphy. Chronic stable medical conditions include atrial fibrillation, hyperlipidemia, hypertension, history of lung cancer treated with chemotherapy back in 2019.at home is on 4 L of oxygen. Patient for quite a few days as a feeling weak. Cough. Short of breath. Wheezing. Also bringing sometimes some blood-tinged sputum. He is getting chills. Decreased appetite. Tired rundown. Presents to the ER. Admitted with COPD exacerbation, pneumonia, UTI, acute hypoxic respiratory failure. Started IV ceftriaxone, Zithromax, IV fluids oxygen. 08/06/2021: Laying in bed. Tired. Shortness of breath. Some cough. Appetite better. About 75% intake. 08/07/2021: In bed. Tired. A bit less short of breath. Some cough. No sputum. Oral intake much improved. On IV ceftriaxone and Zithromax. IV Solu- Medrol bronchodilators. Computed tomography scan chest results reviewed by pulmonary. Review of systems: Was done for constitutional, cardiovascular, GI, pulmonary. relevant finding as above Active Medications Acetaminophen (Acetaminophen Tab 325 Mg Tab) 650 mg PO Q6HR PRN PRN Reason: Mild Pain or Fever > 100.5 Last Admin: 08/07/21 13:59 Dose: 650 mg Documented by: Albuterol/Ipratropium (Ipratropium-Albuterol 3 Ml Neb) 3 ml INHALATION RT-Q4H [facility] Last Admin: 08/07/21 16:47 Dose: 3 ml Documented by: Amlodipine Besylate (Amlodipine 5 Mg Tab) 5 mg PO DAILY@0800 [facility] Last Admin: 08/07/21 08:25 Dose: 5 mg Documented by: Aspirin (Aspirin 81 Mg) 81 mg PO DAILY@0800 [facility] Last Admin: 08/07/21 08:27 Dose: Not Given Documented by: Atorvastatin Calcium (Atorvastatin 40 Mg Tab) 40 mg PO HS [facility] Last Admin: 08/06/21 20:01 Dose: 40 mg Documented by: Bisacodyl (Bisacodyl 10 Mg Supp) 10 mg RECTAL DAILY PRN PRN Reason: Constipation Budesonide (Budesonide 1 Mg/2 Ml Nebu) 1 mg INHALATION RT-BID [facility] Last Admin: 08/07/21 09:03 Dose: 1 mg Documented by: Citalopram Hydrobromide (Citalopram Hydrobromide 20 Mg Tab) 20 mg PO [facility] Last Admin: 08/06/21 20:01 Dose: 20 mg Documented by: Cyclobenzaprine HCl (Cyclobenzaprine 5 Mg Tab) 5 mg PO [facility] Last Admin: 08/06/21 22:42 Dose: 5 mg Documented by: Digoxin (Digoxin 125 Mcg Tab) 125 mcg PO DAILY@0800 [facility] Last Admin: 08/07/21 08:25 Dose: 125 mcg Documented by: Formoterol Fumarate (Formoterol Fumarate 20 Mcg/2 Ml Nebu) 20 mcg INHALATION RT-BID [facility] Last Admin: 08/07/21 09:03 Dose: 20 mcg Documented by: Furosemide (Furosemide 20 Mg Tab) 20 mg PO BID@0800,1700 [facility] Last Admin: 08/07/21 08:25 Dose: 20 mg Documented by: Guaifenesin (Guaifenesin 600 Mg Tablet.Er) 400 mg PO BID [facility] Last Admin: 08/07/21 08:25 Dose: 400 mg Documented by: Ceftriaxone Sodium 1 gm/ (Sodium Chloride) 50 mls @ 100 mls/hr IVPB Q24HR [facility] Last Admin: 08/07/21 08:25 Dose: 100 mls/hr Documented by: Azithromycin 500 mg/ Sodium (Chloride) 250 mls @ 250 mls/hr IVPB DAILY [facility] Last Admin: 08/07/21 09:55 Dose: 250 mls/hr Documented by: Ibuprofen (Ibuprofen 400 Mg Tab) 400 mg PO Q6HR PRN PRN Reason: Mild Pain or Fever > 100.5 Isosorbide Mononitrate (Isosorbide Mononitrate Er 30 Mg Tab.Er.24h) 30 mg PO DAILY@0800 [facility] Last Admin: 08/07/21 08:25 Dose: 30 mg Documented by: Lorazepam (Lorazepam 0.5 Mg Tab) 0.5 mg PO Q8HR PRN PRN Reason: Anxiety Last Admin: 08/06/21 15:21 Dose: 0.5 mg Documented by: Melatonin (Melatonin 3 Mg Tablet) 6 mg PO [facility] Last Admin: 08/06/21 20:01 Dose: 6 mg Documented by: Methylprednisolone Sodium Succinate (Methylprednisolone Sod Succi 40 Mg/Ml 1 Ml Vial) 40 mg IV Q8HR [facility] Last Admin: 08/07/21 08:25 Dose: 40 mg Documented by: Metoprolol Succinate (Metoprolol Succinate (Er) 100 Mg Tab.Er.24h) 100 mg PO BID@0800,1700 [facility] Last Admin: 08/07/21 08:25 Dose: 100 mg Documented by: Miscellaneous Information (Warfarin Per Pharmacy) 1 each MISCELLANE DIRECTED PRN; Protocol PRN Reason: Per Protocol Montelukast Sodium (Montelukast 10 Mg Tab) 10 mg PO HS [facility] Last Admin: 08/06/21 20:01 Dose: 10 mg Documented by: Multivitamins (Multivitamins, Thera 1 Each Tab) 1 each PO DAILY@1700 [facility] Last Admin: 08/06/21 17:13 Dose: 1 each Documented by: Naloxone HCl (Naloxone 0.4 Mg/Ml 1 Ml Vial) 0.2 mg IV Q2M PRN PRN Reason: Opioid Reversal Ondansetron HCl (Ondansetron 4 Mg/2 Ml Vial) 4 mg IVP Q6HR PRN PRN Reason: Nausea And Vomiting Last Admin: 08/06/21 10:00 Dose: 4 mg Documented by: Pantoprazole Sodium (Pantoprazole 40 Mg Tablet) 40 mg PO AC-BRKFST [facility] Last Admin: 08/07/21 08:25 Dose: 40 mg Documented by: Pregabalin (Pregabalin 50 Mg Cap) 50 mg PO TID@0800,1200,1700 [facility] Last Admin: 08/07/21 13:59 Dose: 50 mg Documented by: Scopolamine (Scopolamine 1.5mg/72hr Patch) 1 patch TRANSDERM Q72H [facility] Last Admin: 08/06/21 12:07 Dose: 1 patch Documented by: Warfarin Sodium (Warfarin 0.5 Mg Tab) 0 mg PO ONCE@1800 ONE Stop: 08/07/21 18:01 Past medical history to include: Atrial fibrillation, lung cancer treated with chemotherapy 2019, COPD, hypertension, hyperlipidemia, home oxygen 4 L, anxiety depression Social history: Lives alone. Does have a walker. Smokes 2 packs a day from age of 10. Stopped in 2018. Drinks one or 2 beers a weak Family history: Reviewed, noncontributory to presentation Physical examination: VITAL SIGNS: 97.7, 81, 16, 10 9 x 63, 92% on 6 L GENERAL: Laying in bed, tired, less short of breath EYES: Pupils equal. Conjunctiva normal. HEENT: External appearance of nose and ears normal, oral cavity grossly normal. NECK: JVD not raised; masses not palpable. HEART: First and second heart sounds are normal; no edema. LUNGS: Respiratory rate increased, decreased breath sounds , some coarse sounds ABDOMEN: Soft, nontender, liver spleen not palpable, no masses palpable. PSYCH: Alert and oriented x3; mood and affect anxious. INVESTIGATIONS, reviewed in the clinical context: Computed tomography scan chest: Emphysema changes. Possible pneumonic changes. INR 5.6 08/06/2021: White count 7.6 hemoglobin 9.1 platelets 348 INR 3.3 potassium 3.2 creatinine 0.5 Pro-calcitonin 0.06 White count 13 hemoglobin 10.5 platelets 393 sodium 129 potassium 2.6 creatinine 0.55 Troponin I 0.031, 0.021 Albumin 2.8 UA positive for leukoesterase, WBC Influenza type A, type B, RSV, COVID-19 [PCR]: Not detected EKG tracing personally reviewed by me-atrial fibrillation, nonspecific ST segment changes Chest x-ray film personally reviewed by me-blunting of the angles. Left-sided effusion versus atelectasis Assessment and plan: - left-sided pneumonia. Suspect gram-negative organism IV ceftriaxone, Zithromax. Consult pulmonary -Acute UTI with cystitis or gram-negative bacilli IV ceftriaxone -Acute severe COPD exacerbation, steroid dependent in an ex-smoker. : Improving nebulized bronchodilators, IV and inhaled steroids, nebulized long-acting bronchodilator. -Acute on chronic hypoxic respiratory failure from underlying COPD exacerbation, On 5 L of nasal cannula -Persistent atrial fibrillation, rate controlled continue with Coumadin, Toprol-XL 150 mg a day and 100 mg at night digoxin 125 g daily -Essential hypertension Toprol-XL 150 mg the morning, 100 mg at night, amlodipine 2.5 mg daily -Anxiety depression not otherwise specified continue with Celexa 20 mg daily at bedtime -Chronic medical debility does use a walker Fall precautions -Coumadin toxicity. No bleeding. By pharmacy. Hold Coumadin -Normocytic anemia of chronic disease Check iron studies. B12 Continue IV ceftriaxone. Cutback Solu-Medrol. No fever, no white count. Change to by Omnicef. Increase activity.
[2021-08-07] MEDS ORDERED: WARFARIN 0.5 MG TAB PO ONE (18:00)
[2021-08-07] MEDS: MULTIVITAMINS, THERA 1 EACH TAB PO SCH (18:05)
[2021-08-07] MEDS: ATORVASTATIN 40 MG TAB PO SCH (20:09)
[2021-08-07] MEDS: CYCLOBENZAPRINE 5 MG TAB PO SCH (20:10)
[2021-08-07] MEDS: CITALOPRAM HYDROBROMIDE 20 MG TAB PO SCH (20:10)
[2021-08-07] MEDS: MONTELUKAST 10 MG TAB PO SCH (20:10)
[2021-08-07] MEDS: CEFDINIR 300 MG CAP PO SCH (20:10)
[2021-08-07] MEDS: MELATONIN 3 MG TABLET PO SCH (20:11)
[2021-08-08] MEDS: IPRATROPIUM-ALBUTEROL 3 ML NEB INHALATION SCH ×7 (01:19→23:08)
[2021-08-08 06:18] LABS: Prothrombin Time 52.1 sec (9.0-12.0)
[2021-08-08 06:25] LABS: ALT 27 U/L (4-34); AST 40 U/L (14-36); African American GFR (CKD) >90 (>60 ml/min/1.73 sqM); Albumin 2.7 g/dL (3.5-5.0); Alkaline Phosphatase 112 U/L (38-126); Anion Gap 5 mmol/L; Blood Urea Nitrogen 12 mg/dL (7-17); Calcium 7.9 mg/dL (8.4-10.2); Carbon Dioxide 30 mmol/L (22-30); Chloride 95 mmol/L (98-107); Globulin 2.6 g/dL; Glucose 157 mg/dL (74-99); Non-African American GFR(CKD) >90 (>60 ml/min/1.73 sqM); Potassium 3.2 mmol/L (3.5-5.1); Sodium 130 mmol/L (137-145); Total Bilirubin 0.3 mg/dL (0.2-1.3); Total Protein 5.3 g/dL (6.3-8.2)
[2021-08-08 06:28] LABS: INR 5.4 (<1.2)
--- NOTE | 2021-08-08 08:59 | XR ---
EXAMINATION TYPE: XR chest 2V DATE OF EXAM: 08/08/2021 COMPARISON: Chest x-ray 08/06/2021, chest CT 08/06/2021 HISTORY: Shortness of breath TECHNIQUE: Frontal and lateral views of the chest are obtained. FINDINGS: Abnormal attenuation noted posteriorly, retrocardiac region. There is volume loss in left hemithorax. Interstitium is increased. Lung volumes are prominent. Apical pleural thickening again no jaime on the left. No pneumothorax. Cardiac mediastinal silhouette is stable. Aorta is dense. IMPRESSION: Correlate for pneumonia, there is underlying emphysema, interstitial lung disease. Diffi cult to exclude interstitial edema, small pleural effusion.
[2021-08-08] MEDS: FORMOTEROL FUMARATE 20 MCG/2 ML NEBU INHALATION SCH ×2 (09:16→20:57)
[2021-08-08] MEDS: BUDESONIDE 1 MG/2 ML NEBU INHALATION SCH ×2 (09:16→20:57)
[2021-08-08] MEDS: methylPREDNISolone SOD SUCCI 40 MG/ML 1 ML VIAL IV SCH ×2 (09:23→17:19)
[2021-08-08] MEDS: FUROSEMIDE 20 MG TAB PO SCH ×2 (09:24→17:18)
[2021-08-08] MEDS: DIGOXIN 125 MCG TAB PO SCH (09:24)
[2021-08-08] MEDS: ISOSORBIDE MONONITRATE ER 30 MG TAB.ER.24H PO SCH (09:24)
[2021-08-08] MEDS: PREGABALIN 50 MG CAP PO SCH ×3 (09:24→17:18)
[2021-08-08] MEDS: guaiFENesin 600 MG TABLET.ER PO SCH ×2 (09:25→20:03)
[2021-08-08] MEDS: METOPROLOL SUCCINATE (ER) 100 MG TAB.ER.24H PO SCH ×2 (09:25→17:18)
[2021-08-08] MEDS: PANTOPRAZOLE 40 MG TABLET PO SCH (09:25)
[2021-08-08] MEDS: amLODIPine 5 MG TAB PO SCH (09:26)
[2021-08-08] MEDS: AZITHROMYCIN 500 MG in SODIUM CHLORIDE 0.9% 250 ML IVPB SCH (09:26)
[2021-08-08] MEDS: ASPIRIN 81 MG PO SCH (09:26)
[2021-08-08] MEDS: CEFDINIR 300 MG CAP PO SCH ×2 (09:26→20:03)
[2021-08-08] MEDS ORDERED: bisacodyL 5 MG TABLET.DR PO STA (09:45)
[2021-08-08] MEDS: ACETAMINOPHEN TAB 325 MG TAB PO PRN ×2 (09:46→23:17)
[2021-08-08] MEDS ORDERED: POTASSIUM CHLORIDE ER 20 MEQ TAB.ER PO STA (09:50)
[2021-08-08 11:04] LABS: % Iron Saturation 4.26 (12.00-45.00); Iron 16 ug/dL (50-170); Total Iron Binding Capacity 378 ug/dL (228-460)
[2021-08-08 11:06] LABS: Basophils # (A) 0.01 X 10*3/uL (0.00-0.10); Basophils % (A) 0.1 %; Eosinophils # (A) 0 X 10*3/uL (0.04-0.35); Eosinophils % (A) 0 %; HCT 28.2 % (37.2-46.3); HGB 8.5 g/dL (12.0-15.0); Lymphocytes % (A) 5.2 %; MCH 26.5 pg (27.0-32.0); MCHC 30.1 g/dL (32.0-37.0); MCV 87.9 fL (80.0-97.0); Mean Platelet Volume 9.9 fL (9.5-12.2); Monocytes # (A) 0.42 X 10*3/uL (0.20-1.00); Monocytes % (A) 3.1 %; Neutrophils # (A) 12.27 X 10*3/uL (1.80-7.70); Neutrophils % (A) 90.5 %; Platelet Count 445 X 10*3/uL (140-440); RBC 3.21 X 10*6/uL (4.10-5.20); RDW 18.9 % (11.5-14.5); WBC 13.55 X 10*3/uL (4.50-10.00)
--- NOTE | 2021-08-08 13:41 | P.PN ---
Progress Note - Text Progress Note Date: 08/08/21 Chief Complaint: Short of breath This is a pleasant 70-year-old patient of Dr. García. Follows with material expediter Dr. Murphy. Chronic stable medical conditions include atrial fibrillation, hyperlipidemia, hypertension, history of lung cancer treated with chemotherapy back in 2019.at home is on 4 L of oxygen. Patient for quite a few days as a feeling weak. Cough. Short of breath. Wheezing. Also bringing sometimes some blood-tinged sputum. He is getting chills. Decreased appetite. Tired rundown. Presents to the ER. Admitted with COPD exacerbation, pneumonia, UTI, acute hypoxic respiratory failure. Started IV ceftriaxone, Zithromax, IV fluids oxygen. 08/06/2021: Laying in bed. Tired. Shortness of breath. Some cough. Appetite better. About 75% intake. 08/07/2021: In bed. Tired. A bit less short of breath. Some cough. No sputum. Oral intake much improved. On IV ceftriaxone and Zithromax. IV Solu- Medrol bronchodilators. Computed tomography scan chest results reviewed by pulmonary. 08/08/2021: Remains short of breath. On 5 L of nasal cannula. Cough shortness of breath. He is rather low. I had a lengthy talk with the patient. She agrees to continue with current medications. I also spoke to Dr. Rick later. Continue current treatment. Prognosis guarded. Review of systems: Was done for constitutional, cardiovascular, GI, pulmonary. relevant finding as above Active Medications Acetaminophen (Acetaminophen Tab 325 Mg Tab) 650 mg PO Q6HR PRN PRN Reason: Mild Pain or Fever > 100.5 Last Admin: 08/08/21 09:46 Dose: 650 mg Documented by: Albuterol/Ipratropium (Ipratropium-Albuterol 3 Ml Neb) 3 ml INHALATION RT-Q4H [facility] Last Admin: 08/08/21 11:39 Dose: 3 ml Documented by: Amlodipine Besylate (Amlodipine 5 Mg Tab) 5 mg PO DAILY@0800 [facility] Last Admin: 08/08/21 09:26 Dose: 5 mg Documented by: Aspirin (Aspirin 81 Mg) 81 mg PO DAILY@0800 [facility] Last Admin: 08/08/21 09:26 Dose: 81 mg Documented by: Atorvastatin Calcium (Atorvastatin 40 Mg Tab) 40 mg PO HS [facility] Last Admin: 08/07/21 20:09 Dose: 40 mg Documented by: Azithromycin (Azithromycin 500 Mg Tab) 500 mg PO DAILY [facility] Bisacodyl (Bisacodyl 10 Mg Supp) 10 mg RECTAL DAILY PRN PRN Reason: Constipation Budesonide (Budesonide 1 Mg/2 Ml Nebu) 1 mg INHALATION RT-BID [facility] Last Admin: 08/08/21 09:16 Dose: 1 mg Documented by: Cefdinir (Cefdinir 300 Mg Cap) 300 mg PO BID [facility] Last Admin: 08/08/21 09:26 Dose: 300 mg Documented by: Citalopram Hydrobromide (Citalopram Hydrobromide 20 Mg Tab) 20 mg PO [facility] Last Admin: 08/07/21 20:10 Dose: 20 mg Documented by: Cyclobenzaprine HCl (Cyclobenzaprine 5 Mg Tab) 5 mg PO [facility] Last Admin: 08/07/21 20:10 Dose: 5 mg Documented by: Digoxin (Digoxin 125 Mcg Tab) 125 mcg PO DAILY@0800 [facility] Last Admin: 08/08/21 09:24 Dose: 125 mcg Documented by: Formoterol Fumarate (Formoterol Fumarate 20 Mcg/2 Ml Nebu) 20 mcg INHALATION RT-BID [facility] Last Admin: 08/08/21 09:16 Dose: 20 mcg Documented by: Furosemide (Furosemide 20 Mg Tab) 20 mg PO BID@0800,1700 [facility] Last Admin: 08/08/21 09:24 Dose: 20 mg Documented by: Guaifenesin (Guaifenesin 600 Mg Tablet.Er) 400 mg PO BID [facility] Last Admin: 08/08/21 09:25 Dose: 400 mg Documented by: Ibuprofen (Ibuprofen 400 Mg Tab) 400 mg PO Q6HR PRN PRN Reason: Mild Pain or Fever > 100.5 Isosorbide Mononitrate (Isosorbide Mononitrate Er 30 Mg Tab.Er.24h) 30 mg PO DAILY@0800 [facility] Last Admin: 08/08/21 09:24 Dose: 30 mg Documented by: Lorazepam (Lorazepam 0.5 Mg Tab) 0.5 mg PO Q8HR PRN PRN Reason: Anxiety Last Admin: 08/06/21 15:21 Dose: 0.5 mg Documented by: Melatonin (Melatonin 3 Mg Tablet) 6 mg PO [facility] Last Admin: 08/07/21 20:11 Dose: 6 mg Documented by: Methylprednisolone Sodium Succinate (Methylprednisolone Sod Succi 40 Mg/Ml 1 Ml Vial) 40 mg IV Q8HR [facility] Last Admin: 08/08/21 09:23 Dose: 40 mg Documented by: Metoprolol Succinate (Metoprolol Succinate (Er) 100 Mg Tab.Er.24h) 100 mg PO BID@0800,1700 [facility] Last Admin: 08/08/21 09:25 Dose: 100 mg Documented by: Miscellaneous Information (Warfarin Per Pharmacy) 1 each MISCELLANE DIRECTED PRN; Protocol PRN Reason: Per Protocol Montelukast Sodium (Montelukast 10 Mg Tab) 10 mg PO HS [facility] Last Admin: 08/07/21 20:10 Dose: 10 mg Documented by: Multivitamins (Multivitamins, Thera 1 Each Tab) 1 each PO DAILY@1700 [facility] Last Admin: 08/07/21 18:05 Dose: 1 each Documented by: Naloxone HCl (Naloxone 0.4 Mg/Ml 1 Ml Vial) 0.2 mg IV Q2M PRN PRN Reason: Opioid Reversal Ondansetron HCl (Ondansetron 4 Mg/2 Ml Vial) 4 mg IVP Q6HR PRN PRN Reason: Nausea And Vomiting Last Admin: 08/06/21 10:00 Dose: 4 mg Documented by: Pantoprazole Sodium (Pantoprazole 40 Mg Tablet) 40 mg PO AC-BRKFST [facility] Last Admin: 08/08/21 09:25 Dose: 40 mg Documented by: Pregabalin (Pregabalin 50 Mg Cap) 50 mg PO TID@0800,1200,1700 [facility] Last Admin: 08/08/21 12:50 Dose: 50 mg Documented by: Scopolamine (Scopolamine 1.5mg/72hr Patch) 1 patch TRANSDERM Q72H [facility] Last Admin: 08/06/21 12:07 Dose: 1 patch Documented by: Warfarin Sodium (Warfarin 0.5 Mg Tab) 0 mg PO ONCE ONE Stop: 08/08/21 18:01 Past medical history to include: Atrial fibrillation, lung cancer treated with chemotherapy 2018, COPD, hypertension, hyperlipidemia, home oxygen 4 L, anxiety depression Social history: Lives alone. Does have a walker. Smokes 2 packs a day from age of 10. Stopped in 2018. Drinks one or 2 beers a weak Family history: Reviewed, noncontributory to presentation Physical examination: VITAL SIGNS: 98.2, 94, 18, 119/66, 96% on 5 L GENERAL: Laying in bed, tired, some short of breath EYES: Pupils equal. Conjunctiva normal. HEENT: External appearance of nose and ears normal, oral cavity grossly normal. NECK: JVD not raised; masses not palpable. HEART: First and second heart sounds are normal; no edema. LUNGS: Respiratory rate increased, decreased breath sounds , some coarse sounds ABDOMEN: Soft, nontender, liver spleen not palpable, no masses palpable. PSYCH: Alert and oriented x3; mood and affect anxious. INVESTIGATIONS, reviewed in the clinical context: August 08: White count 13.5 hemoglobin 8.5 platelets 445 INR 5.4 sodium 1:30 potassium 3.2 creatinine 0.58 Computed tomography scan chest: Emphysema changes. Possible pneumonic changes. INR 5.6 08/06/2021: White count 7.6 hemoglobin 9.1 platelets 348 INR 3.3 potassium 3.2 creatinine 0.5 Pro-calcitonin 0.06 White count 13 hemoglobin 10.5 platelets 393 sodium 129 potassium 2.6 creatinine 0.55 Troponin I 0.031, 0.021 Albumin 2.8 UA positive for leukoesterase, WBC Influenza type A, type B, RSV, COVID-19 [PCR]: Not detected EKG tracing personally reviewed by me-atrial fibrillation, nonspecific ST segment changes Chest x-ray film personally reviewed by me-blunting of the angles. Left-sided effusion versus atelectasis Assessment and plan: - left-sided pneumonia. Suspect gram-negative organism IV ceftriaxone, Zithromax. Follow with pulmonary -Acute UTI with cystitis or gram-negative bacilli IV ceftriaxone -Acute severe COPD exacerbation, steroid dependent in an ex-smoker. : Slow improvement nebulized bronchodilators, IV and inhaled steroids, nebulized long-acting bronchodilator. -Acute on chronic hypoxic respiratory failure from underlying COPD exacerbation,: Slow to respond On 5 L of nasal cannula -Persistent atrial fibrillation, rate controlled continue with Coumadin, Toprol-XL 150 mg a day and 100 mg at night digoxin 125 g daily -Essential hypertension Toprol-XL 150 mg the morning, 100 mg at night, amlodipine 2.5 mg daily -Anxiety depression not otherwise specified continue with Celexa 20 mg daily at bedtime -Chronic medical debility does use a walker Fall precautions -Coumadin toxicity. No bleeding. By pharmacy. Hold Coumadin -Normocytic anemia of chronic disease Check iron studies. B12 Continue IV ceftriaxone. IV Solu-Medrol. Omnicef. Increase activity. Discussed at length with the patient and Dr. Rick. Continue current treatment. Total time spent today about 40 minutes with over 25 minutes of discussion.
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
[2021-08-08] MEDS: MULTIVITAMINS, THERA 1 EACH TAB PO SCH (17:18)
[2021-08-08] MEDS ORDERED: WARFARIN 0.5 MG TAB PO ONE (18:00)
[2021-08-08] MEDS: ATORVASTATIN 40 MG TAB PO SCH (20:03)
[2021-08-08] MEDS: MONTELUKAST 10 MG TAB PO SCH (20:03)
[2021-08-08] MEDS: CYCLOBENZAPRINE 5 MG TAB PO SCH (20:04)
[2021-08-08] MEDS: MELATONIN 3 MG TABLET PO SCH (20:04)
[2021-08-08] MEDS: CITALOPRAM HYDROBROMIDE 20 MG TAB PO SCH (20:04)
[2021-08-08] MEDS ORDERED: diphenhydrAMINE 25 MG CAP PO STA (21:29)
[2021-08-09] MEDS: methylPREDNISolone SOD SUCCI 40 MG/ML 1 ML VIAL IV SCH ×4 (00:16→20:24)
[2021-08-09] MEDS: IPRATROPIUM-ALBUTEROL 3 ML NEB INHALATION SCH ×5 (03:57→19:30)
[2021-08-09] MEDS: IBUPROFEN 400 MG TAB PO PRN ×2 (04:18→16:07)
[2021-08-09 06:12] LABS: Prothrombin Time 50.9 sec (9.0-12.0)
[2021-08-09 06:42] LABS: INR 5.3 (<1.2)
[2021-08-09] MEDS: ACETAMINOPHEN TAB 325 MG TAB PO PRN ×2 (07:31→20:25)
[2021-08-09] MEDS: amLODIPine 5 MG TAB PO SCH (07:32)
[2021-08-09] MEDS: PANTOPRAZOLE 40 MG TABLET PO SCH (07:32)
[2021-08-09] MEDS: PREGABALIN 50 MG CAP PO SCH ×3 (07:32→16:07)
[2021-08-09] MEDS: ISOSORBIDE MONONITRATE ER 30 MG TAB.ER.24H PO SCH (07:32)
[2021-08-09] MEDS: ASPIRIN 81 MG PO SCH (07:32)
[2021-08-09] MEDS: CEFDINIR 300 MG CAP PO SCH (07:33)
[2021-08-09] MEDS: AZITHROMYCIN 500 MG TAB PO SCH (07:33)
[2021-08-09] MEDS: FUROSEMIDE 20 MG TAB PO SCH ×2 (07:33→16:07)
[2021-08-09] MEDS: METOPROLOL SUCCINATE (ER) 100 MG TAB.ER.24H PO SCH ×2 (07:33→16:07)
[2021-08-09] MEDS: guaiFENesin 600 MG TABLET.ER PO SCH ×2 (07:34→20:27)
[2021-08-09] MEDS: DIGOXIN 125 MCG TAB PO SCH (07:35)
[2021-08-09] MEDS: FORMOTEROL FUMARATE 20 MCG/2 ML NEBU INHALATION SCH ×2 (08:08→19:30)
[2021-08-09] MEDS: BUDESONIDE 1 MG/2 ML NEBU INHALATION SCH ×2 (08:08→19:30)
[2021-08-09] MEDS: SCOPOLAMINE 1.5MG/72HR PATCH TRANSDERM SCH (12:19)
--- NOTE | 2021-08-09 13:03 | XR ---
Right shoulder HISTORY: Right shoulder pain 2 views of the right shoulder Bone mineralization is reduced. There is arthropathy of the acromioclavicular joint. Distal acromion is down returned. No fracture or dislocation is evident. Right lung shows interstitial changes, apica l pleural thickening. IMPRESSION: Low bone mineralization. Correlate for possible impingement, there is acromioclavicular j oint arthropathy. Interstitial lung disease.
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
[2021-08-09] MEDS: MULTIVITAMINS, THERA 1 EACH TAB PO SCH (16:07)
--- NOTE | 2021-08-09 17:39 | P.PN ---
Progress Note - Text Progress Note Date: 08/09/21 Chief Complaint: Short of breath This is a pleasant 70-year-old patient of Dr. García. Follows with wire repairer Dr. Murphy. Chronic stable medical conditions include atrial fibrillation, hyperlipidemia, hypertension, history of lung cancer treated with chemotherapy back in 2019.at home is on 4 L of oxygen. Patient for quite a few days as a feeling weak. Cough. Short of breath. Wheezing. Also bringing sometimes some blood-tinged sputum. He is getting chills. Decreased appetite. Tired rundown. Presents to the ER. Admitted with COPD exacerbation, pneumonia, UTI, acute hypoxic respiratory failure. Started IV ceftriaxone, Zithromax, IV fluids oxygen. 08/06/2021: Laying in bed. Tired. Shortness of breath. Some cough. Appetite better. About 75% intake. 08/07/2021: In bed. Tired. A bit less short of breath. Some cough. No sputum. Oral intake much improved. On IV ceftriaxone and Zithromax. IV Solu- Medrol bronchodilators. Computed tomography scan chest results reviewed by pulmonary. 08/08/2021: Remains short of breath. On 5 L of nasal cannula. Cough shortness of breath. He is rather low. I had a lengthy talk with the patient. She agrees to continue with current medications. I also spoke to Dr. Rick later. Continue current treatment. Prognosis guarded. 08/09/2021: Sitting up in a recliner. Tired. Patient had about 75% of lunch. Pain in the right shoulder. Limited motion. X-ray ordered. Consult orthopedic. Suspect rotator cuff dysfunction Review of systems: Was done for constitutional, cardiovascular, GI, pulmonary. relevant finding as above Active Medications Acetaminophen (Acetaminophen Tab 325 Mg Tab) 650 mg PO Q6HR PRN PRN Reason: Mild Pain or Fever > 100.5 Last Admin: 08/09/21 07:31 Dose: 650 mg Documented by: Albuterol/Ipratropium (Ipratropium-Albuterol 3 Ml Neb) 3 ml INHALATION RT-Q4H [facility] Last Admin: 08/09/21 15:10 Dose: 3 ml Documented by: Amlodipine Besylate (Amlodipine 5 Mg Tab) 5 mg PO DAILY@0800 [facility] Last Admin: 08/09/21 07:32 Dose: 5 mg Documented by: Aspirin (Aspirin 81 Mg) 81 mg PO DAILY@0800 [facility] Last Admin: 08/09/21 07:32 Dose: 81 mg Documented by: Atorvastatin Calcium (Atorvastatin 40 Mg Tab) 40 mg PO [facility] Last Admin: 08/08/21 20:03 Dose: 40 mg Documented by: Azithromycin (Azithromycin 500 Mg Tab) 500 mg PO DAILY [facility] Last Admin: 08/09/21 07:33 Dose: 500 mg Documented by: Bisacodyl (Bisacodyl 10 Mg Supp) 10 mg RECTAL DAILY PRN PRN Reason: Constipation Budesonide (Budesonide 1 Mg/2 Ml Nebu) 1 mg INHALATION RT-BID [facility] Last Admin: 08/09/21 08:08 Dose: 1 mg Documented by: Cefdinir (Cefdinir 300 Mg Cap) 300 mg PO BID [facility] Last Admin: 08/09/21 07:33 Dose: 300 mg Documented by: Citalopram Hydrobromide (Citalopram Hydrobromide 20 Mg Tab) 20 mg PO [facility] Last Admin: 08/08/21 20:04 Dose: 20 mg Documented by: Cyclobenzaprine HCl (Cyclobenzaprine 5 Mg Tab) 5 mg PO [facility] Last Admin: 08/08/21 20:04 Dose: 5 mg Documented by: Digoxin (Digoxin 125 Mcg Tab) 125 mcg PO DAILY@0800 [facility] Last Admin: 08/09/21 07:35 Dose: 125 mcg Documented by: Formoterol Fumarate (Formoterol Fumarate 20 Mcg/2 Ml Nebu) 20 mcg INHALATION RT-BID [facility] Last Admin: 08/09/21 08:08 Dose: 20 mcg Documented by: Furosemide (Furosemide 20 Mg Tab) 20 mg PO BID@0800,1700 [facility] Last Admin: 08/09/21 16:07 Dose: 20 mg Documented by: Guaifenesin (Guaifenesin 600 Mg Tablet.Er) 400 mg PO BID [facility] Last Admin: 08/09/21 07:34 Dose: 400 mg Documented by: Ibuprofen (Ibuprofen 400 Mg Tab) 400 mg PO Q6HR PRN PRN Reason: Mild Pain or Fever > 100.5 Last Admin: 08/09/21 16:07 Dose: 400 mg Documented by: Isosorbide Mononitrate (Isosorbide Mononitrate Er 30 Mg Tab.Er.24h) 30 mg PO DAILY@0800 [facility] Last Admin: 08/09/21 07:32 Dose: 30 mg Documented by: Lorazepam (Lorazepam 0.5 Mg Tab) 0.5 mg PO Q8HR PRN PRN Reason: Anxiety Last Admin: 08/06/21 15:21 Dose: 0.5 mg Documented by: Melatonin (Melatonin 3 Mg Tablet) 6 mg PO [facility] Last Admin: 08/08/21 20:04 Dose: 6 mg Documented by: Methylprednisolone Sodium Succinate (Methylprednisolone Sod Succi 40 Mg/Ml 1 Ml Vial) 40 mg IV Q8HR [facility] Last Admin: 08/09/21 16:08 Dose: 40 mg Documented by: Metoprolol Succinate (Metoprolol Succinate (Er) 100 Mg Tab.Er.24h) 100 mg PO BID@0800,1700 [facility] Last Admin: 08/09/21 16:07 Dose: 100 mg Documented by: Miscellaneous Information (Warfarin Per Pharmacy) 1 each MISCELLANE DIRECTED PRN; Protocol PRN Reason: Per Protocol Montelukast Sodium (Montelukast 10 Mg Tab) 10 mg PO [facility] Last Admin: 08/08/21 20:03 Dose: 10 mg Documented by: Multivitamins (Multivitamins, Thera 1 Each Tab) 1 each PO DAILY@1700 [facility] Last Admin: 08/09/21 16:07 Dose: 1 each Documented by: Naloxone HCl (Naloxone 0.4 Mg/Ml 1 Ml Vial) 0.2 mg IV Q2M PRN PRN Reason: Opioid Reversal Ondansetron HCl (Ondansetron 4 Mg/2 Ml Vial) 4 mg IVP Q6HR PRN PRN Reason: Nausea And Vomiting Last Admin: 08/06/21 10:00 Dose: 4 mg Documented by: Pantoprazole Sodium (Pantoprazole 40 Mg Tablet) 40 mg PO AC-BRKFST [facility] Last Admin: 08/09/21 07:32 Dose: 40 mg Documented by: Pregabalin (Pregabalin 50 Mg Cap) 50 mg PO TID@0800,1200,1700 [facility] Last Admin: 08/09/21 16:07 Dose: 50 mg Documented by: Scopolamine (Scopolamine 1.5mg/72hr Patch) 1 patch TRANSDERM Q72H [facility] Last Admin: 08/09/21 12:19 Dose: 1 patch Documented by: Warfarin Sodium (Warfarin 0.5 Mg Tab) 0 mg PO ONCE@1800 ONE Stop: 08/09/21 18:01 Last Admin: 08/09/21 16:09 Dose: Not Given Documented by: Past medical history to include: Atrial fibrillation, lung cancer treated with chemotherapy 2018, COPD, hypertension, hyperlipidemia, home oxygen 4 L, anxiety depression Social history: Lives alone. Does have a walker. Smokes 2 packs a day from age of 10. Stopped in 2018. Drinks one or 2 beers a weak Family history: Reviewed, noncontributory to presentation Physical examination: VITAL SIGNS: 98, 73, 16, 118/64, 94% on 4 L GENERAL: In a recliner, tired, some short of breath EYES: Pupils equal. Conjunctiva normal. HEENT: External appearance of nose and ears normal, oral cavity grossly normal. NECK: JVD not raised; masses not palpable. HEART: First and second heart sounds are normal; no edema. LUNGS: Respiratory rate increased, decreased breath sounds , basal crackles ABDOMEN: Soft, nontender, liver spleen not palpable, no masses palpable. PSYCH: Alert and oriented x3; mood and affect anxious. INVESTIGATIONS, reviewed in the clinical context: August 09: INR 5.3 August 08: White count 13.5 hemoglobin 8.5 platelets 445 INR 5.4 sodium 1:30 potassium 3.2 creatinine 0.58 Computed tomography scan chest: Emphysema changes. Possible pneumonic changes. INR 5.6 08/06/2021: White count 7.6 hemoglobin 9.1 platelets 348 INR 3.3 potassium 3.2 creatinine 0.5 Pro-calcitonin 0.06 White count 13 hemoglobin 10.5 platelets 393 sodium 129 potassium 2.6 creatinine 0.55 Troponin I 0.031, 0.021 Albumin 2.8 UA positive for leukoesterase, WBC Influenza type A, type B, RSV, COVID-19 [PCR]: Not detected EKG tracing personally reviewed by me-atrial fibrillation, nonspecific ST segment changes Chest x-ray film personally reviewed by me-blunting of the angles. Left-sided effusion versus atelectasis Assessment and plan: - left-sided pneumonia. Suspect gram-negative organism IV ceftriaxone-changed to Omnicef, Zithromax. Follow with pulmonary -Acute UTI with cystitis from klebsiella pneumoniae and Citrobacter fundi Change Omnicef to Levaquin -Acute severe COPD exacerbation, steroid dependent in an ex-smoker. : Slow improvement nebulized bronchodilators, IV and inhaled steroids, nebulized long-acting bronchodilator. -Acute on chronic hypoxic respiratory failure from underlying COPD exacerbation,: Slow to respond On 5 L of nasal cannula -Persistent atrial fibrillation, rate controlled continue with Coumadin, Toprol-XL 150 mg a day and 100 mg at night digoxin 125 g daily -Essential hypertension Toprol-XL 150 mg the morning, 100 mg at night, amlodipine 2.5 mg daily -Anxiety depression not otherwise specified continue with Celexa 20 mg daily at bedtime -Chronic medical debility does use a walker Fall precautions -Coumadin toxicity. No bleeding. By pharmacy. Hold Coumadin -Normocytic anemia of chronic disease Check iron studies. B12 IV ceftriaxone discontinued. DC Omnicef. Changed to Levaquin because of sensitivity. Other medications to continue. Decrease Solu-Medrol to 40 mg every 12. Discussed with patient. Follow with pulmonary.
[2021-08-09] MEDS: LEVOFLOXACIN 500 MG TAB PO SCH (17:49)
[2021-08-09] MEDS ORDERED: WARFARIN 0.5 MG TAB PO ONE (18:00)
[2021-08-09] MEDS: ATORVASTATIN 40 MG TAB PO SCH (20:25)
[2021-08-09] MEDS: CYCLOBENZAPRINE 5 MG TAB PO SCH (20:25)
[2021-08-09] MEDS: MONTELUKAST 10 MG TAB PO SCH (20:26)
[2021-08-09] MEDS: CITALOPRAM HYDROBROMIDE 20 MG TAB PO SCH (20:26)
[2021-08-09] MEDS: MELATONIN 3 MG TABLET PO SCH (20:26)
[2021-08-10] MEDS: IPRATROPIUM-ALBUTEROL 3 ML NEB INHALATION SCH ×7 (00:31→23:55)
[2021-08-10] MEDS: ACETAMINOPHEN TAB 325 MG TAB PO PRN (04:28)
[2021-08-10] MEDS: FORMOTEROL FUMARATE 20 MCG/2 ML NEBU INHALATION SCH ×2 (07:33→19:55)
[2021-08-10] MEDS: BUDESONIDE 1 MG/2 ML NEBU INHALATION SCH ×2 (07:33→19:55)
[2021-08-10] MEDS: methylPREDNISolone SOD SUCCI 40 MG/ML 1 ML VIAL IV SCH ×2 (08:12→20:42)
[2021-08-10] MEDS: DIGOXIN 125 MCG TAB PO SCH (08:13)
[2021-08-10] MEDS: ASPIRIN 81 MG PO SCH (08:13)
[2021-08-10] MEDS: PANTOPRAZOLE 40 MG TABLET PO SCH (08:13)
[2021-08-10] MEDS: ISOSORBIDE MONONITRATE ER 30 MG TAB.ER.24H PO SCH (08:13)
[2021-08-10] MEDS: PREGABALIN 50 MG CAP PO SCH ×3 (08:13→17:07)
[2021-08-10] MEDS: amLODIPine 5 MG TAB PO SCH (08:13)
[2021-08-10] MEDS: FUROSEMIDE 20 MG TAB PO SCH ×2 (08:13→17:06)
[2021-08-10] MEDS: AZITHROMYCIN 500 MG TAB PO SCH (08:14)
[2021-08-10] MEDS: METOPROLOL SUCCINATE (ER) 100 MG TAB.ER.24H PO SCH ×2 (08:14→17:06)
--- NOTE | 2021-08-10 08:15 | XR ---
EXAMINATION TYPE: XR chest 1V portable DATE OF EXAM: 08/10/2021 COMPARISON: Chest x-ray 08/08/2021 HISTORY: Left lower lobe pneumonia TECHNIQUE: Single frontal view of the chest is obtained. FINDINGS: There is persistent abnormal density within the lung bases left greater than right. Suspec t underlying emphysema, interstitial changes. Cardiac mediastinal silhouette is unchanged. Aorta is d ense. There are overlying leads. IMPRESSION: Findings consistent with patient's history of pneumonia. Interstitial lung disease and e mphysema.
[2021-08-10] MEDS: LORazepam 0.5 MG TAB PO PRN ×2 (08:19→17:04)
[2021-08-10] MEDS: IBUPROFEN 400 MG TAB PO PRN ×2 (08:19→17:04)
[2021-08-10 08:23] LABS: Anisocytosis Slight; Basophils % (A) 0 %; Eosinophils # (A) 0.1 k/uL (0-0.7); Eosinophils % (A) 1 %; HCT 28.4 % (34.0-46.0); HGB 9.1 gm/dL (11.4-16.0); Hypochromasia Slight; Lymphocytes # (A) 0.8 k/uL (1.0-4.8); Lymphocytes % (A) 6 %; MCH 27.8 pg (25.0-35.0); MCV 86.8 fL (80.0-100.0); Mean Platelet Volume 7.3; Monocytes # (A) 0.4 k/uL (0-1.0); Monocytes % (A) 3 %; Neutrophils # (A) 11.6 k/uL (1.3-7.7); Neutrophils % (A) 90 %; Platelet Count 521 k/uL (150-450); Poikilocytosis Slight; RBC 3.27 m/uL (3.80-5.40); RDW 18.4 % (11.5-15.5)
[2021-08-10] MEDS: guaiFENesin 600 MG TABLET.ER PO SCH ×4 (08:27→20:41)
[2021-08-10 08:34] LABS: African American GFR (CKD) >90 (>60 ml/min/1.73 sqM); Anion Gap 5 mmol/L; Blood Urea Nitrogen 17 mg/dL (7-17); Calcium 7.7 mg/dL (8.4-10.2); Carbon Dioxide 28 mmol/L (22-30); Chloride 94 mmol/L (98-107); Glucose 220 mg/dL (74-99); Non-African American GFR(CKD) 87 (>60 ml/min/1.73 sqM); Sodium 127 mmol/L (137-145)
[2021-08-10 12:54] LABS: INR 2.93 (0.90-1.11); Prothrombin Time 29.8 sec (9.9-11.9)
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
--- NOTE | 2021-08-10 15:26 | P.PN ---
Progress Note - Text Progress Note Date: 08/10/21 Chief Complaint: Short of breath This is a pleasant 70-year-old patient of Dr. García. Follows with music intern Dr. Murphy. Chronic stable medical conditions include atrial fibrillation, hyperlipidemia, hypertension, history of lung cancer treated with chemotherapy back in 2019.at home is on 4 L of oxygen. Patient for quite a few days as a feeling weak. Cough. Short of breath. Wheezing. Also bringing sometimes some blood-tinged sputum. He is getting chills. Decreased appetite. Tired rundown. Presents to the ER. Admitted with COPD exacerbation, pneumonia, UTI, acute hypoxic respiratory failure. Started IV ceftriaxone, Zithromax, IV fluids oxygen. 08/06/2021: Laying in bed. Tired. Shortness of breath. Some cough. Appetite better. About 75% intake. 08/07/2021: In bed. Tired. A bit less short of breath. Some cough. No sputum. Oral intake much improved. On IV ceftriaxone and Zithromax. IV Solu- Medrol bronchodilators. Computed tomography scan chest results reviewed by pulmonary. 08/08/2021: Remains short of breath. On 5 L of nasal cannula. Cough shortness of breath. He is rather low. I had a lengthy talk with the patient. She agrees to continue with current medications. I also spoke to Dr. Rick later. Continue current treatment. Prognosis guarded. 08/09/2021: Sitting up in a recliner. Tired. Patient had about 75% of lunch. Pain in the right shoulder. Limited motion. X-ray ordered. Consult orthopedic. Suspect rotator cuff dysfunction 08/10/2021: Reclining in bed. Tired. Did eat some. Some shortness of breath. Some cough. Right shoulder discomfort. Seen by orthopedics. [place] to be biceps tendon rupture. For conservative management. Review of systems: Was done for constitutional, cardiovascular, GI, pulmonary. relevant finding as above Active Medications Acetaminophen (Acetaminophen Tab 325 Mg Tab) 650 mg PO Q6HR PRN PRN Reason: Mild Pain or Fever > 100.5 Last Admin: 08/10/21 04:28 Dose: 650 mg Documented by: Albuterol/Ipratropium (Ipratropium-Albuterol 3 Ml Neb) 3 ml INHALATION RT-Q4H FLORINDA Last Admin: 08/10/21 15:12 Dose: 3 ml Documented by: Amlodipine Besylate (Amlodipine 5 Mg Tab) 5 mg PO DAILY@0800 [facility] Last Admin: 08/10/21 08:13 Dose: 5 mg Documented by: Aspirin (Aspirin 81 Mg) 81 mg PO DAILY@0800 [facility] Last Admin: 08/10/21 08:13 Dose: 81 mg Documented by: Atorvastatin Calcium (Atorvastatin 40 Mg Tab) 40 mg PO [facility] Last Admin: 08/09/21 20:25 Dose: 40 mg Documented by: Azithromycin (Azithromycin 500 Mg Tab) 500 mg PO DAILY [facility] Last Admin: 08/10/21 08:14 Dose: 500 mg Documented by: Bisacodyl (Bisacodyl 10 Mg Supp) 10 mg RECTAL DAILY PRN PRN Reason: Constipation Budesonide (Budesonide 1 Mg/2 Ml Nebu) 1 mg INHALATION RT-BID [facility] Last Admin: 08/10/21 07:33 Dose: 1 mg Documented by: Citalopram Hydrobromide (Citalopram Hydrobromide 20 Mg Tab) 20 mg PO [facility] Last Admin: 08/09/21 20:26 Dose: 20 mg Documented by: Cyclobenzaprine HCl (Cyclobenzaprine 5 Mg Tab) 5 mg PO [facility] Last Admin: 08/09/21 20:25 Dose: 5 mg Documented by: Digoxin (Digoxin 125 Mcg Tab) 125 mcg PO DAILY@0800 [facility] Last Admin: 08/10/21 08:13 Dose: 125 mcg Documented by: Formoterol Fumarate (Formoterol Fumarate 20 Mcg/2 Ml Nebu) 20 mcg INHALATION RT-BID [facility] Last Admin: 08/10/21 07:33 Dose: 20 mcg Documented by: Furosemide (Furosemide 20 Mg Tab) 20 mg PO BID@0800,1700 [facility] Last Admin: 08/10/21 08:13 Dose: 20 mg Documented by: Guaifenesin (Guaifenesin 600 Mg Tablet.Er) 600 mg PO QID [facility] Last Admin: 08/10/21 12:04 Dose: 600 mg Documented by: Ibuprofen (Ibuprofen 400 Mg Tab) 400 mg PO Q6HR PRN PRN Reason: Mild Pain or Fever > 100.5 Last Admin: 08/10/21 08:19 Dose: 400 mg Documented by: Isosorbide Mononitrate (Isosorbide Mononitrate Er 30 Mg Tab.Er.24h) 30 mg PO DAILY@0800 [facility] Last Admin: 08/10/21 08:13 Dose: 30 mg Documented by: Levofloxacin (Levofloxacin 500 Mg Tab) 500 mg PO Q24H [facility] Last Admin: 08/09/21 17:49 Dose: 500 mg Documented by: Lorazepam (Lorazepam 0.5 Mg Tab) 0.5 mg PO Q8HR PRN PRN Reason: Anxiety Last Admin: 08/10/21 08:19 Dose: 0.5 mg Documented by: Melatonin (Melatonin 3 Mg Tablet) 6 mg PO [facility] Last Admin: 08/09/21 20:26 Dose: 6 mg Documented by: Methylprednisolone Sodium Succinate (Methylprednisolone Sod Succi 40 Mg/Ml 1 Ml Vial) 40 mg IV Q12H [facility] Last Admin: 08/10/21 08:12 Dose: 40 mg Documented by: Metoprolol Succinate (Metoprolol Succinate (Er) 100 Mg Tab.Er.24h) 100 mg PO BID@0800,1700 [facility] Last Admin: 08/10/21 08:14 Dose: 100 mg Documented by: Miscellaneous Information (Warfarin Per Pharmacy) 1 each MISCELLANE DIRECTED PRN; Protocol PRN Reason: Per Protocol Montelukast Sodium (Montelukast 10 Mg Tab) 10 mg PO [facility] Last Admin: 08/09/21 20:26 Dose: 10 mg Documented by: Multivitamins (Multivitamins, Thera 1 Each Tab) 1 each PO DAILY@1700 [facility] Last Admin: 08/09/21 16:07 Dose: 1 each Documented by: Naloxone HCl (Naloxone 0.4 Mg/Ml 1 Ml Vial) 0.2 mg IV Q2M PRN PRN Reason: Opioid Reversal Ondansetron HCl (Ondansetron 4 Mg/2 Ml Vial) 4 mg IVP Q6HR PRN PRN Reason: Nausea And Vomiting Last Admin: 08/06/21 10:00 Dose: 4 mg Documented by: Pantoprazole Sodium (Pantoprazole 40 Mg Tablet) 40 mg PO AC-BRKFST [facility] Last Admin: 08/10/21 08:13 Dose: 40 mg Documented by: Pregabalin (Pregabalin 50 Mg Cap) 50 mg PO TID@0800,1200,1700 [facility] Last Admin: 08/10/21 12:03 Dose: 50 mg Documented by: Scopolamine (Scopolamine 1.5mg/72hr Patch) 1 patch TRANSDERM Q72H [place]ORINDA Last Admin: 08/09/21 12:19 Dose: 1 patch Documented by: Warfarin Sodium (Warfarin 3 Mg Tab) 3 mg PO ONCE@1800 ONE Stop: 08/10/21 18:01 Past medical history to include: Atrial fibrillation, lung cancer treated with chemotherapy 2019, COPD, hypertension, hyperlipidemia, home oxygen 4 L, anxiety depression Social history: Lives alone. Does have a walker. Smokes 2 packs a day from age of 10. Stopped in 2018. Drinks one or 2 beers a weak Family history: Reviewed, noncontributory to presentation Physical examination: VITAL SIGNS: 97.6, 74, 18, 102/57, 90% on 4 L GENERAL: In a recliner, tired, some short of breath EYES: Pupils equal. Conjunctiva normal. HEENT: External appearance of nose and ears normal, oral cavity grossly normal. NECK: JVD not raised; masses not palpable. HEART: First and second heart sounds are normal; no edema. LUNGS: Respiratory rate increased, decreased breath sounds , basal crackles ABDOMEN: Soft, nontender, liver spleen not palpable, no masses palpable. PSYCH: Alert and oriented x3; mood and affect anxious. INVESTIGATIONS, reviewed in the clinical context: August 10: White count 13 hemoglobin 9.1 platelets 521 INR 2.9 sodium 127 potassium 4 creatinine 0.69 August 09: INR 5.3 August 08: White count 13.5 hemoglobin 8.5 platelets 445 INR 5.4 sodium 1:30 potassium 3.2 creatinine 0.58 Computed tomography scan chest: Emphysema changes. Possible pneumonic changes. INR 5.6 08/06/2021: White count 7.6 hemoglobin 9.1 platelets 348 INR 3.3 potassium 3.2 creatinine 0.5 Pro-calcitonin 0.06 White count 13 hemoglobin 10.5 platelets 393 sodium 129 potassium 2.6 creatinine 0.55 Troponin I 0.031, 0.021 Albumin 2.8 UA positive for leukoesterase, WBC Influenza type A, type B, RSV, COVID-19 [PCR]: Not detected EKG tracing personally reviewed by me-atrial fibrillation, nonspecific ST segment changes Chest x-ray film personally reviewed by me-blunting of the angles. Left-sided effusion versus atelectasis Assessment and plan: - left-sided pneumonia. Suspect gram-negative organism Received IV ceftriaxone. Omnicef, Zithromax. Follow with pulmonary -Acute UTI with cystitis from klebsiella pneumoniae and Citrobacter fundi Levaquin -Acute severe COPD exacerbation, steroid dependent in an ex-smoker. : Slow improvement nebulized bronchodilators, IV and inhaled steroids, nebulized long-acting bronchodilator. -Acute on chronic hypoxic respiratory failure from underlying COPD exacerbation,: Slow to respond On 4 L of nasal cannula -Persistent atrial fibrillation, rate controlled continue with Coumadin, Toprol-XL 150 mg a day and 100 mg at night digoxin 125 g daily -Essential hypertension Toprol-XL 150 mg the morning, 100 mg at night, amlodipine 2.5 mg daily -Anxiety depression not otherwise specified continue with Celexa 20 mg daily at bedtime -Chronic medical debility does use a walker Fall precautions -Coumadin toxicity. No bleeding. By pharmacy. Hold Coumadin -Normocytic anemia of chronic disease Check iron studies. B12 -Possible right biceps tendon rupture Seen by Dr. Fisher. Continue current medication treatment plan. Care was discussed with the patient. Follow with pulmonary. Prognosis guarded.
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
[2021-08-10] MEDS: MULTIVITAMINS, THERA 1 EACH TAB PO SCH (17:04)
[2021-08-10] MEDS: LEVOFLOXACIN 500 MG TAB PO SCH (17:07)
[2021-08-10] MEDS ORDERED: WARFARIN 3 MG TAB PO ONE (18:00)
[2021-08-10] MEDS: CITALOPRAM HYDROBROMIDE 20 MG TAB PO SCH (20:41)
[2021-08-10] MEDS: MONTELUKAST 10 MG TAB PO SCH (20:41)
[2021-08-10] MEDS: CYCLOBENZAPRINE 5 MG TAB PO SCH (20:41)
[2021-08-10] MEDS: ATORVASTATIN 40 MG TAB PO SCH (20:41)
[2021-08-10] MEDS: MELATONIN 3 MG TABLET PO SCH (20:41)
[2021-08-11] MEDS: IPRATROPIUM-ALBUTEROL 3 ML NEB INHALATION SCH ×5 (04:16→20:16)
[2021-08-11] MEDS: IBUPROFEN 400 MG TAB PO PRN ×2 (04:21→15:58)
[2021-08-11] MEDS: LORazepam 0.5 MG TAB PO PRN ×2 (04:21→21:37)
[2021-08-11] MEDS: BUDESONIDE 1 MG/2 ML NEBU INHALATION SCH ×2 (07:27→20:16)
[2021-08-11] MEDS: FORMOTEROL FUMARATE 20 MCG/2 ML NEBU INHALATION SCH ×2 (07:27→20:17)
[2021-08-11] MEDS: ISOSORBIDE MONONITRATE ER 30 MG TAB.ER.24H PO SCH (08:28)
[2021-08-11] MEDS: PANTOPRAZOLE 40 MG TABLET PO SCH (08:28)
[2021-08-11] MEDS: FUROSEMIDE 20 MG TAB PO SCH ×2 (08:28→17:19)
[2021-08-11] MEDS: amLODIPine 5 MG TAB PO SCH (08:28)
[2021-08-11] MEDS: AZITHROMYCIN 500 MG TAB PO SCH (08:29)
[2021-08-11] MEDS: PREGABALIN 50 MG CAP PO SCH ×3 (08:29→17:19)
[2021-08-11] MEDS: ASPIRIN 81 MG PO SCH (08:29)
[2021-08-11] MEDS: guaiFENesin 600 MG TABLET.ER PO SCH ×4 (08:29→21:38)
[2021-08-11] MEDS: DIGOXIN 125 MCG TAB PO SCH (08:29)
[2021-08-11] MEDS: methylPREDNISolone SOD SUCCI 40 MG/ML 1 ML VIAL IV SCH (08:29)
[2021-08-11] MEDS: METOPROLOL SUCCINATE (ER) 100 MG TAB.ER.24H PO SCH ×2 (08:29→17:20)
[2021-08-11 11:32] LABS: INR 2.33 (0.90-1.11)
--- NOTE | 2021-08-11 12:28 | P.PN ---
Subjective Progress Note Date: 08/11/21 Principal diagnosis: Right upper arm pain/proximal bicep tendon rupture Patient is a pleasant 70-year-old female seen at bedside this morning. We are following her for right upper arm pain and likely proximal bicep rupture. She feels the pain is improved today some. She has no new complaints. She denies numbness or tingling. Objective - Vital Signs Vital signs: Vital Signs Temp 97.9 F 08/11/21 06:14 Pulse 88 08/11/21 11:37 Resp 15 08/11/21 06:14 BP 128/81 08/11/21 06:14 Pulse Ox 95 08/11/21 06:14 Intake & Output 08/10/21 08/11/21 08/11/21 18:59 06:59 18:59 Intake Total 240 Balance 240 Intake: Oral 240 Other: Voiding Method Bedside Commode # Voids 2 1 - Exam Inspection of the right shoulder and upper extremity show some bunching at the right bicep. There is some ecchymoses distally as expected. She has some mild tenderness to palpation at the right bicep. There is no warmth or erythema. She has full painless range of motion of the right elbow. Neurovascular status is intact with motor and sensation throughout the right upper extremity. 2+ radial pulse and less than 2 second capillary refill is present. - Constitutional General appearance: Present: no acute distress - Labs CBC & Chem 7: 08/10/21 08:06 08/10/21 08:06 Labs: Abnormal Lab Results - Last 24 Hours (Table) 08/10/21 08/11/21 Range/Units 08:06 07:12 PT 29.8 H 24.0 H (9.9-11.9) sec INR 2.93 H 2.33 H (0.90-1.11) Assessment and Plan (1) Biceps tendon rupture, proximal Narrative/Plan: Patient likely has a proximal biceps tendon rupture. There is no immediate plan for surgical intervention. Recommend sling when necessary for comfort as well as pain management per primary team. Pain should continue to improve with time. She may follow-up as an outpatient regarding her right shoulder and upper arm at this point. Thank you. Current Visit: Yes Status: Acute Priority: Medium Code(s): S46.119A - STRAIN OF MUSC/FASC/TEND LONG HEAD OF BICEPS, UNSP ARM, INIT SNOMED Code(s): 972372076 Time with Patient: Less than 30
--- NOTE | 2021-08-11 15:02 | P.PN ---
Progress Note - Text Progress Note Date: 08/11/21 Chief Complaint: Short of breath This is a pleasant 70-year-old patient of Dr. García. Follows with director on air Dr. Murphy. Chronic stable medical conditions include atrial fibrillation, hyperlipidemia, hypertension, history of lung cancer treated with chemotherapy back in 2019.at home is on 4 L of oxygen. Patient for quite a few days as a feeling weak. Cough. Short of breath. Wheezing. Also bringing sometimes some blood-tinged sputum. He is getting chills. Decreased appetite. Tired rundown. Presents to the ER. Admitted with COPD exacerbation, pneumonia, UTI, acute hypoxic respiratory failure. Started IV ceftriaxone, Zithromax, IV fluids oxygen. 08/06/2021: Laying in bed. Tired. Shortness of breath. Some cough. Appetite better. About 75% intake. 08/07/2021: In bed. Tired. A bit less short of breath. Some cough. No sputum. Oral intake much improved. On IV ceftriaxone and Zithromax. IV Solu- Medrol bronchodilators. Computed tomography scan chest results reviewed by pulmonary. 08/08/2021: Remains short of breath. On 5 L of nasal cannula. Cough shortness of breath. He is rather low. I had a lengthy talk with the patient. She agrees to continue with current medications. I also spoke to Dr. Rick later. Continue current treatment. Prognosis guarded. 08/09/2021: Sitting up in a recliner. Tired. Patient had about 75% of lunch. Pain in the right shoulder. Limited motion. X-ray ordered. Consult orthopedic. Suspect rotator cuff dysfunction 08/10/2021: Reclining in bed. Tired. Did eat some. Some shortness of breath. Some cough. Right shoulder discomfort. Seen by orthopedics. [place] to be biceps tendon rupture. For conservative management. 08/11/2021: Reclining in bed. Tired. Eating some. Concerned about how she'll manage at home. Gets suggest about getting assisted living. We'll have case filler talk to the patient about the same. She does understand guarded prognosis. Review of systems: Was done for constitutional, cardiovascular, GI, pulmonary. relevant finding as above Active Medications Acetaminophen (Acetaminophen Tab 325 Mg Tab) 650 mg PO Q6HR PRN PRN Reason: Mild Pain or Fever > 100.5 Last Admin: 08/10/21 04:28 Dose: 650 mg Documented by: Albuterol/Ipratropium (Ipratropium-Albuterol 3 Ml Neb) 3 ml INHALATION RT-Q4H [facility] Last Admin: 08/11/21 11:24 Dose: 3 ml Documented by: Amlodipine Besylate (Amlodipine 5 Mg Tab) 5 mg PO DAILY@0800 [facility] Last Admin: 08/11/21 08:28 Dose: 5 mg Documented by: Aspirin (Aspirin 81 Mg) 81 mg PO DAILY@0800 [facility] Last Admin: 08/11/21 08:29 Dose: 81 mg Documented by: Atorvastatin Calcium (Atorvastatin 40 Mg Tab) 40 mg PO [facility] Last Admin: 08/10/21 20:41 Dose: 40 mg Documented by: Azithromycin (Azithromycin 500 Mg Tab) 500 mg PO DAILY [facility] Last Admin: 08/11/21 08:29 Dose: 500 mg Documented by: Bisacodyl (Bisacodyl 10 Mg Supp) 10 mg RECTAL DAILY PRN PRN Reason: Constipation Budesonide (Budesonide 1 Mg/2 Ml Nebu) 1 mg INHALATION RT-BID [facility] Last Admin: 08/11/21 07:27 Dose: 1 mg Documented by: Citalopram Hydrobromide (Citalopram Hydrobromide 20 Mg Tab) 20 mg PO [facility] Last Admin: 08/10/21 20:41 Dose: 20 mg Documented by: Cyclobenzaprine HCl (Cyclobenzaprine 5 Mg Tab) 5 mg PO [facility] Last Admin: 08/10/21 20:41 Dose: 5 mg Documented by: Digoxin (Digoxin 125 Mcg Tab) 125 mcg PO DAILY@0800 [facility] Last Admin: 08/11/21 08:29 Dose: 125 mcg Documented by: Formoterol Fumarate (Formoterol Fumarate 20 Mcg/2 Ml Nebu) 20 mcg INHALATION RT-BID [facility] Last Admin: 08/11/21 07:27 Dose: 20 mcg Documented by: Furosemide (Furosemide 20 Mg Tab) 20 mg PO BID@0800,1700 [facility] Last Admin: 08/11/21 08:28 Dose: 20 mg Documented by: Guaifenesin (Guaifenesin 600 Mg Tablet.Er) 600 mg PO QID [facility] Last Admin: 08/11/21 12:49 Dose: 600 mg Documented by: Ibuprofen (Ibuprofen 400 Mg Tab) 400 mg PO Q6HR PRN PRN Reason: Mild Pain or Fever > 100.5 Last Admin: 08/11/21 04:21 Dose: 400 mg Documented by: Isosorbide Mononitrate (Isosorbide Mononitrate Er 30 Mg Tab.Er.24h) 30 mg PO DAILY@0800 [facility] Last Admin: 08/11/21 08:28 Dose: 30 mg Documented by: Levofloxacin (Levofloxacin 500 Mg Tab) 500 mg PO Q24H [facility] Last Admin: 08/10/21 17:07 Dose: 500 mg Documented by: Lorazepam (Lorazepam 0.5 Mg Tab) 0.5 mg PO Q8HR PRN PRN Reason: Anxiety Last Admin: 08/11/21 04:21 Dose: 0.5 mg Documented by: Melatonin (Melatonin 3 Mg Tablet) 6 mg PO [facility] Last Admin: 08/10/21 20:41 Dose: 6 mg Documented by: Methylprednisolone Sodium Succinate (Methylprednisolone Sod Succi 40 Mg/Ml 1 Ml Vial) 40 mg IV Q12H [facility] Last Admin: 08/11/21 08:29 Dose: 40 mg Documented by: Metoprolol Succinate (Metoprolol Succinate (Er) 100 Mg Tab.Er.24h) 100 mg PO BID@0800,1700 [facility] Last Admin: 08/11/21 08:29 Dose: 100 mg Documented by: Miscellaneous Information (Warfarin Per Pharmacy) 1 each MISCELLANE DIRECTED PRN; Protocol PRN Reason: Per Protocol Montelukast Sodium (Montelukast 10 Mg Tab) 10 mg PO [facility] Last Admin: 08/10/21 20:41 Dose: 10 mg Documented by: Multivitamins (Multivitamins, Thera 1 Each Tab) 1 each PO DAILY@1700 [facility] Last Admin: 08/10/21 17:04 Dose: 1 each Documented by: Naloxone HCl (Naloxone 0.4 Mg/Ml 1 Ml Vial) 0.2 mg IV Q2M PRN PRN Reason: Opioid Reversal Ondansetron HCl (Ondansetron 4 Mg/2 Ml Vial) 4 mg IVP Q6HR PRN PRN Reason: Nausea And Vomiting Last Admin: 08/06/21 10:00 Dose: 4 mg Documented by: Pantoprazole Sodium (Pantoprazole 40 Mg Tablet) 40 mg PO -BRKFST [facility] Last Admin: 08/11/21 08:28 Dose: 40 mg Documented by: Pregabalin (Pregabalin 50 Mg Cap) 50 mg PO TID@0800,1200,1700 [facility] Last Admin: 08/11/21 12:49 Dose: 50 mg Documented by: Scopolamine (Scopolamine 1.5mg/72hr Patch) 1 patch TRANSDERM Q72H [facility] Last Admin: 08/09/21 12:19 Dose: 1 patch Documented by: Warfarin Sodium (Warfarin 3 Mg Tab) 3 mg PO ONCE@1800 ONE Stop: 08/11/21 18:01 Past medical history to include: Atrial fibrillation, lung cancer treated with chemotherapy 2018, COPD, hypertension, hyperlipidemia, home oxygen 4 L, anxiety depression Social history: Lives alone. Does have a walker. Smokes 2 packs a day from age of 10. Stopped in 2017. Drinks one or 2 beers a weak Family history: Reviewed, noncontributory to presentation Physical examination: VITAL SIGNS: 97.9, 71, 15, 128/81, 95% on 4 L GENERAL: Reclining in bed, tired, some short of breath EYES: Pupils equal. Conjunctiva normal. HEENT: External appearance of nose and ears normal, oral cavity grossly normal. NECK: JVD not raised; masses not palpable. HEART: First and second heart sounds are normal; no edema. LUNGS: Respiratory rate increased, decreased breath sounds , basal crackles ABDOMEN: Soft, nontender, liver spleen not palpable, no masses palpable. PSYCH: Alert and oriented x3; mood and affect anxious. INVESTIGATIONS, reviewed in the clinical context: August 11: INR 2.33 August 10: White count 13 hemoglobin 9.1 platelets 521 INR 2.9 sodium 127 potassium 4 creatinine 0.69 August 09: INR 5.3 August 08: White count 13.5 hemoglobin 8.5 platelets 445 INR 5.4 sodium 1:30 potassium 3.2 creatinine 0.58 Computed tomography scan chest: Emphysema changes. Possible pneumonic changes. INR 5.6 08/06/2021: White count 7.6 hemoglobin 9.1 platelets 348 INR 3.3 potassium 3.2 creatinine 0.5 Pro-calcitonin 0.06 White count 13 hemoglobin 10.5 platelets 393 sodium 129 potassium 2.6 creatinine 0.55 Troponin I 0.031, 0.021 Albumin 2.8 UA positive for leukoesterase, WBC Influenza type A, type B, RSV, COVID-19 [PCR]: Not detected EKG tracing personally reviewed by me-atrial fibrillation, nonspecific ST segment changes Chest x-ray film personally reviewed by me-blunting of the angles. Left-sided effusion versus atelectasis Assessment and plan: - left-sided pneumonia. Suspect gram-negative organism Received IV ceftriaxone. Omnicef, Zithromax. Follow with pulmonary -Acute UTI with cystitis from klebsiella pneumoniae and Citrobacter fundi Levaquin -Acute severe COPD exacerbation, steroid dependent in an ex-smoker. : Slow imp rovement nebulized bronchodilators, IV and inhaled steroids, nebulized long-acting bronchodilator. -Acute on chronic hypoxic respiratory failure from underlying COPD exacerbation,: Slow to respond On 4 L of nasal cannula -Persistent atrial fibrillation, rate controlled continue with Coumadin, Toprol-XL 150 mg a day and 100 mg at night digoxin 125 g daily -Essential hypertension Toprol-XL 150 mg the morning, 100 mg at night, amlodipine 2.5 mg daily -Anxiety depression not otherwise specified continue with Celexa 20 mg daily at bedtime -Chronic medical debility does use a walker Fall precautions -Coumadin toxicity. No bleeding. By pharmacy. Hold Coumadin -Normocytic anemia of chronic disease Check iron studies. B12 -Possible right biceps tendon rupture Seen by Dr. Fisher. Place of discharge discussed with the patient. Assisted living in the long run will be best suitable for her. performance improvement manager to address the same.. Hopefully can be discharged tomorrow. Changed to by mouth prednisone.
[2021-08-11] MEDS: predniSONE 20 MG TAB PO SCH (15:58)
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
[2021-08-11] MEDS: LEVOFLOXACIN 500 MG TAB PO SCH (17:19)
[2021-08-11] MEDS: MULTIVITAMINS, THERA 1 EACH TAB PO SCH (17:19)
[2021-08-11] MEDS ORDERED: WARFARIN 3 MG TAB PO ONE (18:00)
[2021-08-11] MEDS: ACETAMINOPHEN TAB 325 MG TAB PO PRN (21:37)
[2021-08-11] MEDS: CYCLOBENZAPRINE 5 MG TAB PO SCH (21:38)
[2021-08-11] MEDS: MELATONIN 3 MG TABLET PO SCH (21:38)
[2021-08-11] MEDS: CITALOPRAM HYDROBROMIDE 20 MG TAB PO SCH (21:38)
[2021-08-11] MEDS: MONTELUKAST 10 MG TAB PO SCH (21:38)
[2021-08-11] MEDS: ATORVASTATIN 40 MG TAB PO SCH (21:38)
[2021-08-12] MEDS: IPRATROPIUM-ALBUTEROL 3 ML NEB INHALATION SCH ×5 (00:07→15:53)
[2021-08-12 03:48] LABS: INR 2.5 (<1.2); Prothrombin Time 24.5 sec (9.0-12.0)
[2021-08-12] MEDS: ACETAMINOPHEN TAB 325 MG TAB PO PRN ×2 (07:08→13:59)
[2021-08-12] MEDS: ISOSORBIDE MONONITRATE ER 30 MG TAB.ER.24H PO SCH (07:11)
[2021-08-12] MEDS: guaiFENesin 600 MG TABLET.ER PO SCH ×2 (07:11→12:39)
[2021-08-12] MEDS: PANTOPRAZOLE 40 MG TABLET PO SCH (07:11)
[2021-08-12] MEDS: predniSONE 20 MG TAB PO SCH (07:11)
[2021-08-12] MEDS: ASPIRIN 81 MG PO SCH (07:12)
[2021-08-12] MEDS: amLODIPine 5 MG TAB PO SCH (07:12)
[2021-08-12] MEDS: FUROSEMIDE 20 MG TAB PO SCH (07:12)
[2021-08-12] MEDS: PREGABALIN 50 MG CAP PO SCH ×2 (07:12→12:38)
[2021-08-12] MEDS: METOPROLOL SUCCINATE (ER) 100 MG TAB.ER.24H PO SCH (07:13)
[2021-08-12] MEDS: AZITHROMYCIN 500 MG TAB PO SCH (07:13)
[2021-08-12] MEDS: DIGOXIN 125 MCG TAB PO SCH (07:13)
[2021-08-12 07:46] VITALS: TEMP 97.5
[2021-08-12] MEDS: FORMOTEROL FUMARATE 20 MCG/2 ML NEBU INHALATION SCH (08:28)
[2021-08-12] MEDS: BUDESONIDE 1 MG/2 ML NEBU INHALATION SCH (08:28)
--- NOTE | 2021-08-12 08:28 | XR ---
EXAMINATION TYPE: XR chest 1V portable DATE OF EXAM: 08/12/2021 COMPARISON: 08/10/2020 HISTORY: Cough TECHNIQUE: Single frontal view of the chest is obtained. FINDINGS: Hyperinflation with diffuse interstitial pattern. Biapical pleural thickening. Atherosclero tic change aorta. Diffuse osteopenia. Heart size normal. Patchy right perihilar and left lower lobe i nfiltrate improved. IMPRESSION: 1. Correlate for COPD and interstitial lung disease. Bilateral patchy infiltrates are stable. Superim posed interstitial pneumonitis not excluded.
[2021-08-12] MEDS: SCOPOLAMINE 1.5MG/72HR PATCH TRANSDERM SCH (12:35)
[2021-08-12] MEDS: IBUPROFEN 400 MG TAB PO PRN (12:38)
[2021-08-12 14:11] VITALS: BMI 26.4
[2021-08-12 14:41] VITALS: BP 115/72; RESP 17
--- NOTE | 2021-08-12 14:45 | P.DS ---
Providers Date of admission: 08/05/21 16:30 Expected date of discharge: 08/12/21 Attending physician: Babak Rainey Consults: 08/05/21 16:31 Consult Physician Routine Consulting Provider: Oscar Rick Consult Reason/Comments: COPD exacerbation, Pneumonia Do you want consulting provider notified?: Yes 08/09/21 11:24 Consult Physician Routine Consulting Provider: Stephan Fisher Consult Reason/Comments: R shoulder pain Do you want consulting provider notified?: Yes Primary care physician: Altaf [place] [facility] Course: Chief Complaint: Short of breath This is a pleasant 70-year-old patient of Dr. García. Follows with international trade teacher Dr. Murphy. Chronic stable medical conditions include atrial fibrillation, hyperlipidemia, hypertension, history of lung cancer treated with chemotherapy back in 2019.at home is on 4 L of oxygen. Patient for quite a few days as a feeling weak. Cough. Short of breath. Wheezing. Also bringing sometimes some blood-tinged sputum. He is getting chills. Decreased appetite. Tired rundown. Presents to the ER. Admitted with COPD exacerbation, pneumonia, UTI, acute hypoxic respiratory failure. Started IV ceftriaxone, Zithromax, IV fluids oxygen. Urine culture positive for PNEUMONIAE and Citrobacter fruuindii. Also given IV steroids. Was having pain in the right shoulder. Seen by orthopedics. [place] to be possible or biceps tendon injury. Right arm sling. Follow-up as outpatient. Patient's overall prognosis is guarded. Options are limited. She'll probably need assisted living in the long run.. 08/12/2021:. Reclining in bed. Tired. Some cough. Eating okay. He'll be going to inpatient rehab today. Discussed with social media content manager. Cleared by pulmonary. Discussed with the patient. Right arm sling elevated. Discussion and discharge planning more than 35 minutes Incident Handler: Dr. Rick in part because from pulmonary Dr. Fisher from orthopedics Past medical history to include: Atrial fibrillation, lung cancer treated with chemotherapy 2019, COPD, hypertension, hyperlipidemia, home oxygen 4 L, anxiety depression Social history: Lives alone. Does have a walker. Smokes 2 packs a day from age of 10. Stopped in 2018. Drinks one or 2 beers a weak Family history: Reviewed, noncontributory to presentation Physical examination: VITAL SIGNS: 97.5, 91, 17, 115/72, 99% on 4 L GENERAL: Reclining in bed, tired, some short of breath EYES: Pupils equal. Conjunctiva normal. HEENT: External appearance of nose and ears normal, oral cavity grossly normal. NECK: JVD not raised; masses not palpable. HEART: First and second heart sounds are normal; no edema. LUNGS: Respiratory rate increased, decreased breath sounds , basal crackles ABDOMEN: Soft, nontender, liver spleen not palpable, no masses palpable. PSYCH: Alert and oriented x3; mood and affect anxious. INVESTIGATIONS, reviewed in the clinical context: August 11: INR 2.33 August 10: White count 13 hemoglobin 9.1 platelets 521 INR 2.9 sodium 127 potassium 4 creatinine 0.69 Computed tomography scan chest: Emphysema changes. Possible pneumonic changes. Urine culture: Klebsiella pneumoniae, Citrobacter freundii Pro-calcitonin 0.06 White count 13 hemoglobin 10.5 platelets 393 sodium 129 potassium 2.6 creatinine 0.55 Troponin I 0.031, 0.021 Albumin 2.8 UA positive for leukoesterase, WBC Influenza type A, type B, RSV, COVID-19 [PCR]: Not detected EKG tracing personally reviewed by me-atrial fibrillation, nonspecific ST segment changes Chest x-ray film personally reviewed by me-blunting of the angles. Left-sided effusion versus atelectasis Assessment and plan: - left-sided pneumonia. Suspect gram-negative organism Received IV ceftriaxone. Omnicef, Zithromax. Being discharged on Levaquin for 5 days. -Acute UTI with cystitis from klebsiella pneumoniae and Citrobacter fundi Levaquin -Acute severe COPD exacerbation, steroid dependent in an ex-smoker. : Advanced. nebulized bronchodilators, IV and inhaled steroids, nebulized long-acting bronchodilator. DC on prednisone taper. -Acute on chronic hypoxic respiratory failure from underlying COPD exacerbation,: Slow to respond On 4 L of nasal cannula -Persistent atrial fibrillation, rate controlled continue with Coumadin, Toprol-XL 150 mg a day and 100 mg at night digoxin 125 g daily -Essential hypertension Toprol-XL 150 mg the morning, 100 mg at night, amlodipine 2.5 mg daily -Anxiety depression not otherwise specified continue with Celexa 20 mg daily at bedtime -Chronic medical debility does use a walker Fall precautions -Coumadin monitoring -Normocytic anemia of chronic disease Iron deficiency anemia.. [id number] -Possible right biceps tendon rupture Seen by Dr. Fisher. Right arm sling. Follow-up outpatient. Disposition: [facility] Plan - Discharge Summary New Discharge Prescriptions: New predniSONE 10 mg PO DAILY #30 tab amLODIPine [Norvasc] 5 mg PO DAILY@0800 tab Cyclobenzaprine [Flexeril] 5 mg PO HS tab Levofloxacin [Levaquin] 500 mg PO DAILY 5 Days #5 tab Continue Digoxin [Digitek] 125 mcg PO DAILY@0800 Isosorbide Mononitrate [Isosorbide Mononitrate ER] 30 mg PO DAILY@0800 Metoprolol Succinate [Toprol Xl] 150 mg PO DAILY Citalopram Hydrobromide [Citalopram HBr] 20 mg PO HS Ipratropium-Albuterol Nebulize [Duoneb 0.5 mg-3 mg/3 ml Soln] 3 ml INHALATION RT-QID Multivitamins, Thera [Multivitamin (formulary)] 1 tab PO DAILY@1700 Aspirin EC [Ecotrin Low Dose] 81 mg PO DAILY@0800 Atorvastatin Calcium [Lipitor] 40 mg PO HS guaiFENesin 400 mg PO TID@0600,1400,2200 Furosemide [Lasix] 20 mg PO BID@0800,1700 Montelukast Sodium [Singulair] 10 mg PO HS Melatonin 6 mg PO HS tablet Pantoprazole [Protonix] 40 mg PO AC-BRKFST tablet. Budesonide/Formoterol Fumarate [Symbicort 160-4.5 Mcg Inhaler] 2 puff INHALATION RT-BID Metoprolol Succinate (ER) [Toprol XL] 100 mg PO HS Pregabalin [Lyrica] 50 mg PO TID@0800,1200,1700 #9 cap Changed Warfarin [Coumadin] 2.5 mg PO DAILY@1700 #0 Discontinued Docusate [Colace] 100 mg PO BID@0800,1700 Albuterol Sulfate [Ventolin HFA] 2 puff INHALATION RT-Q4H PRN PRN Reason: Shortness Of Breath amLODIPine [Norvasc] 2.5 mg PO DAILY Discharge Medication List Citalopram Hydrobromide [Citalopram HBr] 20 mg PO HS 05/13/19 [History] Digoxin [Digitek] 125 mcg PO DAILY@0800 08/02/19 [History] Isosorbide Mononitrate [Isosorbide Mononitrate ER] 30 mg PO DAILY@0800 05/13/19 [History] Metoprolol Succinate [Toprol Xl] 150 mg PO DAILY 05/13/19 [History] Aspirin EC [Ecotrin Low Dose] 81 mg PO DAILY@0800 12/05/20 [History] Atorvastatin Calcium [Lipitor] 40 mg PO HS 12/05/20 [History] Ipratropium-Albuterol Nebulize [Duoneb 0.5 mg-3 mg/3 ml Soln] 3 ml INHALATION RT-QID 12/05/20 [History] Multivitamins, Thera [Multivitamin (formulary)] 1 tab PO DAILY@1700 12/05/20 [History] guaiFENesin 400 mg PO TID@0600,1400,2200 12/05/20 [History] Furosemide [Lasix] 20 mg PO BID@0800,1700 05/23/21 [History] Montelukast Sodium [Singulair] 10 mg PO HS 05/23/21 [History] Pantoprazole [Protonix] 40 mg PO AC-BRKFST tablet. 05/26/21 [Rx] Melatonin 6 mg PO HS tablet 06/03/21 [Rx] Budesonide/Formoterol Fumarate [Symbicort 160-4.5 Mcg Inhaler] 2 puff INHALATION RT-BID 08/05/21 [History] Metoprolol Succinate (ER) [Toprol XL] 100 mg PO HS 08/05/21 [History] Cyclobenzaprine [Flexeril] 5 mg PO HS tab 08/12/21 [Rx] Levofloxacin [Levaquin] 500 mg PO DAILY 5 Days #5 tab 08/12/21 [Rx] Pregabalin [Lyrica] 50 mg PO TID@0800,1200,1700 #9 cap 08/12/21 [Rx] Warfarin [Coumadin] 2.5 mg PO DAILY@1700 #0 08/12/21 [Rx] amLODIPine [Norvasc] 5 mg PO DAILY@0800 tab 08/12/21 [Rx] predniSONE 10 mg PO DAILY #30 tab 08/12/21 [Rx] Follow up Appointment(s)/Referral(s): Elliot Blackwell, AJ [PHYSICIAN FRAME HAND] - 08/19/21 3:00 pm Altaf García MD [Primary Care Provider] - As Needed Cm Barkley DO [STAFF PHYSICIAN] - 1-2 Days (ECF) Kusum Dave [NON-STAFF] - As Needed Lacey Murphy MD [STAFF PHYSICIAN] - 1 Week Activity/Diet/Wound Care/Special Instructions: Activity as tolerated with right upper extremity Follow up in office if continued pain or symptoms Plan of Treatment: Flutter valve every 2-4 hours and as needed
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
[2021-08-12 15:57] VITALS: PULSE 80
[2021-08-12] MEDS ORDERED: WARFARIN 2 MG TAB PO ONE (18:00)
== END 2021-08-12 16:08 | DRG 177 ==
LOC: EC 12:27 → 5NMEDONC 16:30 → 4SSUR 16:54
PROVIDERS: ADMIT Hospitalist; ATTEND Hospitalist
DX: J15.6 Pneumonia due to other Gram-negative bacteria (principal); J96.21 Acute and chronic respiratory failure with hypoxia; E87.1 Hypo-osmolality and hyponatremia; I50.32 Chronic diastolic (congestive) heart failure; I48.19 Other persistent atrial fibrillation; J84.9 Interstitial pulmonary disease, unspecified; J43.9 Emphysema, unspecified; B96.1 Klebsiella pneumoniae [K. pneumoniae] as the cause of diseases classified elsewhere; B96.89 Other specified bacterial agents as the cause of diseases classified elsewhere; Z85.118 Personal history of other malignant neoplasm of bronchus and lung; Z92.21 Personal history of antineoplastic chemotherapy; D50.9 Iron deficiency anemia, unspecified; D63.8 Anemia in other chronic diseases classified elsewhere; E03.9 Hypothyroidism, unspecified; E78.5 Hyperlipidemia, unspecified; E86.0 Dehydration; E87.6 Hypokalemia; E87.8 Other disorders of electrolyte and fluid balance, not elsewhere classified; F17.210 Nicotine dependence, cigarettes, uncomplicated; F41.8 Other specified anxiety disorders; Z20.822 Contact with and (suspected) exposure to COVID-19; I25.10 Atherosclerotic heart disease of native coronary artery without angina pectoris; I27.21 Secondary pulmonary arterial hypertension; I11.0 Hypertensive heart disease with heart failure; I65.29 Occlusion and stenosis of unspecified carotid artery; J39.8 Other specified diseases of upper respiratory tract; N30.90 Cystitis, unspecified without hematuria; S46.219A Strain of muscle, fascia and tendon of other parts of biceps, unspecified arm, initial encounter; T45.515A Adverse effect of anticoagulants, initial encounter; Z79.01 Long term (current) use of anticoagulants; Z79.51 Long term (current) use of inhaled steroids; Z79.52 Long term (current) use of systemic steroids; Z79.82 Long term (current) use of aspirin; Z79.899 Other long term (current) drug therapy; Z99.81 Dependence on supplemental oxygen; Z87.01 Personal history of pneumonia (recurrent); M25.511 Pain in right shoulder
CPT/HCPCS: 36415; 71045; 71046; 71250; 80048; 80053; 81001; 82150; 82607; 82728; 83540; 83550; 83605; 83690; 83735; 83880; 84145; 84484; 85025; 85379; 85610; 85730; 86140; 87077; 87086; 87186; 87502; 87634; 87635; 93005; 93308; 94640; 94667; 94760; 96361; 96365; 96375; 99285

== ENCOUNTER 2021-08-23 14:28 | Inpatient (IN) | payer MEDICARE ==
[2021-08-23] MEDS ORDERED: ALBUTEROL NEBULIZED 2.5 MG/3 ML INHALATION STA (14:51)
[2021-08-23] MEDS ORDERED: IPRATROPIUM 0.5 MG/2.5 ML NEBU INHALATION STA (14:51)
[2021-08-23] MEDS ORDERED: methylPREDNISolone SOD SUCCI 125 MG/2 ML VIAL IV STA (14:51)
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
--- NOTE | 2021-08-23 15:16 | XR ---
EXAMINATION TYPE: XR chest 2V DATE OF EXAM: 08/23/2021 COMPARISON: 08/12/2021 TECHNIQUE: PA and lateral views submitted. HISTORY: Cough FINDINGS: Hyperinflation with diffuse interstitial pattern. Biapical pleural thickening. Atherosclerotic change aorta. Diffuse osteopenia. Heart size normal. Patchy right perihilar and left lower lobe infiltrate improved. Biapical pleural thickening. IMPRESSION: 1. Correlate for COPD and interstitial lung disease. Bilateral patchy infiltrates are stable. Superim posed interstitial pneumonitis not excluded.
[2021-08-23 15:52] LABS: Anisocytosis Moderate; Basophils % (A) 0 %; Eosinophils # (A) 0.5 k/uL (0-0.7); Eosinophils % (A) 3 %; HCT 29.7 % (34.0-46.0); HGB 9.2 gm/dL (11.4-16.0); Hypochromasia Moderate; Lymphocytes # (A) 0.8 k/uL (1.0-4.8); Lymphocytes % (A) 6 %; MCH 27.1 pg (25.0-35.0); MCHC 31.1 g/dL (31.0-37.0); MCV 87.3 fL (80.0-100.0); Mean Platelet Volume 7.3; Monocytes # (A) 0.5 k/uL (0-1.0); Monocytes % (A) 4 %; Neutrophils # (A) 12.8 k/uL (1.3-7.7); Neutrophils % (A) 86 %; Platelet Count 277 k/uL (150-450); Poikilocytosis Slight; RDW 20.1 % (11.5-15.5); WBC 14.9 k/uL (3.8-10.6)
[2021-08-23 16:00] LABS: INR 1.6 (<1.2); Partial Thromboplastin Time 25.9 sec (22.0-30.0); Prothrombin Time 16.2 sec (9.0-12.0)
[2021-08-23 16:01] LABS: ALT 28 U/L (4-34); AST 27 U/L (14-36); African American GFR (CKD) >90 (>60 ml/min/1.73 sqM); Alkaline Phosphatase 89 U/L (38-126); Anion Gap 4 mmol/L; Blood Urea Nitrogen 13 mg/dL (7-17); Calcium 7.7 mg/dL (8.4-10.2); Carbon Dioxide 31 mmol/L (22-30); Chloride 94 mmol/L (98-107); Glucose 102 mg/dL (74-99); Non-African American GFR(CKD) >90 (>60 ml/min/1.73 sqM); Potassium 4.3 mmol/L (3.5-5.1); Sodium 129 mmol/L (137-145); Total Bilirubin 1.2 mg/dL (0.2-1.3); Total Protein 5.6 g/dL (6.3-8.2)
[2021-08-23] MEDS ORDERED: LEVOFLOXACIN 500MG-D5W PMX 500 MG in DEXTROSE/WATER 1 100ML.BAG IVPB STA (16:29)
[2021-08-23] MEDS ORDERED: CEFEPIME 2 GM in SODIUM CHLORIDE 0.9% 100 ML IVPB STA (16:29)
[2021-08-23] MEDS ORDERED: IPRATROPIUM-ALBUTEROL 3 ML NEB INHALATION PRN (16:29)
[2021-08-23] MEDS ORDERED: MAGNESIUM HYDROXIDE 2,400 MG/10 ML CUP PO PRN ×2 (16:53→17:02)
[2021-08-23] MEDS ORDERED: NA PHOS,M-B/NA PHOS,DI-BA 133 ML ENEMA RECTAL PRN (16:53)
[2021-08-23] MEDS ORDERED: bisacodyL 10 MG SUPP RECTAL PRN (16:53)
[2021-08-23] MEDS ORDERED: WARFARIN 2.5 MG TAB PO SCH (17:00)
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
[2021-08-23] MEDS ORDERED: CALCIUM CARBONATE 500 MG CHEWABLE PO PRN (17:02)
[2021-08-23] MEDS ORDERED: ACETAMINOPHEN TAB 325 MG TAB PO PRN (17:02)
[2021-08-23] MEDS ORDERED: MAG HYDROX/AL HYDROX/SIMETH 30 ML CUP PO PRN (17:02)
[2021-08-23] MEDS ORDERED: NALOXONE 0.4 MG/ML 1 ML VIAL IV PRN (17:02)
[2021-08-23] MEDS ORDERED: LACTULOSE 20 GM/30 ML CUP PO PRN (17:02)
[2021-08-23] MEDS ORDERED: ONDANSETRON 4 MG/2 ML VIAL IVP PRN (17:02)
[2021-08-23] MEDS: LACTATED RINGERS 1,000 ML IV SCH (18:11)
[2021-08-23] MEDS: ASPIRIN 81 MG PO SCH (18:13)
[2021-08-23] MEDS: ACETAMINOPHEN TAB 325 MG TAB PO PRN (18:14)
[2021-08-23] MEDS: MULTIVITAMINS, THERA 1 EACH TAB PO SCH (18:14)
[2021-08-23] MEDS: PREGABALIN 50 MG CAP PO SCH (18:14)
[2021-08-23] MEDS: FUROSEMIDE 20 MG TAB PO SCH (18:14)
[2021-08-23] MEDS ORDERED: WARFARIN 3 MG TAB PO ONE (19:00)
[2021-08-23] MEDS ORDERED: IPRATROPIUM-ALBUTEROL 3 ML NEB INHALATION SCH (20:00)
[2021-08-23] MEDS: FORMOTEROL FUMARATE 20 MCG/2 ML NEBU INHALATION SCH (20:26)
[2021-08-23] MEDS: BUDESONIDE 1 MG/2 ML NEBU INHALATION SCH (20:26)
[2021-08-23] MEDS: IPRATROPIUM-ALBUTEROL 3 ML NEB INHALATION SCH (20:27)
[2021-08-23] MEDS: methylPREDNISolone SOD SUCCI 125 MG/2 ML VIAL IV SCH (21:20)
[2021-08-23] MEDS: MONTELUKAST 10 MG TAB PO SCH (21:21)
[2021-08-23] MEDS: ATORVASTATIN 40 MG TAB PO SCH (21:21)
[2021-08-23] MEDS: CITALOPRAM HYDROBROMIDE 20 MG TAB PO SCH (21:21)
[2021-08-23] MEDS: CYCLOBENZAPRINE 5 MG TAB PO SCH (21:22)
[2021-08-23] MEDS: MELATONIN 3 MG TABLET PO SCH (21:22)
[2021-08-23] MEDS: guaiFENesin 600 MG TABLET.ER PO SCH (21:23)
[2021-08-23] MEDS: METOPROLOL SUCCINATE (ER) 100 MG TAB.ER.24H PO SCH (22:35)
[2021-08-24] MEDS: IPRATROPIUM-ALBUTEROL 3 ML NEB INHALATION SCH ×7 (04:08→23:39)
[2021-08-24] MEDS: methylPREDNISolone SOD SUCCI 125 MG/2 ML VIAL IV SCH ×4 (04:34→21:24)
[2021-08-24] MEDS: DIGOXIN 125 MCG TAB PO SCH (05:46)
[2021-08-24] MEDS: PANTOPRAZOLE 40 MG TABLET PO SCH (05:46)
[2021-08-24] MEDS: LACTATED RINGERS 1,000 ML IV SCH ×2 (05:47→21:24)
[2021-08-24] MEDS: METOPROLOL SUCCINATE (ER) 50 MG TAB.ER.24H PO SCH (07:59)
[2021-08-24] MEDS: FUROSEMIDE 20 MG TAB PO SCH ×2 (08:00→16:57)
[2021-08-24] MEDS: PREGABALIN 50 MG CAP PO SCH ×3 (08:00→16:58)
[2021-08-24] MEDS: ISOSORBIDE MONONITRATE ER 30 MG TAB.ER.24H PO SCH (08:00)
[2021-08-24] MEDS: CEFEPIME 2 GM in SODIUM CHLORIDE 0.9% 100 ML IVPB SCH ×2 (08:00→19:14)
[2021-08-24] MEDS: amLODIPine 5 MG TAB PO SCH (08:00)
[2021-08-24] MEDS: guaiFENesin 600 MG TABLET.ER PO SCH ×2 (08:00→21:23)
[2021-08-24] MEDS: FORMOTEROL FUMARATE 20 MCG/2 ML NEBU INHALATION SCH ×2 (08:20→20:02)
[2021-08-24] MEDS: BUDESONIDE 1 MG/2 ML NEBU INHALATION SCH ×2 (08:20→20:02)
[2021-08-24 09:03] LABS: INR 1.4 (<1.2); Prothrombin Time 14.5 sec (9.0-12.0)
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
--- NOTE | 2021-08-24 16:23 | P.PN ---
Progress Note - Text Progress Note Date: 08/24/21 Chief Complaint: Fever or cough This is a pleasant 70-year-old patient of Dr. García. Follows with paperhanger apprentice Dr. Murphy. Chronic stable medical conditions include atrial fibrillation, hyperlipidemia, hypertension, history of lung cancer treated with chemotherapy back in 2019.at home is on 4 L of oxygen. He recently in the hospital from August 05 through August 12 . Admitted with COPD exacerbation, pneumonia, UTI, acute hypoxic respiratory failure. Started IV ceftriaxone, Zithromax, Urine culture positive for PNEUMONIAE and Citrobacter fruuindii. Was having pain in the right shoulder. Seen by orthopedics. [place] to be possible or biceps tendon injury. Right arm sling. Follow-up as outpatient. Patient now presents with increasing cough. Fevers. Short of breath. Decreased appetite. Had been requiring assistance at the [facility] with of each of th e bathroom. Tired rundown. Short of breath wheezing. Admitted with bilateral pneumonia, sepsis, acute COPD exacerbation, acute hypoxic respiratory failure. Started on IV cefepime. Fluids. August 24: Tired, short of breath. Cough. Eating some. In bed. On 6 L of nasal cannula Review of systems: Was done for constitutional, cardiovascular, GI, pulmonary. relevant finding as above Active Medications Acetaminophen (Acetaminophen Tab 325 Mg Tab) 650 mg PO Q4H PRN PRN Reason: Pain/FEVER Last Admin: 08/23/21 18:14 Dose: 650 mg Documented by: Al Hydroxide/Mg Hydroxide (Mag Hydrox/Al Hydrox/Simeth 30 Ml Cup) 15 ml PO Q6HR PRN PRN Reason: Indigestion Albuterol/Ipratropium (Ipratropium-Albuterol 3 Ml Neb) 3 ml INHALATION RT-Q4H PRN PRN Reason: Shortness Of Breath Or Wheezing Albuterol/Ipratropium (Ipratropium-Albuterol 3 Ml Neb) 3 ml INHALATION RT-Q4H [facility] Last Admin: 08/24/21 12:10 Dose: 3 ml Documented by: Alprazolam (Alprazolam 0.25 Mg Tab) 0.25 mg PO Q6HR PRN PRN Reason: Anxiety Amlodipine Besylate (Amlodipine 5 Mg Tab) 5 mg PO DAILY@0800 [facility] Last Admin: 08/24/21 08:00 Dose: 5 mg Documented by: Aspirin (Aspirin 81 Mg) 81 mg PO DAILY@1700 [facility] Last Admin: 08/23/21 18:13 Dose: 81 mg Documented by: Atorvastatin Calcium (Atorvastatin 40 Mg Tab) 40 mg PO HS@2100 [facility] Last Admin: 08/23/21 21:21 Dose: 40 mg Documented by: Bisacodyl (Bisacodyl 10 Mg Supp) 10 mg RECTAL DAILY PRN PRN Reason: Constipation Budesonide (Budesonide 1 Mg/2 Ml Nebu) 1 mg INHALATION RT-BID [facility] Last Admin: 08/24/21 08:20 Dose: 1 mg Documented by: Calcium Carbonate/Glycine (Calcium Carbonate 500 Mg Chewable) 1,000 mg PO Q4HR PRN PRN Reason: Dyspepsia Citalopram Hydrobromide (Citalopram Hydrobromide 20 Mg Tab) 20 mg PO HS@2100 [facility] Last Admin: 08/23/21 21:21 Dose: 20 mg Documented by: Cyclobenzaprine HCl (Cyclobenzaprine 5 Mg Tab) 5 mg PO HS@2100 [facility] Last Admin: 08/23/21 21:22 Dose: 5 mg Documented by: Digoxin (Digoxin 125 Mcg Tab) 125 mcg PO DAILY@0600 [facility] Last Admin: 08/24/21 05:46 Dose: 125 mcg Documented by: Formoterol Fumarate (Formoterol Fumarate 20 Mcg/2 Ml Nebu) 20 mcg INHALATION RT-BID [facility] Last Admin: 08/24/21 08:20 Dose: 20 mcg Documented by: Furosemide (Furosemide 20 Mg Tab) 20 mg PO BID@0800,1700 [facility] Last Admin: 08/24/21 08:00 Dose: 20 mg Documented by: Guaifenesin (Guaifenesin 600 Mg Tablet.Er) 600 mg PO BID [facility] Last Admin: 08/24/21 08:00 Dose: 600 mg Documented by: Cefepime HCl 2 gm/ Sodium (Chloride) 100 mls @ 25 mls/hr IVPB Q12H [facility] Last Admin: 08/24/21 08:00 Dose: 25 mls/hr Documented by: Lactated Ringer's (Lactated Ringers) 1,000 mls @ 75 mls/hr IV .[id number] [facility] Last Admin: 08/24/21 05:47 Dose: 75 mls/hr Documented by: Isosorbide Mononitrate (Isosorbide Mononitrate Er 30 Mg Tab.Er.24h) 30 mg PO DAILY@0800 [facility] Last Admin: 08/24/21 08:00 Dose: 30 mg Documented by: Lactulose (Lactulose 20 Gm/30 Ml Cup) 20 gm PO DAILY PRN PRN Reason: Constipation Magnesium Hydroxide (Magnesium Hydroxide 2,400 Mg/10 Ml Cup) 2,400 mg PO DAILY PRN PRN Reason: Constipation Melatonin (Melatonin 3 Mg Tablet) 6 mg PO HS@2100 [facility] Last Admin: 08/23/21 21:22 Dose: 6 mg Documented by: Methylprednisolone Sodium Succinate (Methylprednisolone Sod Succi 125 Mg/2 Ml Vial) 60 mg IV Q6H [facility] Last Admin: 08/24/21 07:59 Dose: 60 mg Documented by: Metoprolol Succinate (Metoprolol Succinate (Er) 50 Mg Tab.Er.24h) 150 mg PO DAILY@0800 [facility] Last Admin: 08/24/21 07:59 Dose: 150 mg Documented by: Metoprolol Succinate (Metoprolol Succinate (Er) 100 Mg Tab.Er.24h) 100 mg PO H S@2100 [facility] Last Admin: 08/23/21 22:35 Dose: 100 mg Documented by: Miscellaneous Information (Warfarin Per Pharmacy) 1 each MISCELLANE DIRECTED PRN; Protocol PRN Reason: Per Protocol Montelukast Sodium (Montelukast 10 Mg Tab) 10 mg PO HS@2100 [facility] Last Admin: 08/23/21 21:21 Dose: 10 mg Documented by: Multivitamins (Multivitamins, Thera 1 Each Tab) 1 each PO DAILY@1700 [facility] Last Admin: 08/23/21 18:14 Dose: 1 each Documented by: Naloxone HCl (Naloxone 0.4 Mg/Ml 1 Ml Vial) 0.2 mg IV Q2M PRN PRN Reason: Opioid Reversal Ondansetron HCl (Ondansetron 4 Mg/2 Ml Vial) 4 mg IVP Q8HR PRN PRN Reason: Nausea And Vomiting Pantoprazole Sodium (Pantoprazole 40 Mg Tablet) 40 mg PO DAILY@0600 [facility] Last Admin: 08/24/21 05:46 Dose: 40 mg Documented by: Pregabalin (Pregabalin 50 Mg Cap) 50 mg PO TID@0800,1200,1700 [facility] Last Admin: 08/24/21 11:19 Dose: 50 mg Documented by: Sodium Biphosphate/Sodium Phosphate (Na Phos,M-B/Na Phos,Di-Ba 133 Ml Enema) 133 ml RECTAL DAILY PRN PRN Reason: Constipation Warfarin Sodium (Warfarin 3 Mg Tab) 3 mg PO ONCE@1800 ONE Stop: 08/24/21 18:01 Past medical history to include: Atrial fibrillation, lung cancer treated with chemotherapy 2019, COPD, hypertension, hyperlipidemia, home oxygen 4 L, anxiety depression Social history: At [facility] [place] currently requiring a wheelchair. Smokes 2 packs a day from age of 10. Stopped in 2018. Drinks one or 2 beers a weak Family history: Reviewed, noncontributory to presentation Physical examination: VITAL SIGNS: 97.8, 89, 18, 109/64, 96% on 6 L GENERAL: reclining in bed, short of breath, tired EYES: Pupils equal. Conjunctiva normal. HEENT: External appearance of nose and ears normal, oral cavity grossly normal. NECK: JVD not raised; masses not palpable. HEART: First and second heart sounds are normal; no edema. LUNGS: Respiratory rate increased, decreased breath sounds , wheezing. ABDOMEN: Soft, nontender, liver spleen not palpable, no masses palpable. PSYCH: Alert and oriented x3; mood and affect anxious. INVESTIGATIONS, reviewed in the clinical context: Influenza type A, diabetes, RSV, COVID-19 [PCR]: Not detected White count 14.9 hemoglobin 9.2 platelets 277 sodium 129 potassium 4.3 BUN 13 creatinine 0.57 ProBNP 2030 Coronavirus [PCL]: Not detected EKG tracing personally reviewed by me-atrial fibrillation. Nonspecific ST-T wave changes. Rate 87 Chest x-ray film personally reviewed by me-bilateral scattered infiltrates. Possible chronic element. Assessment and plan: - Bilateral pneumonia. Suspect gram-negative organism: [Negative for influenza COVID] Slow to respond IV cefepime -Sepsis from pneumonia IV fluids. -Acute severe COPD exacerbation, steroid dependent in an ex-smoker. : Advanced.: Slow to respond nebulized bronchodilators, IV and inhaled steroids, nebulized long-acting bronchodilator. -Acute on chronic hypoxic respiratory failure from underlying COPD exacerbation: Slow to respond, On 6 L of nasal cannula -Persistent atrial fibrillation, rate controlled Coumadin, Toprol-XL 150 mg a day and 100 mg at night digoxin 125 g daily -Essential hypertension Toprol-XL 150 mg the morning, 100 mg at night, amlodipine 2.5 mg daily -Anxiety depression not otherwise specified continue with Celexa 20 mg daily at bedtime -Chronic medical debility currently using a wheelchair Fall precautions -Coumadin monitoring -Normocytic anemia of chronic disease Iron deficiency anemia. -Possible right biceps tendon rupture Orthopedics Dr. Fisher. Right arm sling. Follow-up outpatient. -DO NOT RESUSCITATE IV cefepime. IV fluids. Continue other medications. Prognosis guarded.
[2021-08-24] MEDS: MULTIVITAMINS, THERA 1 EACH TAB PO SCH (16:57)
[2021-08-24] MEDS: ASPIRIN 81 MG PO SCH (16:58)
[2021-08-24] MEDS ORDERED: WARFARIN 3 MG TAB PO ONE (18:00)
--- NOTE | 2021-08-24 18:17 | CT ---
EXAMINATION TYPE: CT chest wo con DATE OF EXAM: 08/24/2021 COMPARISON: 08/06/2021 HISTORY: Left lower lobe pneumonia CT DLP: mGycm Automated exposure control for dose reduction was used. Images obtained from the thoracic inlet to the diaphragm with no contrast. There is some airspace consolidation in the left posterior lung base. There is diffuse pulmonary emph ysema. There is moderate reticular interstitial infiltrate and pleural thickening in the posterior germán ng field on the right side. This extends to the right lung apex. There is no mediastinal adenopathy. Thoracic aorta is atheromatous. Heart size is normal. There is coronary artery calcification. There a re no hilar masses. The bony thorax is intact. Sternum is intact. IMPRESSION: Extensive bilateral pulmonary infiltrates and pulmonary emphysema. Left lower lobe infiltrate slightl y increased compared to last exam. Atherosclerotic vascular disease. Appearance is most consistent wi th inflammatory disease. No discrete pulmonary mass.
[2021-08-24] MEDS: ATORVASTATIN 40 MG TAB PO SCH (21:23)
[2021-08-24] MEDS: MELATONIN 3 MG TABLET PO SCH (21:23)
[2021-08-24] MEDS: CITALOPRAM HYDROBROMIDE 20 MG TAB PO SCH (21:23)
[2021-08-24] MEDS: CYCLOBENZAPRINE 5 MG TAB PO SCH (21:23)
[2021-08-24] MEDS: METOPROLOL SUCCINATE (ER) 100 MG TAB.ER.24H PO SCH (21:23)
[2021-08-24] MEDS: MONTELUKAST 10 MG TAB PO SCH (21:27)
[2021-08-25] MEDS: methylPREDNISolone SOD SUCCI 125 MG/2 ML VIAL IV SCH ×4 (04:13→21:09)
[2021-08-25] MEDS: DIGOXIN 125 MCG TAB PO SCH (05:42)
[2021-08-25] MEDS: PANTOPRAZOLE 40 MG TABLET PO SCH (05:42)
[2021-08-25] MEDS: IPRATROPIUM-ALBUTEROL 3 ML NEB INHALATION SCH ×5 (05:54→21:23)
[2021-08-25] MEDS: CEFEPIME 2 GM in SODIUM CHLORIDE 0.9% 100 ML IVPB SCH ×2 (07:19→19:15)
[2021-08-25] MEDS: ISOSORBIDE MONONITRATE ER 30 MG TAB.ER.24H PO SCH (07:20)
[2021-08-25] MEDS: PREGABALIN 50 MG CAP PO SCH ×3 (07:20→17:17)
[2021-08-25] MEDS: METOPROLOL SUCCINATE (ER) 50 MG TAB.ER.24H PO SCH (07:20)
[2021-08-25] MEDS: FUROSEMIDE 20 MG TAB PO SCH ×2 (07:20→17:17)
[2021-08-25] MEDS: guaiFENesin 600 MG TABLET.ER PO SCH ×4 (07:20→21:08)
[2021-08-25] MEDS: amLODIPine 5 MG TAB PO SCH (07:21)
[2021-08-25] MEDS: ACETAMINOPHEN TAB 325 MG TAB PO PRN (07:21)
[2021-08-25 09:13] LABS: INR 1.7 (<1.2); Prothrombin Time 16.7 sec (9.0-12.0)
[2021-08-25] MEDS: FORMOTEROL FUMARATE 20 MCG/2 ML NEBU INHALATION SCH ×2 (09:20→21:23)
[2021-08-25] MEDS: BUDESONIDE 1 MG/2 ML NEBU INHALATION SCH ×2 (09:20→21:24)
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
[2021-08-25] MEDS: LACTATED RINGERS 1,000 ML IV SCH ×2 (11:35→22:26)
[2021-08-25] MEDS: MULTIVITAMINS, THERA 1 EACH TAB PO SCH (11:36)
--- NOTE | 2021-08-25 15:12 | P.PN ---
Progress Note - Text Progress Note Date: 08/25/21 Chief Complaint: Fever or cough This is a pleasant 70-year-old patient of Dr. García. Follows with laborer operator Dr. Murphy. Chronic stable medical conditions include atrial fibrillation, hyperlipidemia, hypertension, history of lung cancer treated with chemotherapy back in 2019.at home is on 4 L of oxygen. He recently in the hospital from August 05 through August 12 . Admitted with COPD exacerbation, pneumonia, UTI, acute hypoxic respiratory failure. Started IV ceftriaxone, Zithromax, Urine culture positive for PNEUMONIAE and Citrobacter fruuindii. Was having pain in the right shoulder. Seen by orthopedics. [place] to be possible or biceps tendon injury. Right arm sling. Follow-up as outpatient. Patient now presents with increasing cough. Fevers. Short of breath. Decreased appetite. Had been requiring assistance at the [facility] with of each of th e bathroom. Tired rundown. Short of breath wheezing. Admitted with bilateral pneumonia, sepsis, acute COPD exacerbation, acute hypoxic respiratory failure. Started on IV cefepime. Fluids. August 24: Tired, short of breath. Cough. Eating some. In bed. On 6 L of nasal cannula August 25: Sitting, in bed. Congested chest. Not able to expectorate it. Cough. Short of breath. On 5 L of nasal cannula. Add flutter valve. Increase Mucinex to 4 times a day. Oral intake fair. Review of systems: Was done for constitutional, cardiovascular, GI, pulmonary. relevant finding as above Active Medications Acetaminophen (Acetaminophen Tab 325 Mg Tab) 650 mg PO Q4H PRN PRN Reason: Pain/FEVER Last Admin: 08/25/21 07:21 Dose: 650 mg Documented by: Al Hydroxide/Mg Hydroxide (Mag Hydrox/Al Hydrox/Simeth 30 Ml Cup) 15 ml PO Q6HR PRN PRN Reason: Indigestion Albuterol/Ipratropium (Ipratropium-Albuterol 3 Ml Neb) 3 ml INHALATION RT-Q4H PRN PRN Reason: Shortness Of Breath Or Wheezing Albuterol/Ipratropium (Ipratropium-Albuterol 3 Ml Neb) 3 ml INHALATION RT-Q4H [facility] Last Admin: 08/25/21 12:32 Dose: 3 ml Documented by: Alprazolam (Alprazolam 0.25 Mg Tab) 0.25 mg PO Q6HR PRN PRN Reason: Anxiety Amlodipine Besylate (Amlodipine 5 Mg Tab) 5 mg PO DAILY@0800 [facility] Last Admin: 08/25/21 07:21 Dose: 5 mg Documented by: Aspirin (Aspirin 81 Mg) 81 mg PO DAILY@1700 [facility] Last Admin: 08/24/21 16:58 Dose: 81 mg Documented by: Atorvastatin Calcium (Atorvastatin 40 Mg Tab) 40 mg PO HS@2100 [facility] Last Admin: 08/24/21 21:23 Dose: 40 mg Documented by: Bisacodyl (Bisacodyl 10 Mg Supp) 10 mg RECTAL DAILY PRN PRN Reason: Constipation Budesonide (Budesonide 1 Mg/2 Ml Nebu) 1 mg INHALATION RT-BID [facility] Last Admin: 08/25/21 09:20 Dose: 1 mg Documented by: Calcium Carbonate/Glycine (Calcium Carbonate 500 Mg Chewable) 1,000 mg PO Q4HR PRN PRN Reason: Dyspepsia Citalopram Hydrobromide (Citalopram Hydrobromide 20 Mg Tab) 20 mg PO HS@2100 [facility] Last Admin: 08/24/21 21:23 Dose: 20 mg Documented by: Cyclobenzaprine HCl (Cyclobenzaprine 5 Mg Tab) 5 mg PO HS@2100 [facility] Last Admin: 08/24/21 21:23 Dose: 5 mg Documented by: Digoxin (Digoxin 125 Mcg Tab) 125 mcg PO DAILY@0600 [facility] Last Admin: 08/25/21 05:42 Dose: 125 mcg Documented by: Formoterol Fumarate (Formoterol Fumarate 20 Mcg/2 Ml Nebu) 20 mcg INHALATION RT-BID [facility] Last Admin: 08/25/21 09:20 Dose: 20 mcg Documented by: Furosemide (Furosemide 20 Mg Tab) 20 mg PO BID@0800,1700 [facility] Last Admin: 08/25/21 07:20 Dose: 20 mg Documented by: Guaifenesin (Guaifenesin 600 Mg Tablet.Er) 600 mg PO QID [facility] Cefepime HCl 2 gm/ Sodium (Chloride) 100 mls @ 25 mls/hr IVPB Q12H [facility] Last Admin: 08/25/21 07:19 Dose: 25 mls/hr Documented by: Lactated Ringer's (Lactated Ringers) 1,000 mls @ 75 mls/hr IV .[id number] [facility] Last Admin: 08/25/21 11:35 Dose: Not Given Documented by: Isosorbide Mononitrate (Isosorbide Mononitrate Er 30 Mg Tab.Er.24h) 30 mg PO DAILY@0800 [facility] Last Admin: 08/25/21 07:20 Dose: 30 mg Documented by: Lactulose (Lactulose 20 Gm/30 Ml Cup) 20 gm PO DAILY PRN PRN Reason: Constipation Magnesium Hydroxide (Magnesium Hydroxide 2,400 Mg/10 Ml Cup) 2,400 mg PO DAILY PRN PRN Reason: Constipation Melatonin (Melatonin 3 Mg Tablet) 6 mg PO HS@2100 [facility] Last Admin: 08/24/21 21:23 Dose: 6 mg Documented by: Methylprednisolone Sodium Succinate (Methylprednisolone Sod Succi 125 Mg/2 Ml Vial) 60 mg IV Q6H [facility] Last Admin: 08/25/21 11:37 Dose: 60 mg Documented by: Metoprolol Succinate (Metoprolol Succinate (Er) 50 Mg Tab.Er.24h) 150 mg PO DAILY@0800 [facility] Last Admin: 08/25/21 07:20 Dose: 150 mg Documented by: Metoprolol Succinate (Metoprolol Succinate (Er) 100 Mg Tab.Er.24h) 100 mg PO HS@2100 [facility] Last Admin: 08/24/21 21:23 Dose: 100 mg Documented by: Miscellaneous Information (Warfarin Per Pharmacy) 1 each MISCELLANE DIRECTED PRN; Protocol PRN Reason: Per Protocol Montelukast Sodium (Montelukast 10 Mg Tab) 10 mg PO HS@2100 [facility] Last Admin: 08/24/21 21:27 Dose: 10 mg Documented by: Multivitamins (Multivitamins, Thera 1 Each Tab) 1 each PO DAILY@1700 [facility] Last Admin: 08/25/21 11:36 Dose: 1 each Documented by: Naloxone HCl (Naloxone 0.4 Mg/Ml 1 Ml Vial) 0.2 mg IV Q2M PRN PRN Reason: Opioid Reversal Ondansetron HCl (Ondansetron 4 Mg/2 Ml Vial) 4 mg IVP Q8HR PRN PRN Reason: Nausea And Vomiting Pantoprazole Sodium (Pantoprazole 40 Mg Tablet) 40 mg PO DAILY@0600 [facility] Last Admin: 08/25/21 05:42 Dose: 40 mg Documented by: Pregabalin (Pregabalin 50 Mg Cap) 50 mg PO TID@0800,1200,1700 [facility] Last Admin: 08/25/21 11:36 Dose: 50 mg Documented by: Sodium Biphosphate/Sodium Phosphate (Na Phos,M-B/Na Phos,Di-Ba 133 Ml Enema) 133 ml RECTAL DAILY PRN PRN Reason: Constipation Warfarin Sodium (Warfarin 3 Mg Tab) 3 mg PO ONCE@1800 ONE Stop: 08/25/21 18:01 Past medical history to include: Atrial fibrillation, lung cancer treated with chemotherapy 2018, COPD, hypertension, hyperlipidemia, home oxygen 4 L, anxiety depression Social history: At [facility] [place] currently requiring a wheelchair. Smokes 2 packs a day from age of 10. Stopped in 2018. Drinks one or 2 beers a weak Family history: Reviewed, noncontributory to presentation Physical examination: VITAL SIGNS: 97.5, 93, 18, 120/71, 95% on 5 L GENERAL: reclining in bed, short of breath, tired, congested cough EYES: Pupils equal. Conjunctiva normal. HEENT: External appearance of nose and ears normal, oral cavity grossly normal. NECK: JVD not raised; masses not palpable. HEART: First and second heart sounds are normal; no edema. LUNGS: Respiratory rate increased, decreased breath sounds , coarse breath sounds wheezing. ABDOMEN: Soft, nontender, liver spleen not palpable, no masses palpable. PSYCH: Alert and oriented x3; mood and affect anxious. INVESTIGATIONS, reviewed in the clinical context: August 25: INR 1.7 Influenza type A, diabetes, RSV, COVID-19 [PCR]: Not detected White count 14.9 hemoglobin 9.2 platelets 277 sodium 129 potassium 4.3 BUN 13 creatinine 0.57 ProBNP 2030 Coronavirus [PCL]: Not detected EKG tracing personally reviewed by me-atrial fibrillation. Nonspecific ST-T wave changes. Rate 87 Chest x-ray film personally reviewed by me-bilateral scattered infiltrates. Possible chronic element. Assessment and plan: - Bilateral pneumonia. Suspect gram-negative organism: [Negative for influenza COVID] Slow to respond IV cefepime -Sepsis from pneumonia IV fluids. -Acute severe COPD exacerbation, steroid dependent in an ex-smoker. : Advanced.: Slow to respond nebulized bronchodilators, IV and inhaled steroids, nebulized long-acting bronchodilator. -Acute on chronic hypoxic respiratory failure from underlying COPD exacerbation: Slow to respond, On 6 L of nasal cannula -Persistent atrial fibrillation, rate controlled Coumadin, Toprol-XL 150 mg a day and 100 mg at night digoxin 125 g daily -Essential hypertension Toprol-XL 150 mg the morning, 100 mg at night, amlodipine 2.5 mg daily -Anxiety depression not otherwise specified continue with Celexa 20 mg daily at bedtime -Chronic medical debility currently using a wheelchair Fall precautions -Coumadin monitoring -Normocytic anemia of chronic disease Iron deficiency anemia. -Possible right biceps tendon rupture Orthopedics Dr. Fisher. Right arm sling. Follow-up outpatient. -DO NOT RESUSCITATE IV cefepime. IV fluids. Humidified oxygen. Increase Mucinex to 600 mg 4 times a day. Flutter valve. Discussed the patient.
[2021-08-25] MEDS: ASPIRIN 81 MG PO SCH (17:17)
[2021-08-25] MEDS ORDERED: WARFARIN 3 MG TAB PO ONE (18:00)
[2021-08-25] MEDS: MELATONIN 3 MG TABLET PO SCH (21:08)
[2021-08-25] MEDS: CITALOPRAM HYDROBROMIDE 20 MG TAB PO SCH (21:08)
[2021-08-25] MEDS: CYCLOBENZAPRINE 5 MG TAB PO SCH (21:08)
[2021-08-25] MEDS: MONTELUKAST 10 MG TAB PO SCH (21:10)
[2021-08-25] MEDS: ATORVASTATIN 40 MG TAB PO SCH (21:12)
[2021-08-25] MEDS: METOPROLOL SUCCINATE (ER) 100 MG TAB.ER.24H PO SCH (22:25)
[2021-08-26] MEDS ORDERED: IPRATROPIUM-ALBUTEROL 3 ML NEB ONE
[2021-08-26] MEDS: IPRATROPIUM-ALBUTEROL 3 ML NEB INHALATION SCH ×6 (00:59→20:35)
[2021-08-26] MEDS: methylPREDNISolone SOD SUCCI 125 MG/2 ML VIAL IV SCH ×4 (04:00→21:52)
[2021-08-26 05:52] LABS: Anisocytosis Moderate; Basophils % (A) 0 %; Eosinophils % (A) 0 %; HCT 24.9 % (34.0-46.0); HGB 7.8 gm/dL (11.4-16.0); Hypochromasia Slight; Lymphocytes # (A) 0.4 k/uL (1.0-4.8); Lymphocytes % (A) 3 %; MCH 26.7 pg (25.0-35.0); MCHC 31.4 g/dL (31.0-37.0); MCV 84.8 fL (80.0-100.0); Mean Platelet Volume 7.4; Microcytosis Slight; Monocytes # (A) 0.3 k/uL (0-1.0); Monocytes % (A) 2 %; Neutrophils # (A) 11.3 k/uL (1.3-7.7); Neutrophils % (A) 94 %; Platelet Count 271 k/uL (150-450); Poikilocytosis Slight; RBC 2.94 m/uL (3.80-5.40); RDW 20.3 % (11.5-15.5)
[2021-08-26] MEDS: PANTOPRAZOLE 40 MG TABLET PO SCH (05:56)
[2021-08-26] MEDS: DIGOXIN 125 MCG TAB PO SCH (05:56)
[2021-08-26 05:59] LABS: INR 2.2 (<1.2); Prothrombin Time 21.4 sec (9.0-12.0)
[2021-08-26] MEDS: ALPRAZolam 0.25 MG TAB PO PRN (06:05)
[2021-08-26 06:31] LABS: African American GFR (CKD) >90 (>60 ml/min/1.73 sqM); Anion Gap 3 mmol/L; Blood Urea Nitrogen 18 mg/dL (7-17); Calcium 8.4 mg/dL (8.4-10.2); Carbon Dioxide 30 mmol/L (22-30); Chloride 99 mmol/L (98-107); Glucose 157 mg/dL (74-99); Non-African American GFR(CKD) >90 (>60 ml/min/1.73 sqM); Potassium 3.6 mmol/L (3.5-5.1); Sodium 132 mmol/L (137-145)
[2021-08-26] MEDS: FORMOTEROL FUMARATE 20 MCG/2 ML NEBU INHALATION SCH ×2 (07:12→20:35)
[2021-08-26] MEDS: BUDESONIDE 1 MG/2 ML NEBU INHALATION SCH ×2 (07:12→20:35)
[2021-08-26] MEDS: ISOSORBIDE MONONITRATE ER 30 MG TAB.ER.24H PO SCH (08:37)
[2021-08-26] MEDS: guaiFENesin 600 MG TABLET.ER PO SCH ×4 (08:37→21:52)
[2021-08-26] MEDS: CEFEPIME 2 GM in SODIUM CHLORIDE 0.9% 100 ML IVPB SCH ×3 (08:37→23:09)
[2021-08-26] MEDS: PREGABALIN 50 MG CAP PO SCH ×3 (08:38→17:10)
[2021-08-26] MEDS: amLODIPine 5 MG TAB PO SCH (08:38)
[2021-08-26] MEDS: FUROSEMIDE 20 MG TAB PO SCH ×2 (08:38→17:10)
[2021-08-26] MEDS: METOPROLOL SUCCINATE (ER) 50 MG TAB.ER.24H PO SCH (08:39)
--- NOTE | 2021-08-26 13:55 | P.PN ---
Progress Note - Text Progress Note Date: 08/26/21 Chief Complaint: Fever or cough This is a pleasant 70-year-old patient of Dr. García. Follows with wind energy systems installer Dr. Murphy. Chronic stable medical conditions include atrial fibrillation, hyperlipidemia, hypertension, history of lung cancer treated with chemotherapy back in 2019.at home is on 4 L of oxygen. He recently in the hospital from August 05 through August 12 . Admitted with COPD exacerbation, pneumonia, UTI, acute hypoxic respiratory failure. Started IV ceftriaxone, Zithromax, Urine culture positive for PNEUMONIAE and Citrobacter fruuindii. Was having pain in the right shoulder. Seen by orthopedics. [place] to be possible or biceps tendon injury. Right arm sling. Follow-up as outpatient. Patient now presents with increasing cough. Fevers. Short of breath. Decreased appetite. Had been requiring assistance at the [facility] with of each of th e bathroom. Tired rundown. Short of breath wheezing. Admitted with bilateral pneumonia, sepsis, acute COPD exacerbation, acute hypoxic respiratory failure. Started on IV cefepime. Fluids. August 24: Tired, short of breath. Cough. Eating some. In bed. On 6 L of nasal cannula August 25: Sitting, in bed. Congested chest. Not able to expectorate it. Cough. Short of breath. On 5 L of nasal cannula. Add flutter valve. Increase Mucinex to 4 times a day. Oral intake fair. August 26: Sitting up in chair. On humidified FiO2. Still not able to expectorate congestion the chest. On 10 L of high flow nasal cannula. Oral intake fair. Review of systems: Was done for constitutional, cardiovascular, GI, pulmonary. relevant finding as above Active Medications Acetaminophen (Acetaminophen Tab 325 Mg Tab) 650 mg PO Q4H PRN PRN Reason: Pain/FEVER Last Admin: 08/25/21 07:21 Dose: 650 mg Documented by: Al Hydroxide/Mg Hydroxide (Mag Hydrox/Al Hydrox/Simeth 30 Ml Cup) 15 ml PO Q6HR PRN PRN Reason: Indigestion Albuterol/Ipratropium (Ipratropium-Albuterol 3 Ml Neb) 3 ml INHALATION RT-Q4H PRN PRN Reason: Shortness Of Breath Or Wheezing Albuterol/Ipratropium (Ipratropium-Albuterol 3 Ml Neb) 3 ml INHALATION RT-Q4H [facility] Last Admin: 08/26/21 11:16 Dose: 3 ml Documented by: Alprazolam (Alprazolam 0.25 Mg Tab) 0.25 mg PO Q6HR PRN PRN Reason: Anxiety Last Admin: 08/26/21 06:05 Dose: 0.25 mg Documented by: Amlodipine Besylate (Amlodipine 5 Mg Tab) 5 mg PO DAILY@0800 [facility] Last Admin: 08/26/21 08:38 Dose: 5 mg Documented by: Aspirin (Aspirin 81 Mg) 81 mg PO DAILY@1700 [facility] Last Admin: 08/25/21 17:17 Dose: 81 mg Documented by: Atorvastatin Calcium (Atorvastatin 40 Mg Tab) 40 mg PO HS@2100 [facility] Last Admin: 08/25/21 21:12 Dose: 40 mg Documented by: Bisacodyl (Bisacodyl 10 Mg Supp) 10 mg RECTAL DAILY PRN PRN Reason: Constipation Budesonide (Budesonide 1 Mg/2 Ml Nebu) 1 mg INHALATION RT-BID [facility] Last Admin: 08/26/21 07:12 Dose: 1 mg Documented by: Calcium Carbonate/Glycine (Calcium Carbonate 500 Mg Chewable) 1,000 mg PO Q4HR PRN PRN Reason: Dyspepsia Citalopram Hydrobromide (Citalopram Hydrobromide 20 Mg Tab) 20 mg PO HS@2100 [facility] Last Admin: 08/25/21 21:08 Dose: 20 mg Documented by: Cyclobenzaprine HCl (Cyclobenzaprine 5 Mg Tab) 5 mg PO HS@2100 [facility] Last Admin: 08/25/21 21:08 Dose: 5 mg Documented by: Digoxin (Digoxin 125 Mcg Tab) 125 mcg PO DAILY@0600 [facility] Last Admin: 08/26/21 05:56 Dose: 125 mcg Documented by: Formoterol Fumarate (Formoterol Fumarate 20 Mcg/2 Ml Nebu) 20 mcg INHALATION RT -BID [facility] Last Admin: 08/26/21 07:12 Dose: 20 mcg Documented by: Furosemide (Furosemide 20 Mg Tab) 20 mg PO BID@0800,1700 [facility] Last Admin: 08/26/21 08:38 Dose: 20 mg Documented by: Guaifenesin (Guaifenesin 600 Mg Tablet.Er) 600 mg PO QID [facility] Last Admin: 08/26/21 08:37 Dose: 600 mg Documented by: Cefepime HCl 2 gm/ Sodium (Chloride) 100 mls @ 25 mls/hr IVPB Q12H [facility] Last Admin: 08/26/21 08:37 Dose: 25 mls/hr Documented by: Lactated Ringer's (Lactated Ringers) 1,000 mls @ 75 mls/hr IV .[id number] [facility] Last Admin: 08/25/21 22:26 Dose: Not Given Documented by: Isosorbide Mononitrate (Isosorbide Mononitrate Er 30 Mg Tab.Er.24h) 30 mg PO DAILY@0800 [facility] Last Admin: 08/26/21 08:37 Dose: 30 mg Documented by: Lactulose (Lactulose 20 Gm/30 Ml Cup) 20 gm PO DAILY PRN PRN Reason: Constipation Magnesium Hydroxide (Magnesium Hydroxide 2,400 Mg/10 Ml Cup) 2,400 mg PO DAILY PRN PRN Reason: Constipation Melatonin (Melatonin 3 Mg Tablet) 6 mg PO HS@2100 [facility] Last Admin: 08/25/21 21:08 Dose: 6 mg Documented by: Methylprednisolone Sodium Succinate (Methylprednisolone Sod Succi 125 Mg/2 Ml Vial) 60 mg IV Q6H [facility] Last Admin: 08/26/21 08:37 Dose: 60 mg Documented by: Metoprolol Succinate (Metoprolol Succinate (Er) 50 Mg Tab.Er.24h) 150 mg PO DAILY@0800 [facility] Last Admin: 08/26/21 08:39 Dose: 150 mg Documented by: Metoprolol Succinate (Metoprolol Succinate (Er) 100 Mg Tab.Er.24h) 100 mg PO HS@2100 [facility] Last Admin: 08/25/21 22:25 Dose: 100 mg Documented by: Miscellaneous Information (Warfarin Per Pharmacy) 1 each MISCELLANE DIRECTED PRN; Protocol PRN Reason: Per Protocol Montelukast Sodium (Montelukast 10 Mg Tab) 10 mg PO HS@2100 [facility] Last Admin: 08/25/21 21:10 Dose: 10 mg Documented by: Multivitamins (Multivitamins, Thera 1 Each Tab) 1 each PO DAILY@1700 [facility] Last Admin: 08/25/21 11:36 Dose: 1 each Documented by: Naloxone HCl (Naloxone 0.4 Mg/Ml 1 Ml Vial) 0.2 mg IV Q2M PRN PRN Reason: Opioid Reversal Ondansetron HCl (Ondansetron 4 Mg/2 Ml Vial) 4 mg IVP Q8HR PRN PRN Reason: Nausea And Vomiting Pantoprazole Sodium (Pantoprazole 40 Mg Tablet) 40 mg PO DAILY@0600 [facility] Last Admin: 08/26/21 05:56 Dose: 40 mg Documented by: Pregabalin (Pregabalin 50 Mg Cap) 50 mg PO TID@0800,1200,1700 [facility] Last Admin: 08/26/21 08:38 Dose: 50 mg Documented by: Sodium Biphosphate/Sodium Phosphate (Na Phos,M-B/Na Phos,Di-Ba 133 Ml Enema) 13 3 ml RECTAL DAILY PRN PRN Reason: Constipation Warfarin Sodium (Warfarin 2.5 Mg Tab) 2.5 mg PO ONCE ONE Stop: 08/26/21 18:01 Past medical history to include: Atrial fibrillation, lung cancer treated with chemotherapy 2018, COPD, hypertension, hyperlipidemia, home oxygen 4 L, anxiety depression Social history: At [facility] [place] currently requiring a wheelchair. Smokes 2 packs a day from age of 10. Stopped in 2017. Drinks one or 2 beers a weak Family history: Reviewed, noncontributory to presentation Physical examination: VITAL SIGNS: 98.1, 99, 18, 139/84, 91% on 10 L GENERAL: Up in a chair short of breath, tired, congested cough EYES: Pupils equal. Conjunctiva normal. HEENT: External appearance of nose and ears normal, oral cavity grossly normal. NECK: JVD not raised; masses not palpable. HEART: First and second heart sounds are normal; no edema. LUNGS: Respiratory rate increased, decreased breath sounds , coarse breath sounds wheezing. ABDOMEN: Soft, nontender, liver spleen not palpable, no masses palpable. PSYCH: Alert and oriented x3; mood and affect anxious. INVESTIGATIONS, reviewed in the clinical context: August 26: WBC 12 hemoglobin 10.8 platelets 271 INR 2.2 sodium 132 potassium 3.[address] chest without contrast: August 25: INR 1.7 Influenza type A, diabetes, RSV, COVID-19 [PCR]: Not detected White count 14.9 hemoglobin 9.2 platelets 277 sodium 129 potassium 4.3 BUN 13 creatinine 0.57 ProBNP 2030 Coronavirus [PCL]: Not detected EKG tracing personally reviewed by me-atrial fibrillation. Nonspecific ST-T wave changes. Rate 87 Chest x-ray film personally reviewed by me-bilateral scattered infiltrates. Possible chronic element. Assessment and plan: - Bilateral pneumonia. Suspect gram-negative organism: [Negative for influenza COVID] Slow to respond IV cefepime -Sepsis from pneumonia IV fluids. -Acute severe COPD exacerbation, steroid dependent in an ex-smoker. : Advanced.: Slow to respond nebulized bronchodilators, IV and inhaled steroids, nebulized long-acting bronchodilator. -Acute on chronic hypoxic respiratory failure from underlying COPD exacerbation: Slow to respond, On 6 L of nasal cannula -Persistent atrial fibrillation, rate controlled Coumadin, Toprol-XL 150 mg a day and 100 mg at night digoxin 125 g daily -Essential hypertension Toprol-XL 150 mg the morning, 100 mg at night, amlodipine 2.5 mg daily -Anxiety depression not otherwise specified continue with Celexa 20 mg daily at bedtime -Chronic medical debility currently using a wheelchair Fall precautions -Coumadin monitoring -Normocytic anemia of chronic disease Iron deficiency anemia. -Possible right biceps tendon rupture Orthopedics Dr. Fisher. Right arm sling as needed. Follow-up outpatient. -DO NOT RESUSCITATE IV cefepime. IV fluids. Humidified oxygen. . Flutter valve. Discussed the patient. Follow with pulmonary. Prognosis guarded.
[2021-08-26] MEDS: MULTIVITAMINS, THERA 1 EACH TAB PO SCH (17:10)
[2021-08-26] MEDS: ASPIRIN 81 MG PO SCH (17:10)
[2021-08-26] MEDS ORDERED: WARFARIN 2.5 MG TAB PO ONE (18:00)
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
[2021-08-26] MEDS: LACTATED RINGERS 1,000 ML IV SCH ×2 (19:48→21:51)
[2021-08-26] MEDS: MELATONIN 3 MG TABLET PO SCH (21:52)
[2021-08-26] MEDS: CYCLOBENZAPRINE 5 MG TAB PO SCH (21:52)
[2021-08-26] MEDS: METOPROLOL SUCCINATE (ER) 100 MG TAB.ER.24H PO SCH (21:52)
[2021-08-26] MEDS: MONTELUKAST 10 MG TAB PO SCH (21:52)
[2021-08-26] MEDS: CITALOPRAM HYDROBROMIDE 20 MG TAB PO SCH (21:53)
[2021-08-26] MEDS: ATORVASTATIN 40 MG TAB PO SCH (21:53)
[2021-08-27] MEDS: IPRATROPIUM-ALBUTEROL 3 ML NEB INHALATION SCH ×7 (00:52→23:29)
[2021-08-27] MEDS: methylPREDNISolone SOD SUCCI 125 MG/2 ML VIAL IV SCH ×4 (04:50→21:32)
[2021-08-27] MEDS: ACETAMINOPHEN TAB 325 MG TAB PO PRN (05:03)
[2021-08-27] MEDS: PANTOPRAZOLE 40 MG TABLET PO SCH (05:53)
[2021-08-27] MEDS: DIGOXIN 125 MCG TAB PO SCH (05:53)
[2021-08-27] MEDS: ALPRAZolam 0.25 MG TAB PO PRN ×2 (05:53→15:26)
[2021-08-27 06:17] LABS: INR 2.5 (<1.2); Prothrombin Time 24.7 sec (9.0-12.0)
[2021-08-27] MEDS: BUDESONIDE 1 MG/2 ML NEBU INHALATION SCH ×2 (07:13→19:45)
[2021-08-27] MEDS: FORMOTEROL FUMARATE 20 MCG/2 ML NEBU INHALATION SCH ×2 (07:13→19:45)
[2021-08-27] MEDS ORDERED: FUROSEMIDE 10 MG/ML 4 ML VIAL IV STA (07:55)
[2021-08-27] MEDS: METOPROLOL SUCCINATE (ER) 50 MG TAB.ER.24H PO SCH (08:03)
[2021-08-27] MEDS: CEFEPIME 2 GM in SODIUM CHLORIDE 0.9% 100 ML IVPB SCH ×2 (08:03→15:26)
[2021-08-27] MEDS: PREGABALIN 50 MG CAP PO SCH ×3 (08:04→18:00)
[2021-08-27] MEDS: ISOSORBIDE MONONITRATE ER 30 MG TAB.ER.24H PO SCH (08:04)
[2021-08-27] MEDS: amLODIPine 5 MG TAB PO SCH (08:04)
[2021-08-27] MEDS: guaiFENesin 600 MG TABLET.ER PO SCH ×4 (08:04→21:31)
[2021-08-27] MEDS: FUROSEMIDE 20 MG TAB PO SCH ×2 (09:53→18:00)
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
[2021-08-27] MEDS ORDERED: FLUCONAZOLE 100 MG TAB PO ONE (11:45)
--- NOTE | 2021-08-27 17:45 | P.PN ---
Progress Note - Text Progress Note Date: 08/27/21 Chief Complaint: Fever or cough This is a pleasant 70-year-old patient of Dr. García. Follows with bee rancher Dr. Murphy. Chronic stable medical conditions include atrial fibrillation, hyperlipidemia, hypertension, history of lung cancer treated with chemotherapy back in 2019.at home is on 4 L of oxygen. He recently in the hospital from August 05 through August 12 . Admitted with COPD exacerbation, pneumonia, UTI, acute hypoxic respiratory failure. Started IV ceftriaxone, Zithromax, Urine culture positive for PNEUMONIAE and Citrobacter fruuindii. Was having pain in the right shoulder. Seen by orthopedics. [place] to be possible or biceps tendon injury. Right arm sling. Follow-up as outpatient. Patient now presents with increasing cough. Fevers. Short of breath. Decreased appetite. Had been requiring assistance at the [facility] with of each of th e bathroom. Tired rundown. Short of breath wheezing. Admitted with bilateral pneumonia, sepsis, acute COPD exacerbation, acute hypoxic respiratory failure. Started on IV cefepime. Fluids. August 24: Tired, short of breath. Cough. Eating some. In bed. On 6 L of nasal cannula August 25: Sitting, in bed. Congested chest. Not able to expectorate it. Cough. Short of breath. On 5 L of nasal cannula. Add flutter valve. Increase Mucinex to 4 times a day. Oral intake fair. August 26: Sitting up in chair. On humidified FiO2. Still not able to expectorate congestion the chest. On 10 L of high flow nasal cannula. Oral intake fair. August 27: Up in a chair. Humidified FiO2. Congested cough. Not able to expectorate. 8 L of nasal cannula. Tired. Short of breath. Started on Diflucan. Review of systems: Was done for constitutional, cardiovascular, GI, pulmonary. relevant finding as above Active Medications Acetaminophen (Acetaminophen Tab 325 Mg Tab) 650 mg PO Q4H PRN PRN Reason: Pain/FEVER Last Admin: 08/27/21 05:03 Dose: 650 mg Documented by: Al Hydroxide/Mg Hydroxide (Mag Hydrox/Al Hydrox/Simeth 30 Ml Cup) 15 ml PO Q6HR PRN PRN Reason: Indigestion Albuterol/Ipratropium (Ipratropium-Albuterol 3 Ml Neb) 3 ml INHALATION RT-Q4H PRN PRN Reason: Shortness Of Breath Or Wheezing Albuterol/Ipratropium (Ipratropium-Albuterol 3 Ml Neb) 3 ml INHALATION RT-Q4H [facility] [place] Last Admin: 08/27/21 15:36 Dose: 3 ml Documented by: Alprazolam (Alprazolam 0.25 Mg Tab) 0.25 mg PO Q6HR PRN PRN Reason: Anxiety Last Admin: 08/27/21 15:26 Dose: 0.25 mg Documented by: Amlodipine Besylate (Amlodipine 5 Mg Tab) 5 mg PO DAILY@0800 [facility] [place] Last Admin: 08/27/21 08:04 Dose: 5 mg Documented by: Aspirin (Aspirin 81 Mg) 81 mg PO DAILY@1700 [facility] [place] Last Admin: 08/26/21 17:10 Dose: 81 mg Documented by: Atorvastatin Calcium (Atorvastatin 40 Mg Tab) 40 mg PO HS@2100 [facility] Last Admin: 08/26/21 21:53 Dose: 40 mg Documented by: Bisacodyl (Bisacodyl 10 Mg Supp) 10 mg RECTAL DAILY PRN PRN Reason: Constipation Budesonide (Budesonide 1 Mg/2 Ml Nebu) 1 mg INHALATION RT-BID [facility] Last Admin: 08/27/21 07:13 Dose: 1 mg Documented by: Calcium Carbonate/Glycine (Calcium Carbonate 500 Mg Chewable) 1,000 mg PO Q4HR PRN PRN Reason: Dyspepsia Citalopram Hydrobromide (Citalopram Hydrobromide 20 Mg Tab) 20 mg PO HS@2100 [facility] [place] Last Admin: 08/26/21 21:53 Dose: 20 mg Documented by: Cyclobenzaprine HCl (Cyclobenzaprine 5 Mg Tab) 5 mg PO HS@2100 [facility] [place] Last Admin: 08/26/21 21:52 Dose: 5 mg Documented by: Digoxin (Digoxin 125 Mcg Tab) 125 mcg PO DAILY@0600 [facility] Last Admin: 08/27/21 05:53 Dose: 125 mcg Documented by: Fluconazole (Fluconazole 100 Mg Tab) 100 mg PO DAILY [facility] [place] Formoterol Fumarate (Formoterol Fumarate 20 Mcg/2 Ml Nebu) 20 mcg INHALATION RT-BID [facility] [place] Last Admin: 08/27/21 07:13 Dose: 20 mcg Documented by: Furosemide (Furosemide 20 Mg Tab) 20 mg PO BID@0800,1700 [facility] [place] Last Admin: 08/27/21 09:53 Dose: Not Given Documented by: Guaifenesin (Guaifenesin 600 Mg Tablet.Er) 600 mg PO QID [facility] Last Admin: 08/27/21 12:01 Dose: 600 mg Documented by: Cefepime HCl 2 gm/ Sodium (Chloride) 100 mls @ 25 mls/hr IVPB Q8H [facility] Last Admin: 08/27/21 15:26 Dose: 25 mls/hr Documented by: Isosorbide Mononitrate (Isosorbide Mononitrate Er 30 Mg Tab.Er.24h) 30 mg PO DAILY@0800 [facility] [place] Last Admin: 08/27/21 08:04 Dose: 30 mg Documented by: Lactulose (Lactulose 20 Gm/30 Ml Cup) 20 gm PO DAILY PRN PRN Reason: Constipation Magnesium Hydroxide (Magnesium Hydroxide 2,400 Mg/10 Ml Cup) 2,400 mg PO DAILY PRN PRN Reason: Constipation Melatonin (Melatonin 3 Mg Tablet) 6 mg PO HS@2100 [facility] [place] Last Admin: 08/26/21 21:52 Dose: 6 mg Documented by: Methylprednisolone Sodium Succinate (Methylprednisolone Sod Succi 125 Mg/2 Ml Vial) 60 mg IV Q6H [facility] Last Admin: 08/27/21 15:26 Dose: 60 mg Documented by: Metoprolol Succinate (Metoprolol Succinate (Er) 50 Mg Tab.Er.24h) 150 mg PO DAILY@0800 [facility] [place] Last Admin: 08/27/21 08:03 Dose: 150 mg Documented by: Metoprolol Succinate (Metoprolol Succinate (Er) 100 Mg Tab.Er.24h) 100 mg PO HS@2100 [facility] [place] Last Admin: 08/26/21 21:52 Dose: 100 mg Documented by: Miscellaneous Information (Warfarin Per Pharmacy) 1 each MISCELLANE DIRECTED PRN; Protocol PRN Reason: Per Protocol Montelukast Sodium (Montelukast 10 Mg Tab) 10 mg PO HS@2100 [facility] [place] Last Admin: 08/26/21 21:52 Dose: 10 mg Documented by: Multivitamins (Multivitamins, Thera 1 Each Tab) 1 each PO DAILY@1700 [facility] [place] Last Admin: 08/26/21 17:10 Dose: 1 each Documented by: Naloxone HCl (Naloxone 0.4 Mg/Ml 1 Ml Vial) 0.2 mg IV Q2M PRN PRN Reason: Opioid Reversal Ondansetron HCl (Ondansetron 4 Mg/2 Ml Vial) 4 mg IVP Q8HR PRN PRN Reason: Nausea And Vomiting Pantoprazole Sodium (Pantoprazole 40 Mg Tablet) 40 mg PO DAILY@0600 [facility] Last Admin: 08/27/21 05:53 Dose: 40 mg Documented by: Pregabalin (Pregabalin 50 Mg Cap) 50 mg PO TID@0800,1200,1700 [facility] [place] Last Admin: 08/27/21 11:34 Dose: 50 mg Documented by: Sodium Biphosphate/Sodium Phosphate (Na Phos,M-B/Na Phos,Di-Ba 133 Ml Enema) 133 ml RECTAL DAILY PRN PRN Reason: Constipation Warfarin Sodium (Warfarin 2.5 Mg Tab) 2.5 mg PO ONCE@1800 ONE Stop: 08/27/21 18:01 Past medical history to include: Atrial fibrillation, lung cancer treated with chemotherapy 2018, COPD, hypertension, hyperlipidemia, home oxygen 4 L, anxiety depression Social history: At [facility] [place] currently requiring a wheelchair. Smokes 2 packs a day from age of 10. Stopped in 2017. Drinks one or 2 beers a weak Family history: Reviewed, noncontributory to presentation Physical examination: VITAL SIGNS: 97.5, 94, 18, 120 and was 75, 96% on 8 L GENERAL: Up in a chair short of breath, tired, congested cough EYES: Pupils equal. Conjunctiva normal. HEENT: External appearance of nose and ears normal, posterior pharynx: Raw red. Some white spots. NECK: JVD not raised; masses not palpable. HEART: First and second heart sounds are normal; no edema. LUNGS: Respiratory rate increased, decreased breath sounds , coarse breath sounds wheezing. ABDOMEN: Soft, nontender, liver spleen not palpable, no masses palpable. PSYCH: Alert and oriented x3; mood and affect anxious. INVESTIGATIONS, reviewed in the clinical context: August 26: WBC 12 hemoglobin 10.8 platelets 271 INR 2.2 sodium 132 potassium 3[address] chest without contrast: August 25: INR 1.7 Influenza type A, diabetes, RSV, COVID-19 [PCR]: Not detected White count 14.9 hemoglobin 9.2 platelets 277 sodium 129 potassium 4.3 BUN 13 creatinine 0.57 ProBNP 2030 Coronavirus [PCL]: Not detected EKG tracing personally reviewed by me-atrial fibrillation. Nonspecific ST-T wave changes. Rate 87 Chest x-ray film personally reviewed by me-bilateral scattered infiltrates. Possible chronic element. Assessment and plan: - Bilateral pneumonia. Suspect gram-negative organism: [Negative for influenza COVID] Slow to respond IV cefepime -Sepsis from pneumonia IV fluids. -Acute pharyngeal candidiasis from steroids antibiotics. Start Diflucan oral -Acute severe COPD exacerbation, steroid dependent in an ex-smoker. : Advanced.: Slow to respond nebulized bronchodilators, IV and inhaled steroids, nebulized long-acting bronchodilator. -Acute on chronic hypoxic respiratory failure from underlying COPD exacerbation: Slow to respond, On 8 L of nasal cannula -Persistent atrial fibrillation, rate controlled Coumadin, Toprol-XL 150 mg a day and 100 mg at night digoxin 125 g daily -Essential hypertension Toprol-XL 150 mg the morning, 100 mg at night, amlodipine 2.5 mg daily -Anxiety depression not otherwise specified continue with Celexa 20 mg daily at bedtime -Chronic medical debility currently using a wheelchair Fall precautions -Coumadin monitoring -Normocytic anemia of chronic disease Iron deficiency anemia. -Possible right biceps tendon rupture Orthopedics Dr. Fisher. Right arm sling as needed. Follow-up outpatient. -DO NOT RESUSCITATE IV cefepime. IV fluids. Humidified oxygen. . Flutter valve. Add Diflucan. Discussed with the patient. 1 dose of IV Lasix 40 given by pulmonary.
[2021-08-27] MEDS ORDERED: WARFARIN 2.5 MG TAB PO ONE (18:00)
[2021-08-27] MEDS: MULTIVITAMINS, THERA 1 EACH TAB PO SCH (18:00)
[2021-08-27] MEDS: ASPIRIN 81 MG PO SCH (18:00)
[2021-08-27] MEDS: CITALOPRAM HYDROBROMIDE 20 MG TAB PO SCH (21:31)
[2021-08-27] MEDS: ATORVASTATIN 40 MG TAB PO SCH (21:31)
[2021-08-27] MEDS: CYCLOBENZAPRINE 5 MG TAB PO SCH (21:31)
[2021-08-27] MEDS: MONTELUKAST 10 MG TAB PO SCH (21:31)
[2021-08-27] MEDS: METOPROLOL SUCCINATE (ER) 100 MG TAB.ER.24H PO SCH (21:32)
[2021-08-27] MEDS: MELATONIN 3 MG TABLET PO SCH (21:32)
[2021-08-28] MEDS: CEFEPIME 2 GM in SODIUM CHLORIDE 0.9% 100 ML IVPB SCH ×4 (00:59→23:55)
[2021-08-28] MEDS: methylPREDNISolone SOD SUCCI 125 MG/2 ML VIAL IV SCH ×2 (03:55→10:50)
[2021-08-28] MEDS: IPRATROPIUM-ALBUTEROL 3 ML NEB INHALATION SCH ×6 (04:08→23:03)
[2021-08-28] MEDS: DIGOXIN 125 MCG TAB PO SCH (05:20)
[2021-08-28] MEDS: PANTOPRAZOLE 40 MG TABLET PO SCH (05:20)
[2021-08-28 06:18] LABS: Anisocytosis Slight; Basophils % (A) 0 %; Eosinophils % (A) 0 %; HGB 8.3 gm/dL (11.4-16.0); Hypochromasia Moderate; Lymphocytes # (A) 0.4 k/uL (1.0-4.8); Lymphocytes % (A) 3 %; MCH 27.3 pg (25.0-35.0); MCV 85.4 fL (80.0-100.0); Mean Platelet Volume 7.6; Microcytosis Slight; Monocytes # (A) 0.5 k/uL (0-1.0); Monocytes % (A) 4 %; Neutrophils # (A) 11.9 k/uL (1.3-7.7); Neutrophils % (A) 92 %; Platelet Count 323 k/uL (150-450); Poikilocytosis Moderate; RBC 3.04 m/uL (3.80-5.40); RDW 19.9 % (11.5-15.5); WBC 12.9 k/uL (3.8-10.6)
[2021-08-28 06:24] LABS: INR 2.7 (<1.2); Prothrombin Time 26.5 sec (9.0-12.0)
[2021-08-28 06:32] LABS: ALT 41 U/L (4-34); AST 37 U/L (14-36); African American GFR (CKD) >90 (>60 ml/min/1.73 sqM); Albumin/Globulin Ratio 1.2; Alkaline Phosphatase 91 U/L (38-126); Anion Gap 6 mmol/L; Blood Urea Nitrogen 22 mg/dL (7-17); Calcium 8.3 mg/dL (8.4-10.2); Carbon Dioxide 32 mmol/L (22-30); Chloride 96 mmol/L (98-107); Globulin 2.5 g/dL; Glucose 162 mg/dL (74-99); Non-African American GFR(CKD) >90 (>60 ml/min/1.73 sqM); Potassium 3.4 mmol/L (3.5-5.1); Sodium 134 mmol/L (137-145); Total Bilirubin 0.8 mg/dL (0.2-1.3); Total Protein 5.5 g/dL (6.3-8.2)
[2021-08-28] MEDS: FORMOTEROL FUMARATE 20 MCG/2 ML NEBU INHALATION SCH ×2 (08:00→20:13)
[2021-08-28] MEDS: BUDESONIDE 1 MG/2 ML NEBU INHALATION SCH ×2 (08:00→20:13)
[2021-08-28] MEDS: FLUCONAZOLE 100 MG TAB PO SCH (08:57)
[2021-08-28] MEDS: METOPROLOL SUCCINATE (ER) 50 MG TAB.ER.24H PO SCH (08:57)
[2021-08-28] MEDS: guaiFENesin 600 MG TABLET.ER PO SCH ×4 (08:57→21:31)
[2021-08-28] MEDS: ISOSORBIDE MONONITRATE ER 30 MG TAB.ER.24H PO SCH (08:57)
[2021-08-28] MEDS: amLODIPine 5 MG TAB PO SCH (08:57)
[2021-08-28] MEDS: PREGABALIN 50 MG CAP PO SCH ×3 (08:57→17:32)
[2021-08-28] MEDS: FUROSEMIDE 10 MG/ML 4 ML VIAL IV SCH ×2 (08:58→21:32)
[2021-08-28] MEDS: FUROSEMIDE 20 MG TAB PO SCH (09:27)
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
--- NOTE | 2021-08-28 12:52 | P.PN ---
Progress Note - Text Progress Note Date: 08/28/21 Chief Complaint: Fever or cough This is a pleasant 70-year-old patient of Dr. García. Follows with senior firmware engineer Dr. Murphy. Chronic stable medical conditions include atrial fibrillation, hyperlipidemia, hypertension, history of lung cancer treated with chemotherapy back in 2019.at home is on 4 L of oxygen. He recently in the hospital from August 05 through August 12 . Admitted with COPD exacerbation, pneumonia, UTI, acute hypoxic respiratory failure. Started IV ceftriaxone, Zithromax, Urine culture positive for PNEUMONIAE and Citrobacter fruuindii. Was having pain in the right shoulder. Seen by orthopedics. [place] to be possible or biceps tendon injury. Right arm sling. Follow-up as outpatient. Patient now presents with increasing cough. Fevers. Short of breath. Decreased appetite. Had been requiring assistance at the [facility] with of each of th e bathroom. Tired rundown. Short of breath wheezing. Admitted with bilateral pneumonia, sepsis, acute COPD exacerbation, acute hypoxic respiratory failure. Started on IV cefepime. Fluids. August 24: Tired, short of breath. Cough. Eating some. In bed. On 6 L of nasal cannula August 25: Sitting, in bed. Congested chest. Not able to expectorate it. Cough. Short of breath. On 5 L of nasal cannula. Add flutter valve. Increase Mucinex to 4 times a day. Oral intake fair. August 26: Sitting up in chair. On humidified FiO2. Still not able to expectorate congestion the chest. On 10 L of high flow nasal cannula. Oral intake fair. August 27: Up in a chair. Humidified FiO2. Congested cough. Not able to expectorate. 8 L of nasal cannula. Tired. Short of breath. Started on Diflucan. August 28: Sitting up. Humidified FiO2. Congested cough. Not able to expectorate. Eating some. On 8 L of nasal cannula. Short of breath at rest. Review of systems: Was done for constitutional, cardiovascular, GI, pulmonary. relevant finding as above Active Medications Acetaminophen (Acetaminophen Tab 325 Mg Tab) 650 mg PO Q4H PRN PRN Reason: Pain/FEVER Last Admin: 08/27/21 05:03 Dose: 650 mg Documented by: Al Hydroxide/Mg Hydroxide (Mag Hydrox/Al Hydrox/Simeth 30 Ml Cup) 15 ml PO Q6HR PRN PRN Reason: Indigestion Albuterol/Ipratropium (Ipratropium-Albuterol 3 Ml Neb) 3 ml INHALATION RT-Q4H PRN PRN Reason: Shortness Of Breath Or Wheezing Albuterol/Ipratropium (Ipratropium-Albuterol 3 Ml Neb) 3 ml INHALATION RT-Q4H REPLACED BY [facility] Last Admin: 08/28/21 11:32 Dose: 3 ml Documented by: Alprazolam (Alprazolam 0.25 Mg Tab) 0.25 mg PO Q6HR PRN PRN Reason: Anxiety Last Admin: 08/27/21 15:26 Dose: 0.25 mg Documented by: Amlodipine Besylate (Amlodipine 5 Mg Tab) 5 mg PO DAILY@0800 REPLACED BY [facility] Last Admin: 08/28/21 08:57 Dose: 5 mg Documented by: Aspirin (Aspirin 81 Mg) 81 mg PO DAILY@1700 REPLACED BY [facility] Last Admin: 08/27/21 18:00 Dose: 81 mg Documented by: Atorvastatin Calcium (Atorvastatin 40 Mg Tab) 40 mg PO HS@2100 REPLACED BY [facility] Last Admin: 08/27/21 21:31 Dose: 40 mg Documented by: Bisacodyl (Bisacodyl 10 Mg Supp) 10 mg RECTAL DAILY PRN PRN Reason: Constipation Budesonide (Budesonide 1 Mg/2 Ml Nebu) 1 mg INHALATION RT-BID REPLACED BY [facility] Last Admin: 08/28/21 08:00 Dose: 1 mg Documented by: Calcium Carbonate/Glycine (Calcium Carbonate 500 Mg Chewable) 1,000 mg PO Q4HR PRN PRN Reason: Dyspepsia Citalopram Hydrobromide (Citalopram Hydrobromide 20 Mg Tab) 20 mg PO HS@2100 REPLACED BY [facility] Last Admin: 08/27/21 21:31 Dose: 20 mg Documented by: Cyclobenzaprine HCl (Cyclobenzaprine 5 Mg Tab) 5 mg PO HS@2100 REPLACED BY [facility] Last Admin: 08/27/21 21:31 Dose: 5 mg Documented by: Digoxin (Digoxin 125 Mcg Tab) 125 mcg PO DAILY@0600 REPLACED BY [facility] Last Admin: 08/28/21 05:20 Dose: 125 mcg Documented by: Fluconazole (Fluconazole 100 Mg Tab) 100 mg PO DAILY REPLACED BY [facility] Last Admin: 08/28/21 08:57 Dose: 100 mg Documented by: Formoterol Fumarate (Formoterol Fumarate 20 Mcg/2 Ml Nebu) 20 mcg INHALATION RT-BID REPLACED BY [facility] Last Admin: 08/28/21 08:00 Dose: 20 mcg Documented by: Furosemide (Furosemide 10 Mg/Ml 4 Ml Vial) 40 mg IV Q12HR REPLACED BY [facility] Last Admin: 08/28/21 08:58 Dose: 40 mg Documented by: Guaifenesin (Guaifenesin 600 Mg Tablet.Er) 600 mg PO QID REPLACED BY [facility] Last Admin: 08/28/21 12:25 Dose: 600 mg Documented by: Cefepime HCl 2 gm/ Sodium (Chloride) 100 mls @ 25 mls/hr IVPB Q8H REPLACED BY [facility] Last Admin: 08/28/21 08:58 Dose: 25 mls/hr Documented by: Isosorbide Mononitrate (Isosorbide Mononitrate Er 30 Mg Tab.Er.24h) 30 mg PO DAILY@0800 REPLACED BY [facility] Last Admin: 08/28/21 08:57 Dose: 30 mg Documented by: Lactulose (Lactulose 20 Gm/30 Ml Cup) 20 gm PO DAILY PRN PRN Reason: Constipation Magnesium Hydroxide (Magnesium Hydroxide 2,400 Mg/10 Ml Cup) 2,400 mg PO DAILY PRN PRN Reason: Constipation Melatonin (Melatonin 3 Mg Tablet) 6 mg PO HS@2100 REPLACED BY [facility] Last Admin: 08/27/21 21:32 Dose: Not Given Documented by: Methylprednisolone Sodium Succinate (Methylprednisolone Sod Succi 125 Mg/2 Ml Vial) 60 mg IV Q6H REPLACED BY [facility] Last Admin: 08/28/21 10:50 Dose: 60 mg Documented by: Metoprolol Succinate (Metoprolol Succinate (Er) 50 Mg Tab.Er.24h) 150 mg PO DAILY@0800 REPLACED BY [facility] Last Admin: 08/28/21 08:57 Dose: 150 mg Documented by: Metoprolol Succinate (Metoprolol Succinate (Er) 100 Mg Tab.Er.24h) 100 mg PO HS@2100 REPLACED BY [facility] Last Admin: 08/27/21 21:32 Dose: 100 mg Documented by: Miscellaneous Information (Warfarin Per Pharmacy) 1 each MISCELLANE DIRECTED PRN; Protocol PRN Reason: Per Protocol Montelukast Sodium (Montelukast 10 Mg Tab) 10 mg PO HS@2100 REPLACED BY [facility] Last Admin: 08/27/21 21:31 Dose: 10 mg Documented by: Multivitamins (Multivitamins, Thera 1 Each Tab) 1 each PO DAILY@1700 REPLACED BY [facility] Last Admin: 08/27/21 18:00 Dose: 1 each Documented by: Naloxone HCl (Naloxone 0.4 Mg/Ml 1 Ml Vial) 0.2 mg IV Q2M PRN PRN Reason: Opioid Reversal Ondansetron HCl (Ondansetron 4 Mg/2 Ml Vial) 4 mg IVP Q8HR PRN PRN Reason: Nausea And Vomiting Pantoprazole Sodium (Pantoprazole 40 Mg Tablet) 40 mg PO DAILY@0600 REPLACED BY [facility] Last Admin: 08/28/21 05:20 Dose: 40 mg Documented by: Pregabalin (Pregabalin 50 Mg Cap) 50 mg PO TID@0800,1200,1700 REPLACED BY [facility] Last Admin: 08/28/21 12:25 Dose: 50 mg Documented by: Sodium Biphosphate/Sodium Phosphate (Na Phos,M-B/Na Phos,Di-Ba 133 Ml Enema) 133 ml RECTAL DAILY PRN PRN Reason: Constipation Warfarin Sodium (Warfarin 2 Mg Tab) 2 mg PO ONCE@1800 ONE Stop: 08/28/21 18:01 Past medical history to include: Atrial fibrillation, lung cancer treated with chemotherapy 2018, COPD, hypertension, hyperlipidemia, home oxygen 4 L, anxiety depression Social history: At [facility] currently requiring a wheelchair. Smokes 2 packs a day from age of 10. Stopped in 2017. Drinks one or 2 beers a weak Family history: Reviewed, noncontributory to presentation Physical examination: VITAL SIGNS: 97.7, 93, 16, 1 52 x 64, 88% on 8 L GENERAL: Up in a chair short of breath, tired, congested cough EYES: Pupils equal. Conjunctiva normal. HEENT: External appearance of nose and ears normal, posterior pharynx: Raw red. Some white spots. NECK: JVD not raised; masses not palpable. HEART: First and second heart sounds are normal; no edema. LUNGS: Respiratory rate increased, decreased breath sounds , coarse breath sounds wheezing. ABDOMEN: Soft, nontender, liver spleen not palpable, no masses palpable. PSYCH: Alert and oriented x3; mood and affect anxious. INVESTIGATIONS, reviewed in the clinical context: August 28: White count 12.9 hemoglobin 8.3. History 23 INR 2.7 potassium 3.4 creatinine 0.6. ProBNP 3260 August 26: WBC 12 hemoglobin 10.8 platelets 271 INR 2.2 sodium 132 potassium [address] chest without contrast: August 25: INR 1.7 Influenza type A, diabetes, RSV, COVID-19 [PCR]: Not detected White count 14.9 hemoglobin 9.2 platelets 277 sodium 129 potassium 4.3 BUN 13 creatinine 0.57 ProBNP 2030 Coronavirus [PCL]: Not detected EKG tracing personally reviewed by me-atrial fibrillation. Nonspecific ST-T wave changes. Rate 87 Chest x-ray film personally reviewed by me-bilateral scattered infiltrates. Possible chronic element. Assessment and plan: - Bilateral pneumonia. Suspect gram-negative organism: [Negative for influenza COVID] Slow to respond IV cefepime -Sepsis from pneumonia IV fluids. -Acute pharyngeal candidiasis from steroids antibiotics. Diflucan oral -Acute severe COPD exacerbation, steroid dependent in an ex-smoker. : Advanced.: Slow to respond nebulized bronchodilators, IV and inhaled steroids, nebulized long-acting bronchodilator. -Acute on chronic hypoxic respiratory failure from underlying COPD exacerbation: Slow to respond, On 8 L of nasal cannula -Persistent atrial fibrillation, rate controlled Coumadin, Toprol-XL 150 mg a day and 100 mg at night digoxin 125 g daily -Essential hypertension Toprol-XL 150 mg the morning, 100 mg at night, amlodipine 2.5 mg daily -Anxiety depression not otherwise specified continue with Celexa 20 mg daily at bedtime -Chronic medical debility currently using a wheelchair Fall precautions -Coumadin monitoring -Normocytic anemia of chronic disease Iron deficiency anemia. -Possible right biceps tendon rupture Orthopedics Dr. Fisher. Right arm sling as needed. Follow-up outpatient. -DO NOT RESUSCITATE IV cefepime. . Humidified oxygen. Bronchodilators. . Flutter valve. Diflucan. Discussed with patient. Await further input from pulmonary.
--- NOTE | 2021-08-28 12:54 | XR ---
EXAMINATION TYPE: XR chest 1V portable DATE OF EXAM: 08/28/2021 COMPARISON: Chest x-ray 08/23/2021, CT chest 08/24/2021 HISTORY: Dyspnea TECHNIQUE: Single frontal view of the chest is obtained. FINDINGS: The mixed interstitial and airspace disease shows a similar appearance. No evident pneumot horax or pleural effusion. Apical pleural thickening again noted on the left. Cardiac mediastinal toña houette is stable. Aorta is dense. Bones are unchanged. IMPRESSION: There is underlying emphysema. Correlate for pneumonia, interstitial edema is difficult to exclude
[2021-08-28] MEDS: ALPRAZolam 0.25 MG TAB PO PRN (15:39)
[2021-08-28] MEDS ORDERED: methylPREDNISolone SOD SUCCI 40 MG/ML 1 ML VIAL IV SCH (16:00)
[2021-08-28] MEDS: MULTIVITAMINS, THERA 1 EACH TAB PO SCH (17:32)
[2021-08-28] MEDS: ASPIRIN 81 MG PO SCH (17:32)
[2021-08-28] MEDS: methylPREDNISolone SOD SUCCI 40 MG/ML 1 ML VIAL IV SCH ×2 (17:32→23:55)
[2021-08-28] MEDS ORDERED: WARFARIN 2 MG TAB PO ONE (18:00)
[2021-08-28] MEDS: ATORVASTATIN 40 MG TAB PO SCH (21:30)
[2021-08-28] MEDS: MONTELUKAST 10 MG TAB PO SCH (21:30)
[2021-08-28] MEDS: MELATONIN 3 MG TABLET PO SCH (21:31)
[2021-08-28] MEDS: METOPROLOL SUCCINATE (ER) 100 MG TAB.ER.24H PO SCH (21:31)
[2021-08-28] MEDS: CYCLOBENZAPRINE 5 MG TAB PO SCH (21:32)
[2021-08-28] MEDS: CITALOPRAM HYDROBROMIDE 20 MG TAB PO SCH (21:32)
[2021-08-28] MEDS: ACETAMINOPHEN TAB 325 MG TAB PO PRN (21:39)
[2021-08-29] MEDS: IPRATROPIUM-ALBUTEROL 3 ML NEB INHALATION SCH ×5 (03:08→21:25)
[2021-08-29] MEDS: methylPREDNISolone SOD SUCCI 40 MG/ML 1 ML VIAL IV SCH ×4 (05:47→23:56)
[2021-08-29] MEDS: PANTOPRAZOLE 40 MG TABLET PO SCH (05:48)
[2021-08-29] MEDS: DIGOXIN 125 MCG TAB PO SCH (05:48)
[2021-08-29 06:25] LABS: INR 3.6 (<1.2); Prothrombin Time 34.5 sec (9.0-12.0)
[2021-08-29] MEDS: BUDESONIDE 1 MG/2 ML NEBU INHALATION SCH ×2 (07:19→21:25)
[2021-08-29] MEDS: FORMOTEROL FUMARATE 20 MCG/2 ML NEBU INHALATION SCH ×2 (07:19→21:25)
[2021-08-29] MEDS: METOPROLOL SUCCINATE (ER) 50 MG TAB.ER.24H PO SCH (08:18)
[2021-08-29] MEDS: PREGABALIN 50 MG CAP PO SCH ×3 (08:19→17:41)
[2021-08-29] MEDS: ISOSORBIDE MONONITRATE ER 30 MG TAB.ER.24H PO SCH (08:19)
[2021-08-29] MEDS: FLUCONAZOLE 100 MG TAB PO SCH (08:19)
[2021-08-29] MEDS: amLODIPine 5 MG TAB PO SCH (08:19)
[2021-08-29] MEDS: guaiFENesin 600 MG TABLET.ER PO SCH ×4 (08:19→20:05)
[2021-08-29] MEDS: CEFEPIME 2 GM in SODIUM CHLORIDE 0.9% 100 ML IVPB SCH ×3 (08:35→23:56)
[2021-08-29] MEDS: FUROSEMIDE 10 MG/ML 4 ML VIAL IV SCH ×2 (08:35→20:04)
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
[2021-08-29] MEDS: ACETAMINOPHEN TAB 325 MG TAB PO PRN (11:40)
--- NOTE | 2021-08-29 11:50 | XR ---
EXAMINATION TYPE: XR chest 1V portable DATE OF EXAM: 08/29/2021 COMPARISON: 08/28/2021 HISTORY: Shortness of breath TECHNIQUE: Single frontal view of the chest is obtained. FINDINGS: The mixed interstitial and airspace disease shows a similar appearance. No evident pneumot horax or pleural effusion. Apical pleural thickening again noted on the left. Cardiac mediastinal toña houette is stable. Aorta is dense. Bones are unchanged. IMPRESSION: Correlate for pulmonary fibrosis. Findings stable relative to the prior exam. Difficult to exclude underlying superimposed pneumonitis or venous congestion.
[2021-08-29 14:28] VITALS: BMI 28.1
[2021-08-29] MEDS: ASPIRIN 81 MG PO SCH (16:21)
[2021-08-29] MEDS: MULTIVITAMINS, THERA 1 EACH TAB PO SCH (17:40)
--- NOTE | 2021-08-29 17:45 | P.PN ---
Progress Note - Text Progress Note Date: 08/29/21 Chief Complaint: Fever or cough This is a pleasant 70-year-old patient of Dr. García. Follows with revolving field assembler Dr. Murphy. Chronic stable medical conditions include atrial fibrillation, hyperlipidemia, hypertension, history of lung cancer treated with chemotherapy back in 2019.at home is on 4 L of oxygen. He recently in the hospital from August 05 through August 12 . Admitted with COPD exacerbation, pneumonia, UTI, acute hypoxic respiratory failure. Started IV ceftriaxone, Zithromax, Urine culture positive for PNEUMONIAE and Citrobacter fruuindii. Was having pain in the right shoulder. Seen by orthopedics. [place] to be possible or biceps tendon injury. Right arm sling. Follow-up as outpatient. Patient now presents with increasing cough. Fevers. Short of breath. Decreased appetite. Had been requiring assistance at the [facility] with of each of th e bathroom. Tired rundown. Short of breath wheezing. Admitted with bilateral pneumonia, sepsis, acute COPD exacerbation, acute hypoxic respiratory failure. Started on IV cefepime. Fluids. August 24: Tired, short of breath. Cough. Eating some. In bed. On 6 L of nasal cannula August 25: Sitting, in bed. Congested chest. Not able to expectorate it. Cough. Short of breath. On 5 L of nasal cannula. Add flutter valve. Increase Mucinex to 4 times a day. Oral intake fair. August 26: Sitting up in chair. On humidified FiO2. Still not able to expectorate congestion the chest. On 10 L of high flow nasal cannula. Oral intake fair. August 27: Up in a chair. Humidified FiO2. Congested cough. Not able to expectorate. 8 L of nasal cannula. Tired. Short of breath. Started on Diflucan. August 28: Sitting up. Humidified FiO2. Congested cough. Not able to expectorate. Eating some. On 8 L of nasal cannula. Short of breath at rest. August 29: Propped up in bed. 8 L nasal cannula. Remains short of breath congested. Not able to expectorate. Eating some. Tired. Spoke to Dr. Rick. Prognosis guarded. Inside the progressive fibrosis or interstitial cancer. Suggesting hospice. Discussed with the patient. Agreeable to. Discharge with outpatient hospice. system safety manager informed. Review of systems: Was done for constitutional, cardiovascular, GI, pulmonary. relevant finding as above Active Medications Acetaminophen (Acetaminophen Tab 325 Mg Tab) 650 mg PO Q4H PRN PRN Reason: Pain/FEVER Last Admin: 08/29/21 11:40 Dose: 650 mg Documented by: Al Hydroxide/Mg Hydroxide (Mag Hydrox/Al Hydrox/Simeth 30 Ml Cup) 15 ml PO Q6HR PRN PRN Reason: Indigestion Albuterol/Ipratropium (Ipratropium-Albuterol 3 Ml Neb) 3 ml INHALATION RT-Q4H PRN PRN Reason: Shortness Of Breath Or Wheezing Albuterol/Ipratropium (Ipratropium-Albuterol 3 Ml Neb) 3 ml INHALATION RT-Q4H [facility] Last Admin: 08/29/21 15:15 Dose: 3 ml Documented by: Alprazolam (Alprazolam 0.25 Mg Tab) 0.25 mg PO Q6HR PRN PRN Reason: Anxiety Last Admin: 08/28/21 15:39 Dose: 0.25 mg Documented by: Amlodipine Besylate (Amlodipine 5 Mg Tab) 5 mg PO DAILY@0800 [facility] Last Admin: 08/29/21 08:19 Dose: 5 mg Documented by: Aspirin (Aspirin 81 Mg) 81 mg PO DAILY@1700 [facility] Last Admin: 08/29/21 16:21 Dose: 81 mg Documented by: Atorvastatin Calcium (Atorvastatin 40 Mg Tab) 40 mg PO HS@2100 [facility] Last Admin: 08/28/21 21:30 Dose: 40 mg Documented by: Bisacodyl (Bisacodyl 10 Mg Supp) 10 mg RECTAL DAILY PRN PRN Reason: Constipation Budesonide (Budesonide 1 Mg/2 Ml Nebu) 1 mg INHALATION RT-BID [facility] Last Admin: 08/29/21 07:19 Dose: 1 mg Documented by: Calcium Carbonate/Glycine (Calcium Carbonate 500 Mg Chewable) 1,000 mg PO Q4HR PRN PRN Reason: Dyspepsia Citalopram Hydrobromide (Citalopram Hydrobromide 20 Mg Tab) 20 mg PO HS@2100 [facility] Last Admin: 08/28/21 21:32 Dose: 20 mg Documented by: Cyclobenzaprine HCl (Cyclobenzaprine 5 Mg Tab) 5 mg PO HS@2100 [facility] Last Admin: 08/28/21 21:32 Dose: 5 mg Documented by: Digoxin (Digoxin 125 Mcg Tab) 125 mcg PO DAILY@0600 [facility] Last Admin: 08/29/21 05:48 Dose: 125 mcg Documented by: Fluconazole (Fluconazole 100 Mg Tab) 100 mg PO DAILY [facility] Last Admin: 08/29/21 08:19 Dose: 100 mg Documented by: Formoterol Fumarate (Formoterol Fumarate 20 Mcg/2 Ml Nebu) 20 mcg INHALATION RT-BID [facility] Last Admin: 08/29/21 07:19 Dose: 20 mcg Documented by: Furosemide (Furosemide 10 Mg/Ml 4 Ml Vial) 40 mg IV Q12HR [facility] Last Admin: 08/29/21 08:35 Dose: 40 mg Documented by: Guaifenesin (Guaifenesin 600 Mg Tablet.Er) 600 mg PO QID [facility] Last Admin: 08/29/21 17:40 Dose: 600 mg Documented by: Cefepime HCl 2 gm/ Sodium (Chloride) 100 mls @ 25 mls/hr IVPB Q8H [facility] Last Admin: 08/29/21 16:22 Dose: 25 mls/hr Documented by: Isosorbide Mononitrate (Isosorbide Mononitrate Er 30 Mg Tab.Er.24h) 30 mg PO DAILY@0800 [facility] Last Admin: 08/29/21 08:19 Dose: 30 mg Documented by: Lactulose (Lactulose 20 Gm/30 Ml Cup) 20 gm PO DAILY PRN PRN Reason: Constipation Magnesium Hydroxide (Magnesium Hydroxide 2,400 Mg/10 Ml Cup) 2,400 mg PO DAILY PRN PRN Reason: Constipation Melatonin (Melatonin 3 Mg Tablet) 6 mg PO HS@2100 [facility] Last Admin: 08/28/21 21:31 Dose: 6 mg Documented by: Methylprednisolone Sodium Succinate (Methylprednisolone Sod Succi 40 Mg/Ml 1 Ml Vial) 40 mg IV Q6HR [facility] Last Admin: 08/29/21 17:41 Dose: 40 mg Documented by: Metoprolol Succinate (Metoprolol Succinate (Er) 50 Mg Tab.Er.24h) 150 mg PO DAILY@0800 [facility] Last Admin: 08/29/21 08:18 Dose: 150 mg Documented by: Metoprolol Succinate (Metoprolol Succinate (Er) 100 Mg Tab.Er.24h) 100 mg PO HS@2100 [facility] Last Admin: 08/28/21 21:31 Dose: 100 mg Documented by: Miscellaneous Information (Warfarin Per Pharmacy) 1 each MISCELLANE DIRECTED PRN; Protocol PRN Reason: Per Protocol Montelukast Sodium (Montelukast 10 Mg Tab) 10 mg PO HS@2100 [facility] Last Admin: 08/28/21 21:30 Dose: 10 mg Documented by: Multivitamins (Multivitamins, Thera 1 Each Tab) 1 each PO DAILY@1700 [facility] Last Admin: 08/29/21 17:40 Dose: 1 each Documented by: Naloxone HCl (Naloxone 0.4 Mg/Ml 1 Ml Vial) 0.2 mg IV Q2M PRN PRN Reason: Opioid Reversal Ondansetron HCl (Ondansetron 4 Mg/2 Ml Vial) 4 mg IVP Q8HR PRN PRN Reason: Nausea And Vomiting Pantoprazole Sodium (Pantoprazole 40 Mg Tablet) 40 mg PO DAILY@0600 [facility] Last Admin: 08/29/21 05:48 Dose: 40 mg Documented by: Pregabalin (Pregabalin 50 Mg Cap) 50 mg PO TID@0800,1200,1700 [facility] Last Admin: 08/29/21 17:41 Dose: 50 mg Documented by: Sodium Biphosphate/Sodium Phosphate (Na Phos,M-B/Na Phos,Di-Ba 133 Ml Enema) 133 ml RECTAL DAILY PRN PRN Reason: Constipation Warfarin Sodium (Warfarin 0.5 Mg Tab) 0 mg PO ONCE@1800 ONE Stop: 08/29/21 18:01 Last Admin: 08/29/21 17:41 Dose: Not Given Documented by: Past medical history to include: Atrial fibrillation, lung cancer treated with chemotherapy 2018, COPD, hypertension, hyperlipidemia, home oxygen 4 L, anxiety depression Social history: At [facility] currently requiring a wheelchair. Smokes 2 packs a day from age of 10. Stopped in 2018. Drinks one or 2 beers a weak Family history: Reviewed, noncontributory to presentation Physical examination: VITAL SIGNS: 97.9, 87, 22, 11 9 x 80, 90% on 8 L GENERAL: Propped up in bed short of breath, tired, congested cough EYES: Pupils equal. Conjunctiva normal. HEENT: External appearance of nose and ears normal, posterior pharynx: Raw red. Some white spots. NECK: JVD not raised; masses not palpable. HEART: First and second heart sounds are normal; no edema. LUNGS: Respiratory rate increased, decreased breath sounds , coarse breath sounds wheezing. ABDOMEN: Soft, nontender, liver spleen not palpable, no masses palpable. PSYCH: Alert and oriented x3; mood and affect anxious. INVESTIGATIONS, reviewed in the clinical context: August 29: INR 3.6 August 28: White count 12.9 hemoglobin 8.3. History 23 INR 2.7 potassium 3.4 creatinine 0.6. ProBNP 3260 August 26: WBC 12 hemoglobin 10.8 platelets 271 INR 2.2 sodium 132 potassium [address] chest without contrast: August 25: INR 1.7 Influenza type A, diabetes, RSV, COVID-19 [PCR]: Not detected White count 14.9 hemoglobin 9.2 platelets 277 sodium 129 potassium 4.3 BUN 13 creatinine 0.57 ProBNP 2030 Coronavirus [PCL]: Not detected EKG tracing personally reviewed by me-atrial fibrillation. Nonspecific ST-T wave changes. Rate 87 Chest x-ray film personally reviewed by me-bilateral scattered infiltrates. Possible chronic element. Assessment and plan: - Bilateral pneumonia. Suspect gram-negative organism: [Negative for influenza COVID] Slow to respond IV cefepime -Suspect underlying pulmonary fibrosis or interstitial cancer. Per Dr. Rick. Either way prognosis is guarded -Sepsis from pneumonia IV fluids. -Acute pharyngeal candidiasis from steroids antibiotics. Diflucan oral -Acute severe COPD exacerbation, steroid dependent in an ex-smoker. : Advanced.: Slow to respond nebulized bronchodilators, IV and inhaled steroids, nebulized long-acting bronchodilator. -Acute on chronic hypoxic respiratory failure from underlying COPD exacerbation: Slow to respond, On 8 L of nasal cannula -Persistent atrial fibrillation, rate controlled Coumadin, Toprol-XL 150 mg a day and 100 mg at night digoxin 125 g daily -Essential hypertension Toprol-XL 150 mg the morning, 100 mg at night, amlodipine 2.5 mg daily -Anxiety depression not otherwise specified continue with Celexa 20 mg daily at bedtime -Chronic medical debility currently using a wheelchair Fall precautions -Coumadin monitoring -Normocytic anemia of chronic disease Iron deficiency anemia. -Possible right biceps tendon rupture Orthopedics Dr. Fisher. Right arm sling as needed. Follow-up outpatient. -DO NOT RESUSCITATE IV cefepime. . Humidified oxygen. Bronchodilators. . Flutter valve. Diflucan. Discussed with patient. After discussion with Dr. Rick. Hospice consulted. Prognosis guarded. Advanced care planning: As per Dr. Rick patient either has bony fibrosis and/or interstitial malignancy. Either weight treatment options are limited. Patient's functional status is poor. Discussed these findings with the patient. She understands her functional status is poor. Agreeable for outpatient hospice. She lives alone. Nephew and niece check an hour. She may look at alternate places for hospice. system safety manager informed. CODE STATUS DO NOT RESUSCITATE Total time spent for this about 20 minutes
[2021-08-29] MEDS ORDERED: WARFARIN 0.5 MG TAB PO ONE (18:00)
[2021-08-29] MEDS: MELATONIN 3 MG TABLET PO SCH (20:05)
[2021-08-29] MEDS: CYCLOBENZAPRINE 5 MG TAB PO SCH (20:05)
[2021-08-29] MEDS: ATORVASTATIN 40 MG TAB PO SCH (20:05)
[2021-08-29] MEDS: MONTELUKAST 10 MG TAB PO SCH (20:05)
[2021-08-29] MEDS: CITALOPRAM HYDROBROMIDE 20 MG TAB PO SCH (20:05)
[2021-08-29] MEDS: METOPROLOL SUCCINATE (ER) 100 MG TAB.ER.24H PO SCH (20:05)
[2021-08-30] MEDS: IPRATROPIUM-ALBUTEROL 3 ML NEB INHALATION SCH ×7 (00:43→23:15)
[2021-08-30 04:59] LABS: INR 3.6 (<1.2); Prothrombin Time 34.7 sec (9.0-12.0)
[2021-08-30] MEDS: DIGOXIN 125 MCG TAB PO SCH (05:31)
[2021-08-30] MEDS: PANTOPRAZOLE 40 MG TABLET PO SCH (05:31)
[2021-08-30] MEDS: methylPREDNISolone SOD SUCCI 40 MG/ML 1 ML VIAL IV SCH ×4 (05:31→23:16)
[2021-08-30] MEDS: BUDESONIDE 1 MG/2 ML NEBU INHALATION SCH ×2 (07:19→19:02)
[2021-08-30] MEDS: FORMOTEROL FUMARATE 20 MCG/2 ML NEBU INHALATION SCH ×2 (07:19→19:02)
[2021-08-30] MEDS: CEFEPIME 2 GM in SODIUM CHLORIDE 0.9% 100 ML IVPB SCH ×3 (07:59→23:16)
[2021-08-30] MEDS: FUROSEMIDE 10 MG/ML 4 ML VIAL IV SCH ×2 (07:59→20:56)
[2021-08-30 09:14] LABS: Basophils # (A) 0 X 10*3/uL (0.00-0.10); Basophils % (A) 0 %; Eosinophils # (A) 0 X 10*3/uL (0.04-0.35); Eosinophils % (A) 0 %; HCT 26.4 % (37.2-46.3); HGB 7.8 g/dL (12.0-15.0); Lymphocytes # (A) 0.35 X 10*3/uL (0.90-5.00); Lymphocytes % (A) 2.8 %; MCH 25.4 pg (27.0-32.0); MCHC 29.5 g/dL (32.0-37.0); Monocytes # (A) 0.62 X 10*3/uL (0.20-1.00); Monocytes % (A) 4.9 %; Neutrophils # (A) 11.67 X 10*3/uL (1.80-7.70); Neutrophils % (A) 91.7 %; Platelet Count 376 X 10*3/uL (140-440); RBC 3.07 X 10*6/uL (4.10-5.20); RDW 20.2 % (11.5-14.5); WBC 12.71 X 10*3/uL (4.50-10.00)
[2021-08-30] MEDS: ISOSORBIDE MONONITRATE ER 30 MG TAB.ER.24H PO SCH (09:28)
[2021-08-30] MEDS: FLUCONAZOLE 100 MG TAB PO SCH (09:29)
[2021-08-30] MEDS: METOPROLOL SUCCINATE (ER) 50 MG TAB.ER.24H PO SCH (09:29)
[2021-08-30] MEDS: PREGABALIN 50 MG CAP PO SCH ×3 (09:29→15:56)
[2021-08-30] MEDS: amLODIPine 5 MG TAB PO SCH (09:29)
[2021-08-30] MEDS: guaiFENesin 600 MG TABLET.ER PO SCH ×4 (09:29→20:55)
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
--- NOTE | 2021-08-30 10:28 | XR ---
EXAMINATION TYPE: XR chest 1V portable DATE OF EXAM: 08/30/2021 COMPARISON: Chest x-ray 08/29/[address] chest 08/24/2021 HISTORY: Fullness of breath TECHNIQUE: Single frontal view of the chest is obtained. FINDINGS: Interstitial and airspace disease seen on prior exam within the lungs is again noted. No e vident pneumothorax or pleural effusion. There is apical pleural thickening on the left. Aorta stents . Cardiac mediastinal silhouette is stable. IMPRESSION: There is underlying emphysema, correlate for pneumonia, interstitial lung disease
[2021-08-30] MEDS: ACETAMINOPHEN TAB 325 MG TAB PO PRN (10:50)
[2021-08-30 13:17] LABS: African American GFR (CKD) 104.1 (60.0-200.0); Anion Gap 12.9 mmol/L (4.00-12.00); BUN/Creat Ratio 32.64 Ratio (12.00-20.00); Blood Urea Nitrogen 20.4 mg/dL (9.0-27.0); Calcium 8.2 mg/dL (8.7-10.3); Carbon Dioxide 35.2 mmol/L (21.6-31.8); Non-African American GFR(CKD) 89.9 (60.0-200.0); Potassium 2.7 mmol/L (3.5-5.5)
--- NOTE | 2021-08-30 13:21 | P.PN ---
Progress Note - Text Progress Note Date: 08/30/21 Chief Complaint: Fever or cough This is a pleasant 70-year-old patient of Dr. García. Follows with drum operator Dr. Murphy. Chronic stable medical conditions include atrial fibrillation, hyperlipidemia, hypertension, history of lung cancer treated with chemotherapy back in 2018.at home is on 4 L of oxygen. He recently in the hospital from August 05 through August 12 . Admitted with COPD exacerbation, pneumonia, UTI, acute hypoxic respiratory failure. Started IV ceftriaxone, Zithromax, Urine culture positive for PNEUMONIAE and Citrobacter fruuindii. Was having pain in the right shoulder. Seen by orthopedics. [place] to be possible or biceps tendon injury. Right arm sling. Follow-up as outpatient. Patient now presents with increasing cough. Fevers. Short of breath. Decreased appetite. Had been requiring assistance at the [facility] with of each of th e bathroom. Tired rundown. Short of breath wheezing. Admitted with bilateral pneumonia, sepsis, acute COPD exacerbation, acute hypoxic respiratory failure. Started on IV cefepime. Fluids. Patient requiring high oxygen. Flutter valve added. Mucinex added. Oxygen humidified. Not really improving. Discussed with Dr. Rick and the patient on August 29. Agreeable to hospice. Per Dr. Rick patient has underlying possible pulmonary fibrosis or malignancy both of which are not amenable to treatment. August 30: Sitting up in a chair. Congestive chest pain or short of breath. Eating some. Spoke to the patient. Discussed with Sherice caseworker protective services and drawn social worker school. Initially there looking at [facility]. Late in the day checked with Sherice now considering hospice house. Review of systems: Was done for constitutional, cardiovascular, GI, pulmonary. relevant finding as above Past medical history to include: Atrial fibrillation, lung cancer treated with chemotherapy 2018, COPD, hypertension, hyperlipidemia, home oxygen 4 L, anxiety depression Social history: At [facility] currently requiring a wheelchair. Smokes 2 packs a day from age of 10. Stopped in 2018. Drinks one or 2 beers a weak Family history: Reviewed, noncontributory to presentation Physical examination: VITAL SIGNS: 97.9, 81, 20, 1 53 x 80, 92% on 8 L GENERAL: Sitting up in a chair short of breath, tired, congested cough EYES: Pupils equal. Conjunctiva normal. HEENT: External appearance of nose and ears normal, posterior pharynx: Raw red. Some white spots. NECK: JVD not raised; masses not palpable. HEART: First and second heart sounds are normal; no edema. LUNGS: Respiratory rate increased, decreased breath sounds , coarse breath sounds wheezing. ABDOMEN: Soft, nontender, liver spleen not palpable, no masses palpable. PSYCH: Alert and oriented x3; mood and affect anxious. INVESTIGATIONS, reviewed in the clinical context: August 30: White count 12.7 hemoglobin 7.8 potassium 2.7 August 29: INR 3.6 August 28: White count 12.9 hemoglobin 8.3. History 23 INR 2.7 potassium 3.4 creatinine 0.6. ProBNP 3260 August 26: WBC 12 hemoglobin 10.8 platelets 271 INR 2.2 sodium 132 potassium [address] chest without contrast: August 25: INR 1.7 Influenza type A, diabetes, RSV, COVID-19 [PCR]: Not detected White count 14.9 hemoglobin 9.2 platelets 277 sodium 129 potassium 4.3 BUN 13 creatinine 0.57 ProBNP 2030 Coronavirus [PCL]: Not detected EKG tracing personally reviewed by me-atrial fibrillation. Nonspecific ST-T wave changes. Rate 87 Chest x-ray film personally reviewed by me-bilateral scattered infiltrates. Possible chronic element. Assessment and plan: - Bilateral pneumonia. Suspect gram-negative organism: [Negative for influenza COVID] not improving IV cefepime -Suspect underlying pulmonary fibrosis or interstitial cancer. Per Dr. Rick. Either way prognosis is guarded -Sepsis from pneumonia IV fluids. -Acute pharyngeal candidiasis from steroids antibiotics. Diflucan oral -Acute severe COPD exacerbation, steroid dependent in an ex-smoker. : Advanced.: Slow to respond nebulized bronchodilators, IV and inhaled steroids, nebulized long-acting bronchodilator. -Acute on chronic hypoxic respiratory failure from underlying COPD exacerbation: Slow to respond, On 8 L of nasal cannula -Persistent atrial fibrillation, rate controlled Coumadin, Toprol-XL 150 mg a day and 100 mg at night digoxin 125 g daily -Essential hypertension Toprol-XL 150 mg the morning, 100 mg at night, amlodipine 2.5 mg daily -Anxiety depression not otherwise specified continue with Celexa 20 mg daily at bedtime -Chronic medical debility currently using a wheelchair Fall precautions -Coumadin monitoring -Normocytic anemia of chronic disease Iron deficiency anemia. -Possible right biceps tendon rupture Orthopedics Dr. Fisher. Right arm sling as needed. Follow-up outpatient. -DO NOT RESUSCITATE IV cefepime. . Humidified oxygen. Bronchodilators. . Flutter valve. Diflucan. Discussed with caseworker protective services and senior buyer planner Ngi[place]. Looking into placement. No discharge today. Hospice house is being looked i nto. [place] not working on because of financial reasons. Total time spent today about 45 minutes with over 25 minutes of discussion.
[2021-08-30] MEDS: MULTIVITAMINS, THERA 1 EACH TAB PO SCH (15:57)
[2021-08-30] MEDS: ASPIRIN 81 MG PO SCH (15:57)
[2021-08-30] MEDS: POTASSIUM CHLORIDE ER 20 MEQ TAB.ER PO SCH ×4 (15:57→22:10)
[2021-08-30] MEDS ORDERED: WARFARIN 0.5 MG TAB PO ONE (18:00)
[2021-08-30] MEDS ORDERED: Potassium Replacement Protocol 1 EACH MISC MISCELLANE PRN (20:45)
[2021-08-30] MEDS: MONTELUKAST 10 MG TAB PO SCH (20:55)
[2021-08-30] MEDS: MELATONIN 3 MG TABLET PO SCH (20:56)
[2021-08-30] MEDS: CYCLOBENZAPRINE 5 MG TAB PO SCH (20:56)
[2021-08-30] MEDS: CITALOPRAM HYDROBROMIDE 20 MG TAB PO SCH (20:56)
[2021-08-30] MEDS: METOPROLOL SUCCINATE (ER) 100 MG TAB.ER.24H PO SCH (20:56)
[2021-08-30] MEDS: ATORVASTATIN 40 MG TAB PO SCH (20:56)
[2021-08-31] MEDS ORDERED: Potassium Replacement Protocol 1 EACH MISC MISCELLANE PRN (00:29)
[2021-08-31] MEDS: POTASSIUM CHLORIDE ER 20 MEQ TAB.ER PO SCH ×3 (00:56→05:18)
[2021-08-31] MEDS: IPRATROPIUM-ALBUTEROL 3 ML NEB INHALATION SCH ×3 (03:16→12:18)
[2021-08-31] MEDS: PANTOPRAZOLE 40 MG TABLET PO SCH (05:17)
[2021-08-31] MEDS: DIGOXIN 125 MCG TAB PO SCH (05:17)
[2021-08-31] MEDS: methylPREDNISolone SOD SUCCI 40 MG/ML 1 ML VIAL IV SCH ×2 (05:18→12:50)
[2021-08-31] MEDS: CEFEPIME 2 GM in SODIUM CHLORIDE 0.9% 100 ML IVPB SCH (08:23)
[2021-08-31] MEDS: PREGABALIN 50 MG CAP PO SCH ×2 (08:23→12:50)
[2021-08-31] MEDS: ISOSORBIDE MONONITRATE ER 30 MG TAB.ER.24H PO SCH (08:24)
[2021-08-31] MEDS: METOPROLOL SUCCINATE (ER) 50 MG TAB.ER.24H PO SCH (08:24)
[2021-08-31] MEDS: guaiFENesin 600 MG TABLET.ER PO SCH ×2 (08:24→12:50)
[2021-08-31] MEDS: FUROSEMIDE 10 MG/ML 4 ML VIAL IV SCH (08:24)
[2021-08-31] MEDS: amLODIPine 5 MG TAB PO SCH (08:24)
[2021-08-31] MEDS: FLUCONAZOLE 100 MG TAB PO SCH (08:24)
[2021-08-31] MEDS: BUDESONIDE 1 MG/2 ML NEBU INHALATION SCH (08:33)
[2021-08-31] MEDS: FORMOTEROL FUMARATE 20 MCG/2 ML NEBU INHALATION SCH (08:33)
[2021-08-31 08:49] VITALS: BP 133/77; RESP 18; TEMP 98.1
[2021-08-31 11:49] LABS: INR 2.13 (0.90-1.11); Prothrombin Time 23.2 sec (9.9-11.9)
[2021-08-31 12:30] VITALS: PULSE 104
[2021-08-31] MEDS: ALPRAZolam 0.25 MG TAB PO PRN (14:32)
--- NOTE | 2021-08-31 14:36 | P.DS ---
Providers Date of admission: 08/23/21 16:29 Expected date of discharge: 08/31/21 Attending physician: Babak Rainey Consults: 08/23/21 16:29 Consult Physician Routine Consulting Provider: Lacey Murphy Consult Reason/Comments: COPD, PNA Do you want consulting provider notified?: Yes Primary care physician: Altaf García [facility] Course: Chief Complaint: Fever or cough This is a pleasant 70-year-old patient of Dr. García. Follows with apparel sales associate Dr. Murphy. Chronic stable medical conditions include atrial fibrillation, hyperlipidemia, hypertension, history of lung cancer treated with chemotherapy back in 2019.at home is on 4 L of oxygen. He recently in the hospital from August 05 through August 12 . Admitted with COPD exacerbation, pneumonia, UTI, acute hypoxic respiratory failure. Started IV ceftriaxone, Zithromax, Urine culture positive for PNEUMONIAE and Citrobacter fruuindii. Was having pain in the right shoulder. Seen by orthopedics. [place] to be possible or biceps tendon injury. Right arm sling. Follow-up as outpatient. Patient now presents with increasing cough. Fevers. Short of breath. Decreased appetite. Had been requiring assistance at the [facility] with of each of the bathroom. Tired rundown. Short of breath wheezing. Admitted with bilateral pneumonia, sepsis, acute COPD exacerbation, acute hypoxic respiratory failure. Started on IV cefepime. Fluids. Patient requiring high oxygen. Flutter valve added. Mucinex added. Oxygen humidified. Not really improving. Discussed with Dr. Rick and the patient on August 29. Agreeable to hospice. Per Dr. Rick patient has underlying possible pulmonary fibrosis or malignancy both of which are not amenable to treatment. Today: Clinical condition unchanged. Patient has been accepted at hospice [facility]. Being transferred there. Discussed with patient. Paperwork done. Taper steroids. DC antibiotics. Oxygen for comfort. Continue Coumadin Discussion and discharge planning more than 35 minutes Consultation: Dr. Rick and partners from pulmonary Past medical history to include: Atrial fibrillation, lung cancer treated with chemotherapy 2019, COPD, hypertension, hyperlipidemia, home oxygen 4 L, anxiety depression Social history: At [facility] [place] currently requiring a wheelchair. Smokes 2 packs a day from age of 10. Stopped in 2018. Drinks one or 2 beers a weak Family history: Reviewed, noncontributory to presentation Physical examination: VITAL SIGNS: 98.1, 100, 22, 133 with 77, 91% on 8 L GENERAL: Sitting up in a bed, short of breath, tired, congested cough EYES: Pupils equal. Conjunctiva normal. HEENT: External appearance of nose and ears normal, posterior pharynx: Raw red. Some white spots. NECK: JVD not raised; masses not palpable. HEART: First and second heart sounds are normal; no edema. LUNGS: Respiratory rate increased, decreased breath sounds , coarse breath sounds wheezing. ABDOMEN: Soft, nontender, liver spleen not palpable, no masses palpable. PSYCH: Alert and oriented x3; mood and affect anxious. INVESTIGATIONS, reviewed in the clinical context: August 31: INR 2.13 CT chest without contrast: Extensive bilateral pulmonary infiltrates and emphysema. August 25: INR 1.7 Influenza type A, diabetes, RSV, COVID-19 [PCR]: Not detected White count 14.9 hemoglobin 9.2 platelets 277 sodium 129 potassium 4.3 BUN 13 creatinine 0.57 ProBNP 2030 Coronavirus [PCL]: Not detected EKG tracing personally reviewed by me-atrial fibrillation. Nonspecific ST-T wave changes. Rate 87 Chest x-ray film personally reviewed by me-bilateral scattered infiltrates. Possible chronic element. Assessment and plan: - Bilateral pneumonia. Suspect gram-negative organism: [Negative for influenza COVID] not improving IV cefepime . Antibiotic course completed -Suspect underlying pulmonary fibrosis or interstitial cancer. Per Dr. Rick. Either way prognosis is guarded -Sepsis from pneumonia IV fluids. -Acute pharyngeal candidiasis from steroids antibiotics. Diflucan oral -Acute severe COPD exacerbation, steroid dependent in an ex-smoker. : Advanced.: Slow to respond nebulized bronchodilators, IV and inhaled steroids, nebulized long-acting bronchodilator. -Acute on chronic hypoxic respiratory failure from underlying COPD exacerbation: Slow to respond, On 8 L of nasal cannula -Persistent atrial fibrillation, rate controlled Coumadin, Toprol-XL 150 mg a day and 100 mg at night digoxin 125 g daily -Essential hypertension Toprol-XL 150 mg the morning, 100 mg at night, amlodipine 2.5 mg daily -Anxiety depression not otherwise specified continue with Celexa 20 mg daily at bedtime -Chronic medical debility currently using a wheelchair Fall precautions -Coumadin monitoring -Normocytic anemia of chronic disease Iron deficiency anemia. -Possible right biceps tendon rupture Orthopedics Dr. Fisher. Right arm sling as needed. -DO NOT RESUSCITATE Disposition: [facility] Patient Condition at Discharge: Stable Plan - Discharge Summary Discharge Rx Participant: No New Discharge Prescriptions: New predniSONE 10 mg PO DAILY #30 tab Fluconazole [Diflucan] 100 mg PO DAILY #30 tab Continue Digoxin [Digitek] 125 mcg PO DAILY@0600 Isosorbide Mononitrate [Isosorbide Mononitrate ER] 30 mg PO DAILY@0800 Metoprolol Succinate [Toprol Xl] 150 mg PO DAILY@0800 Citalopram Hydrobromide [Citalopram HBr] 20 mg PO HS@2100 Ipratropium-Albuterol Nebulize [Duoneb 0.5 mg-3 mg/3 ml Soln] 3 ml INHALATION RT-Q6H Multivitamins, Thera [Multivitamin (formulary)] 1 tab PO DAILY@1700 Aspirin EC [Ecotrin Low Dose] 81 mg PO DAILY@1700 Atorvastatin Calcium [Lipitor] 40 mg PO HS@2100 guaiFENesin 400 mg PO TID@0600,1400,2200 Montelukast Sodium [Singulair] 10 mg PO HS@2100 amLODIPine [Norvasc] 5 mg PO DAILY@0800 tab Na Phos,M-B/Na Phos,Di-Ba [Fleet Adult] 133 ml RECTAL DAILY PRN PRN Reason: Constipation Warfarin [Coumadin] 2.5 mg PO DAILY@1700 Cyclobenzaprine [Flexeril] 5 mg PO HS@2100 Budesonide/Formoterol Fumarate [Symbicort 160-4.5 Mcg Inhaler] 2 puff INHALATION RT-BID@0800,1700 Metoprolol Succinate (ER) [Toprol XL] 100 mg PO HS@2100 Pregabalin [Lyrica] 50 mg PO TID@0800,1200,1700 #9 cap Magnesium Hydroxide [Milk of Magnesia] 2,400 mg PO DAILY PRN PRN Reason: Constipation bisacodyL [Dulcolax] 10 mg RECTAL DAILY PRN PRN Reason: Constipation Acetaminophen [Tylenol 8 Hour] 650 mg PO Q4H PRN PRN Reason: Pain Pantoprazole [Protonix] 40 mg PO DAILY@0600 Melatonin 6 mg PO HS@2100 Changed Furosemide [Lasix] 40 mg PO BID@0800,1700 #0 Discontinued predniSONE See Taper PO DAILY@0800 Discharge Medication List Citalopram Hydrobromide [Citalopram HBr] 20 mg PO HS@209905/13/19 [History] Digoxin [Digitek] 125 mcg PO DAILY@59905/13/19 [History] Isosorbide Mononitrate [Isosorbide Mononitrate ER] 30 mg PO DAILY@79905/13/19 [History] Metoprolol Succinate [Toprol Xl] 150 mg PO DAILY@79905/13/19 [History] Aspirin EC [Ecotrin Low Dose] 81 mg PO DAILY@169912/05/20 [History] Atorvastatin Calcium [Lipitor] 40 mg PO HS@209912/05/20 [History] Ipratropium-Albuterol Nebulize [Duoneb 0.5 mg-3 mg/3 ml Soln] 3 ml INHALATION RT-Q6H 12/05/20 [History] Multivitamins, Thera [Multivitamin (formulary)] 1 tab PO DAILY@169912/05/20 [History] guaiFENesin 400 mg PO TID@0600,1400,2200 12/05/20 [History] Montelukast Sodium [Singulair] 10 mg PO HS@209905/23/21 [History] Budesonide/Formoterol Fumarate [Symbicort 160-4.5 Mcg Inhaler] 2 puff INHALATION RT-BID@0800,1700 08/05/21 [History] Metoprolol Succinate (ER) [Toprol XL] 100 mg PO HS@209908/05/21 [History] Pregabalin [Lyrica] 50 mg PO TID@0800,1200,1700 #9 cap 08/12/21 [Rx] amLODIPine [Norvasc] 5 mg PO DAILY@0800 tab 08/12/21 [Rx] Acetaminophen [Tylenol 8 Hour] 650 mg PO Q4H PRN 08/23/21 [History] Cyclobenzaprine [Flexeril] 5 mg PO HS@209908/23/21 [History] Magnesium Hydroxide [Milk of Magnesia] 2,400 mg PO DAILY PRN 08/23/21 [History] Melatonin 6 mg PO HS@209908/23/21 [History] Na Phos,M-B/Na Phos,Di-Ba [Fleet Adult] 133 ml RECTAL DAILY PRN 08/23/21 [History] Pantoprazole [Protonix] 40 mg PO DAILY@0600 08/23/21 [History] Warfarin [Coumadin] 2.5 mg PO DAILY@1700 08/23/21 [History] bisacodyL [Dulcolax] 10 mg RECTAL DAILY PRN 08/23/21 [History] Fluconazole [Diflucan] 100 mg PO DAILY #30 tab 08/31/21 [Rx] Furosemide [Lasix] 40 mg PO BID@0800,1700 #0 08/31/21 [Rx] predniSONE 10 mg PO DAILY #30 tab 08/31/21 [Rx] Follow up Appointment(s)/Referral(s): Altaf García MD [Primary Care Provider] - 1-2 days
[2021-08-31] MEDS ORDERED: WARFARIN 3 MG TAB PO ONE (18:00)
== END 2021-08-31 14:38 | disposition hospice, inpatient (51) | DRG 871 ==
LOC: EC 14:28 → 4SSUR 16:29
PROVIDERS: ADMIT Hospitalist; ATTEND Hospitalist
DX: A41.50 Gram-negative sepsis, unspecified (principal); J96.21 Acute and chronic respiratory failure with hypoxia; J15.6 Pneumonia due to other Gram-negative bacteria; I48.19 Other persistent atrial fibrillation; B37.89 Other sites of candidiasis; N39.0 Urinary tract infection, site not specified; J84.9 Interstitial pulmonary disease, unspecified; Z51.5 Encounter for palliative care; Z66 Do not resuscitate; J43.9 Emphysema, unspecified; I25.10 Atherosclerotic heart disease of native coronary artery without angina pectoris; I11.0 Hypertensive heart disease with heart failure; T38.0X5A Adverse effect of glucocorticoids and synthetic analogues, initial encounter; D63.8 Anemia in other chronic diseases classified elsewhere; R53.81 Other malaise; S46.211A Strain of muscle, fascia and tendon of other parts of biceps, right arm, initial encounter; X58.XXXA Exposure to other specified factors, initial encounter; F41.8 Other specified anxiety disorders; R91.1 Solitary pulmonary nodule; I50.9 Heart failure, unspecified; J84.10 Pulmonary fibrosis, unspecified; Z20.822 Contact with and (suspected) exposure to COVID-19; E78.5 Hyperlipidemia, unspecified; Z87.891 Personal history of nicotine dependence; Z99.81 Dependence on supplemental oxygen; Z92.21 Personal history of antineoplastic chemotherapy; Z85.118 Personal history of other malignant neoplasm of bronchus and lung; Z79.899 Other long term (current) drug therapy; Z79.82 Long term (current) use of aspirin; Z79.51 Long term (current) use of inhaled steroids; Z79.01 Long term (current) use of anticoagulants
CPT/HCPCS: 36415; 71045; 71046; 71250; 80048; 80053; 83605; 83880; 84132; 84145; 84484; 85025; 85610; 85730; 87040; 87070; 87205; 87635; 87636; 93005; 94640; 94667; 94760; 96374; 99285